=== PATIENT | female | born 1940 | race Caucasian/White ===

== ENCOUNTER 2023-02-06 11:34 | Outpatient (OUT) | payer MEDICARE, SELFPAY ==
[2023-02-06 12:27] LABS: Estimated Average Glucose 103 mg/dL; Glycohemoglobin A1C 5.2 % (4.5-6.2)
[2023-02-06 13:25] LABS: Anion Gap 12.1; BUN Creatinine Ratio 29.1; Calcium 9.2 mg/dL (8.5-10.1); Carbon Dioxide 28.3 mmol/L (21.0-32.0); Chloride 104 mmol/L (98-107); Estimated GFR (African America >60 (>=60); Estimated GFR (Non-African Ame 51 (>=60); Glucose 102 mg/dL (74-106); Potassium 4.4 mmol/L (3.5-5.1); Sodium 140 mmol/L (136-145)
== END 2023-02-06 11:35 | disposition home or self-care (01) ==
PROVIDERS: PCP Internal Medicine; Visit Provider Internal Medicine
DX: R73.02 Impaired glucose tolerance (oral) (principal); N18.31 Chronic kidney disease, stage 3a
CPT/HCPCS: 36415; 80048; 83036

== ENCOUNTER 2023-02-19 13:11 | Outpatient (OUT) | payer MEDICARE, SELFPAY ==
--- NOTE | 2023-02-19 14:31 | PM.CN ---
Consult Note: HPI Data of Consult Patient: new to practice Consult date: 02/19/23 Requesting Physician: eJnnifer Damon MD Primary Care Provider: Max Bruce, Consult Narrative Reason for consult: low back, right leg, left knee pain Narrative: 83yof who presents for evaluation. low back pain, right leg pain, left knee pain that has been ongoing for years and continues to worsen. has had multiple right hip surgeries, as well as lumbar fusion. does not remember specific fusion levels. has been told she needs left knee replacement, but has put this off. previously had left knee injection, with short lived relief. uses various medications, including tramadol, with some benefit. engages in provider directed home exercises >6 weeks, with minimal benefit. denies adverse med side effects. cc:: CC: Jennifer Damon MD Review of Systems ROS Status of ROS 10 or more systems reviewed and unremarkable except as noted in history and below Exam Narrative Exam Narrative: Psych-alert and oriented x 3. Attentive and appropriate, constitutionally normal, displays normal mood and affect per situation. There are no obvious deficits in memory, reasoning, or intellect.? Skin-no obvious rashes, bruising, erythema noted to the patient's area of pain.? Extremities- extremities are warm with minimal edema and palpable pulses. Lumbar-tenderness to palpation noted in the lumbar spine and paraspinal musculature. Pain is elicited with flexion, extension, and lateral rotation of the lumbar spine. Range of motion is diminished with these motions. Facet loading maneuvers are positive. Strength-noted to be unremarkable with the exception of decreased strength rated at 4 out of 5 in right quadriceps femoris, anterior tibialis. Sensory-no notable sensory deficits in the bilateral lower extremities to touch or pinprick in all dermatomal distributions with the exception to decreased sensation to the right L3, 4, 5 dermatomal distribution Knee-examination of the left knee reveals tenderness to palpation over the superior, inferior, lateral, and medial aspect of the knee.? Some swelling is noted without erythema. Pain is elicited with flexion and extension of the knee both actively and passively.? Some grinding is noted with these motions.? There is no notable ligamental laxity or instability. Coordination remains intact.? Gait remains non-antalgic. Assessment and Plan Assessment and Plan (1) Lumbar stenosis with neurogenic claudication: (2) Lumbar spondylosis: (3) Lumbar postlaminectomy syndrome: (4) Unilateral primary osteoarthritis, left knee: Plan 83yof who presents for evaluation. failed conservative measures, as noted above. given worsening symptoms, would like her to update imaging of lumbar spine. will have her undergo lumbar CT myelogram for further info. too claustrophobic to undergo MRI. for her left knee pain, will have her scheduled for left genicular nerve blocks. she is in agreement. medications reviewed, no changes. follow up after block and imaging complete.
== END 2023-02-19 13:12 | disposition home or self-care (01) ==
LOC: PM 13:12
PROVIDERS: PCP Internal Medicine; Visit Provider Anesthesiology
DX: M48.062 Spinal stenosis, lumbar region with neurogenic claudication (principal); M47.816 Spondylosis without myelopathy or radiculopathy, lumbar region; M96.1 Postlaminectomy syndrome, not elsewhere classified; M17.12 Unilateral primary osteoarthritis, left knee
CPT/HCPCS: G0463

== ENCOUNTER 2023-03-16 07:49 | Day surgery (SDC) | payer MEDICARE, SELFPAY ==
[2023-03-16] VITALS (7 sets, daily range): BP systolic 160–177; BP diastolic 84–108; PULSE 65–73; TEMP 36.8; O2SAT 95–99
--- NOTE | 2023-03-16 | FL_ITS ---
The [address] [address] Patient Name: KAM BRENNAN MRN: [id number] date: 1940 Sex: F Assigned Patient Location: [place] Current Patient Location: Accession/Order Number: [id number] Exam Date: 03/16/2023 08:35 Report Date: 03/16/2023 11:21 At the request of: ANDRIUS GIEDRAITIS Procedure: FL Myelogram inj procedure EXAMINATION: FL Myelogram inj procedure HISTORY: COMPARISON: No relevant comparison available. FLUOROSCOPY TIME: Fluoro time measures 1.4 minutes and 5 images were obtained. TECHNIQUE: After obtaining the patient's informed consent, a lumbar myelogram was performed in the usual sterile manner via lumbar puncture. Standard level fluoroscopic mode of operation utilized. 12 cc of Omnipaque 240 FINDINGS: Moderate to severe degenerative changes of the spine. Normal postcontrast opacification of the thecal sac. Contour deformity noted anteriorly at all levels likely related to degenerative disc/osteophyte complexes. FL/FL Myelogram inj procedure IMPRESSION: Technically successful lumbar myelogram Electronically authenticated by: LUISA BURGOS Date: 03/16/2023 11:21
--- NOTE | 2023-03-16 07:57 | CT_ITS ---
[address] [address] Patient Name: KAM BRENNAN MRN: [id number] date: 1940 Sex: F Assigned Patient Location: [place] Current Patient Location: [place] Accession/Order Number: [id number] Exam Date: 03/16/2023 09:15 Report Date: 03/19/2023 04:20 At the request of: CIRA CRUZEDRAAMALIA Procedure: CT lumbar spine w con EXAM: CT lumbar spine w con HISTORY: Post Laminectomy Syndrome COMPARISON: None. TECHNIQUE: CT lumbar myelogram was performed and submitted for interpretation. Automated dose lowering techniques and/or adjustment disorder made according to patient size FINDINGS: There is contrast opacification noted throughout the thecal sac within the lower thoracic and lumbar spine. Laminectomies noted at the L3-L4 level. There is severe degenerative disc disease noted throughout the lumbar spine most significant at the T12-L1 and L1-L2 disc spaces. There is moderate levoconvex curvature of the lumbar spine centered at L1-L2. Trace degenerative retrolisthesis at L1-L2. T12-L1: Disc osteophyte complex visualized effacing the ventral thecal sac without significant central canal narrowing. No significant neuroforaminal narrowing is visualized. L1-L2: Disc bulge with endplate osteophytes with associated ligamentum flavum thickening and facet arthropathy, there is mild central canal narrowing the central canal measuring 8 mm in AP diameter. There is moderate to severe bilateral neuroforaminal narrowing secondary to facet arthrosis and disc osteophyte complex. L2-L3: Disc bulge with endplate osteophytic changes, moderate to severe bilateral facet arthropathy, there is severe central canal narrowing with the central canal measuring approximately 5 mm in AP diameter. There is moderate to severe left and severe right neuroforaminal narrowing. L3-L4: Postsurgical changes visualized secondary to laminectomies, central canal is patent. Mild bilateral neuroforaminal narrowing is visualized. L4-L5: No significant disc herniation visualized, the central canal is patent. There is moderate to severe left neuroforaminal narrowing visualized. L5-S1: No significant disc herniation visualized, the central canal is patent. Facet arthrosis visualized with no significant neuroforaminal narrowing. CT/CT lumbar spine w con IMPRESSION: 1. Severe multilevel degenerative disc disease with severe central canal narrowing at the L2-L3 level secondary to disc bulge with endplate osteophytic changes with associated ligamentum flavum thickening and facet arthropathy with moderate to severe left and severe right neuroforaminal narrowing. 2. Moderate levoconvex curvature of the lumbar spine with trace degenerative retrolisthesis at L1-L2. 3. Additional findings as described above. Electronically authenticated by: SAAD JOHNSON Date: 03/19/2023 04:20
[2023-03-16] MEDS: LIDOCAINE HCL 10 ML, SODIUM BICARBONATE 1 MEQ INJ (09:58)
--- NOTE | 2023-03-16 10:11 | PC.NURSE ---
09 Pt assisted with transfer to cart. Pt c/o pain to her lower back area and unable to lay on back. Pt taken to holding area laying on left side. [address] on cart. Pt transfers with minimal assist and is now able to lay on her back for the scan. 927 Pt taken back to holding area on cart. SR up x 2. Call light in reach. Bed low. Skin pink warm and dry. HOB 30 degrees. Bandaid dry and intact. States her back pain is so much better now than it was immediately after the injection. Ordered food. Pt given water to drink. Family brought to bedside to sit with patient. 939 Pt assisted with sitting up on side of bed to eat. Ate 75 % of meal. 954 Pt laying back down with HOB at 30 degrees. Pt conversing with family. Concerned with her BP being elevated. States that her watch will read her BP at home and its normally much lower that what the machine states currently. Discussed with pt to check it as soon as able to upon getting home and monitor the result. enc her to follow up with Dr Bruce next week if no improvment.
--- NOTE | 2023-03-16 11:05 | SUR.PREOP ---
03/09/23 Discussed with patient procedure, date,and time. Instructed her to be NPO after midnight on 03/16/23.
== END 2023-03-16 10:55 | disposition home or self-care (01) ==
LOC: FL 07:49
PROVIDERS: Radiology Diagnostic Radiology; PCP Internal Medicine; Visit Provider Anesthesiology
DX: M96.1 Postlaminectomy syndrome, not elsewhere classified (principal); M51.36 Other intervertebral disc degeneration, lumbar region; M48.061 Spinal stenosis, lumbar region without neurogenic claudication
CPT/HCPCS: 62284; 72132; 72265; 77003; Q9966

== ENCOUNTER 2023-03-19 12:27 | Outpatient (OUT) | payer MEDICARE, SELFPAY ==
--- NOTE | 2023-03-19 14:43 | PM.CN ---
Consult Note: HPI Data of Consult Patient: known to practice within the last 3 years Consult date: 03/19/23 Requesting Physician: Jennifer Damon MD Primary Care Provider: Max Bruce DO Consult Narrative Reason for consult: Low back pain Narrative: 83yof who presents for assessment. worsening axial low back pain that is worsened with standing and ambulation. recently underwent ct lumbar spine, which is significant for severe stenosis at multiple levels, worst at L1-2 and L2-3, as well as severe facet arthropathy in the lower lumbar spine. continues in a course of provider directed home exercises >3x/week for >6 weeks. uses tramadol as needed. denies adverse med side effects. cc:: CC: Jennifer Damon MD Review of Systems ROS Status of ROS 10 or more systems reviewed and unremarkable except as noted in history and below PFSH PFS Medical History Arthritis ?M19.90 - Unspecified osteoarthritis, unspecified site (ICD-10) Lumbar stenosis ?M48.061 - Spinal stenosis, lumbar region without neurogenic claudication (ICD-10) Post laminectomy syndrome ?M96.1 - Postlaminectomy syndrome, not elsewhere classified (ICD-10) Surgical History H/O total hip arthroplasty ?Z96.649 - Presence of unspecified artificial hip joint (ICD-10) History of hip surgery ?Z98.890 - Other specified postprocedural states (ICD-10) History of lumbar fusion ?Z98.1 - Arthrodesis status (ICD-10) History of removal of retained hardware ?Z98.890 - Other specified postprocedural states (ICD-10) Meds Home Medications and Allergies Home Medications Medication Instructions Recorded Confirmed Type calcium carbonate 600 mg-vitamin 1 tab PO DAILY 02/19/23 03/16/23 History D3 10 mcg (400 unit) tablet (Calcium 600 + D(3)) escitalopram oxalate 20 mg tablet 20 mg PO DAILY 02/19/23 03/16/23 History (Lexapro) magnesium 200 mg tablet 400 mg PO DAILY 02/19/23 03/16/23 History meloxicam 15 mg tablet 15 mg PO DAILY 02/19/23 03/16/23 History omeprazole 40 mg capsule,delayed 40 mg PO DAILY 02/19/23 03/16/23 History release tramadol 50 mg tablet 50 mg PO BID 02/19/23 03/16/23 History fish oil 1 tab PO DAILY 03/09/23 03/16/23 History lutein 1 tab PO DAILY 03/09/23 03/16/23 History multivitamin 1 tab PO DAILY 03/09/23 03/16/23 History potassium 1 tab PO DAILY 03/09/23 03/16/23 History vitamin D 1 tab PO DAILY 03/09/23 03/16/23 History vitamin c 1 tab PO DAILY 03/09/23 03/16/23 History hydrocodone 5 mg-acetaminophen 325 1 tab PO TID PRN pain #90 tabs 03/19/23 Rx mg tablet Allergies Allergy/AdvReac Type Severity Reaction Status Date / Time adhesive tape Allergy Rash Verified 03/16/23 09:38 percocet AdvReac disorientat Uncoded 03/16/23 09:38 ion Exam Narrative Exam Narrative: Psych-alert and oriented x 3. Attentive and appropriate, constitutionally normal, displays normal mood and affect per situation.? There are no obvious deficits in memory, reasoning, or intellect.? Skin-no obvious rashes, bruising, erythema noted to the patient's area of pain. Extremities- extremities are warm with minimal edema and palpable pulses. Lumbar-no significant tenderness to palpation noted in the lumbar spine and paraspinal musculature.? Pain is elicited with extension, and lateral rotation of the lumbar spine. Range of motion is slightly diminished with these motions due to pain. Facet loading maneuvers are positive bilaterally and do appear to be concordant with the patient's normal complaints of pain.? Coordination remains intact.? Gait remains non-antalgic. Assessment and Plan Assessment and Plan (1) Lumbar postlaminectomy syndrome: (2) Lumbar spondylosis: (3) Lumbar stenosis with neurogenic claudication: Plan 83yof who presents for assessment. failed conservative measures, as noted. imaging reviewed, as noted. given symptoms and imaging, prudent to attempt diagnostic bilateral l4-5, l5-s1 medial branch blocks under fluoroscopic guidance with intention of proceed to radiofrequency ablation. she is in agreement. meds reviewed. will have her discontinue tramadol and trial norco 5mg tid prn. will obtain uds today. PDMP reviewed. follow up after procedure.
== END 2023-03-19 12:28 | disposition home or self-care (01) ==
PROVIDERS: PCP Internal Medicine; Visit Provider Anesthesiology
DX: M96.1 Postlaminectomy syndrome, not elsewhere classified (principal); M47.816 Spondylosis without myelopathy or radiculopathy, lumbar region; M48.062 Spinal stenosis, lumbar region with neurogenic claudication
CPT/HCPCS: G0463

== ENCOUNTER 2023-04-16 10:42 | Day surgery (SDC) | payer MEDICARE, SELFPAY ==
[2023-04-16 11:44] VITALS: BP 167/89; PULSE 65; RESP 14; TEMP 36.6; O2SAT 96
[2023-04-16] MEDS: BUPIVACAINE HCL 0.25% PF 25 MG/10 ML VIAL 8 ML INJ (12:09)
[2023-04-16] MEDS: LIDOCAINE HCL 2% PF 100 MG/5 ML VIAL 4 ML INJ (12:09)
[2023-04-16 12:10] VITALS: PULSE 69; RESP 18; O2SAT 92
[2023-04-16 12:14] VITALS: BP 132/88; BP 134/84; PULSE 72; RESP 16; O2SAT 91
--- NOTE | 2023-04-16 12:14 | W.PM.PROCNOT ---
Date of procedure: 04/16/23 Pre-op diagnosis: Lumbar spondylosis Post-op diagnosis: same as pre-op Procedure: Procedure: Bilateral L4-5, L5-S1 medial branch block Medications: Bupivacaine 0.25% 5cc The patient was seen and examined in the preoperative holding area.? An informed consent was obtained and placed on the chart.? The patient was brought to the medical procedure unit and placed in the prone position.? A timeout was completed verifying correct patient, procedure site, positioning, plan, and special equipment.? Using aseptic technique, the needle was placed at left L4. Under direct fluoroscopic visualization a Quincke-tipped spinal needle was advanced to the junction of the superior articulating process with the transverse process at the designated medial branch segment.? Preceded by negative aspiration, the above-mentioned injectate was placed in 1 mL aliquots.? The procedure was repeated at left L5, S1.? The needle was removed and insertion site was covered. The same procedure, at the same levels, was completed on the right side. The patient was taken to the postprocedural recovery area and monitored for an appropriate length of time before found suitable for discharge in the company of a responsible adult. Anesthesia: Local Surgeon: Jennifer Damon Pathology: none sent Condition: stable Disposition: no change
== END 2023-04-16 12:22 | disposition home or self-care (01) ==
PROVIDERS: PCP Internal Medicine; Visit Provider Anesthesiology
DX: M47.816 Spondylosis without myelopathy or radiculopathy, lumbar region (principal)
CPT/HCPCS: 64493; 64494

== ENCOUNTER 2023-04-25 10:40 | Outpatient (OUT) | payer MEDICARE, SELFPAY ==
--- NOTE | 2023-04-25 11:06 | P.CN_ITS ---
Consult Note: HPI Data of Consult Patient: known to practice within the last 3 years Requesting Physician: Tressa Ayala NP Primary Care Provider: Max Bruce DO Consult Narrative Reason for consult: f/u Narrative: Norma Holt a pleasant 83 year old female presents for evaluation and management of chronic loww back pain. Today pain 9/10 deep ache, worse with activity. Patient reports greater than 80% pain relief and functional improvement immediately following and hours after bilateral L4-5 L5-S1 MBB #1, she was able to stand and walk much further and was active for hours after the procedure. cc:: CC: Tressa Ayala NP Review of Systems ROS Status of ROS 10 or more systems reviewed and unremark able except as noted in history and below Musculoskeletal Reports: back pain PFSH PFSH Medical History Arthritis ?M19.90 - Unspecified osteoarthritis, unspecified site (ICD-10) Lumbar stenosis ?M48.061 - Spinal stenosis, lumbar region without neurogenic claudication (ICD-10) Post laminectomy syndrome ?M96.1 - Postlaminectomy syndrome, not elsewhere classified (ICD-10) Surgical History History of removal of retained hardware ?Z98.890 - Other specified postprocedural states (ICD-10) History of hip surgery ?Z98.890 - Other specified postprocedural states (ICD-10) H/O total hip arthroplasty ?Z96.649 - Presence of unspecified artificial hip joint (ICD-10) History of lumbar fusion ?Z98.1 - Arthrodesis status (ICD-10) Meds Home Medications and Allergies Home Medications Medication Instructions Recorded Confirmed Type calcium carbonate 600 mg-vitamin 1 tab PO DAILY 02/19/23 04/16/23 History D3 10 mcg (400 unit) tablet (Calcium 600 + D(3)) escitalopram oxalate 20 mg tablet 20 mg PO DAILY 02/19/23 04/16/23 History (Lexapro) magnesium 200 mg tablet 400 mg PO DAILY 02/19/23 04/16/23 History meloxicam 15 mg tablet 15 mg PO DAILY 02/19/23 04/16/23 History omeprazole 40 mg capsule,delayed 40 mg PO DAILY 02/19/23 04/16/23 History release fish oil 1 tab PO DAILY 03/09/23 04/16/23 History lutein 1 tab PO DAILY 03/09/23 04/16/23 History multivitamin 1 tab PO DAILY 03/09/23 04/16/23 History potassium 1 tab PO DAILY 03/09/23 04/16/23 History vitamin D 1 tab PO DAILY 03/09/23 04/16/23 History vitamin c 1 tab PO DAILY 03/09/23 04/16/23 History hydrocodone 5 mg-acetaminophen 325 1 tab PO TID PRN pain #90 tabs 03/19/23 04/16/23 Rx mg tablet Allergies Allergy/AdvReac Type Severity Reaction Status Date / Time adhesive tape Allergy Rash Verified 04/16/23 11:41 percocet AdvReac disorientat Uncoded 04/16/23 11:41 ion Exam Narrative Exam Narrative: Psych-alert and oriented x 3. Attentive and appropriate, constitutionally normal, displays normal mood and affect per situation.? There are no obvious deficits in memory, reasoning, or intellect.? Skin-no obvious rashes, bruising, erythema noted to the patient's area of pain. Extremities- extremities are warm with minimal edema and palpable pulses. Lumbar-no significant tenderness to palpation noted in the lumbar spine and paraspinal musculature.? Pain is elicited with extension, and lateral rotation of the lumbar spine. Range of motion is slightly diminished with these motions due to pain. Facet loading maneuvers are positive bilaterally and do appear to be concordant with the patient's normal complaints of pain.? Coordination remains intact.? Gait remains non-antalgic. Constitutional Documenting provider has reviewed patient's vital signs: yes Common normals: no apparent distress, oriented x3, healthy appearing, alert and well nourished General appearance: cooperative [facility] Common normals: normocephalic, hearing grossly normal bilaterally and moist oral mucous membranes Head and scalp: normocephalic Eye Common normals: PERRL Pupil: PERRL Neck & C-Spine Common normals: full ROM General: normal visual inspection Chest Common normals: inspection of chest normal Respiratory Common normals: normal respiratory effort, no retractions and no use of accessory muscles Neuro Common normals: oriented x3, CN's II-XII intact bilaterally, moves all extremities, no focal motor deficits, no sensory deficits noted and deep tendon reflexes 2+ bilaterally Sensorium/orientation: alert Motor exam: strength 5/5 throughout and no movement abnormalities noted Psych Common normals: mental status grossly normal, thought process normal, cooperative, affect normal, speech normal and activity/motor behavior normal Speech: normal speech Thought process: normal thought process Results Additional Findings Additional findings: I have checked an [place] report on this patient today and there are no aberrancies noted in the prescribing history.?? A drug screen was completed and reviewed within the last year, and if there has not been a drug screen completed we ordered one today to monitor higher risk, state monitored pain medication use. As part of providing excellent, safe, comprehensive care, the following was completed at our patient's visit: 1. A medication reconciliation and review to ensure accurate knowledge of current/active medications, including asking our patients to inform us about any [id number] medications or herbal remedies/nutritional supplements/altern ative remedies. 2. A review to specifically ensure our patients have had annual screening for: elevated body mass index (BMI), tobacco use, screening for depression, and screening for unhealthy alcohol use. When screening is concerning, patients are provided with education and the specific recommendation to discuss the concerning health issue and treatment options with their primary care provider. Assessment and Plan Assessment and Plan (1) Lumbar spondylosis: Assessment and Plan: The patient has had over 3 months of moderate to severe low back pain with functional impairment and inadequate response to conservative care including NSAIDS (unless there are contraindication such as concurrent blood thinners), multiple oral or topical pain medications, and home exercise program/physical therapy.? Patient has completed >6 weeks of guided home exercise program and/or formal physical therapy program without relief of their symptoms.? I have reviewed the imaging of the lumbar spine and no red flags were identified.? The imaging reveals radiographic findings consistent with lx spondylosis We discussed the risks and benefits of the procedure with the patient, and we are NOT planning on using sedation as outlined in the guidelines from Medicare unless there is a documented reason that sedation would be strongly recommended.?? ?The procedure will be completed with fluoroscopic guidance.? (2) Restless leg syndrome: (3) Lumbar stenosis with neurogenic claudication: (4) Lumbar postlaminectomy syndrome: (5) Chronic prescription opiate use: Plan proceed with bilateral L4-5 L5-S1 mbb # 2 under fluoroscopy working towards thermal RFA start gabapentin 50mg HS for RLS, NC symptoms continue norco 5-325mg TID PRN for moderate to severe pain narcan today continue lexapro and mobic f/u 1 week after injection
== END 2023-04-25 10:41 | disposition home or self-care (01) ==
PROVIDERS: PCP Internal Medicine; Visit Provider Nurse Practitioner
DX: M47.816 Spondylosis without myelopathy or radiculopathy, lumbar region (principal); G25.81 Restless legs syndrome; M48.062 Spinal stenosis, lumbar region with neurogenic claudication; M96.1 Postlaminectomy syndrome, not elsewhere classified; Z79.891 Long term (current) use of opiate analgesic
CPT/HCPCS: G0463

== ENCOUNTER 2023-05-21 09:59 | Day surgery (SDC) | payer MEDICARE, SELFPAY ==
[2023-05-21 10:14] VITALS: BP 139/84; PULSE 67; RESP 18; TEMP 36.8; O2SAT 98
--- OUTSIDE RECORDS SUMMARY | 2023-05-21 10:20 | XMS_ITS | CCD ---
Author Name Unknown Address [address] [facility] [address] [place] [address] Organization [facility] Care Team Providers Care Strategic Account Director Name Role Phone Rosalio Roblero II Unavailable Max Bruce DO Primary Care Provider MAX BRUCE Primary Care Unavailable PEDRO GOFF Referring Unavailable MAX BRUCE Primary Care Unavailable PEDRO GOFF Attending Unavailable OSBALDO SILVERIO, ROSALIO Puente Referring UnavailMAX Burch Primary Care Unavailable Osbaldo SILVERIO, Rosalio Puente Attending Unavaildebbi e Max Bruce Primary Care Unavailable [place] II, Rosalio Puente Admitting Unavailabl e Osbaldo II, Rosalio Puente Admitting Unavailabl e [place] NUSRAT, Rosalio Puente Attending Unavailabl e Max Bruce Primary Care Unavailable Osbaldo II, Rosalio Puente Admitting Unavailabl e [place] II, Rosalio Puente Attending Unavailabl e Max Bruce Primary Care Unavailable [place] II, Rosalio Puente Attending Unavailabl e Max Bruce Primary Care Unavailable Osbaldo II, Rosalio Puente Admitting Unavailabl e [place] II, Rosalio Puente Admitting Unavailabl e Osbaldo II, Rosalio Puente Attending Unavailabl e Max Bruce Primary Care Unavailable [place] II, Rosalio Puente Admitting Unavailabl e [place] II, Rosalio Puente Attending Unavailabl e Max Bruce Primary Care Unavailable [place] II, Rosalio Puente Attending Unavailabl e Max Bruce Primary Care Unavailable Osbaldo SILVERIO, Rosalio Puente Admitting Unavailabl e OSBALDOROSALIO HERNANDEZ Consulting Unavailable ROSALIO ROBLERO Attending Unavailable ROSALIO ROBLERO Admitting Unavailable TEO, DR BERRY Attending Unavailable TEO, DR BERRY Admitting Unavailable TEO, DR BERRY Consulting Unavailable Max Bruce Unavailable Marisol ARGUETA, Jennifer Ojeda Attending Unavailable Marisol ARGUETA, Jennifer Ojeda Attending Unavailable Gievgeny ARGUETA, Jennifer Ojeda Attending Unavailable Allergies Allergy Classification Reported Allergen(s) Allergy Type Date of Onset Reaction(s) Facility (18 sources) Acetaminophen / oxyCODONE Drug Allergy Unknown [facility] Other (16 sources) Adhesive Tape; Translations: [adhesive tape] Propensity to adverse reactions 08-16-19 Unknown [facility] Rep[facility] (1 source) oxyCODONE Drug Allergy 08-16-19 [facility] Repository (4 sources) Adhesive Tape 1 x5yd *MEDICAL DEVICES AND SUPPLIES Propensity to adverse reactions Comment:Adhesi ve Tape [employer] [employer] Other Medications Current Medications Medication Drug Class(es) Dates Sig (Normalized) Sig (Original) acetaminophen 325 mg / HYDROcodone bitartrate 5 mg oral tablet (1 source) Opioid Agonist take 1 tablet by ritu th every eight hours HYDROcodone-Acetami nophen 5-325 MG 1 tablet as needed Oral every 8 hours Active ascorbic acid 1000 mg oral tablet (8 sources) Vitamin C take 1 tablet by ritu th every twenty-four hours calcium carbonate 1500 mg oral tablet (18 sources) take 1 tablet by ritu th every twelve hours take 1 tablet by mouth every twe lve hours cholecalciferol 0.05 mg oral capsule (18 sources) Vitamin D take 1 capsule by mo uth every twenty-four hours Fish Oils (18 sources) take 1 capsule by mouth once ro ly take 1 capsule by mouth once ro ly Fish Oil 1200 MG 1 capsule Orally Once a day Active hydrocortisone 10 mg/ml / neomycin 3.5 mg/ml / polymyxin b [id number] unt/ml otic suspension (1 source) Aminoglycoside Antibacterial, Polymyxin-class Antibacterial, Corticosteroid Start: 05-09-2023 Haathvlt-Dukxfvzvd-UI 3.5-24225-2 4 drops into affected ear Otic daily as needed for itching or discomfort for 30 days Apr, Active lutein 40 mg oral capsule (19 sources) take 1 capsule by mouth every twenty-fou r hours LUTEIN ORAL Take by mouth. 0 Active 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: Take by mouth. Magnesium (18 sources) take 1 tablet by mouth once laly y take 1 tablet by mouth once laly y Magnesium 500 MG 1 tablet with a meal Orally Once a day Active Multivitamin preparation (18 sources) Multivitamin Act bruce traMADol hydrochloride 50 mg oral tablet (18 sources) Opioid Agonist Start: 12-18-2022 take 2 tablets by mouth twice daily traMADol HCl 50 MG TAKE 2 TABLETS BY MOUTH TWICE A DAY Dec, Active Start: 08-01-2022 take 2 tablets by mo [facility] twice daily traMADol HCl 50 MG TAKE 2 TABLETS BY MOUTH TWICE A DAY Jul, Active Start: 05-27-2020 take 2 tablets by mo ut twice daily traMADol (ULTRAM) 50 mg tablet Take 100 mg by mouth twice daily. 0 05/27/2020 Active take 1 tablet by ritu th every twenty-four hours traMADol HCl 50 MG 1 tablet as needed Orally Once a day Active 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: Take 100 mg by mouth twice daily. Vitamin C 1000 MG (10 sources) take 1 tablet by ritu th once daily take 1 tablet by mouth once laly y Vitamin C 1000 MG 1 tablet Orally Once a day Active Completed/Discontinued Medications Medication Drug Class(es) Dates Sig (Normalized) Sig (Original) amoxicillin 500 mg oral capsule (7 sources) Penicillin-class Antibacterial Start: 08-10-2022 Amoxicillin 500 MG 4 capsules Orally 30-60 minutes prior to dentist appt. for 1 days Feb, Not-Taking/PRN escitalopram 20 mg oral tablet (19 sources) Serotonin Reuptake Inhibitor Start: 03-26-2020 take 1 tablet by mouth once daily escitalopram oxalate (LEXAPRO) 20 mg tablet Take 20 mg by mouth once daily. 0 03/26/2020 Active 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: Take 20 mg by mouth once daily. ketorolac tromethamine 5 mg/ml ophthalmic solution (1 source) Nonsteroidal Anti-inflammatory Drug, Cyclooxygenase Inhibitor Start: 08-18-2020 keTORolac (ACULAR) 0.5 % ophthalmic solution USE DIRECTED BY PHYSICIAN, IN OPERATIVE EYE, BEGINNING ONE DAY AFTER SURGERY 1 Bottle 0 08/18/2020 Active 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: USE DIRECTED BY Andres ALLEN, IN OPERATIVE EYE, BEGINNING ONE DAY AFTER SURGERY meloxicam 15 mg oral tablet (19 sources) Nonsteroidal Anti-inflammatory Drug Start: 03-29-2020 take 1 tablet by mouth once daily meloxicam (MOBIC) 15 mg tablet Take 15 mg by mouth once daily. 0 03/29/2020 Active 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: Take 15 mg by mouth once daily. omeprazole 40 mg delayed release oral capsule (19 sources) Proton Pump Inhibitor Start: 03-25-2020 take 1 capsule by mouth once daily omeprazole (PRILOSEC) 40 mg capsule Take 40 mg by mouth once daily. 0 03/25/2020 Active 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: Take 40 mg by mouth once daily. prednisoLONE acetate 10 mg/ml ophthalmic suspension (1 source) Corticosteroid Start: 08-18-2020 prednisoLONE acetate (PRED FORTE, ECONOPRED PLUS) 1 % ophthalmic suspension USE DIRECTED BY PHYSICIAN, IN OPERATIVE EYE, BEGINNING ONE DAY AFTER SURGERY 1 Bottle 0 08/18/2020 Active 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: USE DIRECTED BY Andres ALLEN, IN OPERATIVE EYE, BEGINNING ONE DAY AFTER SURGERY Problems Active Problems Problem Classification Problem Date Documented Da te Episodic/Chronic Anxiety disorders (10 sources) Generalized anxiety disorder; Translations: [Generalized anxiety disorder] Resolved: 05-19-2020 Chronic Chronic kidney disease (8 sources) Chronic kidney disease stage 3; Translations: [Chronic kidney disease, stage III (moderate)] 08-18-2020 Chronic Diabetes mellitus without complication (10 sources) Impaired glucose tolerance (oral); Translations: [Impaired glucose tolerance] Onset: 08-06-2022 Episodic Disorders of lipid metabolism (9 sources) Familial hypercholesterolemia ; Translations: [Familial hypercholesterolemia ] Onset: 08-06-2022 Chronic Esophageal disorders (3 sources) Gastro-esophageal reflux disease with esophagitis; Translations: [Gastroesophageal reflux disease with esophagitis without hemorrhage] Chronic Genitourinary symptoms and ill-defined conditions (7 sources) Mixed urinary incontinence; Translations: [Mixed incontinence] Chronic Immunizations and screening for infectious disease (1 source) Vaccination given; Translations: [Encounter for immunization] Episodic Malaise and fatigue (5 sources) Other fatigue; Translations: [OTHER FATIGUE] Onset: 08-03-2022 Episodic Menopausal disorders (7 sources) Menopausal symptom; Translations: [Menopausal and female climacteric states] Chronic Nutritional deficiencies (1 source) Vitamin D deficiency; Translations: [Vitamin D deficiency, unspecified] 08-18-2020 Chronic Osteoarthritis (20 sources) Osteoarthritis of knee; Translations: [Bilateral primary osteoarthritis of knee] Onset: 08-03-2021 Resolved: 08-03-2021 Chronic Other acquired deformities (1 source) Spondylolysis; Translations: [Spondylolysis, site unspecified] 08-18-2020 Episodic Other aftercare (1 source) Other watermaster (current) drug therapy Episodic Other bone disease and musculoskeletal deformities (1 source) Disorder of bone; Translations: [Other specified disorders of bone density and structure, other site] Episodic Other connective tissue disease (17 sources) History of total replacement of right hip joint; Translations: [Presence of right artificial hip joint] Chronic Other connective tissue disease (10 sources) Presence of right artificial hip joint; Translations: [PRESENCE RIGHT ARTIFICIAL HIP JOINT] Onset: 08-10-2021 Resolved: 11-18-2021 Chronic Other connective tissue disease (1 source) Presence of unspecified artificial hip joint; Translations: [Total hip replacement prosthesis] Chronic Other ear and sense organ disorders (1 source) Bilateral auditory canal chronic non-infective otitis externa; Translations: [Other otitis externa, bilateral] Chronic Other ear and sense organ disorders (1 source) Other otitis externa, bilateral Chronic Other ear and sense organ disorders (1 source) Impacted cerumen; Translations: [Impacted cerumen, left ear] Episodic Other injuries and conditions due to external causes (1 source) History of fall; Translations: [History of falling] Episodic Other nervous system disorders (7 sources) Chronic pain; Translations: [Other chronic pain] 08-18-2020 Chronic Other nervous system disorders (7 sources) Carpal tunnel syndrome; Translations: [Carpal tunnel syndrome, bilateral upper limbs] Chronic Other nervous system disorders (1 source) Other chronic pain Chronic Other nutritional; endocrine; and metabolic disorders (1 source) Obese class I; Translations: [Obesity, unspecified] Onset: 08-18-2020 08-18-2020 Chronic Other nutritional; endocrine; and metabolic disorders (1 source) Obesity; Translations: [Obesity, unspecified] Chronic Residual codes; unclassified (1 source) Other specified postprocedural states; Translations: [Status post hip surgery] Onset: 04-14-2022 Episodic Residual codes; unclassified (1 source) Pain, unspecified; Translations: [Pain] Onset: 04-14-2022 Episodic Residual codes; unclassified (1 source) Encounter for other specified prophylactic measures Episodic Residual codes; unclassified (1 source) Procedure not done; Translations: [Procedure and treatment not carried out because of patient's decision for unspecified reasons] Episodic Residual codes; unclassified (1 source) Family history of diabetes mellitus; Translations: [Family history of diabetes mellitus] Episodic Spondylosis; intervertebral disc disorders; other back problems (16 sources) Lumbar spondylosis; Translations: [Spondylosis without myelopathy or radiculopathy, lumbar region] Chronic Unclassified (1 source) M25.551 - Pain in right hip; Translations: [M25.551 - Pain in right hip] Onset: 08-15-2021 Unclassified (1 source) Z01.812 - Encounter for preprocedural laboratory examination; Translations: [Z01.812 - Encounter for preprocedural laboratory examination] Onset: 08-12-2021 Unclassified (1 source) M17.0 - Bilateral primary osteoarthritis of knee; Translations: [M17.0 - Bilateral primary osteoarthritis of knee] Onset: 08-03-2021 Past or Other Problems Problem Classification Problem Date Documented Da te Episodic/Chronic Chronic kidney disease (1 source) Chronic kidney disease Esophageal disorders (6 sources) Esophageal disorders; Translations: [Gastroesophageal reflux disease with esophagitis without hemorrhage] Other non-epithelial cancer of skin (1 source) Basal cell carcinoma of truncal skin; Translations: [Basal cell carcinoma of skin of other part of trunk] Onset: 04-25-2022 Episodic Other non-traumatic joint disorders (3 sources) Pain in right hip Onset: 08-10-2021 Resolved: 11-18-2021 Episodic Unclassified (1 source) SBE (subacute bacterial endocarditis) prophylaxis candidate Z29.89 Results Test Name Value Interpretation Reference Range Facility A1C with Estimated Average G luon 08-03-2022 A1C with Estimated Average Glu [facility] Other Basic Metabolic Panelon 07-13 Calcium [Mass/Vol] 9.7767373 mg/dL 8.5-10 .1 mg/dL [facility] Other CO2 [Moles/Vol] 27.12933391 mmol/L 21.0-3 2.0 mmol/L [facility] Other Creatinine [Mass/Vol] 1.16387994 mg/dL 0.55-1.02 mg/dL [facility] Other Potassium [Moles/Vol] 4.17234655 mmol/L 3.5-5.1 mmol/L [facility] Other Urea nitrogen [Mass/Vol] 28.2223853 mg/dL Critically high 7.0-18.0 mg/dL [facility] Other Basic Metabolic Panel see note [facility] Other Basic Metabolic Panel 140 mmol/L 136-145 mmol/L [facility] Other Basic Metabolic Panel 95 mg/dL 74-106 mg/dL [facility] Other Basic Metabolic Panel 52 mL/min/1.73m2 Critically low >=60 mL/min/1.73m2 [facility] Other Basic Metabolic Panel >60 mL/min/1.73m2 >=60 mL/min/1.73m2 [facility] Other CBC AUTO DIFFon 08-03-2022 BASO # 0.0 103/ul Normal 0.0-0.1 [facility] 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: Performed By: #### C BC #### [facility] [address] [place] [address] Dr. Sandra Radford Basophils/100 WBC (Bld) 0.5 % Normal 0.2-2.0 [facility] 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: Performed By: #### C BC #### [facility] [address] [address] [address] Sandra Radford EO # 0.3 103/ul Normal 0.0-0.7 [facility] 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: Performed By: #### C BC #### [facility] [address] [address] [address] Sandra Radford Eosinophils/100 WBC (Bld) 4.5 % Normal 0.9-7.0 [facility] 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: Performed By: #### C BC #### [facility] [address] [place] [address] Dr. Sandra Radford Erythrocyte distribution width (RBC) [Ratio] 13.8 % Normal 11.0-15.0 [facility] 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: Performed By: #### C BC #### [facility] [address] [place] [address] Dr. Sandra Radford Hematocrit (Bld) [Volume fraction] 39.7 % Normal 36.0-48.0 [facility] 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: Performed By: #### C BC #### [facility] [address] [place] [address] Dr. Sandra Radford Hemoglobin (Bld) [Mass/Vol] 12.8 g/dL Normal 12.0-16.0 [facility] 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: Performed By: #### C BC #### [facility] [address] [place] [address] Dr. Sandra Radford IG # 0.01 10e3/ul Normal 0.00-0.03 [facility] 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: Performed By: #### C BC #### [facility] [address] [place] [address] Dr. Sandra Radford IG % 0.2 % Normal 0.0-0.5 [facility] 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: Performed By: #### C BC #### [facility] [address] [place] [address] Dr. Sandra Radford LYMPH # 1.6 103/ul Normal 1.2-3.8 [facility] 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: Performed By: #### C BC #### [facility] [address] [place] [address] Dr. Sandra Radford Lymphocytes/100 WBC (Bld) 26.3 % Normal 20.5-60.0 [facility] 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: Performed By: #### C BC #### [facility] [address] [place] [address] Dr. Sandra Radford MANUAL DIFF REQ NO Normal [facility] 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: Performed By: #### C BC #### [facility] [address] [place] [address] Dr. Sandra Radford MCH (RBC) [Entitic mass] 29.9 pg Normal 26.7-34.0 [facility] 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: Performed By: #### C BC #### [facility] [address] [address] [address] Sandra Radford MCHC (RBC) [Mass/Vol] 32.2 g/dL Normal 29.9-35.2 [facility] 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: Performed By: #### C BC #### [facility] [address] [place] [address] Dr. Sandra Radford MCV (RBC) [Entitic vol] 92.8 fL Normal 81.0-99.0 [facility] 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: Performed By: #### C BC #### [facility] [address] [place] [address] Dr. Sandra Radford MONO # 0.7 103/ul Normal 0.3-0.8 [facility] 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: Performed By: #### C BC #### [facility] [address] [place] [address] Dr. Sandra Radford Monocytes/100 WBC (Bld) 10.6 % Normal 1.7-12.0 [facility] 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: Performed By: #### C BC #### [facility] [address] [place] [address] Dr. Sandra Radford NEUT # 3.6 103/ul Normal 1.4-6.5 [facility] 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: Performed By: #### C BC #### [facility] [address] [place] [address] Dr. Sandra Radford Neutrophils/100 WBC (Bld) 57.9 % Normal 43.0-75.0 [facility] 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: Performed By: #### C BC #### [facility] [address] [place] [address] Dr. Sandra Radford Platelet mean volume (Bld) [Entitic vol] 9.7 fL Normal 9.5-13.5 [facility] 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: Performed By: #### C BC #### [facility] [address] [place] [address] Dr. Sandra Radford PLT 240 103/ul Normal 150-450 [facility] 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: Performed By: #### C BC #### [facility] [address] [address] [address] Sandra Radford RBC 4.28 106/ul Normal 4.20-5.40 [facility] 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: Performed By: #### C BC #### [facility] [address] [place] [address] Dr. Sandra Radford WBC 6.2 103/ul Normal 4.0-11.0 [facility] 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: Performed By: #### C BC #### [facility] [address] [address] [address] Sandra Radford Complete Blood Count and Dif esther 08-03-2022 Anisocytosis Ql (Bld) [facility] Other Basophilic stippling LM Ql (d) [facility] [employer] Other RBC morphology finding Nom (d) [facility] [employer] Other GLYCOHEMOGLOBIN A1Con 2022 ADA RECOMMENDATION SEE BELOW Normal [facility] 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: Result Comment: ADA RECOMMENDED LIMIT 4.0 - 6.0 ADA THERAPEUTIC TARGET < 7.0 ACTION SUGGESTED > 7.0 Performed By: #### A 1C #### [facility] [address] [place] [address] Dr. Sandra Radford Glucose [Mass/Vol] 105 mg/dL Normal [facility] 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: Performed By: #### A 1C #### [facility] [address] [place] [address] Dr. Sandra Radford HbA1c (Bld) [Mass fraction] 5.3 % Normal 4.5-6.2 [facility] 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: Performed By: #### A 1C #### [facility] [address] [place] [address] Dr. Sandra Radford LIPID PROFILEon 08-03-2022 CHOL-HDL RATIO NORM SEE BELOW Normal [facility] 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: Result Comment: 3.3 - 4.4 LOW RISK 4.4 - 7.1 AVERAGE RISK 7.1 - 11.0 MODERATE RISK >11.0 HIGH RISK Performed By: #### T SH, LIPID, BMP #### [facility] [address] [address] [address] Sandra Radford Cholesterol [Mass/Vol] 260 mg/dL Critically high <=200 mg/dL [facility] 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: Performed By: #### T SH, LIPID, BMP #### [facility] [address] [address] [address] Sandra Radford Cholesterol in HDL [Mass/Vol] 58 mg/dL 40-60 mg/dL [facility] 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: Performed By: #### T SH, LIPID, BMP #### [facility] [address] [address] [address] Sandra Radford Cholesterol in LDL [Mass/Vol] 165.8 mg/dL Normal [facility] 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: Performed By: #### T SH, LIPID, BMP #### [facility] [address] [place] [address] Dr. Sandra Radford Cholesterol.total/C holesterol in HDL [Mass ratio] 4.5 {ratio} [facility] 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: Performed By: #### T SH, LIPID, BMP #### [facility] [address] [address] [address] Sandra Radford HDL NORMAL > or = 60 mg/dl - LO W CARDIOVASCULAR RISK <40 mg/dl - HIGH CARDIOVASCULAR RISK Normal [facility] 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: Performed By: #### T SH, LIPID, BMP #### [facility] [address] [address] [address] Sandra Radford LDL CALC NORMAL SEE BELOW Normal [facility] 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: Result Comment: <100 mg/dl OPTIMAL 100 - 129 mg/dl NEAR OR ABOVE OPTIMAL 130 - 159 mg/dl BORDERLINE HIGH 160 - 189 mg/dl HIGH >190 mg/dl VERY HIGH Performed By: #### T SH, LIPID, BMP #### [facility] [address] [address] [address] Sandra Radford Triglyceride [Mass/Vol] 181 mg/dL Critically high <=150 mg/dL [facility] 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: Performed By: #### T SH, LIPID, BMP #### [facility] [address] [address] [address] Sandra Radford VLDL CALC 36.2 mg/dL Normal [facility] 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: Performed By: #### T CHON LIPID, BMP #### [facility] [address] [address] [address] Sandra Radford Lipid Panelon 08-03-2022 Lipid Panel > or = 60 mg/dl - LO W CARDIOVASCULAR RISK <40 mg/dl - HIGH CARDIOVASCULAR RISK [facility] [employer] Other Lipid Panel SEE BELOW [facility] Other Lipid Panel 165.8 mg/dL [employer] [facility] [employer] Other Lipid Panel 36.2 mg/dL [employer] [employer] Other PROF CHEM 8 (BAS METB)on Anion gap [Moles/Vol] 12.2 mmol/L [facility] 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: Performed By: #### T CHON LIPID, BMP #### [facility] [address] [place] [address] Dr. Sandra Radford Calcium [Mass/Vol] 9.6 mg/dL Normal 8.5-10.1 [facility] 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: Performed By: #### T CHON LIPID, BMP #### [facility] [address] [place] [address] Dr. Sandra Radford Chloride [Moles/Vol] 105 mmol/L 98-107 mmol/L [facility] 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: Performed By: #### T CHON LIPID, BMP #### [facility] [address] [place] [address] Dr. Sandra Radford CO2 [Moles/Vol] 27.3 mmol/L Normal 21.0-32.0 [facility] 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: Performed By: #### T CHON LIPID, BMP #### [facility] [address] [place] [address] Dr. Sandra Radford Creatinine [Mass/Vol] 1.02 mg/dL Normal 0.55-1.02 [facility] 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: Performed By: #### T CHON LIPID, BMP #### [facility] [address] [address] [address] Sandra Radford EGFR-AF LATVIAN >60 Normal >=60 [facility] 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: Performed By: #### T SH, LIPID, BMP #### [facility] [address] [address] [address] Sandra Rdaford EGFR-NON AF LATVIAN 52 mL/min/1.73m2 Critically low >=60 [facility] 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: Performed By: #### T SH, LIPID, BMP #### [facility] [address] [address] [address] Sandra Radford Glucose [Mass/Vol] 95 mg/dL Normal 74-106 [facility] 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: Performed By: #### T SH, LIPID, BMP #### [facility] [address] [place] [address] Dr. Sandra Radford Potassium [Moles/Vol] 4.5 mmol/L Normal 3.5-5.1 [facility] 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: Performed By: #### T CHON, LIPID, BMP #### [facility] [address] [address] [address] Sandra Radford Sodium [Moles/Vol] 140 mmol/L Normal 136-145 [facility] 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: Performed By: #### T SH, LIPID, BMP #### [facility] [address] [address] [address] Sandra Radford Urea nitrogen [Mass/Vol] 28.0 mg/dL Critically high 7.0-18.0 [facility] 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: Performed By: #### T SH, LIPID, BMP #### [facility] [address] [place] [address] Dr. Sandra Radford Urea nitrogen/Creatinine [Mass ratio] 27.5 mg/mg [facility] 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: Performed By: #### T SH, LIPID, BMP #### [facility] [address] [place] [address] Dr. Sandra Radford TSHon 08-03-2022 TSH 1.952 uIU/mL Normal 0.358-3.740 [facility] 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: Performed By: #### T SH, LIPID, BMP #### [facility] [address] [address] [address] Sandra Karimi 04-14-2022 CNOV Office Visit (ORTHCO ) MIKANORMA ([id number]) 1940 F Date Time Provider Department 04/14/22 9:00 AM PEDRO GOFF During your visit today, we recorded the following information about you: Pedro Goff DO 04/14/2022 10:56 AM Signed CONSULT ORTHOPAEDIC: HIP PRIMARY CARE PHYSICIAN: Max Bruce DO REFERRING PROVIDER: Rosalio Roblero [address] [place] [address] HPI: 82-year-old female presents today with right hip pain that has been chronic in nature over the last year and a half but acutely worsened over the last 6 months. 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 She overall uses a walker for ambulation and has significant leg length difference and requires a shoe lift. She states over the last 6 months that her right hip and leg pain is worsening especially after working with physical therapy and was seen in [facility] and recommended nonweightbearing for 6 months with concerns for loosening. She denies any numbness and tingling in the right lower extremity and localizes the pain in the deep groin lateral aspect of the hip and anterior aspect of the femur. She denies any trauma and denies any feelings of the hip giving way. She also denies any recent fevers chills or illnesses. She is not on any chronic suppressive antibiotics and takes no blood thinners. Physical exam: Patient has approximately 2-1/2 to 3 inch leg length discrepancy with right leg being shorter than left. Incision is well-healed with no signs of erythema, drainage or palpable fluctuance. TTP notable over the lateral aspect of the hip, anterior groin and anterior aspect of the femur. ROM: Can flex to approximately 100 to 110 degrees and 0 degrees of extension with approximately 20 degrees of external rotation and 10 degrees of internal rotation. She has pain on the anterior groin and lateral aspect of the hip with external rotation. She has a positive Stinchfield and logroll. Strength is a 3/5 in hip flexion, 5/5 in knee flexion/extension, PF, DF, EHL, FHL. Sensation grossly intact L1-S1. She has a severely antalgic gait to the right lower extremity and unable to perform a Trendelenburg test secondary to weakness. Imaging: X-ray of the right hip and femur demonstrates prior right total hip arthroplasty with significant osteolysis and signs of femoral component lucency and loosening Plan: Long discussion was had with the patient about the nature of her pain. Patient presents with likely femoral component loosening. Long discussion was had with the patient about the previous instability within the hip as evidenced with the constrained liner. Patient states that she had approximately 4 dislocations previously requiring the constrained liner. We had a discussion of the role of the abductor and her present positioning of her greater trochanter. 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 Possibility of making the patient better is definitely there but there is the possibility of significantly worsening the patient's present situation. We will obtain inflammatory markers at this time. Continued nonoperative management will be had at this time, patient does not feel that she wants to undergo a significant operation with the risk associated. Encouragement to continue using her walker at all times. Plan for patient to follow-up on an as-needed basis. 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 The patient has been ordered: ESR CRP CONSULTS: Patient does not require consults for optimization at this time. ACTIVE PROBLEM LIST Obesity, Class I, Bmi 30-34.9 Chronic Pain Spondylolysis Vitamin D Deficiency Chronic Kidney Disease, Stage Iii (Moderate) ([facility]) Chronic Kidney Disease, Stage 3 Unspecified ([facility]) History of Total Right Hip Replacement Gastro-Esophageal Reflux Disease With Esophagitis, Without Bleeding SUBJECTIVE CHIEF COMPLAINT: Hip Pain HPI: Norma Brennan is a 82 year old patient here for evaluation and management of Right hip pain.Norma Brennan has had progressive problems with the hip(s) most of the day over the past 6 month(s) interfering with activities which include walking 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 The problem began limiting activities 1-6 months ago. Currently the pain in the joint is rated at 7 out of 10 with minimal activity. (more content not included)... Normal [facility] CRP SerPl-mCncon 04-14-2022 CRP [Mass/Vol] mg/L Normal <0.9 [facility] 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: Order Comment: Momo jain Type: BLOOD SPECIMEN Ordering Facility: [facility] Address: [address] [place] [address] Performed By: #### 1 [id number] #### [facility] CLIA [id number] [address] [place] [address] [place] ESR Westergren method (Bld) [Velocity]on 04-14-2022 ESR (Bld) [Velocity] 6 mm/h Normal 0-20 [facility] 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: Order Comment: Momo jain Type: BLOOD SPECIMEN Ordering Facility: [facility] Address: [address] [place] [address] Performed By: #### 4 [id number] #### [facility] CLIA [id number] [address] [place] [address] [place] XR HIP 3V PELV+ AP/LAT RTon 04-14-2022 XR HIP 3V PELV+ AP/LAT RT * * *Final Report* * * DATE OF EXAM: Apr 14 2022 8:36AM CRX [id number] - XR HIP 3V PELV+ AP/LAT RT / PROCEDURE REASON: Pain * * * * Physician Interpretation * * * * HISTORY (as given from clinical provider): Pain . Additional history provided by the performing technologist (if any): history of four hip revisions, chronic right hip pain TECHNIQUE: XR HIP 3V PELV+ AP/LAT RT COMPARISON: 10/20/2021 RESULT: Right-sided total hip arthroplasty with retention ring, supplemental acetabular screw and long cemented femoral stem. There is no change from the prior study. Again seen is a floating greater trochanter and bone deficiency of the intertrochanteric and lesser trochanter region. Thin cortex along the medial aspect of the proximal femoral shaft and anterior cortex of the proximal femoral shaft, both unchanged. Minimal axial narrowing of the left hip. Osteopenia. Incidental note of levoscoliosis of Emergency Department in the lumbar spine. No other significant abnormality. --- IMPRESSION: NO SIGNIFICANT CHANGE Predatory Animal Exterminator: ALIE Transcribe Date/Time: Apr 14 2022 8:42A Dictated by : CECELIA ALVAREZ MD This examination was interpreted and the report reviewed and electronically signed by: CECELIA ALVAREZ MD on Apr 14 2022 8:49AM EST [id number] Normal [facility] CNPNon 01-25-2022 CNPN Telephone (ORQ) NORMA BRENNAN ([id number]) 1940 F Date Time Provider Department 01/25/22 YECENIA MURPHY ORQ During your visit today, we recorded the following information about you: Shahana Mancini Pss 01/25/2022 11:22 AM Signed Please contact Pilar larson/ Dr. Rosalio Flores ([facility]) Looking to discuss patient diagnosis, to see if patient can be seen by Dr Cho Second Opinion ( component loosening and Aseptic) Please dial Pilar [phone] Carrol Matthew RN 01/25/2022 12:22 PM Signed Spoke to Pilar, explained Dr Cho only does revisions on his surgical patients or patients with a pathologic or metastatic disease. Allergies As of Date: 01/25/2022 (No Known Allergies) Date Reviewed: 12/16/2020 Reviewed by: Bettina Bass V, MD - Fully Assessed Reason for Visit: Ac/Dc Rewinder - Other [3602] Cmt: 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 for patient's ortho. Prescriptions as of 01/25/2022 - prednisoLONE acetate (PRED FORTE, ECONOPRED PLUS) 1 % ophthalmic suspension USE DIRECTED BY PHYSICIAN, IN OPERATIVE EYE, BEGINNING ONE DAY AFTER SURGERY - keTORolac (ACULAR) 0.5 % ophthalmic solution USE DIRECTED BY PHYSICIAN, IN OPERATIVE EYE, BEGINNING ONE DAY AFTER SURGERY - LUTEIN ORAL Take by mouth. - escitalopram oxalate (LEXAPRO) 20 mg tablet Take 20 mg by mouth once daily. - meloxicam (MOBIC) 15 mg tablet Take 15 mg by mouth once daily. - omeprazole (PRILOSEC) 40 mg capsule Take 40 mg by mouth once daily. - traMADol (ULTRAM) 50 mg tablet Take 100 mg by mouth twice daily. Problem List As Of Date 01/25/2022 Noted Resolved Obesity, Class I, BMI 30-34.9 [E66.9] 08/18/2020 Chronic pain [G89.29] Spondylolysis [M43.00] Vitamin D deficiency [E55.9] Chronic kidney disease, stage III (moderate) (H* Encounter Status:Closed by CARROL MATTHEW on 01/25/22 Normal [facility] CBC AUTO DIFFon 11-02-2021 BASO # 0.0 103/ul Normal 0.0-0.1 [facility] 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: Performed By: #### C BC #### [facility] [address] [place], [place] [address] Dr. Sandra Radford Basophils/100 WBC (Bld) 0.5 % Normal 0.2-2.0 [facility] 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: Performed By: #### C BC #### [facility] [address] [place], [place] [address] Dr. Sandra Radford EO # 0.2 103/ul Normal 0.0-0.7 [facility] 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: Performed By: #### C BC #### [facility] [address] [place] [address] Dr. Sandra Radford Eosinophils/100 WBC (Bld) 3.1 % Normal 0.9-7.0 [facility] 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: Performed By: #### C BC #### [facility] [address] [place] [address] Dr. Sandra Radford Erythrocyte distribution width (RBC) [Ratio] 14.4 % Normal 11.0-15.0 [facility] 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: Performed By: #### C BC #### [facility] [address] [place] [address] Dr. Sandra Radford Hematocrit (Bld) [Volume fraction] 34.1 % Critically low 36.0-48.0 [facility] 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: Performed By: #### C BC #### [facility] [address] [place] [address] Dr. Sandra Radford Hemoglobin (Bld) [Mass/Vol] 11.2 g/dL Critically low 12.0-16.0 [facility] 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: Performed By: #### C BC #### [facility] [address] [place] [address] Dr. Sandra Radford IG # 0.01 10e3/ul Normal 0.00-0.03 [facility] 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: Performed By: #### C BC #### [facility] [address] [place] [address] Dr. Sandra Radford IG % 0.2 % Normal 0.0-0.5 [facility] 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: Performed By: #### C BC #### [facility] [address] [place] [address] Dr. Sandra Radford LYMPH # 1.5 103/ul Normal 1.2-3.8 [facility] 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: Performed By: #### C BC #### [facility] [address] [place] [address] Dr. Sandra Radford Lymphocytes/100 WBC (Bld) 25.1 % Normal 20.5-60.0 [facility] 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: Performed By: #### C BC #### [facility] [address] [place] [address] Dr. Sandra Radford MANUAL DIFF REQ NO Normal [facility] 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: Performed By: #### C BC #### [facility] [address] [place] [address] Dr. Sandra Radford MCH (RBC) [Entitic mass] 32.7 pg Normal 26.7-34.0 [facility] 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: Performed By: #### C BC #### [facility] [address] [place] [address] Dr. Sandra Radford MCHC (RBC) [Mass/Vol] 32.8 g/dL Normal 29.9-35.2 [facility] 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: Performed By: #### C BC #### [facility] [address] [place] [address] Dr. Sandra Radford MCV (RBC) [Entitic vol] 99.4 fL Critically high 81.0-99.0 [facility] 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: Performed By: #### C BC #### [facility] [address] [place] [address] Dr. Sandra Radford MONO # 0.6 103/ul Normal 0.3-0.8 [facility] 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: Performed By: #### C BC #### [facility] [address] [place] [address] Dr. Sandra Radford Monocytes/100 WBC (Bld) 10.7 % Normal 1.7-12.0 [facility] 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: Performed By: #### C BC #### [facility] [address] [place] [address] Dr. Sandra Radford NEUT # 3.5 103/ul Normal 1.4-6.5 [facility] 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: Performed By: #### C BC #### [facility] [address] [place] [address] Dr. Sandra Radford Neutrophils/100 WBC (Bld) 60.4 % Normal 43.0-75.0 [facility] 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: Performed By: #### C BC #### [facility] [address] [place] [address] Dr. Sandra Radford Platelet mean volume (Bld) [Entitic vol] 10.2 fL Normal 9.5-13.5 [facility] 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: Performed By: #### C BC #### [facility] [address] [address] [address] Sandra Radford PLT 202 103/ul Normal 150-450 [facility] 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: Performed By: #### C BC #### [facility] [address] [address] [address] Sandra Radford RBC 3.43 106/ul Critically low 4.20-5.40 [facility] 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: Performed By: #### C BC #### [facility] [address] [address] [address] Sandra Radford WBC 5.8 103/ul Normal 4.0-11.0 [facility] 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: Performed By: #### C BC #### [facility] [address] [address] [address] Sandra Radford CRPon 11-02-2021 CRP [Mass/Vol] mg/L Normal <=1.0 [facility] 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: Performed By: #### C RP #### [facility] [address] [place] [address] Dr. Sandra Radford [facility] 2 mm/hr Normal <=30 [facility] 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: Performed By: #### S EDR #### [facility] [address] [address] [address] Sandra Radford NM bone 3 phaseon 10-26-2021 NM bone 3 phase [facility] [place] [place] [address] Nuclear Medicine Report Signed Patient: Norma Brennan MR#: [id number] 00 : 1940 Acct:[id number] Age/Sex: 81 / F ADM Date: 10/26/21 Loc: [place] Room: Type: [facility] Attending Dr: Rosalio Roblero II, MD Copies to: DO Lolis Hoyos MD Robert M Carlisle, MD Ordering Provider: Rosailo Roblero MD Date of Service: 10/26/21 NM/NM bone 3 phase: Right hip pain WHOLE-BODY BONE SCAN WITH THREE-PHASE IMAGING OF THE HIPS: CLINICAL HISTORY: Right hip pain. Previous right hip replacement and low back surgery. COMPARISON: Plain films and CT right femur 10/20/2021 Following the intravenous administration of 20.2 mCi of technetium 99m labeled MDP, flow images of the hips were obtained followed by immediate static blood pool images. There is subtle hyperemia around the femoral stem of the right hip prosthesis at the proximal shaft on the blood pool images. Three hours following injection, delayed views of the pelvis in multiple projections as well as minified views of the entire skeleton were obtained. There is photopenia at the right hip and femoral shaft related to the prosthesis with its long femoral stem. There is some increased uptake along the medial posterior aspect of the proximal femoral shaft on that side. There is also a subtle focus of increased uptake at the tip of the femoral stem at the distal femoral metadiaphysis. There is no prominent asymmetric increased uptake around the right hip joint. Patient has S-shaped thoracolumbar scoliotic curvature with some increased uptake at the spine, likely degenerative. There is asymmetric increased uptake at the right sternoclavicular joint that may be degenerative. There is also degenerative uptake at the thumbs on both sides and prominent increased uptake thought to be degenerative at the left knee. There is physiologic activity involving the urinary tract. Soft tissue accumulation in the left antecubital region is the site of injection. NM/NM bone 3 phase IMPRESSION: SLIGHT HYPEREMIA WELL MILD INCREASED UPTAKE ALONG THE PROXIMAL POSTERIOR MEDIAL ASPECT OF THE RIGHT FEMORAL SHAFT ADJACENT TO PATIENT'S PROSTHESIS. THIS IS NONSPECIFIC GIVEN THE CHANGES OF THE FEMUR ON RECENT PLAIN FILMS AND CT. ADDITIONAL AREAS OF DEGENERATIVE UPTAKE, DESCRIBED. Impression dictated by: Lolis Reddy M.D.10/26/2021 4:09 PM Dictation Location: [place] [address] Transcribed By: [facility] 10/26/21 7402 Dictated By: Lolis Reddy MD 10/26/21 1559 Signed By: 10/26/21 [address] [facility] [address] femur RT wo conon 022 CT femur RT wo con [facility] [address] [place] [address] [place] [address] CT Scan Report Signed Patient: Norma Brennan MR#: [id number] 00 : 1940 Acct:[id number] Age/Sex: 81 / F ADM Date: 10/20/21 Loc: [facility] Room: Type: [facility] Attending Dr: Rosalio Roblero II, MD Ordering Provider: Rosalio Roblero MD Date of Service: 10/20/21 CT/CT femur RT wo con: Right hip pain Copies to: Rosalio Roblero MD CT right femur 10/20/2021. CLINICAL DATA: Right hip pain radiating to the knee. TECHNIQUE: CT of the right femur was performed. Axial, sagittal, coronal, and three-dimensional reconstructions were created and reviewed. This CT exam was performed using one or more of the following dose reduction techniques: Automated exposure control, adjustment of the mA and/or kV according to patient size, or use of iterative reconstruction technique. COMPARISON: Plain radiographs pelvis and right femur 10/20/2021. FINDINGS: There are postsurgical changes related to total hip arthroplasty. Findings include a long-stemmed and cemented femoral implant. Many of the images are degraded by the presence of beam hardening artifact. 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 Other smaller bony fragments are noted. There is generalized osteopenia. No definite acute fracture is identified. No dislocation is seen. There are degenerative changes including joint space narrowing and marginal osteophyte formation all compartments of the knee. There is also chondrocalcinosis in both weight-bearing compartments of the knee. CT/CT femur RT wo con IMPRESSION: 1. Postsurgical changes related to total hip arthroplasty including a long-stemmed and cemented femoral implant. 2. 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 3. Osteopenia. 4. No definite acute fracture. Impression dictated by: Romeo Centeno Jr., M.D.10/20/2021 11:15 AM Dictation Location: [place] [address] Transcribed By: [facility] 10/20/21 1115 Dictated By: Romeo Centeno Jr, MD 10/20/21 1057 Signed By: 10/20/21 1115 [facility] XR femur RT 2V*on 10-20-2021 XR femur RT 2V* [facility] [address] [place] [address] [place] [address] XRay Report Signed Patient: Norma Brennan MR#: [id number] 00 : 1940 Acct:[id number] Age/Sex: 81 / F ADM Date: 10/20/21 Loc: [facility] Room: Type: REG CLI Attending Dr: Rosalio Roblero II, MD Ordering Provider: Rosalio Roblero MD Date of Service: 10/20/21 XR/XR femur RT 2V*: Right hip pain Copies to: Rosalio Roblero MD RIGHT FEMUR - 2 views COMPARISON: 10/20/2021 CT CLINICAL DATA: Right hip pain with recent hip aspiration. AP and lateral views were obtained. There is osteopenia. There is a hip prosthesis with long cemented femoral stem, similar the prior. Deformity at the proximal femur including the greater trochanter is again seen. No obvious new fracture is identified. There is no dislocation at the hip or knee. Degenerative change is seen at the knee with minor marginal spurring and chondrocalcinosis at the menisci. There is a tiny knee effusion. XR/XR femur RT 2V* IMPRESSION: OSTEOPENIA WITH STABLE APPEARANCE OF THE RIGHT FEMUR AND HARDWARE. Impression dictated by: Lolis Reddy M.D.10/20/2021 1:13 PM Dictation Location: [place] [address] Transcribed By: [facility] 10/20/21 1313 Dictated By: Lolis Reddy MD 10/20/21 1310 Signed By: 10/20/21 1313 [facility] XR pelvis 1-2Von 10-20-2021 XR pelvis 1-2V [facility] [address] [place] [address] [place] [address] XRay Report Signed Patient: Norma Brennan MR#: [id number] 00 : 1940 Acct:[id number] Age/Sex: 81 / F ADM Date: 10/20/21 [place] [facility] Room: Type: REG CLI Attending Dr: Rosalio Roblero II, MD Ordering Provider: Rosalio Roblero MD Date of Service: 10/20/21 XR/XR pelvis 1-2V: Right hip pain Copies to: Rosalio Roblero MD XR pelvis 1-2V 10/20/2021 9:05 AM SIGNS AND SYMPTOMS: Right hip pain PROTOCOL: Frontal radiograph the pelvis COMPARISON: None FINDINGS: There is total right hip arthroplasty hardware. There is evidence of prior revision. There is no fracture or hardware complication. There is mild narrowing of the left hip joint space. The bony ring of the pelvis is grossly intact. XR/XR pelvis 1-2V IMPRESSION: Total right hip arthroplasty hardware is noted without hardware complication or fracture. There is evidence of prior revision. Impression dictated by: Malachi Davis M.D.10/20/2021 1:08 PM Dictation Location: [facility]- Transcribed By: [facility] 10/20/21 1308 Dictated By: Malachi Davis II, MD 10/20/21 1303 Signed By: 10/20/21 1308 Normal [facility] XR hip RT 1Von 08-15-2021 XR hip RT 1V [facility] Main [place] [address] [place] [address] XRay Report Signed Patient: Norma Brennan MR#: [id number] : 1940 Acct:[id number] Age/Sex: 81 / F ADM Date: 08/15/21 Loc: [place] Room: Type: [facility] Attending Dr: Rosalio Roblero II, MD Ordering Provider: Rosalio Roblero MD Date of Service: 08/15/21 XR/XR hip RT 1V: RT HIP ASPIRATION Copies to: Rosalio Roblero MD Fluoroscopic assessment for RIGHT hip aspiration and HISTORY: RIGHT hip aspiration. 3 images. Total time 26 seconds. Fluoroscopic assessment for RIGHT hip aspiration performed. XR/XR hip RT 1V IMPRESSION: Fluoroscopic assessment for RIGHT hip aspiration. Impression dictated by: Edgard Paez M.D.08/15/2021 9:09 AM Dictation Location: [facility]-13 Transcribed By: ML 08/15/21908 Dictated By: Edgard Paez DO 08/15/21907 Signed By: 08/15/21908 Normal [facility] Basic Metabolic Panelon Calcium [Mass/Vol] 9.1 mg/dL Normal 8.2-10.2 [facility] 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: Result Comment: PERF ORMED BY: [place] [address] PATHOLOGIST SUPERVISOR MENDING MARIELLA KRAUSE M.D. Performed By: #### C OVID 19 [facility] #### [facility] [address] [place] [id number] [place] Chloride [Moles/Vol] 105 mmol/L Normal 95-114 [facility] 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: Performed By: #### C OVID 19 [facility] #### [facility] [address] [place] [id number] [place] CO2 [Moles/Vol] 25.9 mmol/L Normal 22.0-30.0 [facility] 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: Performed By: #### C OVID 19 [facility] #### [facility] [address] [place] [id number] [place] Creatinine [Mass/Vol] 0.99 mg/dL Normal 0.44-1.03 [facility] 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: Performed By: #### C OVID 19 [facility] #### [facility] [address] [place] [id number] [place] Estimated GFR ( Jahaira > 60 [facility] 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: Result Comment: GFR estimated reference range: According to KDOQI guidelines, <60 ml/min/1.73m2 is sufficient to diagnose a patient with chronic kidney disease. Performed By: #### C OVID 19 [facility] #### [facility] [address] [place] [id number] [place] Estimated GFR (Non- Am 54 [facility] 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: Performed By: #### C OVID 19 [facility] #### [facility] [address] [place] [id number] [place] Glucose [Mass/Vol] 92 mg/dL Normal 70-100 [facility] 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: Result Comment: [place] Glucose Reference Range is dependent on time and content of last meal. Glucose of more than 200 mg/dL in a nonstressed, ambulatory subject supports the diagnosis of Diabetes Mellitus. ADA recommended reference range Performed By: #### C OVID 19 [facility] #### [facility] [address] [place] [id number] [facility] Potassium [Moles/Vol] 4.7 mmol/L Normal 3.5-5.1 [facility] 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: Performed By: #### C OVID 19 [facility] #### [facility] [address] Sodium [Moles/Vol] 139 mmol/L Normal 136-146 [facility] 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: Performed By: #### C OVID 19 [facility] #### [facility] [address] Urea nitrogen [Mass/Vol] 32 mg/dL High 9-23 [facility] 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: Performed By: #### C OVID 19 [facility] #### [facility] [address] COVID-19 [facility] 08-12-2021 SARS-CoV-2 (COVID-19) RNA FABIAN+probe Ql (Unsp spec) Negative Normal Negative [facility] 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: Order Comment: Comme nt procedure 08/15/21 Healthcare Worker?: N Result Comment: Testing for SARS-CoV-2 by RT-PCR This test was developed and its performance characteristics determined by [employer] and validated at the [facility]. This test has not been FDA cleared or approved. This test has been authorized by FDA under an Emergency Use Authorization (EUA). This test has been validated in accordance with the FDA's Guidance Document (Policy for Diagnostics Testing in Laboratories Certified to Perform High Complexity Testing under CLIA prior to Emergency Use Authorization for Coronavirus Disease-2019 during the Public Health Emergency) issued on August 14, 2019. This test is only authorized for the duration of time the declaration that circumstances exist justifying the authorization of the emergency use of in vitro diagnostic tests for detection of SARS-CoV-2 virus and/or diagnosis of COVID-19 infection under section 564(b)(1) of the Act, 21 U.S.C. 360bbb-3(b)(1), unless the authorization is terminated or revoked sooner. PERFORMED BY: [address] [address] PATHOLOGIST SUPERVISOR MENDING MARIELLA KRAUSE M.D. Performed By: #### C OVID 19 [facility] #### [place] [id number] [facility] ECG 12 lead ECGon 08-12-2021 ECG 12 lead ECG [facility] Main [place] [address] [place] [address] Electrocardiograph Report Signed Patient: Norma Brennan MR#: [id number] : 1940 Acct:[id number] Age/Sex: 81 / F ADM Date: 08/12/21 Loc: Room: Type: [facility] Attending Dr: Rosalio Roblero II, MD Ordering Provider: Rosalio Roblero MD Date of Service: 08/12/2106/04/800 ECG/ECG 12 lead ECG: surgery 08/15/21 Copies to: Test Reason : Blood Pressure : / mmHG Vent. Rate : 068 BPM Atrial Rate : 068 BPM P-R Int : 194 ms QRS Dur : 084 ms QT Int : 398 ms P-R-T Axes : 046 035 065 degrees QTc Int : 423 ms Normal sinus rhythm Normal ECG No previous ECGs available Confirmed by FELICITAS VILLEDA MD ([id number]) on 08/12/2021 9:52:22 AM Referred By: TEO ROBLERO Electronically Signed By:FELICITAS VILLEDA MD Transcribed By: MUS Signed By Felicitas Villeda MD 0952 Normal [facility] C-Reactive Proteinon 022 C-Reactive Protein 1.4 mg/dL High 0.0-1.0 [facility] 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: Order Comment: Comme nt procedure 08/15/21 Healthcare Worker?: N Result Comment: PERF ORMED BY: [address] [place] [id number] PATHOLOGIST SUPERVISOR MENDING MARIELLA KRAUSE M.D. Performed By: #### C [address] #### [address] Complete Blood Count Auto Di ffon 08-03-2021 Basophils (Bld) [#/Vol] 0.0 10*3/uL Normal 0.0-0.2 [facility] 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: Order Comment: Comme nt procedure 08/15/21 Healthcare Worker?: N Performed By: #### C [address] #### [address] Basophils/100 WBC (Bld) 0.5 % Normal . [facility] 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: Order Comment: Comme nt procedure 08/15/21 Healthcare Worker?: N Performed By: #### C [address] #### [address] Eosinophils (Bld) [#/Vol] 0.2 10*3/uL Normal 0.0-0.45 [facility] 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: Order Comment: Comme nt procedure 08/15/21 Healthcare Worker?: N Performed By: #### C [address] #### [address] Eosinophils/100 WBC (Bld) 4.2 % Normal . [facility] 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: Order Comment: Comme nt procedure 08/15/21 Healthcare Worker?: N Performed By: #### C [address] #### [address] Erythrocyte distribution width (RBC) [Ratio] 14.7 % Normal 11.9-15.3 [facility] 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: Order Comment: Comme nt procedure 08/15/21 Healthcare Worker?: N Performed By: #### C [address] #### [address] Hematocrit (Bld) [Volume fraction] 39.6 % Normal 34.0-46.4 [facility] 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: Order Comment: Comme nt procedure 08/15/21 Healthcare Worker?: N Performed By: #### C [address] #### [address] Hemoglobin (Bld) [Mass/Vol] 12.9 g/dL Normal 11.8-15.4 [facility] 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: Order Comment: Comme nt procedure 08/15/21 Healthcare Worker?: N Performed By: #### C [address] #### [address] Lymphocytes (Bld) [#/Vol] 1.5 10*3/uL Normal 1.00-4.8 [facility] 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: Order Comment: Comme nt procedure 08/15/21 Healthcare Worker?: N Performed By: #### C [address] #### [address] Lymphocytes/100 WBC (Bld) 27.3 % Normal . [facility] 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: Order Comment: Comme nt procedure 08/15/21 Healthcare Worker?: N Performed By: #### C [address] #### [address] MCH (RBC) [Entitic mass] 31.0 pg Normal 24.7-34.3 [facility] 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: Order Comment: Comme nt procedure 08/15/21 Healthcare Worker?: N Performed By: #### C [address] #### [address] MCV (RBC) [Entitic vol] 95.4 fL Normal 80-100 [facility] 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: Order Comment: Comme nt procedure 08/15/21 Healthcare Worker?: N Performed By: #### C [address] #### [address] Mean Corpuscular HGB Conc 32.4 g/dL Normal 32.0-35.0 [facility] 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: Order Comment: Comme nt procedure 08/15/21 Healthcare Worker?: N Performed By: #### C [address] #### [place] [address] [place] Monocytes (Bld) [#/Vol] 0.5 10*3/uL Normal 0.0-0.8 [facility] 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: Order Comment: Comme nt procedure 08/15/21 Healthcare Worker?: N Performed By: #### C APOLLO 19 [facility] #### [facility] [address] [place] [id number] [facility] Monocytes/100 WBC (Bld) 9.8 % Normal . [facility] 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: Order Comment: Comme nt procedure 08/15/21 Healthcare Worker?: N Performed By: #### C [address] #### [facility] [address] [place] [address] [place] Neutrophils (Bld) [#/Vol] 3.2 10*3/uL Normal 1.8-7.7 [facility] 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: Order Comment: Comme nt procedure 08/15/21 Healthcare Worker?: N Performed By: #### C [address] #### [facility] [address] Neutrophils/100 WBC (Bld) 58.2 % Normal . [facility] 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: Order Comment: Comme nt procedure 08/15/21 Healthcare Worker?: N Performed By: #### C [address] #### [place] [address] [place] Nucleated RBC/100 WBC (Bld) [Ratio] 0.1 % Normal 0-0.5 [facility] 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: Order Comment: Comme nt procedure 08/15/21 Healthcare Worker?: N Performed By: #### C [address] #### [facility] [address] [place] [id number] [place] Platelet mean volume (Bld) [Entitic vol] 7.8 fL Normal 6.3-10.7 [facility] 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: Order Comment: Comme nt procedure 08/15/21 Healthcare Worker?: N Performed By: #### C [address] #### [facility] [address] [place] [id number] [place] Platelets (Bld) [#/Vol] 272 10*3/uL Normal 150-450 [facility] 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: Order Comment: Comme nt procedure 08/15/21 Healthcare Worker?: N Performed By: #### C OVID 19 [facility] #### [facility] [address] RBC (Bld) [#/Vol] 4.15 10*6/uL Normal 3.60-5.00 [facility] 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: Order Comment: Comme nt procedure 08/15/21 Healthcare Worker?: N Performed By: #### C OVID 19 [facility] #### [address] WBC (Bld) [#/Vol] 5.5 10*3/uL Normal 4.5-11.0 [facility] 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: Order Comment: Comme nt procedure 08/15/21 Healthcare Worker?: N Performed By: #### C OVID 19 [facility] #### [address] D-Dimer High Sensitivityon 0 08-03-2021 D-Dimer High Sensitivity 434 ng/mL High 0-243 [facility] 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: Order Comment: Reaso n for Exam Osteoarthritis of knees, bilateral Result Comment: The reference range for D-dimer is <243 ng/mL D-dimer units. D-dimer results must be used in conjunction with a clinical pretest probability (PTP) assessment model for deep vein thrombosis (DVT) and pulmonary embolism (PE). Results <230 ng/mL d-dimer units can be used as a negative predictor in patients with low or moderate probability for DVT/PE. Results above the exclusion threshold of 230 ng/ml D-dimer units for DVT/PE may indicate the need for further diagnostic testing. D-Dimer can be increased in hospitalized patients due to co-morbid conditions. PERFORMED BY: [place] [address] PATHOLOGIST SUPERVISOR MENDING MARIELLA KRAUSE M.D. Performed By: #### D DIMER, CRP, CBC, ESR #### [address] Erythrocyte Sedimentation Ra brian 08-03-2021 ESR (Bld) [Velocity] 7 mm/h Normal 0-29 [facility] 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: Order Comment: Comme nt procedure 08/15/21 Healthcare Worker?: N Result Comment: PERF ORMED BY: [place] [address] PATHOLOGIST SUPERVISOR MENDING MARIELLA KRAUSE M.D. Performed By: #### C OVID 19 [facility] #### [address] XR knee BI 4Von 08-03-2021 XR knee BI 4V [facility] [place] [address] XRay Report Signed Patient: Norma Brennan MR#: [id number] : 1940 Acct:[id number] Age/Sex: 81 / F ADM Date: 08/03/21 [place] [facility] [place]: Type: [facility] Attending Dr: Rosalio Roblero II, MD Ordering Provider: Rosalio Roblero MD Date of Service: 08/03/21 XR/XR knee BI 4V: Osteoarthritis of knees, bilateral Copies to: Rosalio Roblero MD 4 views both knee plain film COMPARISON:None HISTORY:Bilateral knee pain medially. Xavt-aw-yeic contact of the medial compartment of the LEFT knee identified. Mild remaining joint space narrowing of both knees present. Small supra patellar effusion seen. Diffuse osteopenia asia ntified. No fracture or dislocation. Moderate lateral LEFT patellar subluxation identified. Mild lateral RIGHT patellar subluxation identified. XR/XR knee BI 4V IMPRESSION:Advanced medial compartment degeneration on the LEFT. Remaining minor degenerative change. Impression dictated by: Edgard Paez M.D.08/03/2021 2:13 PM Dictation Location: [place] [address] Transcribed By: [facility] 08/03/211412 Dictated By: Edgard Paez DO 08/03/211411 Signed By: 08/03/21 1413 Normal [facility] XR knee BI 4V [facility] [employer] Other XR knee BI 4V [facility] [address] [place] [employer] Other XR knee BI 4V [address] [facility] [employer] Other XR knee BI 4[place] [address] [facility] [employer] Other XR knee BI 4V XRay Report [facility] [employer] Other XR knee BI 4V Signed [employer] Other XR knee BI 4V Patient: Lauro Brennan MR#: [id number] [employer] [employer] Other XR knee BI 4V : 1940 Acct:[id number] [employer] Other XR knee BI 4V Age/Sex: 81 / F ADM Date: 08/03/21 [employer] Other XR knee BI 4V Loc: [place] Room: Type : [facility] [employer] Other XR knee BI 4V Attending Dr: Rosalio Roblero II, MD [employer] Other XR knee BI 4V Ordering Provider: Rosalio Roblero MD [employer] Other XR knee BI 4V Date of Service: 08/03/21 [employer] Other XR knee BI 4V XR/XR knee BI 4V: Osteoarthritis of knees, bilateral [employer] Other XR knee BI 4V Copies to: Rosalio Roblero MD [employer] Other XR knee BI 4V 4 views both knee plain film [employer] Other XR knee BI 4V COMPARISON:None [employer] Other XR knee BI 4V HISTORY:Bilateral knee pain medially. [employer] Other XR knee BI 4V Calz-ng-josg contact of the medial compartment of the LEFT knee identified. Mild remaining joint [employer] Other XR knee BI 4V space narrowing of both knees present. Small supra patellar effusion seen. Diffuse osteopenia asia [employer] Other XR knee BI 4V ntified. No fracture or dislocation. Moderate lateral LEFT patellar subluxation identified. Mild [employer] Other XR knee BI 4V lateral RIGHT patellar subluxation identified. [employer] Other XR knee BI 4V XR/XR knee BI 4V [employer] Other XR knee BI 4V IMPRESSION:Advanced medial compartment degeneration on the LEFT. Remaining minor degenerative [employer] Other XR knee BI 4V change. [employer] Other XR knee BI 4V Impression dictated by: Edgard Paez M.D.08/03/2021 2:13 PM [employer] Other XR knee BI 4V Dictation Location: [place] [address] [employer] Other XR knee BI 4V Transcribed By: ML 08/03/21 [facility] [employer] Other XR knee BI 4V Dictated By: Edgard Paez DO 08/03/21 [facility] [employer] Other XR knee BI 4V Signed By: [employer] Other XR knee BI 4V 08/03/21 [facility] [employer] Other XR pelvis 1-2Von 08-03-2021 XR pelvis 1-2V [facility] Main [place] [address] [place] [address] XRay Report Signed Patient: Norma Brennan MR#: [id number] : 1940 Acct:[id number] Age/Sex: 81 / F ADM Date: 08/03/21 [place] [facility] [place]: Type: [facility] Attending Dr: Rosalio Roblero II, MD Ordering Provider: Rosalio Roblero MD Date of Service: 08/03/21 XR/XR pelvis 1-2V: Osteoarthritis of knees, bilateral Copies to: Rosalio Roblero MD Single view of the pelvis plain film HISTORY:Bilateral knee pain COMPARISON:None The visualized portion of the RIGHT hip arthroplasty unremarkable. Bony alignment appears adequate. Diffuse osteopenia. No acute bony findings identified. No focal soft tissue abnormality seen. XR/XR pelvis 1-2V IMPRESSION:Unremarkab le visualized the RIGHT hip arthroplasty. Diffuse osteopenia. Unremarkable LEFT hip. Impression dictated by: Edgard Paez M.D.08/03/2021 2:20 PM Dictation Location: [place] [address] Transcribed By: [facility] 08/03/21 1420 Dictated By: Edgard Paez DO 08/03/21 1419 Signed By: 08/03/21 1420 [facility] XR pelvis 1-2V XR/XR pelvis 1-2V: Osteoarthritis of knees, bilateral [employer] Other XR pelvis 1-2V Single view of the pelvis plain film [employer] Other XR pelvis 1-2V HISTORY:Bilateral knee pain [employer] Other XR pelvis 1-2V The visualized portion of the RIGHT hip arthroplasty unremarkable. Bony alignment appears [employer] Other XR pelvis 1-2V adequate. Diffuse osteopenia. [employer] Other XR pelvis 1-2V No acute bony findings identified. [employer] Other XR pelvis 1-2V No focal soft tissue abnormality seen. [employer] Other XR pelvis 1-2V XR/XR pelvis 1-2V [employer] Other XR pelvis 1-2V IMPRESSION:Unremarka b le visualized the RIGHT hip arthroplasty. Diffuse osteopenia. Unremarkable [employer] Other XR pelvis 1-2V LEFT hip. [employer] Other XR pelvis 1-2V Impression dictated by: Edgard Paez M.D.08/03/2021 2:20 PM [employer] Other XR pelvis 1-2V Transcribed By: PWS 08/03/21 1420 [employer] Other XR pelvis 1-2V Dictated By: Edgard Paez DO 08/03/21 1419 [employer] Other XR pelvis 1-2V 08/03/21 1420 [employer] Other Vital Signs Date Time Vital Sign Value Performing Clinician Facility 05-09-2023 11:30-0500 Body height 152.4 cm Max Ball Other [employer] Other 05-09-2023 11:30-0500 Body mass index (BMI) [Ratio] 30.81 kg/m2 Max Ball Other [employer] Other 05-09-2023 11:30-0500 Body weight 71.58 kg Max Ball Other [employer] Other 05-09-2023 11:30-0500 Diastolic blood pressure 77 mm[Hg] Max Ball Other [employer] Other 05-09-2023 11:30-0500 Respiratory rate 12 /min Max Ball Other [employer] Other 05-09-2023 11:30-0500 Systolic blood pressure 146 mm[Hg] Max Ball Other [employer] Other 08-03-2022 12:00-0400 Body height 152.4 cm Max Ball Other [employer] Other 08-03-2022 12:00-0400 Body mass index (BMI) [Ratio] 31.64 kg/m2 Max Ball Other [employer] Other 08-03-2022 12:00-0400 Body weight 73.48 kg Max Ball Other [employer] Other 08-03-2022 12:00-0400 Diastolic blood pressure 82 mm[Hg] Max Ball Other [employer] Other 08-03-2022 12:00-0400 Respiratory rate 12 /min Max Ball Other [employer] Other 08-03-2022 12:00-0400 Systolic blood pressure 137 mm[Hg] Max Ball Other [employer] Other 10-20-2021 09:45-0400 Body height 152.4 cm Rosalio [place] II Other [employer] Other 10-20-2021 09:45-0400 Body mass index (BMI) [Ratio] 28.9 kg/m2 Rosalio [place] II Other [employer] Other 10-20-2021 09:45-0400 Body weight 67.13 kg Rosalio [place] II Other [employer] Other 08-10-2021 15:45-0400 Body height 152.4 cm Rosalio Osbaldo II Other [employer] Other 08-10-2021 15:45-0400 Body mass index (BMI) [Ratio] 28.9 kg/m2 Rosalio Osbaldo II Other [employer] Other 08-10-2021 15:45-0400 Body weight 67.13 kg Rosalio [place] II Other [employer] Other 08-03-2021 12:00-0400 Body height 152.4 cm Rosalio Roblero II Other [employer] Other 08-03-2021 12:00-0400 Body mass index (BMI) [Ratio] 28.9 kg/m2 Rosalio Roblero II Other [employer] Other 08-03-2021 12:00-0400 Body weight 67.13 kg Rosalio Roblero II Other [employer] Other Encounters Encounter Date Encounter Type Care Provider Facility Start: 05-09-2023 End: 05-09-2023 ambulatory Max Teo Other [employer] Other Start: 05-09-2023 Office outpatient vi sit 25 minutes Max Bruce [facility] Start: 04-16-2023 End: 04-17-2023 [facility] Start: 03-19-2023 End: 03-20-2023 ambulatory Jennifer Damon MD Facility: [facility] Start: 02-19-2023 End: 02-20-2023 [facility]ulatory [facility] Start: 02-13-2023 End: 02-13-2023 ambulatory Max Teo Other [employer] Other Start: 02-13-2023 Telephone encounter Max Bruce [facility] Start: 02-07-2023 End: 02-07-2023 ambulatory Max Teo Other [employer] Other Start: 02-07-2023 Telephone encounter Max Teo RAMIREZ [facility] Start: 02-01-2023 End: 02-01-2023 ambulatory Max Bruce Other [employer] Other Start: 02-01-2023 Telephone encounter Max Bruce JAMES [facility] Start: 08-10-2022 End: 08-10-2022 ambulatory Max Bruce Other [employer] Other Start: 08-10-2022 Telephone encounter Max RAMIREZ [facility] Start: 08-03-2022 End: 08-04-[address] MAX BRUCE Facility: Start: 08-03-2022 Patient encounter procedure Max Bruce [facility] Start: 04-14-2022 End: 04-14-2022 ambulatory MAX BRUCE Facility:[facility] Start: 02-06-2022 End: 02-06-2022 ambulatory Rosalio Osbaldo II Other [employer] Other Start: 02-06-2022 Telephone encounter Rosalio [place] [facility] Start: 01-25-2022 Telephone encounter Yecenia hawkins PA-C Work Phone: [facility] [place] 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: Ac/Dc Rewinder - O ther (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 for patient's ortho./) Start: 01-19-2022 End: 01-19-2022 ambulatory Rosalio [place] Other [employer] Other Start: 01-19-2022 Telephone encounter Rosalio [place] II [facility] Start: 01-02-2022 End: 01-02-2022 ambulatory Rosalio [place] Other [employer] Other Start: 01-02-2022 Telephone encounter Rosalio [place] II [facility] Start: 11-30-2021 End: 11-30-2021 ambulatory Rosalio [place] Other [employer] Other Start: 11-30-2021 Telephone encounter Rosalio [place] II [facility] Start: 11-18-2021 End: 11-18-2021 ambulatory Rosalio [place] Other [employer] Other Start: 11-18-2021 Office outpatient vi sit 25 minutes Rosalio [place] II [facility] Start: 11-02-2021 End: 11-02-2021 ambulatory ROSALIO OSBALDO [place] [employer] Other Start: 11-02-2021 Telephone encounter Rosalio [place] II [facility] Start: 10-28-2021 End: 10-28-2021 ambulatory Rosalio [place] II Other [facility] Other Start: 10-28-2021 Telephone encounter Rosalio [place] II [facility] Start: 10-26-2021 End: 10-26-2021 ambulatory Rosalio M [place] II Facility:[facility] Start: 10-21-2021 End: 10-21-2021 ambulatory Rosalio [place] Other [facility] Other Start: 10-21-2021 Telephone encounter Rosalio [place] II [facility] Start: 10-20-2021 Office outpatient vi sit 25 minutes Rosalio [place] II [facility] Start: 10-20-2021 End: 10-20-2021 ambulatory Rosalio M Osbaldo II [facility] Other Start: 10-14-2021 End: 10-14-2021 ambulatory Rosalio [place] Other [facility] Other Start: 10-14-2021 Telephone encounter Rosalio Osbaldo II [facility] Start: 09-22-2021 End: 09-22-2021 ambulatory Rosalio M [place] Facility:[facility] Start: 08-15-2021 End: 08-15-2021 ambulatory Rosalio M Osbaldo II Facility:[facility] Start: 08-12-2021 End: 08-12-2021 ambulatory Rosalio M [place] Facility:[facility] Start: 08-10-2021 End: 08-10-2021 ambulatory Rosalio Osbaldo II Other [facility] Other Start: 08-10-2021 Office outpatient vi sit 25 minutes Rosalio Roblero II [facility] Start: 08-03-2021 [facility] visit new patient Rosalio matthews II [facility] Start: 08-03-2021 End: 08-03-2021 ambulatory Rosalio Roblero II [facility] Other Start: 07-13-2021 Adult health examination Max Bruce Other [facility] Other Procedures Date Procedure Procedure Detail Performing Clinician Depression screening Maryanne Bruce Other Plan of Treatment Date Care Activity Detail Author Start: 2022 Influenza vaccination INFLUENZA (#1) [facility] Start: 05-14-2021 ADVANCE DIRECTIVE DISCUSSION ADVANCE DIRECTIVE DISCUSSION [facility] Start: 01-04-2021 COVID-19 VACCINE (3 - Booster for Moderna series) COVID-19 VACCINE (3 - Booster for Moderna series) [facility] Start: 01-13-2004 BONE DENSITY BONE DENSITY [facility] Start: 01-13-2004 PNEUMOCOCCAL: 65+ (1 - PCV) PNEUMOCOCCAL: 65+ (1 - PCV) [facility] Start: 1989 SHINGRIX VACCINE (1 of 2) JAMISON GRIX VACCINE (1 of 2) [facility] Start: 01-13-1984 DIABETES SCREEN DIABETES SCREEN [facility] Start: 1958 Urine microalbumin profile DTAP,TDAP ,TD (1 - Tdap) [facility] Immunizations Immunization Date Immunization Notes Care Provider Danelle lozoya 02-05-2023 Prevnar 20 Max Bruce Other [facility] Other 02-05-2023 influenza, high dose seasonal, preservative-free Max Bruce Other [facility] Other 04-21-2022 COVID-19 Vaccine Moderna - Documentation Purposes Only Max Bruce Other [facility] Other 03-11-2022 zoster vaccine recombinant Max Bruce Other [facility] Other 03-11-2022 zoster vaccine, live Benjami milagros Bruce Other [facility] Other 02-03-2022 influenza virus vaccine, split virus (incl. purified surface antigen) Max Bruce Other [facility] Other 02-03-2022 influenza, high dose seasonal, preservative-free Max Bruce Other [facility] Other 07-13-2021 zoster vaccine recombinant Max Bruce Other [facility] Other 03-31-2021 COVID-19 Vaccine Moderna - Documentation Purposes Only Max Bruce Other [facility] Other 01-24-2021 influenza virus vaccine, split virus (incl. purified surface antigen) Max Bruce Other [facility] Other 08-04-2020 COVID-19 Vaccine Moderna - Documentation Purposes Only Max Bruce Other [facility] Other 07-01-2020 COVID-19 Vaccine Moderna - Documentation Purposes Only Max Bruce Other [facility] Other 02-03-2020 influenza virus vaccine, split virus (incl. purified surface antigen) Max Bruce Other [facility] Other Payers Date Payer Category Payer Private Health Insurance 2021 Private Health Insurance [id number] 2021 Self-pay 2020 Medicare AETNA MEDICARE A ETNA MEDICARE PPO [id number] 2020-Present [phone] [address] [place] [address] PPO [id number] 1960 Medicare [id number] 1939 Unknown [id number] 93 1939 Unknown [id number] 93 1939 Unknown [id number] 96 1939 Unknown [id number] 96 1939 Unknown [id number] 96 Unknown [id number] 31 Unknown [id number] [id number] 31 Unknown [id number] 31 Unknown [id number] 31 Unknown [id number] [id number] 31 Unknown [id number] 31 Unknown [id number] 31 Social History Date Type Detail Facility Sex Assigned At [facility] Other Start: 06-22-2020 Tobacco smoking status MAIS Never smoked tobacco [facility] Start: 06-22-2020 Tobacco use and exposure Smokeless tobacco non-user [facility] Start: 12-16-2020 Alcohol intake Current drinke r of alcohol (finding) [facility] Start: 06-22-2020 History SDOH Alcohol Comment 1 x weekly [facility] Start: 1940 Sex Assigned At Female [facility] Medical Equipment Procedure Code Equipment Code Equipment Origin al Text Equipment Identifier Dates Lens Iol 0d +19. 5 [place] Uv Abs - [id number] Start: 08-18-2020 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: Description: -0.40 Clinical Notes 08-03-2021 to 05-09-2023 Note Date & Type Note Facility 05-09-2023 Evaluation note Encounter Date Diagnosis Assessment Notes Apr, Impaired glucose tolerance (ICD-10 - R73.02) Healthy diet and keep active. A1C at wellness examination. She denies unexpected weight loss, blurred vision, polyuria or polydipsia Apr, Stage 3a chronic kidney disease (ICD-10 - N18.31) The patient is instructed on adequate control of hypertension and diabetes, if appropriate. They are also educated on the associated risks of NSAIDs and PPI use with kidney disease. They were instructed on adequate fluid balance and to avoid dehydration. Apr, Familial hypercholesterolemia (ICD-10 - E78.01) Instructed on diet and exercise with continued statin therapy.Discusse d the beneficial effects of lowering cholesterol in reducing the risk for cerebrovascular and cardiovascular disease. Apr, LAZARO (generalized anxiety disorder) (ICD-10 - F41.1) Healthy diet and keep active. Continue medical therapy Instructed not to stop medication abruptly Apr, Gastroesophageal reflux disease with esophagitis without hemorrhage (ICD-10 - K21.00) Avoid lying flat after eating. Avoid eating 2 hours prior to bedtime. Smaller, frequent meals may be better tolerated.Weight loss if overweight.PPI with any heartburn.Monito r for dysphagia. Apr, Lumbar spondylosis (ICD-10 - M47.816) The patient is instructed to avoid bending, twisting or lifting. They are to use intermittent heat and ice as needed. They may schedule a massage or gentle manipulation. They may safely use Tylenol as needed. Some benefit for localizing back injection Planning ablation therapy in near future Apr, Osteoarthritis of knees, bilateral (ICD-10 - M17.0) Quad exercises, ice/heat and Mobic. Hydrocodone as needed for severe pain. 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 Use walker or cane for stability. Exhausted surgical and conservative treatment. 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 Initiate Cortisporin and if doesn't help can use topical steroid drops [facility] Other 10-03-2023 Evaluation note* Encounter Date Diagnosis Assessment Notes Treatment Notes Treatment Clinical Notes Feb, SBE (subacute bacterial endocarditis) prophylaxis candidate (ICD-10 - Z29.89) [facility] Other 03-30-2023 Evaluation note* Encounter Date Diagnosis Assessment Notes Treatment Notes Treatment Clinical Notes Jul, SBE (subacute bacterial endocarditis) prophylaxis candidate (ICD-10 - Z29.8) [facility] Other 03-23-2023 Evaluation note* Encounter Date Diagnosis Assessment Notes Treatment Notes Treatment Clinical Notes Jul, Medicare annual well ness visit, subsequent (ICD-10 - Z00.00) Personalized health advice was given to the beneficiary including a written plan for screenings discussed and provided. Advanced care planning reviewed and/or information given as requested. Additional counseling was provided here today in regards to, [ ]. The above visit was performed by [ ], under direct supervision of [ ]. Document reviewed and amended by provider signed below. Healthy diet and exercise. Reviewed age-appropriate preventive testing recommended. Jul, Impaired glucose tolerance (ICD-10 - R73.02) Healthy diet and keep active A1C yearly Jul, Familial hypercholesterolemia (ICD-10 - E78.01) Diet and exercise with continued statin therapy. Jul, LAZARO (generalized anx iety disorder) (ICD-10 - F41.1) Healthy diet, keep active No change in treatment Jul, Gastroesophageal ref lux disease with esophagitis without hemorrhage (ICD-10 - K21.00) Diet instructions: Smaller portions, avoid eating and laying flat, avoid eating or drinking prior to bedtime. Weight loss. Jul, Osteoarthritis of kn ees, bilateral (ICD-10 - M17.0) Quad exercises, ice/heat and Tramadol. Discussed pain management Jul, Lumbar spondylosis (ICD-10 - M47.816) The patient is instructed to avoid bending, twisting or lifting. They are to use intermittent heat and ice as needed. They may schedule a massage or gentle manipulation. They may safely use Tylenol as needed. Jul, History of total rig ht hip arthroplasty (ICD-10 - Z96.641) Referred to Ortho Complicated condition and advised against surgery Jul, Other chronic pain (ICD-10 - G89.29) Jul, Fatigue, unspecified type (ICD-10 - R53.83) Jul, High risk medication use (ICD-10 - Z79.899) [facility] Other 12-02-2022 NoteHNO ID: [id number] Author: Pedro Goff DO Service: ? Author Type: Physician Type: Progress Notes Filed: 04/14/2022 10:56 AM Note Text: CONSULT ORTHOPAEDIC: HIP PRIMARY CARE PHYSICIAN: Max Bruce DO REFERRING PROVIDER: Rosalio Roblero II [facility] [place] [address] HPI: 82-year-old female presents today with right hip pain that has been chronic in nature over the last year and a half but acutely worsened over the last 6 months. 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 She overall uses a walker for ambulation and has significant leg length difference and requires a shoe lift. She states over the last 6 months that her right hip and leg pain is worsening especially after working with physical therapy and was seen in [facility] and recommended nonweightbearing for 6 months with concerns for loosening. She denies any numbness and tingling in the right lower extremity and localizes the pain in the deep groin lateral aspect of the hip and anterior aspect of the femur. She denies any trauma and denies any feelings of the hip giving way. She also denies any recent fevers chills or illnesses. She is not on any chronic suppressive antibiotics and takes no blood thinners. Physical exam: Patient has approximately 2-1/2 to 3 inch leg length discrepancy with right leg being shorter than left. Incision is well-healed with no signs of erythema, drainage or palpable fluctuance. TTP notable over the lateral aspect of the hip, anterior groin and anterior aspect of the femur. ROM: Can flex to approximately 100 to 110 degrees and 0 degrees of extension with approximately 20 degrees of external rotation and 10 degrees of internal rotation. She has pain on the anterior groin and lateral aspect of the hip with external rotation. She has a positive Stinchfield and logroll. Strength is a 3/5 in hip flexion, 5/5 in knee flexion/extension, PF, DF, EHL, FHL. Sensation grossly intact L1-S1. She has a severely antalgic gait to the right lower extremity and unable to perform a Trendelenburg test secondary to weakness. Imaging: X-ray of the right hip and femur demonstrates prior right total hip arthroplasty with significant osteolysis and signs of femoral component lucency and loosening Plan: Long discussion was had with the patient about the nature of her pain. Patient presents with likely femoral component loosening. Long discussion was had with the patient about the previous instability within the hip as evidenced with the constrained liner. Patient states that she had approximately 4 dislocations previously requiring the constrained liner. We had a discussion of the role of the abductor and her present positioning of her greater trochanter. 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 Possibility of making the patient better is definitely there but there is the possibility of significantly worsening the patient's present situation. We will obtain inflammatory markers at this time. Continued nonoperative management will be had at this time, patient does not feel that she wants to undergo a significant operation with the risk associated. Encouragement to continue using her walker at all times. Plan for patient to follow-up on an as-needed basis. 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 The patient has been ordered: ESR CRP CONSULTS: Patient does not require consults for optimization at this time. ACTIVE PROBLEM LIST Obesity, Class I, Bmi 30-34.9 Chronic Pain Spondylolysis Vitamin D Deficiency Chronic Kidney Disease, Stage Iii (Moderate) ([facility]) Chronic Kidney Disease, Stage 3 Unspecified ([facility]) History of Total Right Hip Replacement Gastro-Esophageal Reflux Disease With Esophagitis, Without Bleeding SUBJECTIVE CHIEF COMPLAINT: Hip Pain HPI: Norma Brennan is a 82 year old patient here for evaluation and management of Right hip pain.Norma Brennan has had progressive problems with the hip(s) most of the day over the past 6 month(s) interfering with activities which include walking 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 The problem began limiting activities 1-6 months ago. Currently the pain in the joint is rated at 7 out of 10 with minimal activity. The pain is chronic and is located in the right buttocks, hip, groin, and thigh. The pain is described as aching. Relieving factors include no relieving factors. Appears direct (more content not included)... [facility]12-02-2022 NoteHNO ID: [id number] Author: RT Anthony(R) Service: ? Author Type: Technologist Type: Progress Notes Filed: 04/14/2022 8:36 AM Note Text: Radiology Service Progress Note PATIENT NAME: Norma Brennan DATE OF SERVICE: April 14, 2022 TIME: 8:27 AM PATIENT IDENTITY VERIFICATION COMPLETED USING TWO (2) IDENTIFIERS: Name and Date of confirmed by patient verbally. FALL SCREENING: Has the patient had 2 falls in the last year or 1 fall with injury or currently using an Ambulatory Assistive Device (Walker, Cane, Wheelchair, Crutches, etc.)? No PATIENT GENDER DATA: Female. status: : No status: NO. PATIENT RELEVANT IMPLANT DATA REVIEWED: Not Applicable RADIOLOGY DEPARTMENT: General X-ray: Exam(s) Completed: Pelvis X-Ray: Pelvis with Hip Right PERIPHERAL IV DATA: Not applicable SIGNED BY: RT Anthony(R) April 14, 2022 8:27 [facility]09-14-2022 Miscellaneous Notes * Telephone Encounter - Carrol Matthew RN - 01/25/2022 12:17 PM EDT Spoke to briana Quezada Dr only does revisions on his surgical patients or patients with a pathologic or metastatic disease. * Telephone Encounter - Carlitosanam Addis Pss - 01/25/2022 11:17 AM EDT Please contact Pilar larson/ Dr. Rosalio Flores ([facility]) Looking to discuss patient diagnosis, to see if patient can be seen by Dr Cho Second Opinion ( component loosening and Aseptic) Please dial Pilar [phone] [facility]* Encounter Date Diagnosis Assessment Notes Treatment Notes Treatment Clinical Notes Nov, Right hip pain (ICD-10 - M25.551) Nov, History of total right hip arthroplasty (ICD-10 - Z96.641) Nov, Other I again had a l stan discussion with the patient regarding her symptoms and treatment options. We discussed her lab results from [place] on 11/02/2021 and they are as follows: WBC 5.8 ESR 2 CRP less than 0.2 A D-dimer was ordered but this was not drawn for unknown reasons. As I explained to her even with the increased signal around the component and in the femur on the bone scan these lab results are not concerning at all for an infection. There is still concern that there is aseptic loosening of her component given the bone scan results. I explained to her that at this point it is encouraging that she was doing better with the pain while she was nonweightbearing. However with her increasing activities last week the pain has returned. At this point I think it still okay for us to continue with a nonweightbearing approach and if she is doing okay in 4 to 6 weeks we can either continue with nonweightbearing for an extended period of time or begin to weight-bear. As I explained to her if she were to still have pain especially with weightbearing given her bone scan results and x-ray findings at that time it may be prudent to get her in with either the [facility] or [facility] to discuss the possibility of revision because at this point I do not feel that our health system would be the best place for her to get the surgery that may need to be required. Patient understands this and is willing to proceed with the nonweightbearing precautions for another 4 to 6 weeks. [facility] Other 06-17-2022 Evaluation note* Encounter Date Diagnosis Assessment Notes Treatment Notes Treatment Clinical Notes Oct, History of total right hip arthroplasty (ICD-10 - Z96.641) [facility] Other 06-09-2022 Evaluation note* Encounter Date Diagnosis Assessment Notes Treatment Notes Treatment Clinical Notes Oct, Right hip pain (ICD-10 - M25.551) Oct, History of total right hip arthroplasty (ICD-10 - Z96.641) Oct, Other I had a long discussion with the patient regarding etiology of his hip symptoms. While it is great that she got significant relief with her hip bursitis injection it is concerning that she has had such an increase in pain since doing physical therapy. Again she does not recall any trauma or any falls to the hip but this pain is much different. When I reviewed her x-rays I do not appreciate any gross abnormalities especially compared to prior x-rays. However, it does appear that distally the implant is very close to the anterior cortex and that cortex is also very thin. Given the fact that she is having this thigh pain and she is exquisitely tender palpation distally over the thigh I have ordered a CT scan of the hip and down to the knee to evaluate for a possible fracture of the femur. We did discuss the fact that given her history there is always going to be a concern that she has an infection. However given the hip aspiration 2 months ago with no other changes from a medical standpoint such as recent infections, I do not feel it necessary to do another aspiration of the hip to rule out infection again. The way that she describes some of the pain into the thigh I first want a rule out the fracture with a CT scan but there is concerned that its possible this component that is been there for a while has loosened and is causing some of her thigh pain. I will plan to see her back after she gets her CT scan. [facility] Other 03-30-2022 Evaluation note* Encounter Date Diagnosis Assessment Notes Treatment Notes Treatment Clinical Notes Jul, Right hip pain (ICD-10 - M25.551) Jul, History of total right hip arthroplasty (ICD-10 - Z96.641) Jul, Other I had a very long discussion with the patient and her son today regarding her lab results as well as future treatment options. Her labs from 08/03/2021 are as follows: WBC 5.5 ESR 7 CRP 1.4 D-dimer 434 According to the MSI S criteria the elevated CRP gives the patient a score of 2, consistent with a possible infection. As a result, we had a very long discussion regarding the next course of management. We discussed that she has several risk factors including her extensive history with this right hip as well as the fact that it just came on all of a sudden as well as her pain that would be suggestive of possible infection. We also discussed that the CRP is only slightly elevated and the other labs are also nonspecific inflammatory markers and this could be related to pain as well as her arthritis that she has in her knees. After a long discussion about whether or not to proceed with a right hip aspiration and Synovasure testing, ultimately the patient myself, and the patient's son decided to proceed with a right hip aspiration and Synovasure testing. We will plan to get this set up this coming Sunday in the operating room under x-ray guidance. I discussed the risks and benefits of performing the procedure. All the patient's questions and concerns were answered and addressed. Informed consent was obtained at that time. I will plan to see the patient the following Sunday after the aspiration to discuss the results and treatment plans moving forward. [facility] Other 03-23-2022 Evaluation note* Encounter Date Diagnosis Assessment Notes Treatment Notes Treatment Clinical Notes Jul, Osteoarthritis of knees, bilateral (ICD-10 - M17.0) Jul, Other Follow patient has several issues going on including bilateral sciatica, bilateral primary knee osteoarthritis, and a painful right total hip with symptoms consistent with right hip bursitis, we discussed the most pressing need is to rule out a recurrent infection in the right hip. We have ordered the following labs: CBC ESR CRP D-dimer I explained to the patient that these are nonspecific inflammatory labs. If they come back elevated and we may need to consider an aspiration of her right hip. If these are not needed, then I do not feel that wound will even consider an aspiration of the hip and then at that time we can work to address some of her other issues. Depending on the results of her inflammatory labs, we did discuss knee injections with steroid medication. We also discussed that further evaluation of her sciatica symptoms may be necessary so that a surgical opinion can be given and possibly even evaluation by pain management down the road. Patient is in agreement with the above plan. I will plan to see her back after her labs result. [facility] Other Evaluation noteNo InformationNort Wenwo Other History general Narrative - Reported* Type Description Date Medical History chronic depression Medical History anxiety Medical History Acid reflux Surgical History Back surgery Surgical History Hip surgery X5 [facility] Other History general Narrative - Reported* Type Description Date Medical History chronic depression Medical History anxiety Medical History Acid reflux Medical History Urinary incontinence, mixed Medical History Arthritis of right hip Medical History LAZARO (generalized anxiety disorde r) Medical History Lumbar spondylosis Medical History Stage 3a chronic kidney disease Medical History Familial hypercholesterolemia Medical History Impaired glucose tolerance Medical History Carpal tunnel syndrome, bilatera l Medical History Cervical spondylosis with radicu lopathy Medical History Gastroesophageal ref lux disease with esophagitis without hemorrhage Medical History Menopausal symptom Surgical History Back surgery Surgical History Right Hip surgery X5 1998,2013, 2015,2016,20 17 Surgical History COLONOSCOPY 2019 Surgical History LUMBAR FUSION 2014 Hospitalization History see surgical hx [employer] Other Advance Directives Documents on File Type Date Recorded 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 Source Comments (unrecognize d section and content) In the event this informatio n is protected by the Federal Confidentiality of Alcohol and Drug Abuse Patient Records regulations: The Federal rules restrict any use of the information to criminally investigate or prosecute any alcohol or drug abuse patient.[facility] Care Teams (unrecognized sec tion and content) Strategic Account Director Relationship Specialty Start Date End Date Max Bruce, DO [address] [facility] [address] PCP - General Internal Medicine 08/18/20 INFORMATION SOURCE (unrecogn ized section and content) DATE CREATED AUTHOR 04/14/2022 [facility] DATE CREATED AUTHOR AUTHOR'S ORGANIZ ATION 06/17/2022 [facility] DATE CREATED AUTHOR AUTHOR'S ORGANIZ ATION 08/07/[address] [facility] DATE CREATED AUTHOR AUTHOR'S ORGANIZ ATION 04/27/2023 [facility] FOR RECORDS PERTAINING TO PATIENTS WHO ARE OR HAVE BEEN ENROLLED IN A CHEMICAL DEPENDENCY/SUBSTANCEABUSE PROGRAM, SOME INFORMATION MAY BE OMITTED. This clinical summary was aggregated from multiple sources. Caution should be exercised in using it in the provision of clinical care. This summary normalizes information from multiple sources, and as a consequence, information in this document may materially change the coding, format and clinical context of patient data. In addition, data may be omitted in some cases. CLINICAL DECISIONS SHOULD BE BASED ON THE PRIMARY CLINICAL RECORDS. [facility]. provides no warranty or guarantee of the accuracy or completeness of information in this document.
[2023-05-21 10:30] VITALS: BP 158/75; PULSE 71; RESP 18; O2SAT 95
[2023-05-21] MEDS: BUPIVACAINE HCL 0.25% PF 25 MG/10 ML VIAL INJ (10:30)
[2023-05-21 10:31] VITALS: BP 148/69; PULSE 72; RESP 18; O2SAT 96
--- NOTE | 2023-05-21 10:34 | W.PM.PROCNOT ---
Date of procedure: 05/21/23 Pre-op diagnosis: Lumbar spondylosis Post-op diagnosis: same as pre-op Procedure: Procedure: Bilateral L4-5, L5-S1 medial branch block Medications: Bupivacaine 0.25% 6cc The patient was seen and examined in the preoperative holding area.? An informed consent was obtained and placed on the chart.? The patient was brought to the medical procedure unit and placed in the prone position.? A timeout was completed verifying correct patient, procedure site, positioning, plan, and special equipment.? Using aseptic technique, the needle was placed at left L4. Under direct fluoroscopic visualization a Quincke-tipped spinal needle was advanced to the junction of the superior articulating process with the transverse process at the designated medial branch segment.? Preceded by negative aspiration, the above-mentioned injectate was placed in 1 mL aliquots.? The procedure was repeated at left L5, S1.? The needle was removed and insertion site was covered. The same procedure, at the same levels, was completed on the right side. The patient was taken to the postprocedural recovery area and monitored for an appropriate length of time before found suitable for discharge in the company of a responsible adult. Anesthesia: Local Surgeon: Jennifer Damon Pathology: none sent Condition: stable Disposition: no change
[2023-05-21] MEDS: LIDOCAINE HCL 2% PF 100 MG/5 ML VIAL INJ (10:55)
== END 2023-05-21 10:38 | disposition home or self-care (01) ==
PROVIDERS: PCP Internal Medicine; Visit Provider Anesthesiology
DX: M47.816 Spondylosis without myelopathy or radiculopathy, lumbar region (principal)
CPT/HCPCS: 64493; 64494; J0665

== ENCOUNTER 2023-05-31 10:30 | Outpatient (OUT) | payer MEDICARE, SELFPAY ==
--- OUTSIDE RECORDS SUMMARY | 2023-05-31 10:35 | XMS_ITS | CCD ---
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 Name Role Phone Rosalio Roblero II Unavailable Max Bruce DO Primary Care Provider MAX BRUCE Primary Care Unavailable PEDRO GOFF Referring Unavailable MAX BRUCE Primary Care Unavailable PEDRO GOFF Attending Unavailable OSBALDO SILVERIO, ROSALIO Puente Referring UnavailMAX Burch Primary Care Unavailable Osbaldo SILVERIO, Rosalio Puente Attending Unavaildebbi e Max Bruce Primary Care Unavailable Osbaldo II, Rosalio Puente Admitting Unavailabl e Mccracken II, Rosalio Puente Admitting Unavailabl e Osbaldo NUSRAT, Rosalio Puente Attending Unavailabl e Max Bruce Primary Care Unavailable Osbaldo II, Rosalio Puente Admitting Unavailabl e Osbaldo II, Rosalio Puente Attending Unavailabl e Max Bruce Primary Care Unavailable Mccracken II, Rosalio Puente Attending Unavailabl e Max Bruce Primary Care Unavailable Osbaldo II, Rosalio Puente Admitting Unavailabl e Osbaldo II, Rosalio Puente Admitting Unavailabl e Mccracken II, Rosalio Puente Attending Unavailabl e Max Bruce Primary Care Unavailable Osbaldo II, Rosalio Peunte Admitting Unavailabl e Mccracken II, Rosalio Puente Attending Unavailabl e Max Bruce Primary Care Unavailable Mccracken II, Rosalio Puente Attending Unavailabl e Max [...] sources) Acetaminophen / oxyCODONE Drug Allergy Unknown [employer] Other (16 sources) Adhesive Tape; Translations: [adhesive tape] Propensity to adverse reactions 08-16-[address] [facility] Repository (1 source) oxyCODONE Drug Allergy 08-16-[address] [facility] Repository (4 sources) Adhesive Tape 1 x5yd *MEDICAL DEVICES AND SUPPLIES Propensity to adverse reactions Comment:Adhesi ve Tape Vendor Registry [facility] [employer] Other Medications Current Medications Medication Drug Class(es) [...] / neomycin 3.5 mg/ml / polymyxin b 75010 unt/ml otic suspension (1 source) Aminoglycoside Antibacterial, Polymyxin-class Antibacterial, Corticosteroid Start: 05-09-2023 Hsompnci-Yzbmnhufy-QP 3.5-01380-6 4 drops into affected ear Otic daily [...] Start: 08-01-2022 take 2 tablets by mo [facility] twice daily traMADol HCl 50 MG TAKE [...] 08-18-2020 Episodic Other aftercare (1 source) 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 therapy Episodic Other bone disease [...] luon 08-03-2022 A1C with Estimated Average Glu [employer] Other Basic Metabolic Panelon 07-13 Calcium [Mass/Vol] 9.6957201 mg/dL 8.5-10 .1 mg/dL [employer] Other CO2 [Moles/Vol] 27.75051391 mmol/L 21.0-3 2.0 mmol/L [employer] Other Creatinine [Mass/Vol] 1.64898339 mg/dL 0.55-1.02 mg/dL [employer] Other Potassium [Moles/Vol] 4.59835882 mmol/L 3.5-5.1 mmol/L [employer] Other Urea nitrogen [Mass/Vol] 28.2448979 mg/dL Critically high 7.0-18.0 mg/dL [employer] Other Basic Metabolic Panel see note [employer] Other Basic Metabolic Panel 140 mmol/L 136-145 mmol/L [employer] Other Basic Metabolic Panel 95 mg/dL 74-106 mg/dL [employer] Other Basic Metabolic Panel 52 mL/min/1.73m2 Critically low >=60 mL/min/1.73m2 [employer] Other Basic Metabolic Panel >60 mL/min/1.73m2 >=60 mL/min/1.73m2 [employer] Other CBC AUTO DIFFon 08-03-2022 BASO # 0.0 103/ul Normal 0.0-0.1 [facility] 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: Performed By: #### C BC #### [facility] [address] [place] [address] Dr. Sandra Radford Basophils/100 WBC (Bld) 0.5 % Normal 0.2-2.0 [facility] 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: Performed By: #### C BC #### [facility] [address] [address] [address] Sandra Radford EO # 0.3 103/ul Normal 0.0-0.7 [facility] 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: Performed By: #### C BC #### [facility] [address] [address] [address] Sandra Radford Eosinophils/100 WBC (Bld) 4.5 % Normal 0.9-7.0 [facility] 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: Performed By: #### C BC #### [facility] [address] [place] [address] Dr. Sandra Radford Erythrocyte distribution width (RBC) [Ratio] 13.8 % Normal 11.0-15.0 [facility] 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: Performed By: #### C BC #### [facility] [address] [place] [address] Dr. Sandra Radford Hematocrit (Bld) [Volume fraction] 39.7 % Normal 36.0-48.0 [facility] 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: Performed By: #### C BC #### [facility] [address] [place] [address] Dr. Sandra Radford Hemoglobin (Bld) [Mass/Vol] 12.8 g/dL Normal 12.0-16.0 [facility] 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: Performed By: #### C BC #### [facility] [address] [place] [address] Dr. Sandra Radford IG # 0.01 10e3/ul Normal 0.00-0.03 [facility] 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: Performed By: #### C BC #### [facility] [address] [place] [address] Dr. Sandra Radford IG % 0.2 % Normal 0.0-0.5 [facility] 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: Performed By: #### C BC #### [facility] [address] [place] [address] Dr. Sandra Radford LYMPH # 1.6 103/ul Normal 1.2-3.8 [facility] 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: Performed By: #### C BC #### [facility] [address] [place] [address] Dr. Sandra Radford Lymphocytes/100 WBC (Bld) 26.3 % Normal 20.5-60.0 [facility] 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: Performed By: #### C BC #### [facility] [address] [place] [address] Dr. Sandra Radford MANUAL DIFF REQ NO Normal [facility] 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: Performed By: #### C BC #### [facility] [address] [place] [address] Dr. Sandra Radford MCH (RBC) [Entitic mass] 29.9 pg Normal 26.7-34.0 [facility] 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: Performed By: #### C BC #### [facility] [address] [address] [address] Sandra Radford MCHC (RBC) [Mass/Vol] 32.2 g/dL Normal 29.9-35.2 [facility] 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: Performed By: #### C BC #### [facility] [address] [place] [address] Dr. Sandra Radford MCV (RBC) [Entitic vol] 92.8 fL Normal 81.0-99.0 [facility] 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: Performed By: #### C BC #### [facility] [address] [place] [address] Dr. Sandra Radford MONO # 0.7 103/ul Normal 0.3-0.8 [facility] 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: Performed By: #### C BC #### [facility] [address] [place] [address] Dr. Sandra Radford Monocytes/100 WBC (Bld) 10.6 % Normal 1.7-12.0 [facility] 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: Performed By: #### C BC #### [facility] [address] [place] [address] Dr. Sandra Radford NEUT # 3.6 103/ul Normal 1.4-6.5 [facility] 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: Performed By: #### C BC #### [facility] [address] [place] [address] Dr. Sandra Radford Neutrophils/100 WBC (Bld) 57.9 % Normal 43.0-75.0 [facility] 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: Performed By: #### C BC #### [facility] [address] [place] [address] Dr. Sandra Radford Platelet mean volume (Bld) [Entitic vol] 9.7 fL Normal 9.5-13.5 [facility] 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: Performed By: #### C BC #### [facility] [address] [place] [address] Dr. Sandra Radford PLT 240 103/ul Normal 150-450 [facility] 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: Performed By: #### C BC #### [facility] [address] [address] [address] Sandra Radford RBC 4.28 106/ul Normal 4.20-5.40 [facility] 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: Performed By: #### C BC #### [facility] [address] [place] [address] Dr. Sandra Radford WBC 6.2 103/ul Normal 4.0-11.0 [facility] 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: Performed By: #### C BC #### [facility] [address] [address] [address] Sandra Radford Complete Blood Count and Dif esther 08-03-2022 Anisocytosis Ql (Bld) [facility] [employer] Other Basophilic stippling LM Ql (d) [facility] [employer] Other RBC morphology finding Nom (d) [facility] [employer] Other GLYCOHEMOGLOBIN A1Con 2022 ADA RECOMMENDATION SEE BELOW Normal [facility] 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: Result Comment: ADA RECOMMENDED LIMIT 4.0 - 6.0 ADA THERAPEUTIC TARGET < 7.0 ACTION SUGGESTED > 7.0 Performed By: #### A 1C #### [facility] [address] [place] [address] Dr. Sandra Radford Glucose [Mass/Vol] 105 mg/dL Normal [facility] 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: Performed By: #### A 1C #### [facility] [address] [place] [address] Dr. Sandra Radford HbA1c (Bld) [Mass fraction] 5.3 % Normal 4.5-6.2 [facility] 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: Performed By: #### A 1C #### [facility] [address] [place] [address] Dr. Sandra Radford LIPID PROFILEon 08-03-2022 CHOL-HDL RATIO NORM SEE BELOW Normal [facility] 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: Result Comment: 3.3 - 4.4 LOW RISK 4.4 - 7.1 AVERAGE RISK 7.1 - 11.0 MODERATE RISK >11.0 HIGH RISK Performed By: #### T SH, LIPID, BMP #### [facility] [address] [address] [address] Sandra Radford Cholesterol [Mass/Vol] 260 mg/dL Critically high <=200 mg/dL [facility] 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: Performed By: #### T SH, LIPID, BMP #### [facility] [address] [address] [address] Sandra Radford Cholesterol in HDL [Mass/Vol] 58 mg/dL 40-60 mg/dL [facility] 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: Performed By: #### T SH, LIPID, BMP #### [facility] [address] [address] [address] Sandra Radford Cholesterol in LDL [Mass/Vol] 165.8 mg/dL Normal [facility] 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: Performed By: #### T SH, LIPID, BMP #### [facility] [address] [place] [address] Dr. Sandra Radford Cholesterol.total/C holesterol in HDL [Mass ratio] 4.5 {ratio} [facility] 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: Performed By: #### T SH, LIPID, BMP #### [facility] [address] [address] [address] Sandra Radford HDL NORMAL > or = 60 mg/dl - LO W CARDIOVASCULAR RISK <40 mg/dl - HIGH CARDIOVASCULAR RISK Normal [facility] 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: Performed By: #### T SH, LIPID, BMP #### [facility] [address] [address] [address] Sandra Radford LDL CALC NORMAL SEE BELOW Normal [facility] 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: Result Comment: <100 mg/dl OPTIMAL 100 - 129 mg/dl NEAR OR ABOVE OPTIMAL 130 - 159 mg/dl BORDERLINE HIGH 160 - 189 mg/dl HIGH >190 mg/dl VERY HIGH Performed By: #### T SH, LIPID, BMP #### [facility] [address] [address] [address] Sandra Radford Triglyceride [Mass/Vol] 181 mg/dL Critically high <=150 mg/dL [facility] 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: Performed By: #### T SH, LIPID, BMP #### [facility] [address] [address] [address] Sandra Radford VLDL CALC 36.2 mg/dL Normal [facility] 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: Performed By: #### T CHON LIPID, BMP #### [facility] [address] [address] [address] Sandra Radford Lipid Panelon 08-03-2022 Lipid Panel > or = 60 mg/dl - LO W CARDIOVASCULAR RISK <40 mg/dl - HIGH CARDIOVASCULAR RISK [employer] [facility] [employer] Other Lipid Panel SEE BELOW [employer] Other Lipid Panel 165.8 mg/dL [employer] [facility] [employer] Other Lipid Panel 36.2 mg/dL [employer] [facility] [employer] Other PROF CHEM 8 (BAS METB)on Anion gap [Moles/Vol] 12.2 mmol/L [facility] 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: Performed By: #### T CHON LIPID, BMP #### [facility] [address] [place] [address] Dr. Sandra Radford Calcium [Mass/Vol] 9.6 mg/dL Normal 8.5-10.1 [facility] 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: Performed By: #### T CHON LIPID, BMP #### [facility] [address] [place] [address] Dr. Sandra Radford Chloride [Moles/Vol] 105 mmol/L 98-107 mmol/L [facility] 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: Performed By: #### T CHON LIPID, BMP #### [facility] [address] [place] [address] Dr. Sandra Radford CO2 [Moles/Vol] 27.3 mmol/L Normal 21.0-32.0 [facility] 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: Performed By: #### T CHON LIPID, BMP #### [facility] [address] [place] [address] Dr. Sandra Radford Creatinine [Mass/Vol] 1.02 mg/dL Normal 0.55-1.02 [facility] 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: Performed By: #### T CHON LIPID, BMP #### [facility] [address] [address] [address] Sandra Radford EGFR-AF AUSTRIAN >60 Normal >=60 [facility] 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: Performed By: #### T SH, LIPID, BMP #### [facility] [address] [address] [address] Sandra Radford EGFR-NON AF AUSTRIAN 52 mL/min/1.73m2 Critically low >=60 [facility] 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: Performed By: #### T SH, LIPID, BMP #### [facility] [address] [address] [address] Sandra Radford Glucose [Mass/Vol] 95 mg/dL Normal 74-106 [facility] 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: Performed By: #### T SH, LIPID, BMP #### [facility] [address] [place] [address] Dr. Sandra Radford Potassium [Moles/Vol] 4.5 mmol/L Normal 3.5-5.1 [facility] 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: Performed By: #### T CHON, LIPID, BMP #### [facility] [address] [address] [address] Sandra Radford Sodium [Moles/Vol] 140 mmol/L Normal 136-145 [facility] 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: Performed By: #### T SH, LIPID, BMP #### [facility] [address] [address] [address] Sandra Radford Urea nitrogen [Mass/Vol] 28.0 mg/dL Critically high 7.0-18.0 [facility] 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: Performed By: #### T SH, LIPID, BMP #### [facility] [address] [place] [address] Dr. Sandra Radford Urea nitrogen/Creatinine [Mass ratio] 27.5 mg/mg [facility] 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: Performed By: #### T SH, LIPID, BMP #### [facility] [address] [place] [address] Dr. Sandra Radford TSHon 08-03-2022 TSH 1.952 uIU/mL Normal 0.358-3.740 [facility] 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: Performed By: #### T SH, LIPID, BMP #### [facility] [address] [address] [address] Sandra Karimi 04-14-2022 CNOV Office Visit (ORTHCO ) MIKANORMA ([id number]) 1940 F Date Time Provider Department 04/14/22 9:00 AM PEDRO GOFF During your visit today, we recorded the following information about you: Pedro Goff DO 04/14/2022 10:56 AM Signed CONSULT ORTHOPAEDIC: HIP PRIMARY CARE PHYSICIAN: Max Bruce DO REFERRING PROVIDER: Rosalio Roblero [address] [place] [id number] HPI: 82-year-old female presents today with right hip pain that has been chronic in nature over the last year and a half but acutely worsened over the last 6 months. 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 She overall uses a walker for ambulation and has significant leg length difference and requires a shoe lift. She states over the last 6 months that her right hip and leg pain is worsening especially after working with physical therapy and was seen in [facility] and recommended nonweightbearing for 6 months with [...] Deficiency Chronic Kidney Disease, Stage Iii (Moderate) (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 The problem began limiting activities 1-6 months ago. Currently the pain in the joint is rated at 7 out of 10 with minimal activity. (more content not included)... Normal [facility] CRP SerPl-mCncon 04-14-2022 CRP [Mass/Vol] mg/L Normal <0.9 [facility] 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: Order Comment: Momo jain Type: BLOOD SPECIMEN Ordering Facility: [facility] Address: [address] [place] [address] Performed By: #### 1 988-5 #### [facility] CLIA [id number] [address] [place] [address] [place] ESR Westergren method (Bld) [Velocity]on 04-14-2022 ESR (Bld) [Velocity] 6 mm/h Normal 0-20 [facility] 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: Order Comment: Momo jain Type: BLOOD SPECIMEN Ordering Facility: [facility] Address: [address] [place] [address] Performed By: #### 4 [id number] #### [facility] CLIA [id number] [address] [place] [address] [place] XR HIP 3V PELV+ [...] significant abnormality. --- IMPRESSION: NO SIGNIFICANT CHANGE Designer Architect: ALIE Transcribe Date/Time: Apr 14 2022 8:42A Dictated by : CECELIA ALVAREZ MD This examination was interpreted and the report reviewed and electronically signed by: CECELIA ALVAREZ MD on Apr 14 2022 8:49AM EST [id number] N Normal [facility] CNPNon 01-25-2022 CNPN Telephone (ORQ) NORMA BRENNAN ([id number]) 1940 F Date Time Provider Department 01/25/22 YECENIA MURPHY ORQ During your visit today, we recorded the following information about you: Shahana Mancini Pss 01/25/2022 11:22 AM Signed Please contact Pilar larson/ Dr. Rosalio Flores ([facility]) Looking to discuss patient diagnosis, to see if patient can be seen by Dr Cho Second Opinion ( component loosening and Aseptic) Please dial Pilar [phone] Carrol Matthew RN 01/25/2022 12:22 PM Signed Spoke to Pilar, explained Dr Cho only does revisions on his surgical patients or patients with a pathologic or metastatic disease. 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 Sandra Radford Basophils/100 WBC (Bld) 0.5 % Normal 0.2-2.0 [facility] 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: Performed By: #### C BC #### [facility] [address] [place], [place] [address] Dr. Sandra Radford EO # 0.2 103/ul Normal 0.0-0.7 [facility] 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: Performed By: #### C BC #### [facility] [address] [place] [address] Dr. Sandra Radford Eosinophils/100 WBC (Bld) 3.1 % Normal 0.9-7.0 [facility] 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: Performed By: #### C BC #### [facility] [address] [place] [address] Dr. Sandra Radford Erythrocyte distribution width (RBC) [Ratio] 14.4 % Normal 11.0-15.0 [facility] 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: Performed By: #### C BC #### [facility] [address] [place] [address] Dr. Sandra Radford Hematocrit (Bld) [Volume fraction] 34.1 % Critically low 36.0-48.0 [facility] 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: Performed By: #### C BC #### [facility] [address] [place] [address] Dr. Sandra Radford Hemoglobin (Bld) [Mass/Vol] 11.2 g/dL Critically low 12.0-16.0 [facility] 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: Performed By: #### C BC #### [facility] [address] [place] [address] Dr. Sandra Radford IG # 0.01 10e3/ul Normal 0.00-0.03 [facility] 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: Performed By: #### C BC #### [facility] [address] [place] [address] Dr. Sandra Radford IG % 0.2 % Normal 0.0-0.5 [facility] 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: Performed By: #### C BC #### [facility] [address] [place] [address] Dr. Sandra Radford LYMPH # 1.5 103/ul Normal 1.2-3.8 [facility] 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: Performed By: #### C BC #### [facility] [address] [place] [address] Dr. Sandra Radford Lymphocytes/100 WBC (Bld) 25.1 % Normal 20.5-60.0 [facility] 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: Performed By: #### C BC #### [facility] [address] [place] [address] Dr. Sandra Radford MANUAL DIFF REQ NO Normal [facility] 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: Performed By: #### C BC #### [facility] [address] [place] [address] Dr. Sandra Radford MCH (RBC) [Entitic mass] 32.7 pg Normal 26.7-34.0 [facility] 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: Performed By: #### C BC #### [facility] [address] [place] [address] Dr. Sandra Radford MCHC (RBC) [Mass/Vol] 32.8 g/dL Normal 29.9-35.2 [facility] 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: Performed By: #### C BC #### [facility] [address] [place] [address] Dr. Sandra Radford MCV (RBC) [Entitic vol] 99.4 fL Critically high 81.0-99.0 [facility] 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: Performed By: #### C BC #### [facility] [address] [place] [address] Dr. Sandra Radford MONO # 0.6 103/ul Normal 0.3-0.8 [facility] 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: Performed By: #### C BC #### [facility] [address] [place] [address] Dr. Sandra Radford Monocytes/100 WBC (Bld) 10.7 % Normal 1.7-12.0 [facility] 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: Performed By: #### C BC #### [facility] [address] [place] [address] Dr. Sandra Radford NEUT # 3.5 103/ul Normal 1.4-6.5 [facility] 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: Performed By: #### C BC #### [facility] [address] [place] [address] Dr. Sandra Radford Neutrophils/100 WBC (Bld) 60.4 % Normal 43.0-75.0 [facility] 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: Performed By: #### C BC #### [facility] [address] [place] [address] Dr. Sandra Radford Platelet mean volume (Bld) [Entitic vol] 10.2 fL Normal 9.5-13.5 [facility] 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: Performed By: #### C BC #### [facility] [address] [address] [address] Sandra Radford PLT 202 103/ul Normal 150-450 [facility] 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: Performed By: #### C BC #### [facility] [address] [address] [address] Sandra Radford RBC 3.43 106/ul Critically low 4.20-5.40 [facility] 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: Performed By: #### C BC #### [facility] [address] [address] [address] Sandra Radford WBC 5.8 103/ul Normal 4.0-11.0 [facility] 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: Performed By: #### C BC #### [facility] [address] [address] [address] Sandra Radford CRPon 11-02-2021 CRP [Mass/Vol] mg/L Normal <=1.0 [facility] 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: Performed By: #### C RP #### [facility] [address] [place] [address] Dr. Sandra Radford [facility] SED RATE 2 mm/hr Normal <=30 [facility] 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: Performed By: #### S EDR #### [facility] [address] [address] [address] Sandra Radford NM bone 3 phaseon 10-26-2021 NM bone 3 phase [facility] [place] [address] Nuclear Medicine Report Signed Patient: Norma Brennan MR#: [id number] 00 : 1940 Acct:[id number] Age/Sex: 81 / F ADM Date: 10/26/21 Loc: [place] Room: Type: [facility] Attending Dr: Rosalio Roblero II, MD Copies to: DO Lolis Hoyos MD Robert M Carlisle, MD Ordering Provider: Rosalio Roblero MD Date of Service: 10/26/21 NM/NM [...] Lolis Reddy M.D.10/26/2021 4:09 PM Dictation Location: [place] [address] Transcribed By: [facility] 10/26/21 5268 Dictated By: Lolis Reddy MD 10/26/21 1559 Signed By: 10/26/21 3855 [facility] CT femur RT wo conon 022 CT femur RT wo con [facility] [place] [address] [place] [address] CT Scan Report Signed Patient: Norma Brennan MR#: [id number] 00 : 1940 Acct:[id number] Age/Sex: 81 / F ADM Date: 10/20/21 Loc: [facility] Room: Type: [facility] Attending Dr: Rosalio Roblero II, [...] Centeno Jr., M.D.10/20/2021 11:15 AM Dictation Location: [place] [address] Transcribed By: [facility] 10/20/21 1115 Dictated By: Romeo Centeno Jr, MD 10/20/21 1057 Signed By: 10/20/21 1115 [facility] XR femur RT 2V*on 10-20-2021 XR femur RT 2V* [facility] [place] [address] [place] [address] XRay Report Signed Patient: Norma Brennan MR#: [id number] 00 : 1940 Acct:[id number] Age/Sex: 81 / F ADM Date: 10/20/21 Loc: [facility] Room: Type: REG CLI Attending Dr: Rosalio [...] Lolis Reddy M.D.10/20/2021 1:13 PM Dictation Location: [place] [address] Transcribed By: [facility] 10/20/21 1313 Dictated By: Lolis Reddy MD 10/20/21 1310 Signed By: 10/20/21 1313 [facility] XR pelvis 1-2Von 10-20-2021 XR pelvis 1-2V [facility] [place] [address] [place] [address] XRay Report Signed Patient: Norma Brennan MR#: [id number] 00 : 1940 Acct:[id number] Age/Sex: 81 / F ADM Date: 10/20/21 Loc: [facility] Room: Type: REG CLI [...] Malachi Davis M.D.10/20/2021 1:08 PM Dictation Location: [facility]- Transcribed By: [facility] 10/20/21 1308 Dictated By: Malachi Davis II, MD 10/20/21 1303 Signed By: 10/20/21 [address] [facility] XR hip RT 1Von 08-15-2021 XR hip RT 1V [facility] [place] [address] [place] [address] XRay Report Signed Patient: Norma Brennan MR#: [id number] : 1940 Acct:[id number] Age/Sex: 81 / F ADM Date: 08/15/21 Loc: [place] Room: Type: [facility] Attending Dr: Rosalio Roblero II, MD Ordering [...] Edgard Paez M.D.08/15/2021 9:09 AM Dictation Location: [facility]-13 Transcribed By: ML 08/15/21908 Dictated By: Edgard Paez DO 08/15/21907 Signed By: 08/15/[address] [facility] Basic Metabolic Panelon Calcium [Mass/Vol] 9.1 mg/dL Normal 8.2-10.2 [facility] 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: Result Comment: PERF ORMED BY: [place] [address] PATHOLOGIST [employer] MARIELLA KRAUSE M.D. Performed By: #### C OVID 19 [facility] #### [facility] [address] [id number] [place] Chloride [Moles/Vol] 105 mmol/L Normal 95-[address] [facility] 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: Performed By: #### C OVID 19 [facility] #### [facility] [address] [phone] [place] CO2 [Moles/Vol] 25.9 mmol/L Normal 22.0-30.0 [facility] 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: Performed By: #### C OVID 19 [facility] #### [facility] [address] [place] [phone] [place] Creatinine [Mass/Vol] 0.99 mg/dL Normal 0.44-1.[address] [facility] 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: Performed By: #### C OVID 19 [facility] #### [facility] [address] [phone] [place] Estimated GFR ( Jahaira > 60 [facility] 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: Result Comment: GFR estimated reference range: According to KDOQI guidelines, <60 ml/min/1.73m2 is sufficient to diagnose a patient with chronic kidney disease. Performed By: #### C OVID 19 [facility] #### [facility] [address] [phone] [place] Estimated GFR (Non- Am 54 [facility] 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: Performed By: #### C OVID 19 [facility] #### [facility] [address] [phone] [place] Glucose [Mass/Vol] 92 mg/dL Normal 70-100 [facility] Comment on above: Result Comment: [place] Glucose Reference Range is dependent on time and content of last meal. Glucose of more than 200 mg/dL in a nonstressed, ambulatory subject supports the diagnosis of Diabetes Mellitus. ADA recommended reference range Performed By: #### C OVID 19 [facility] #### [facility] [address] [place] [phone] [facility] Potassium [Moles/Vol] 4.7 mmol/L Normal 3.5-5.[address] [facility] Comment on above: Performed By: #### C OVID 19 [facility] #### [facility] [address] Sodium [Moles/Vol] 139 mmol/L Normal 136-146 [facility] Comment on above: Performed By: #### C OVID 19 [facility] #### [facility] [address] Urea nitrogen [Mass/Vol] 32 mg/dL High 9-[address] [facility] Comment on above: Performed By: #### C OVID 19 [facility] #### [facility] [address] COVID-19 [facility] 08-12-2021 SARS-CoV-2 (COVID-19) RNA FABIAN+probe Ql (Unsp spec) Negative Normal Negative [facility] Comment on above: Order Comment: Comme nt procedure 08/15/21 Healthcare Worker?: N Result Comment: Testing for SARS-CoV-2 by RT-PCR This test was developed and its performance characteristics determined by [employer] and validated at the [facility]. This test has not been FDA cleared [...] is terminated or revoked sooner. PERFORMED BY: [address] [place] [address] PATHOLOGIST [employer] MARIELLA KRAUSE M.D. Performed By: #### C OVID 19 [facility] #### [place] [id number] [facility] ECG 12 lead ECGon 08-12-2021 ECG 12 lead ECG [facility] [place] [address] [place] [address] Electrocardiograph Report Signed Patient: Norma Brennan MR#: [id number] 00 : 1940 Acct:[id number] Age/Sex: 81 / F ADM Date: 08/12/21 Loc: Room: Type: [facility] Attending Dr: Rosalio Roblero II, MD [...] Signed By Felicitas Villeda MD [address] [facility] C-Reactive Proteinon 022 C-Reactive Protein 1.4 mg/dL High 0.0-1.0 [facility] Comment on above: Order Comment: Comme nt procedure 08/15/21 Healthcare Worker?: N Result Comment: PERF ORMED BY: [address] [place] [id number] PATHOLOGIST [employer] MARIELLA KRAUSE M.D. Performed By: #### C [address] #### [address] Complete Blood Count Auto Di ffon 08-03-2021 Basophils (Bld) [#/Vol] 0.0 10*3/uL Normal 0.0-0.[address] [facility] Comment on above: Order Comment: Comme nt procedure 08/15/21 Healthcare Worker?: N Performed By: #### C [address] #### [address] Basophils/100 WBC (Bld) 0.5 % Normal . [facility] Comment on above: Order Comment: Comme nt procedure 08/15/21 Healthcare Worker?: N Performed By: #### C [address] #### [address] Eosinophils (Bld) [#/Vol] 0.2 10*3/uL Normal 0.0-0.[address] [facility] Comment on above: Order Comment: Comme nt procedure 08/15/21 Healthcare Worker?: N Performed By: #### C [address] #### [address] Eosinophils/100 WBC (Bld) 4.2 % Normal . [facility] Comment on above: Order Comment: Comme nt procedure 08/15/21 Healthcare Worker?: N Performed By: #### C [address] #### [address] Erythrocyte distribution width (RBC) [Ratio] 14.7 % Normal 11.9-15.[address] [facility] Comment on above: Order Comment: Comme nt procedure 08/15/21 Healthcare Worker?: N Performed By: #### C [address] #### [address] Hematocrit (Bld) [Volume fraction] 39.6 % Normal 34.0-46.[address] [facility] Comment on above: Order Comment: Comme nt procedure 08/15/21 Healthcare Worker?: N Performed By: #### C [address] #### [address] Hemoglobin (Bld) [Mass/Vol] 12.9 g/dL Normal 11.8-15.[address] [facility] Comment on above: Order Comment: Comme nt procedure 08/15/21 Healthcare Worker?: N Performed By: #### C [address] #### [address] Lymphocytes (Bld) [#/Vol] 1.5 10*3/uL Normal 1.00-4.[address] [facility] Comment on above: Order Comment: Comme nt procedure 08/15/21 Healthcare Worker?: N Performed By: #### C [address] #### [address] Lymphocytes/100 WBC (Bld) 27.3 % Normal . [facility] Comment on above: Order Comment: Comme nt procedure 08/15/21 Healthcare Worker?: N Performed By: #### C [address] #### [address] MCH (RBC) [Entitic mass] 31.0 pg Normal 24.7-34.[address] [facility] Comment on above: Order Comment: Comme nt procedure 08/15/21 Healthcare Worker?: N Performed By: #### C [address] #### [address] MCV (RBC) [Entitic vol] 95.4 fL Normal 80-[address] [facility] Comment on above: Order Comment: Comme nt procedure 08/15/21 Healthcare Worker?: N Performed By: #### C [address] #### [address] Mean Corpuscular HGB Conc 32.4 g/dL Normal 32.0-35.[address] [facility] Comment on above: Order Comment: Comme nt procedure 08/15/21 Healthcare Worker?: N Performed By: #### C [address] #### [place] [address] [place] Monocytes (Bld) [#/Vol] 0.5 10*3/uL Normal 0.0-0.[address] [facility] Comment on above: Order Comment: Comme nt procedure 08/15/21 Healthcare Worker?: N Performed By: #### C [place] 19 [facility] #### [facility] [address] [phone] [facility] Monocytes/100 WBC (Bld) 9.8 % Normal . [facility] Comment on above: Order Comment: Comme nt procedure 08/15/21 Healthcare Worker?: N Performed By: #### C [address] #### [facility] [address] [place] [address] [place] Neutrophils (Bld) [#/Vol] 3.2 10*3/uL Normal 1.8-7.[address] [facility] Comment on above: Order Comment: Comme nt procedure 08/15/21 Healthcare Worker?: N Performed By: #### C [address] #### [facility] [address] Neutrophils/100 WBC (Bld) 58.2 % Normal . [facility] Comment on above: Order Comment: Comme nt procedure 08/15/21 Healthcare Worker?: N Performed By: #### C [address] #### [place] [address] [place] Nucleated RBC/100 WBC (Bld) [Ratio] 0.1 % Normal 0-0.[address] [facility] Comment on above: Order Comment: Comme nt procedure 08/15/21 Healthcare Worker?: N Performed By: #### C [address] #### [facility] [address] [place] [phone] [place] Platelet mean volume (Bld) [Entitic vol] 7.8 fL Normal 6.3-10.[address] [facility] Comment on above: Order Comment: Comme nt procedure 08/15/21 Healthcare Worker?: N Performed By: #### C [address] #### [facility] [address] [place] [phone] [place] Platelets (Bld) [#/Vol] 272 10*3/uL Normal 150-[address] [facility] Comment on above: Order Comment: Comme nt procedure 08/15/21 Healthcare Worker?: N Performed By: #### C OVID 19 [facility] #### [facility] [address] RBC (Bld) [#/Vol] 4.15 10*6/uL Normal 3.60-5.00 [facility] Comment on above: Order Comment: Comme nt procedure 08/15/21 Healthcare Worker?: N Performed By: #### C OVID 19 [facility] #### [address] WBC (Bld) [#/Vol] 5.5 10*3/uL Normal 4.5-11.0 [facility] Comment on above: Order Comment: Comme nt procedure 08/15/21 Healthcare Worker?: N Performed By: #### C OVID 19 [facility] #### [address] D-Dimer High Sensitivityon 0 08-03-2021 D-Dimer High Sensitivity 434 ng/mL High 0-[address] [facility] Comment on above: Order Comment: Reaso n [...] patients due to co-morbid conditions. PERFORMED BY: [place] [address] PATHOLOGIST [employer] ARTIST MARIELLA KRAUSE M.D. Performed By: #### D DIMER, CRP, CBC, ESR #### [address] Erythrocyte Sedimentation Ra brian 08-03-2021 ESR (Bld) [Velocity] 7 mm/h Normal 0-[address] [facility] Comment on above: Order Comment: Comme nt procedure 08/15/21 Healthcare Worker?: N Result Comment: PERF ORMED BY: [place] [address] PATHOLOGIST [employer] ARTIST MARIELLA KRAUSE M.D. Performed By: #### C OVID 19 [facility] #### [address] XR knee BI 4Von 08-03-2021 XR knee BI 4V [facility] [place] [address] XRay Report Signed Patient: Norma Brennan MR#: [id number] : 1940 Acct:[id number] Age/Sex: 81 / F ADM Date: 08/03/21 Loc: [facility] Room: Type: [facility] Attending Dr: Rosalio Roblero II, MD Ordering Provider: Rosalio Roblero MD Date of Service: 08/03/21 XR/XR knee BI 4V: Osteoarthritis of knees, bilateral Copies to: Rosalio Roblero MD 4 views both knee plain film COMPARISON:None HISTORY:Bilateral knee pain medially. Srrt-jm-serl contact of the medial compartment of the [...] Edgard Paez M.D.08/03/2021 2:13 PM Dictation Location: [place] [address] Transcribed By: [facility] 08/03/211412 Dictated By: Edgard Paez DO 08/03/211411 Signed By: 08/03/21 [address] [facility] XR knee BI 4V [facility] [employer] Other XR knee BI 4V [facility] [place] [employer] Other XR knee BI 4V [address]111 [facility] [employer] Other [place] [address] [address] [facility] [employer] Other XR knee BI 4V XRay Report [facility] [employer] Other XR knee BI 4V Signed [employer] Other XR knee BI 4V Patient: Lauro Brennan MR#: [id number] [place] [employer] Other XR knee BI 4V : 1940 Acct:[id number] [employer] Other XR knee BI 4V Age/Sex: 81 / F ADM Date: 08/03/21 [employer] Other XR knee BI 4V Loc: [place] Room: Type : [facility] [employer] Other XR knee BI 4V Attending Dr: Rosalio Roblero II, MD [employer] Other XR knee BI 4V Ordering Provider: Rosalio Roblero MD [employer] Other XR knee BI 4V Date of Service: 08/03/21 [employer] Other XR knee BI 4V XR/XR knee BI 4V: Osteoarthritis of knees, bilateral [employer] Other XR knee BI 4V Copies to: Rosalio Roblero MD [employer] Other XR knee BI 4V 4 views both knee plain film [employer] Other XR knee BI 4V COMPARISON:None [employer] Other XR knee BI 4V HISTORY:Bilateral knee pain medially. [employer] Other XR knee BI 4V Dfzc-xe-htwv contact of the medial compartment of the LEFT knee identified. Mild remaining joint [employer] Other XR knee BI 4V space narrowing of both knees present. Small supra patellar effusion seen. Diffuse osteopenia asia [employer] Other XR knee BI 4V ntified. No fracture or dislocation. Moderate lateral LEFT patellar subluxation identified. Mild [employer] Other XR knee BI 4V lateral RIGHT patellar subluxation identified. [employer] Other XR knee BI 4V XR/XR knee BI 4V [employer] Other XR knee BI 4V IMPRESSION:Advanced medial compartment degeneration on the LEFT. Remaining minor degenerative [employer] Other XR knee BI 4V change. [employer] Other XR knee BI 4V Impression dictated by: Edgard Paez M.D.08/03/2021 2:13 PM [employer] Other XR knee BI 4V Dictation Location: [place] [address] [employer] Other XR knee BI 4V Transcribed By: ML 08/03/21 [facility] [employer] Other XR knee BI 4V Dictated By: Edgard Paez DO 08/03/21 [facility] [employer] Other XR knee BI 4V Signed By: [employer] Other XR knee BI 4V 08/03/21 [facility] [employer] Other XR pelvis 1-2Von 08-03-2021 XR pelvis 1-2V [facility] [place] [address] [place] [address] XRay Report Signed Patient: Norma Brennan MR#: [id number] : 1940 Acct:[id number] Age/Sex: 81 / F ADM Date: 08/03/21 Loc: [facility] Room: Type: [facility] Attending Dr: Rosalio Roblero II, MD [...] Edgard Paez M.D.08/03/2021 2:20 PM Dictation Location: [place] [address] Transcribed By: [facility] 08/03/21 1420 Dictated By: Edgard Paez DO 08/03/21 1419 Signed By: 08/03/21 1420 [facility] XR pelvis 1-2V XR/XR pelvis 1-2V: Osteoarthritis of knees, bilateral [employer] Other XR pelvis 1-2V Single view of the pelvis plain film [employer] Other XR pelvis 1-2V HISTORY:Bilateral knee pain [employer] Other XR pelvis 1-2V The visualized portion of the RIGHT hip arthroplasty unremarkable. Bony alignment appears [employer] Other XR pelvis 1-2V adequate. Diffuse osteopenia. [employer] Other XR pelvis 1-2V No acute bony findings identified. [employer] Other XR pelvis 1-2V No focal soft tissue abnormality seen. [employer] Other XR pelvis 1-2V XR/XR pelvis 1-2V [employer] Other XR pelvis 1-2V IMPRESSION:Unremarka b le visualized the RIGHT hip arthroplasty. Diffuse osteopenia. Unremarkable [employer] Other XR pelvis 1-2V LEFT hip. [employer] Other XR pelvis 1-2V Impression dictated by: Edgard Paez M.D.08/03/2021 2:20 PM [employer] Other XR pelvis 1-2V Transcribed By: PWS 08/03/21 1420 [employer] Other XR pelvis 1-2V Dictated By: Edgard Paez DO 08/03/21 1419 [employer] Other XR pelvis 1-2V 08/03/21 1420 [employer] Other Vital Signs Date Time Vital Sign Value Performing Clinician Facility 05-09-2023 11:30-0500 Body height 152.4 cm Max Ball Other [employer] Other 05-09-2023 11:30-0500 Body mass index (BMI) [Ratio] 30.81 kg/m2 Max Ball Other [employer] Other 05-09-2023 11:30-0500 Body weight 71.58 kg Max Ball Other [employer] Other 05-09-2023 11:30-0500 Diastolic blood pressure 77 mm[Hg] Max Ball Other [employer] Other 05-09-2023 11:30-0500 Respiratory rate 12 /min Max Ball Other [employer] Other 05-09-2023 11:30-0500 Systolic blood pressure 146 mm[Hg] Max Ball Other [employer] Other 08-03-2022 12:00-0400 Body height 152.4 cm Max Ball Other [employer] Other 08-03-2022 12:00-0400 Body mass index (BMI) [Ratio] 31.64 kg/m2 Max Ball Other [employer] Other 08-03-2022 12:00-0400 Body weight 73.48 kg Max Ball Other [employer] Other 08-03-2022 12:00-0400 Diastolic blood pressure 82 mm[Hg] Max Ball Other [employer] Other 08-03-2022 12:00-0400 Respiratory rate 12 /min Max Ball Other [employer] Other 08-03-2022 12:00-0400 Systolic blood pressure 137 mm[Hg] Max Ball Other [employer] Other 10-20-2021 09:45-0400 Body height 152.4 cm Rosalio Osbaldo II Other [employer] Other 10-20-2021 09:45-0400 Body mass index (BMI) [Ratio] 28.9 kg/m2 Rosalio Mccracken II Other [employer] Other 10-20-2021 09:45-0400 Body weight 67.13 kg Rosalio Mccracken II Other [employer] Other 08-10-2021 15:45-0400 Body height 152.4 cm Rosalio Mccracken II Other [employer] Other 08-10-2021 15:45-0400 Body mass index (BMI) [Ratio] 28.9 kg/m2 Rosalio Osbaldo II Other [employer] Other 08-10-2021 15:45-0400 Body weight 67.13 kg Rosalio Osbaldo II Other [employer] Other 08-03-2021 12:00-0400 Body height 152.4 cm Rosalio Roblero II Other [employer] Other 08-03-2021 12:00-0400 Body mass index (BMI) [Ratio] 28.9 kg/m2 Rosalio Roblero II Other [employer] Other 08-03-2021 12:00-0400 Body weight 67.13 kg Rosalio Roblero II Other [employer] Other Encounters Encounter Date Encounter Type Care Provider Facility Start: 05-09-2023 End: 05-09-2023 ambulatory Max Teo Other [employer] Other Start: 05-09-2023 Office outpatient vi sit 25 minutes Max Bruce [facility] Start: 04-16-2023 End: 04-17-2023 ambulatory [facility] Start: 03-19-2023 End: 03-20-2023 ambulatory Jennifer Damon MD Facility: [facility] Start: 02-19-2023 End: 02-20-2023 ambulatory [facility] Start: 02-13-2023 End: 02-13-2023 ambulatory Max Teo Other [facility] [employer] [facility] Other Start: 02-13-2023 Telephone encounter Max Bruce [facility] Start: 02-07-2023 End: 02-07-2023 ambulatory Max Teo Other [facility] Other Start: 02-07-2023 Telephone encounter Max Teo RAMIREZ [facility] Start: 02-01-2023 End: 02-01-2023 ambulatory Max Bruce Other [facility] Other Start: 02-01-2023 Telephone encounter Max Bruce [facility] Start: 08-10-2022 End: 08-10-2022 ambulatory Max Bruce Other [facility] Other Start: 08-10-2022 Telephone encounter Max RAMIREZ [facility] Start: 08-03-2022 End: 08-04-[address] MAX BRUCE Facility: Start: 08-03-2022 Patient encounter procedure Max Bruce [facility] Start: 04-14-2022 End: 04-14-2022 ambulatory MAX BRUCE Facility:[facility] Start: 02-06-2022 End: 02-06-2022 ambulatory Rosalio Mccracken II Other [facility] Other Start: 02-06-2022 Telephone encounter Rosalio Osbaldo II 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 (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 for patient's ortho./) Start: 01-19-2022 End: 01-19-2022 ambulatory Rosalio Mccracken II Other [facility] Other Start: 01-19-2022 Telephone encounter Rosalio Mccracken II [facility] Start: 01-02-2022 End: 01-02-2022 ambulatory Rosalio Mccracken II Other [facility] Other Start: 01-02-2022 Telephone encounter Rosalio Mccracken II [facility] Start: 11-30-2021 End: 11-30-2021 ambulatory Rosalio Mccracken II Other [facility] Other Start: 11-30-2021 Telephone encounter Rosalio Mccracken II [facility] Start: 11-18-2021 End: 11-18-2021 ambulatory Rosalio Osbaldo II Other [facility] Other Start: 11-18-2021 Office outpatient vi sit 25 minutes Rosalio Osbaldo II [facility] Start: 11-02-2021 End: 11-02-2021 ambulatory ROSALIO OSBALDO [facility] Other Start: 11-02-2021 Telephone encounter Rosalio Mccracken II [facility] Start: 10-28-2021 End: 10-28-2021 ambulatory Rosalio Osbaldo II Other [facility] Other Start: 10-28-2021 Telephone encounter Rosalio Mccracken II [facility] Start: 10-26-2021 End: 10-26-2021 ambulatory Rosalio M Osbaldo II Facility:[facility] Start: 10-21-2021 End: 10-21-2021 ambulatory Rosalio Mccracken II Other [facility] Other Start: 10-21-2021 Telephone encounter Rosalio Mccracken II [facility] Start: 10-20-2021 Office outpatient vi sit 25 minutes Rosalio Mccracken II [facility] Start: 10-20-2021 End: 10-20-2021 ambulatory Rosalio M Mccracken II [facility] Other Start: 10-14-2021 End: 10-14-2021 ambulatory Rosalio Mccracken II Other [facility] Other Start: 10-14-2021 Telephone encounter Rosalio Osbaldo II [facility] Start: 09-22-2021 End: 09-22-2021 ambulatory Rosalio M Osbaldo II Facility:[facility] Start: 08-15-2021 End: 08-15-2021 ambulatory Rosalio M Osbaldo II Facility:[facility] Start: 08-12-2021 End: 08-12-2021 ambulatory Rosalio M Mccracken II Facility:[facility] Start: 08-10-2021 End: 08-10-2021 ambulatory Orsalio Mccracken II Other [facility] Other Start: 08-10-2021 Office outpatient vi sit 25 minutes Rosalio Roblero II [facility] Start: 08-03-2021 [facility] visit new patient Rosalio matthews II [facility] Start: 08-03-2021 End: 08-03-2021 ambulatory Rosalio Roblero II [facility] Other Start: 07-13-2021 Adult health examination Max Bruce Other [facility] [employer] [facility] Other Procedures Date Procedure Procedure Detail Performing Clinician Depression screening Maryanne Bruce Other Plan of Treatment Date Care Activity Detail Author Start: 2022 Influenza vaccination INFLUENZA (#1) [facility] Start: 05-14-2021 ADVANCE DIRECTIVE DISCUSSION ADVANCE DIRECTIVE DISCUSSION [facility] Start: 01-04-2021 COVID-19 VACCINE (3 - Booster for Moderna series) COVID-19 VACCINE (3 - Booster for Moderna series) [facility] Start: 01-13-2004 BONE DENSITY BONE DENSITY [facility] Start: 01-13-2004 PNEUMOCOCCAL: 65+ (1 - PCV) PNEUMOCOCCAL: 65+ (1 - PCV) [facility] Start: 1989 SHINGRIX VACCINE (1 of 2) JAMISON GRIX VACCINE (1 of 2) [facility] Start: 01-13-1984 DIABETES SCREEN DIABETES SCREEN [facility] Start: 1958 Urine microalbumin profile DTAP,TDAP ,TD (1 - Tdap) [facility] Immunizations Immunization Date Immunization Notes Care Provider Danelle lozoya 02-05-2023 Prevnar 20 Max Bruce Other [facility] Other 02-05-2023 influenza, high dose seasonal, preservative-free Max Bruce Other [facility] Other 04-21-2022 COVID-19 Vaccine Moderna - Documentation Purposes Only Max Bruce Other [facility] Other 03-11-2022 zoster vaccine recombinant Max Bruce Other [facility] Other 03-11-2022 zoster vaccine, live Benjami milagros Bruce Other [facility] Other 02-03-2022 influenza virus vaccine, split virus (incl. purified surface antigen) Max Bruce Other [facility] Other 02-03-2022 influenza, high dose seasonal, preservative-free Max Bruce Other [facility] Other 07-13-2021 zoster vaccine recombinant Max Bruce Other [facility] Other 03-31-2021 COVID-19 Vaccine Moderna - Documentation Purposes Only Max Bruce Other [facility] Other 01-24-2021 influenza virus vaccine, split virus (incl. purified surface antigen) Max Bruce Other [facility] Other 08-04-2020 COVID-19 Vaccine Moderna - Documentation Purposes Only Max Bruce Other [facility] Other 07-01-2020 COVID-19 Vaccine Moderna - Documentation Purposes Only Max Bruce Other [facility] Other 02-03-2020 influenza virus vaccine, split virus (incl. purified surface antigen) Max Bruce Other [facility] Other Payers Date Payer Category Payer Private Health Insurance 2021 Private Health Insurance [id number] 2021 Self-pay 2020 Medicare AETNA MEDICARE A ETNA MEDICARE PPO [id number] 2020-Present [phone] [address] [place] [address] PPO [id number] 1960 Medicare [id number] 1939 Unknown [id number] 93 1939 Unknown [id number] 93 1939 Unknown [id number] 96 1939 Unknown [id number] [id number] 96 1939 Unknown [id number] 96 Unknown [id number] 31 Unknown [id number] 31 Unknown [id number] 31 Unknown [id number] 31 Unknown [id number] [id number] 31 Unknown [id number] 31 Unknown [id number] 31 Social History Date Type Detail Facility Sex Assigned At [facility] [employer] [facility] Other Start: 06-22-2020 Tobacco smoking status NVIS Never smoked tobacco [facility] Start: 06-22-2020 Tobacco use and exposure Smokeless tobacco non-user [facility] Start: 12-16-2020 Alcohol intake Current drinke r of alcohol (finding) [facility] Start: 06-22-2020 History SDOH Alcohol Comment 1 x weekly [facility] Start: 1940 Sex Assigned At Female C [facility] Medical Equipment Procedure Code Equipment Code Equipment Origin al Text Equipment Identifier Dates Lens Iol 0d +19. 5 [place] Uv Abs - [id number] Start: 08-18-2020 Comment on above: Description: [...] doesn't help can use topical steroid drops [facility] [employer] [facility] Other 10-03-2023 Evaluation note* Encounter Date Diagnosis Assessment Notes Treatment Notes Treatment Clinical Notes Feb, SBE (subacute bacterial endocarditis) prophylaxis candidate (ICD-10 - Z29.89) [facility] Other 03-30-2023 Evaluation note* Encounter Date Diagnosis Assessment Notes Treatment Notes Treatment Clinical Notes Jul, SBE (subacute bacterial endocarditis) prophylaxis candidate (ICD-10 - Z29.8) [facility] Other 03-23-2023 Evaluation note* Encounter Date Diagnosis [...] High risk medication use (ICD-10 - Z79.899) [facility] Other 12-02-2022 NoteHNO ID: [id number] Author: Pedro Goff DO Service: ? Author Type: Physician Type: Progress Notes Filed: 04/14/2022 10:56 AM Note Text: CONSULT ORTHOPAEDIC: HIP PRIMARY CARE PHYSICIAN: Max Bruce DO REFERRING PROVIDER: Rosalio Roblero II [facility] [place] [id number] HPI: 82-year-old female presents today with right hip pain that has been chronic in nature over the last year and a half but acutely worsened over the last 6 months. 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 She overall uses a walker for ambulation and has significant leg length difference and requires a shoe lift. She states over the last 6 months that her right hip and leg pain is worsening especially after working with physical therapy and was seen in [facility] and recommended nonweightbearing for 6 months with [...] Deficiency Chronic Kidney Disease, Stage Iii (Moderate) ([facility]) Chronic Kidney Disease, Stage 3 Unspecified (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 Appears direct (more content not included)... [facility]12-02-2022 NoteHNO ID: [id number] Author: RT Anthony(R) Service: ? Author Type: [...] BY: RT Anthony(R) April 14, 2022 8:27 [facility]09-14-2022 Miscellaneous Notes * Telephone Encounter - Carrol Matthew RN - 01/25/2022 12:17 PM EDT Spoke to briana Quezada Dr only does revisions on his surgical patients or patients with a pathologic or metastatic disease. * Telephone Encounter - Carlitosanam Addis Pss - 01/25/2022 11:17 AM EDT Please contact Pilar larson/ Dr. Rosalio Flores ([facility]) Looking to discuss patient diagnosis, to see if patient can be seen by Dr Cho Second Opinion ( component loosening and Aseptic) Please dial Pilar [phone] [facility] Evaluation note* Encounter Date Diagnosis Assessment Notes Treatment Notes Treatment Clinical Notes Nov, Right hip pain (ICD-10 - M25.551) Nov, History of total right hip arthroplasty (ICD-10 - Z96.641) Nov, Other I again had a l stan discussion with the patient regarding her symptoms and treatment options. We discussed her lab results from [place] on 11/02/2021 and they are as follows: [...] to get her in with either the [facility] or [facility] to discuss the possibility of revision because at this point I do not feel that our health system would be the best place for her to get the surgery that may need to be required. Patient understands this and is willing to proceed with the nonweightbearing precautions for another 4 to 6 weeks. [facility] Other 06-17-2022 Evaluation note* Encounter Date Diagnosis Assessment Notes Treatment Notes Treatment Clinical Notes Oct, History of total right hip arthroplasty (ICD-10 - Z96.641) [facility] Other 06-09-2022 Evaluation note* Encounter Date Diagnosis [...] back after she gets her CT scan. [facility] Other 03-30-2022 Evaluation note* Encounter Date Diagnosis [...] the results and treatment plans moving forward. [facility] [employer] [facility] Other 03-23-2022 Evaluation note* Encounter Date Diagnosis [...] see her back after her labs result. 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 FOR RECORDS PERTAINING TO PATIENTS WHO [...] BE BASED ON THE PRIMARY CLINICAL RECORDS. [employer] [facility]. provides no warranty or guarantee of the accuracy or completeness of information in this document.
--- NOTE | 2023-05-31 11:12 | P.CN_ITS ---
Consult Note: HPI Data of Consult Patient: known to practice within the last 3 years Requesting Physician: Tressa Ayala NP Primary Care Provider: Max Bruce, DO Consult Narrative Reason for consult: f/u Narrative: Norma Holt a pleasant 83 year old female presents for evaluation and management of chronic low back pain. Today pain 6/10 deep ache, worse with activity increases to 9/10. Patient reports greater than 80% pain relief and functional improvement immediately following and hours after bilateral L4-5 L5- S1 MBB #2, she was able to stand and walk much further and was active for hours after the procedure. Patient found great benefit to gabapentin 100mg HS for neuropathic pain and RLS however it caused extreme daytime drowsiness. cc:: CC: Tressa Ayala NP Review of Systems ROS Status of ROS 10 or more systems reviewed and unremark able except as noted in history and below Musculoskeletal Reports: back pain and extremity pain PFSH PFSH Medical History Arthritis ?M19.90 - Unspecified osteoarthritis, unspecified site (ICD-10) Lumbar stenosis ?M48.061 - Spinal stenosis, lumbar region without neurogenic claudication (ICD-10) Post laminectomy syndrome ?M96.1 - Postlaminectomy syndrome, not elsewhere classified (ICD-10) Surgical History History of removal of retained hardware ?Z98.890 - Other specified postprocedural states (ICD-10) History of hip surgery ?Z98.890 - Other specified postprocedural states (ICD-10) H/O total hip arthroplasty ?Z96.649 - Presence of unspecified artificial hip joint (ICD-10) History of lumbar fusion ?Z98.1 - Arthrodesis status (ICD-10) Meds Home Medications and Allergies Home Medications Medication Instructions Recorded Confirmed Type calcium carbonate 600 mg-vitamin 1 tab PO DAILY 02/19/23 05/21/23 History D3 10 mcg (400 unit) tablet (Calcium 600 + D(3)) escitalopram oxalate 20 mg tablet 20 mg PO DAILY 02/19/23 05/21/23 History (Lexapro) magnesium 200 mg tablet 400 mg PO DAILY 02/19/23 05/21/23 History meloxicam 15 mg tablet 15 mg PO DAILY 02/19/23 05/21/23 History omeprazole 40 mg capsule,delayed 40 mg PO DAILY 02/19/23 05/21/23 History release fish oil 1 tab PO DAILY 03/09/23 05/21/23 History lutein 1 tab PO DAILY 03/09/23 05/21/23 History multivitamin 1 tab PO DAILY 03/09/23 05/21/23 History potassium 1 tab PO DAILY 03/09/23 05/21/23 History vitamin D 1 tab PO DAILY 03/09/23 05/21/23 History vitamin c 1 tab PO DAILY 03/09/23 05/21/23 History hydrocodone 5 mg-acetaminophen 325 1 tab PO TID PRN pain #90 tabs 03/19/23 05/21/23 Rx mg tablet gabapentin 100 mg capsule 50 mg PO BEDTIME 04/25/23 05/21/23 History gabapentin 100 mg capsule 100 mg PO DAILY #30 caps 04/25/23 05/21/23 Rx hydrocodone 5 mg-acetaminophen 325 1 tab PO Q8H PRN pain #90 tabs 04/25/23 Rx mg tablet naloxone 4 mg/actuation nasal 4 mg intranasal Q2M #2 ea 04/25/23 Rx spray (Narcan) Allergies Allergy/AdvReac Type Severity Reaction Status Date / Time adhesive tape Allergy Rash Verified 05/21/23 10:12 percocet AdvReac disorientat Uncoded 05/21/23 10:12 ion Exam Narrative Exam Narrative: Psych-alert and oriented x 3. Attentive and appropriate, constitutionally normal, displays normal mood and affect per situation.? There are no obvious deficits in memory, reasoning, or intellect.? Skin-no obvious rashes, bruising, erythema noted to the patient's area of pain. Extremities- extremities are warm with minimal edema and palpable pulses. Lumbar-no significant tenderness to palpation noted in the lumbar spine and paraspinal musculature.? Pain is elicited with extension, and lateral rotation of the lumbar spine. Range of motion is slightly diminished with these motions due to pain. Facet loading maneuvers are positive bilaterally and do appear to be concordant with the patient's normal complaints of pain.? Coordination remains intact.? Gait remains non-antalgic. Constitutional Documenting provider has reviewed patient's vital signs: yes Common normals: no apparent distress, oriented x3, healthy appearing, alert and well nourished General appearance: cooperative HENMT Common normals: normocephalic, hearing grossly normal bilaterally and moist oral mucous membranes Head and scalp: normocephalic Eye Common normals: PERRL Pupil: PERRL Neck & C-Spine Common normals: full ROM General: normal visual inspection Chest Common normals: inspection of chest normal Respiratory Common normals: normal respiratory effort, no retractions and no use of accessory muscles Neuro Common normals: oriented x3, CN's II-XII intact bilaterally, moves all extremities, no focal motor deficits, no sensory deficits noted and deep tendon reflexes 2+ bilaterally Sensorium/orientation: alert Motor exam: strength 5/5 throughout and no movement abnormalities noted Psych Common normals: mental status grossly normal, thought process normal, cooperative, affect normal, speech normal and activity/motor behavior normal Speech: normal speech Thought process: normal thought process Assessment and Plan Assessment and Plan (1) Lumbar spondylosis: Assessment and Plan: The patient has had over 3 months of moderate to severe low back pain with functional impairment and inadequate response to conservative care including NSAIDS (unless there are contraindication such as concurrent blood thinners), multiple oral or topical pain medications, and home exercise program/physical therapy.? Patient has completed >6 weeks of guided home exercise program and/or formal physical therapy program without relief of their symptoms.? I have reviewed the imaging of the lumbar spine and no red flags were identified.? The imaging reveals radiographic findings consistent with lx spondylosis We discussed the risks and benefits of the procedure with the patient, and we are NOT planning on using sedation as outlined in the guidelines from Medicare unless there is a documented reason that sedation would be strongly recommended.?? ?The procedure will be completed with fluoroscopic guidance.? (2) Restless leg syndrome: (3) Lumbar stenosis with neurogenic claudication: (4) Lumbar postlaminectomy syndrome: (5) Chronic prescription opiate use: Plan proceed with bilateral L4-5 L5-S1 facet medial branch thermal RFA start pregablin 25mg HS for RLS, NC symptoms, stop gabapentin due to drowsiness continue norco 5-325mg TID PRN for moderate to severe pain narcan previously prescribed continue lexapro and mobic f/u 1 month after alation
== END 2023-05-31 10:31 | disposition home or self-care (01) ==
PROVIDERS: PCP Internal Medicine; Visit Provider Nurse Practitioner
DX: M47.816 Spondylosis without myelopathy or radiculopathy, lumbar region (principal); G25.81 Restless legs syndrome; M48.062 Spinal stenosis, lumbar region with neurogenic claudication; M96.1 Postlaminectomy syndrome, not elsewhere classified; Z79.891 Long term (current) use of opiate analgesic
CPT/HCPCS: G0463

== ENCOUNTER 2023-06-18 08:21 | Day surgery (SDC) | payer MEDICARE, SELFPAY ==
--- OUTSIDE RECORDS SUMMARY | 2023-06-18 08:25 | XMS_ITS | CCD ---
Author Name Unknown Address [address] [place] [address] Organization [facility] Care Team Providers Care Pool Table Operator Name Role Phone Rosalio Roblero II Unavailable Max Bruce DO Primary Care Provider MAX BRUCE Primary Care Unavailable PEDRO GOFF Referring Unavailable MAX BRUCE Primary Care Unavailable PEDRO GOFF Attending Unavailable OSBALDO SILVERIO, ROSALIO Puente Referring UnavailMAX Burch Primary Care Unavailable Osbaldo SILVERIO, Rosalio Puente Attending Unavailabl e Max Bruce Primary Care Unavailable [place] II, Rosalio Puente Admitting Unavailabl e Osbaldo II, Rosalio Puente Admitting Unavailabl e [place] NUSRAT, Rosalio Puente Attending Unavailabl e Max Bruce Primary Care Unavailable Osbaldo II, Rosalio Puente Admitting Unavailabl e Osbaldo II, Rosalio Puente Attending Unavailabl e Teo, Max Primary Care Unavailable Osbaldo II, Rosalio Puente Attending Unavailabl e Max Bruce Primary Care Unavailable [place] II, Rosalio Puente Admitting Unavailabl e [place] II, Rosalio M Admitting Unavailabl e [place] II, Rosalio Puente Attending Unavailabl e Max Bruce Primary Care Unavailable [place] II, Rosalio Puente Admitting Unavailabl e [place] II, Rosalio Puente Attending Unavailabl e Max Bruce Primary Care Unavailable [place] II, Rosalio Puente Attending Unavailabl e Max [...] Unavailable Marisol ARGUETA, Jennifer Ojeda Attending Unavailable Adamitis , Jennifer Ojeda Attending Unavailable Allergies Allergy Classification Reported Allergen(s) Allergy Type Date of Onset Reaction(s) Facility (18 sources) Acetaminophen / oxyCODONE Drug Allergy Unknown [employer] Other (16 sources) Adhesive Tape; Translations: [adhesive tape] Propensity to adverse reactions 08-16-19 Unknown [facility] Repository (1 source) oxyCODONE Drug Allergy 08-16-19 [facility] Repository (4 sources) Adhesive Tape 1 x5yd *MEDICAL DEVICES AND SUPPLIES Propensity to adverse reactions Comment:Adhesi ve Tape [employer] [facility] [employer] Other Medications Current Medications Medication Drug Class(es) [...] / neomycin 3.5 mg/ml / polymyxin b 73282 unt/ml otic suspension (1 source) Aminoglycoside Antibacterial, Polymyxin-class Antibacterial, Corticosteroid Start: 05-09-2023 Gfsxkzvl-Xacqizfpu-BX 3.5-47773-5 4 drops into affected ear Otic daily [...] Start: 08-01-2022 take 2 tablets by mo ut twice daily traMADol HCl 50 MG TAKE 2 TABLETS BY MOUTH TWICE A DAY Jul, Active Start: 05-27-2020 take 2 tablets by mo uth twice daily traMADol (ULTRAM) 50 mg tablet [...] 08-18-2020 Episodic Other aftercare (1 source) Other roasterman (current) drug therapy Episodic Other bone disease [...] luon 08-03-2022 A1C with Estimated Average Glu [employer] Other Basic Metabolic Panelon 07-13 Calcium [Mass/Vol] 9.1959158 mg/dL 8.5-10 .1 mg/dL [employer] Other CO2 [Moles/Vol] 27.76172571 mmol/L 21.0-3 2.0 mmol/L [employer] Other Creatinine [Mass/Vol] 1.82124641 mg/dL 0.55-1.02 mg/dL [employer] Other Potassium [Moles/Vol] 4.56768554 mmol/L 3.5-5.1 mmol/L [employer] Other Urea nitrogen [Mass/Vol] 28.2468363 mg/dL Critically high 7.0-18.0 mg/dL [employer] Other Basic Metabolic Panel see note [employer] Other Basic Metabolic Panel 140 mmol/L 136-145 mmol/L [employer] Other Basic Metabolic Panel 95 mg/dL 74-106 mg/dL [employer] Other Basic Metabolic Panel 52 mL/min/1.73m2 Critically low >=60 mL/min/1.73m2 [employer] Other Basic Metabolic Panel >60 mL/min/1.73m2 >=60 mL/min/1.73m2 [employer] Other CBC AUTO DIFFon 08-03-2022 BASO # 0.0 103/ul Normal 0.0-0.1 [facility] Comment on above: Performed By: #### C BC #### [facility] [address] [place] [address] Dr. Sandra Radford Basophils/100 WBC (Bld) 0.5 % Normal 0.2-2.0 [facility] Comment on above: Performed By: #### C BC #### [facility] [address] [place] [address] Dr. Sandra Radford EO # 0.3 103/ul Normal 0.0-0.7 [facility] Comment on above: Performed By: #### C BC #### [facility] [address] [place] [address] Dr. Sandra Radford Eosinophils/100 WBC (Bld) 4.5 % Normal 0.9-7.0 [facility] Comment on above: Performed By: #### C BC #### [facility] [address] [place] [address] Dr. Sandra Radford Erythrocyte distribution width (RBC) [Ratio] 13.8 % Normal 11.0-15.0 [facility] Comment on above: Performed By: #### C BC #### [facility] [address] [place] [address] Dr. Sandra Radford Hematocrit (Bld) [Volume fraction] 39.7 % Normal 36.0-48.0 [facility] Comment on above: Performed By: #### C BC #### [facility] [address] [place] [address] Dr. Sandra Radford Hemoglobin (Bld) [Mass/Vol] 12.8 g/dL Normal 12.0-16.0 [facility] Comment on above: Performed By: #### C BC #### [facility] [address] [place] [address] Dr. Sandra Radford IG # 0.01 10e3/ul Normal 0.00-0.03 [facility] Comment on above: Performed By: #### C BC #### [facility] [address] [place] [address] Dr. Sandra Radford IG % 0.2 % Normal 0.0-0.5 [facility] Comment on above: Performed By: #### C BC #### [facility] [address] [place] [address] Dr. Sandra Radford LYMPH # 1.6 103/ul Normal 1.2-3.8 [facility] Comment on above: Performed By: #### C BC #### [facility] [address] [place] [address] Dr. Sandra Radford Lymphocytes/100 WBC (Bld) 26.3 % Normal 20.5-60.0 [facility] Comment on above: Performed By: #### C BC #### [facility] [address] [place] [address] Dr. Sandra Radford MANUAL DIFF REQ NO Normal [facility] Comment on above: Performed By: #### C BC #### [facility] [address] [place] [address] Dr. Sandra Radford MCH (RBC) [Entitic mass] 29.9 pg Normal 26.7-34.0 [facility] Comment on above: Performed By: #### C BC #### [facility] [address] [address] [address] Sandra Radford MCHC (RBC) [Mass/Vol] 32.2 g/dL Normal 29.9-35.2 [facility] Comment on above: Performed By: #### C BC #### [facility] [address] [address] [address] Sandra Radford MCV (RBC) [Entitic vol] 92.8 fL Normal 81.0-99.0 [facility] Comment on above: Performed By: #### C BC #### [facility] [address] [place] [address] Dr. Sandra Radford MONO # 0.7 103/ul Normal 0.3-0.8 [facility] Comment on above: Performed By: #### C BC #### [facility] [address] [place] [address] Dr. Sandra Radford Monocytes/100 WBC (Bld) 10.6 % Normal 1.7-12.0 [facility] Comment on above: Performed By: #### C BC #### [facility] [address] [place] [address] Dr. Sandra Radford NEUT # 3.6 103/ul Normal 1.4-6.5 [facility] Comment on above: Performed By: #### C BC #### [facility] [address] [place] [address] Dr. Sandra Radford Neutrophils/100 WBC (Bld) 57.9 % Normal 43.0-75.0 [facility] Comment on above: Performed By: #### C BC #### [facility] [address] [address] [address] Sandra Radford Platelet mean volume (Bld) [Entitic vol] 9.7 fL Normal 9.5-13.5 [facility] Comment on above: Performed By: #### C BC #### [facility] [address] [address] [address] Sandra Radford PLT 240 103/ul Normal 150-450 [facility] Comment on above: Performed By: #### C BC #### [facility] [address] [address] [address] Sandra Radford RBC 4.28 106/ul Normal 4.20-5.40 [facility] Comment on above: Performed By: #### C BC #### [facility] [address] [address] [address] Sandra Radford WBC 6.2 103/ul Normal 4.0-11.0 [facility] Comment on above: Performed By: #### C BC #### [facility] [address] [address] [address] Sandra Radford Complete Blood Count and Dif esther 08-03-2022 Anisocytosis Ql (Bld) [facility] [employer] Other Basophilic stippling LM Ql (d) [facility] [employer] Other RBC morphology finding Nom (d) [facility] [employer] Other GLYCOHEMOGLOBIN A1Con 2022 ADA RECOMMENDATION SEE BELOW Normal [facility] Comment on above: Result Comment: ADA RECOMMENDED LIMIT 4.0 - 6.0 ADA THERAPEUTIC TARGET < 7.0 ACTION SUGGESTED > 7.0 Performed By: #### A 1C #### [facility] [address] [place] [address] Dr. Sandra Radford Glucose [Mass/Vol] 105 mg/dL Normal [facility] Comment on above: Performed By: #### A 1C #### [facility] [address] [place] [address] Dr. Sandra Radford HbA1c (Bld) [Mass fraction] 5.3 % Normal 4.5-6.2 [facility] Comment on above: Performed By: #### A 1C #### [facility] [address] [place] [address] Dr. Sandra Radford LIPID PROFILEon 08-03-2022 CHOL-HDL RATIO NORM SEE BELOW Normal [facility] Comment on above: Result Comment: 3.3 - 4.4 LOW RISK 4.4 - 7.1 AVERAGE RISK 7.1 - 11.0 MODERATE RISK >11.0 HIGH RISK Performed By: #### T SH, LIPID, BMP #### [facility] [address] [address] [address] Sandra Radford Cholesterol [Mass/Vol] 260 mg/dL Critically high <=200 mg/dL [facility] Comment on above: Performed By: #### T SH, LIPID, BMP #### [facility] [address] [address] [address] Sandra Radford Cholesterol in HDL [Mass/Vol] 58 mg/dL 40-60 mg/dL [facility] Comment on above: Performed By: #### T SH, LIPID, BMP #### [facility] [address] [address] [address] Sandra Radford Cholesterol in LDL [Mass/Vol] 165.8 mg/dL Normal [facility] Comment on above: Performed By: #### T SH, LIPID, BMP #### [facility] [address] [place] [address] Dr. Sandra Radford Cholesterol.total/C holesterol in HDL [Mass ratio] 4.5 {ratio} [facility] Comment on above: Performed By: #### T SH, LIPID, BMP #### [facility] [address] [address] [address] Sandra Radford HDL NORMAL > or = 60 mg/dl - LO W CARDIOVASCULAR RISK <40 mg/dl - HIGH CARDIOVASCULAR RISK Normal [facility] Comment on above: Performed By: #### T SH, LIPID, BMP #### [facility] [address] [place] [address] Dr. Sandra Radford LDL CALC NORMAL SEE BELOW Normal [facility] Comment on above: Result Comment: <100 mg/dl OPTIMAL 100 - 129 mg/dl NEAR OR ABOVE OPTIMAL 130 - 159 mg/dl BORDERLINE HIGH 160 - 189 mg/dl HIGH >190 mg/dl VERY HIGH Performed By: #### T SH, LIPID, BMP #### [facility] [address] [address] [address] Sandra Radford Triglyceride [Mass/Vol] 181 mg/dL Critically high <=150 mg/dL [facility] Comment on above: Performed By: #### T SH, LIPID, BMP #### [facility] [address] [address] [address] Sandra Radford VLDL CALC 36.2 mg/dL Normal [facility] Comment on above: Performed By: #### T CHON LIPID, BMP #### [facility] [address] [address] [address] Sandra Radford Lipid Panelon 08-03-2022 Lipid Panel > or = 60 mg/dl - LO W CARDIOVASCULAR RISK <40 mg/dl - HIGH CARDIOVASCULAR RISK [employer] Other Lipid Panel SEE BELOW [employer] Other Lipid Panel 165.8 mg/dL [employer] Other Lipid Panel 36.2 mg/dL [employer] [facility] [employer] Other PROF CHEM 8 (BAS METB)on Anion gap [Moles/Vol] 12.2 mmol/L [facility] Comment on above: Performed By: #### T CHON LIPID, BMP #### [facility] [address] [place] [address] Dr. Sandra Radford Calcium [Mass/Vol] 9.6 mg/dL Normal 8.5-10.[address] [facility] Comment on above: Performed By: #### T CHON LIPID, BMP #### [facility] [address] [place] [address] Dr. Sandra Radford Chloride [Moles/Vol] 105 mmol/L 98-107 mmol/L [facility] Comment on above: Performed By: #### T CHON, LIPID, BMP #### [facility] [address] [address] [address] Sandra Radford CO2 [Moles/Vol] 27.3 mmol/L Normal 21.0-32.0 [facility] Comment on above: Performed By: #### T CHON, LIPID, BMP #### [facility] [address] [address] [address] Sandra Radford Creatinine [Mass/Vol] 1.02 mg/dL Normal 0.55-1.02 [facility] Comment on above: Performed By: #### T SH, LIPID, BMP #### [facility] [address] [address] [address] Sandra Radford EGFR-AF CYMRO >60 Normal >=60 [facility] Comment on above: Performed By: #### T SH, LIPID, BMP #### [facility] [address] [address] [address] Sandra Radford EGFR-NON AF CYMRO 52 mL/min/1.73m2 Critically low >=60 [facility] Comment on above: Performed By: #### T SH, LIPID, BMP #### [facility] [address] [address] [address] Sandra Radford Glucose [Mass/Vol] 95 mg/dL Normal 74-[address] [facility] Comment on above: Performed By: #### T SH, LIPID, BMP #### [facility] [address] [place] [address] Dr. Sandra Radford Potassium [Moles/Vol] 4.5 mmol/L Normal 3.5-5.1 [facility] Comment on above: Performed By: #### T SH, LIPID, BMP #### [facility] [address] [address] [address] Sandra Radford Sodium [Moles/Vol] 140 mmol/L Normal 136-[address] [facility] Comment on above: Performed By: #### T SH, LIPID, BMP #### [facility] [address] [place] [address] Dr. Sandra Radford Urea nitrogen [Mass/Vol] 28.0 mg/dL Critically high 7.0-18.0 [facility] Comment on above: Performed By: #### T SH, LIPID, BMP #### [facility] [address] [place] [address] Dr. Sandra Radford Urea nitrogen/Creatinine [Mass ratio] 27.5 mg/mg [facility] Comment on above: Performed By: #### T SH, LIPID, BMP #### [facility] [address] [place] [address] Dr. Sandra Radford TSHon 08-03-2022 TSH 1.952 uIU/mL Normal 0.358-3.740 [facility] Comment on above: Performed By: #### T SH, LIPID, BMP #### [facility] [address] [place], [place] [address] Dr. Sandra Karimi 04-14-2022 CNOV Office Visit (ORTHCO ) NORMA BRENNAN ([id number]) 1940 F Date Time Provider Department 04/14/22 9:00 AM PEDRO GOFF During your visit today, we recorded the following information about you: Pedro Goff DO 04/14/2022 10:56 AM Signed CONSULT ORTHOPAEDIC: HIP PRIMARY CARE PHYSICIAN: Max Bruce DO REFERRING PROVIDER: Rosalio Roblero [address] [place] [address] HPI: 82-year-old female presents today with right hip pain that has been chronic in nature over the last year and a half but acutely worsened over the last 6 months. 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 She overall uses a walker for ambulation and has significant leg length difference and requires a shoe lift. She states over the last 6 months that her right hip and leg pain is worsening especially after working with physical therapy and was seen in [facility] and recommended nonweightbearing for 6 months with [...] Deficiency Chronic Kidney Disease, Stage Iii (Moderate) ([facility]) Chronic Kidney Disease, Stage 3 Unspecified ([facility]) History of Total Right Hip Replacement Gastro-Esophageal Reflux Disease With Esophagitis, Without Bleeding SUBJECTIVE CHIEF COMPLAINT: Hip Pain HPI: Norma Brennan is a 82 year old patient here for evaluation and management of Right hip pain.Norma Brennan has had progressive problems with the hip(s) most of the day over the past 6 month(s) interfering with activities which include walking 2 blocks, doing board catcher, rising from a sitting position, standing for prolonged periods of time, getting in and out of a car, dressing, and climbing stairs. The problem began limiting activities 1-6 months ago. Currently the pain in the joint is rated at 7 out of 10 with minimal activity. (more content not included)... Normal [facility] CRP SerPl-mCncon 04-14-2022 CRP [Mass/Vol] mg/L Normal <0.9 [facility] Comment on above: Order Comment: Momo jain Type: BLOOD SPECIMEN Ordering Facility: [facility] Address: [address] [place] [address] Performed By: #### 1 988-5 #### [facility] CLIA [id number] [address] [place] [address] [place] ESR Westergren method (Bld) [Velocity]on 04-14-2022 ESR (Bld) [Velocity] 6 mm/h Normal 0-20 [facility] Comment on above: Order Comment: Momo jain Type: BLOOD SPECIMEN Ordering Facility: [facility] Address: [address] [place] [address] Performed By: #### 4 537-7 #### [facility] CLIA [id number] [address] [place] [address] [place] XR HIP 3V PELV+ [...] significant abnormality. --- IMPRESSION: NO SIGNIFICANT CHANGE Envelope Press Operator: ALIE Transcribe Date/Time: Apr 14 2022 8:42A Dictated by : CECELIA ALVAREZ MD This examination was interpreted and the report reviewed and electronically signed by: CECELIA ALVAREZ MD on Apr 14 2022 8:49AM EST [id number] N Normal [facility] 01-25-2022 CNPN Telephone (ORQ) NORMA BRENNAN ([id number]) 1940 F Date Time Provider Department 01/25/22 YECENIA MURPHY ORQ During your visit today, we recorded the following information about you: Shahana Casillas 01/25/2022 11:22 AM Signed Please contact Pilar larson/ Dr. Rosalio Flores ([facility]) Looking to discuss patient diagnosis, to see if patient can be seen by Dr Cho Second Opinion ( component loosening and Aseptic) Please dial Pilar [phone] Carrol Matthwe RN 01/25/2022 12:22 PM Signed Spoke to Pilar, explained Dr Cho only does revisions on his surgical patients or patients with a pathologic or metastatic disease. 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 Sandra Radford Basophils/100 WBC (Bld) 0.5 % Normal 0.2-2.0 [facility] Comment on above: Performed By: #### C BC #### [facility] [address] [address] [address] Sandra Radford EO # 0.2 103/ul Normal 0.0-0.7 [facility] Comment on above: Performed By: #### C BC #### [facility] [address] [place] [address] Dr. Sandra Radford Eosinophils/100 WBC (Bld) 3.1 % Normal 0.9-7.0 [facility] Comment on above: Performed By: #### C BC #### [facility] [address] [place] [address] Dr. Sandra Radford Erythrocyte distribution width (RBC) [Ratio] 14.4 % Normal 11.0-15.0 [facility] Comment on above: Performed By: #### C BC #### [facility] [address] [place] [address] Dr. Sandra Radford Hematocrit (Bld) [Volume fraction] 34.1 % Critically low 36.0-48.0 [facility] Comment on above: Performed By: #### C BC #### [facility] [address] [place] [address] Dr. Sandra Radford Hemoglobin (Bld) [Mass/Vol] 11.2 g/dL Critically low 12.0-16.0 [facility] Comment on above: Performed By: #### C BC #### [facility] [address] [place] [address] Dr. Sandra Radford IG # 0.01 10e3/ul Normal 0.00-0.03 [facility] Comment on above: Performed By: #### C BC #### [facility] [address] [place] [address] Dr. Sandra Radford IG % 0.2 % Normal 0.0-0.5 [facility] Comment on above: Performed By: #### C BC #### [facility] [address] [place] [address] Dr. Sandra Radford LYMPH # 1.5 103/ul Normal 1.2-3.8 [facility] Comment on above: Performed By: #### C BC #### [facility] [address] [place] [address] Dr. Sandra Radford Lymphocytes/100 WBC (Bld) 25.1 % Normal 20.5-60.0 [facility] Comment on above: Performed By: #### C BC #### [facility] [address] [place] [address] Dr. Sandra Radford MANUAL DIFF REQ NO Normal [facility] Comment on above: Performed By: #### C BC #### [facility] [address] [place] [address] Dr. Sandra Radford MCH (RBC) [Entitic mass] 32.7 pg Normal 26.7-34.0 [facility] Comment on above: Performed By: #### C BC #### [facility] [address] [place] [address] Dr. Sandra Radford MCHC (RBC) [Mass/Vol] 32.8 g/dL Normal 29.9-35.2 [facility] Comment on above: Performed By: #### C BC #### [facility] [address] [place] [address] Dr. Sandra Radford MCV (RBC) [Entitic vol] 99.4 fL Critically high 81.0-99.0 [facility] Comment on above: Performed By: #### C BC #### [facility] [address] [place] [address] Dr. Sandra Radford MONO # 0.6 103/ul Normal 0.3-0.8 [facility] Comment on above: Performed By: #### C BC #### [facility] [address] [place] [address] Dr. Sandra Radford Monocytes/100 WBC (Bld) 10.7 % Normal 1.7-12.0 [facility] Comment on above: Performed By: #### C BC #### [facility] [address] [place] [address] Dr. Sandra Radford NEUT # 3.5 103/ul Normal 1.4-6.5 [facility] Comment on above: Performed By: #### C BC #### [facility] [address] [place] [address] Dr. Sandra Radford Neutrophils/100 WBC (Bld) 60.4 % Normal 43.0-75.0 [facility] Comment on above: Performed By: #### C BC #### [facility] [address] [address] [address] Sandra Radford Platelet mean volume (Bld) [Entitic vol] 10.2 fL Normal 9.5-13.5 [facility] Comment on above: Performed By: #### C BC #### [facility] [address] [address] [address] Sandra Radford PLT 202 103/ul Normal 150-450 [facility] Comment on above: Performed By: #### C BC #### [facility] [address] [address] [address] Sandra Radford RBC 3.43 106/ul Critically low 4.20-5.40 [facility] Comment on above: Performed By: #### C BC #### [facility] [address] [place] [address] Dr. Sandra Radford WBC 5.8 103/ul Normal 4.0-11.0 [facility] Comment on above: Performed By: #### C BC #### [facility] [address] [address] [address] Sandra Radford CRPon 11-02-2021 CRP [Mass/Vol] mg/L Normal <=1.0 [facility] Comment on above: Performed By: #### C RP #### [facility] [address] [place] [address] Dr. Sandra Radford SED RATE WESTERGREN 2021 SED RATE 2 mm/hr Normal <=30 [facility] Comment on above: Performed By: #### S EDR #### [facility] [address] [place] [address] Dr. Sandra Radford NM bone 3 phaseon 10-26-2021 NM bone 3 phase [facility] [address] Nuclear Medicine Report Signed Patient: Norma Brennan MR#: [id number] 00 : 1940 Acct:[id number] Age/Sex: 81 / F ADM Date: 10/26/21 Loc: [place] Room: Type: [facility] Attending Dr: Rosalio Roblero II, MD Copies [...] Lolis Reddy M.D.10/26/2021 4:09 PM Dictation Location: [place] [address] Transcribed By: [facility] 10/26/21 4414 Dictated By: Lolis Reddy MD 10/26/21 1559 Signed By: 10/26/21 [address] [facility] [address] femur RT wo conon 022 CT femur RT wo con [facility] [place] [address] [place] [address] CT Scan Report Signed Patient: Norma Brennan MR#: [id number] 00 : 1940 Acct:[id number] Age/Sex: 81 / F ADM Date: 10/20/21 Loc: [facility] Room: Type: [facility] Attending Dr: Rosalio Roblero II, MD Ordering [...] Centeno Jr., M.D.10/20/2021 11:15 AM Dictation Location: [place] [address] Transcribed By: [facility] 10/20/21 1115 Dictated By: Romeo Centeno Jr, MD 10/20/21 1057 Signed By: 10/20/21 1115 [facility] XR femur RT 2V*on 10-20-2021 XR femur RT 2V* [facility] [place] [address] [place] [address] XRay Report Signed Patient: Norma Brennan MR#: [id number] 00 : 1940 Acct:[id number] Age/Sex: 81 / F ADM Date: 10/20/21 Loc: [facility] Room: Type: [facility] Attending Dr: Rosalio Roblero II, MD Ordering [...] Lolis Reddy M.D.10/20/2021 1:13 PM Dictation Location: [place] [address] Transcribed By: [facility] 10/20/21 1313 Dictated By: Lolis Reddy MD 10/20/21 1310 Signed By: 10/20/21 1313 [facility] XR pelvis 1-2Von 10-20-2021 XR pelvis 1-2V [facility] [address] [place] [address] [place] [address] XRay Report Signed Patient: Norma Brennan MR#: [id number] 00 : 1940 Acct:[id number] Age/Sex: 81 / F ADM Date: 10/20/21 Loc: [facility] Room: Type: [facility] Attending Dr: Rosalio Roblero II, MD Ordering [...] Malachi Davis M.D.10/20/2021 1:08 PM Dictation Location: [place] [address] Transcribed By: [facility] 10/20/21 1308 Dictated By: Malachi Davis II, MD 10/20/21 1303 Signed By: 10/20/21 1308 Normal [facility] XR hip RT 1Von 08-15-2021 XR hip RT 1V [facility] [address] XRay Report Signed Patient: Norma Brennan MR#: [id number] : 1940 Acct:[id number] Age/Sex: 81 / F ADM Date: 08/15/21 Loc: [place] Room: Type: [facility] Attending Dr: Rosalio Roblero II, MD Ordering [...] Edgard Paez M.D.08/15/2021 9:09 AM Dictation Location: [id number] Transcribed By: [facility] 08/15/21908 Dictated By: Edgard Paez DO 08/15/21907 Signed By: 08/15/21908 Normal [facility] Basic Metabolic Panelon 04-0 Calcium [Mass/Vol] 9.1 mg/dL Normal 8.2-10.2 [facility] Comment on above: Result Comment: PERF ORMED BY: [place] [address] PATHOLOGIST STRUCTURAL TEST ENGINEER MARIELLA KRAUSE M.D. Performed By: #### C [address] #### [place] [address] [place] Chloride [Moles/Vol] 105 mmol/L Normal 95-114 [facility] Comment on above: Performed By: #### C DOWNEY 19 [facility] #### [address] CO2 [Moles/Vol] 25.9 mmol/L Normal 22.0-30.0 [facility] Comment on above: Performed By: #### C DOWNEY 19 [facility] #### [place] [address] [place] Creatinine [Mass/Vol] 0.99 mg/dL Normal 0.44-1.03 [facility] Comment on above: Performed By: #### C [address] #### [place] [id number] [place] Estimated GFR ( Jahaira > 60 [facility] Comment on above: Result Comment: GFR estimated reference range: According to KDOQI guidelines, <60 ml/min/1.73m2 is sufficient to diagnose a patient with chronic kidney disease. Performed By: #### C [address] #### [place] [id number] [place] Estimated GFR (Non- Am 54 [facility] Comment on above: Performed By: #### C [address] #### [place] [id number] [place] Glucose [Mass/Vol] 92 mg/dL Normal 70-100 [facility] Comment on above: Result Comment: Ethan Glucose Reference Range is dependent on time and content of last meal. Glucose of more than 200 mg/dL in a nonstressed, ambulatory subject supports the diagnosis of Diabetes Mellitus. ADA recommended reference range Performed By: #### C OVID 19 [facility] #### [facility] [address] [id number] [facility] Potassium [Moles/Vol] 4.7 mmol/L Normal 3.5-5.1 [facility] Comment on above: Performed By: #### C OVID 19 [facility] #### [facility] [address] [place] [id number] [place] Sodium [Moles/Vol] 139 mmol/L Normal 136-146 [facility] Comment on above: Performed By: #### C OVID 19 [facility] #### [facility] [address] [place] [id number] [place] Urea nitrogen [Mass/Vol] 32 mg/dL High 9-23 [facility] Comment on above: Performed By: #### C OVID 19 [facility] #### [facility] [address] COVID-19 [facility] 08[facility]-2021 SARS-CoV-2 (COVID-19) RNA FABIAN+probe Ql (Unsp spec) Negative Normal Negative [facility] Comment on above: Order Comment: Comme nt procedure 08/15/21 Healthcare Worker?: N Result Comment: Testing for SARS-CoV-2 by RT-PCR This test was developed and its performance characteristics determined by [employer] and validated at the [facility]. This test has not been FDA [...] is terminated or revoked sooner. PERFORMED BY: [place] [address] PATHOLOGIST STRUCTURAL TEST ENGINEER MARIELLA KRAUSE M.D. Performed By: #### C OVID 19 [facility] #### [address] ECG 12 lead ECGon 08-12-2021 ECG 12 lead ECG [facility] [address] [place] [address] [place] [address] Electrocardiograph Report Signed Patient: Norma Brennan MR#: [id number] 00 : 1940 Acct:[id number] Age/Sex: 81 / F ADM Date: 08/12/21 Loc: Room: Type: [facility] Attending Dr: Rosalio Roblero II, MD [...] Signed By Felicitas Villeda MD 0952 Normal [facility] C-Reactive Proteinon 022 C-Reactive Protein 1.4 mg/dL High 0.0-1.0 [facility] Comment on above: Order Comment: Comme nt procedure 08/15/21 Healthcare Worker?: N Result Comment: PERF ORMED BY: [place] [id number] PATHOLOGIST STRUCTURAL TEST ENGINEER MARIELLA KRAUSE M.D. Performed By: #### C [address] #### [facility] [address] Complete Blood Count Auto Di ffon 08-03-2021 Basophils (Bld) [#/Vol] 0.0 10*3/uL Normal 0.0-0.2 [facility] Comment on above: Order Comment: Comme nt procedure 08/15/21 Healthcare Worker?: N Performed By: #### C [address] #### [facility] [address] Basophils/100 WBC (Bld) 0.5 % Normal . [facility] Comment on above: Order Comment: Comme nt procedure 08/15/21 Healthcare Worker?: N Performed By: #### C [address] #### [address] Eosinophils (Bld) [#/Vol] 0.2 10*3/uL Normal 0.0-0.45 [facility] Comment on above: Order Comment: Comme nt procedure 08/15/21 Healthcare Worker?: N Performed By: #### C [address] #### [address] Eosinophils/100 WBC (Bld) 4.2 % Normal . [facility] Comment on above: Order Comment: Comme nt procedure 08/15/21 Healthcare Worker?: N Performed By: #### C [address] #### [address] Erythrocyte distribution width (RBC) [Ratio] 14.7 % Normal 11.9-15.3 [facility] Comment on above: Order Comment: Comme nt procedure 08/15/21 Healthcare Worker?: N Performed By: #### C [address] #### [address] Hematocrit (Bld) [Volume fraction] 39.6 % Normal 34.0-46.4 [facility] Comment on above: Order Comment: Comme nt procedure 08/15/21 Healthcare Worker?: N Performed By: #### C [address] #### [address] Hemoglobin (Bld) [Mass/Vol] 12.9 g/dL Normal 11.8-15.4 [facility] Comment on above: Order Comment: Comme nt procedure 08/15/21 Healthcare Worker?: N Performed By: #### C [address] #### [address] Lymphocytes (Bld) [#/Vol] 1.5 10*3/uL Normal 1.00-4.8 [facility] Comment on above: Order Comment: Comme nt procedure 08/15/21 Healthcare Worker?: N Performed By: #### C [address] #### [address] Lymphocytes/100 WBC (Bld) 27.3 % Normal . [facility] Comment on above: Order Comment: Comme nt procedure 08/15/21 Healthcare Worker?: N Performed By: #### C [address] #### [address] MCH (RBC) [Entitic mass] 31.0 pg Normal 24.7-34.3 [facility] Comment on above: Order Comment: Comme nt procedure 08/15/21 Healthcare Worker?: N Performed By: #### C [address] #### [address] MCV (RBC) [Entitic vol] 95.4 fL Normal 80-100 [facility] Comment on above: Order Comment: Comme nt procedure 08/15/21 Healthcare Worker?: N Performed By: #### C [address] #### [address] Mean Corpuscular HGB Conc 32.4 g/dL Normal 32.0-35.0 [facility] Comment on above: Order Comment: Comme nt procedure 08/15/21 Healthcare Worker?: N Performed By: #### C [address] #### [facility] [address] [place] [id number] [place] Monocytes (Bld) [#/Vol] 0.5 10*3/uL Normal 0.0-0.8 [facility] Comment on above: Order Comment: Comme nt procedure 08/15/21 Healthcare Worker?: N Performed By: #### C [address] #### [facility] [address] [place] [phone] [place] Monocytes/100 WBC (Bld) 9.8 % Normal . [facility] Comment on above: Order Comment: Comme nt procedure 08/15/21 Healthcare Worker?: N Performed By: #### C [address] #### [facility] [address] [place] [address] [place] Neutrophils (Bld) [#/Vol] 3.2 10*3/uL Normal 1.8-7.7 [facility] Comment on above: Order Comment: Comme nt procedure 08/15/21 Healthcare Worker?: N Performed By: #### C [address] #### [place] [id number] [place] Neutrophils/100 WBC (Bld) 58.2 % Normal . [facility] Comment on above: Order Comment: Comme nt procedure 08/15/21 Healthcare Worker?: N Performed By: #### C [address] #### [place] [id number] [place] Nucleated RBC/100 WBC (Bld) [Ratio] 0.1 % Normal 0-0.5 [facility] Comment on above: Order Comment: Comme nt procedure 08/15/21 Healthcare Worker?: N Performed By: #### C [address] #### [facility] [address] [place] [address] [place] Platelet mean volume (Bld) [Entitic vol] 7.8 fL Normal 6.3-10.7 [facility] Comment on above: Order Comment: Comme nt procedure 08/15/21 Healthcare Worker?: N Performed By: #### C [address] #### [place] [id number] [place] Platelets (Bld) [#/Vol] 272 10*3/uL Normal 150-450 [facility] Comment on above: Order Comment: Comme nt procedure 08/15/21 Healthcare Worker?: N Performed By: #### C OVID 19 [facility] #### [facility] [address] RBC (Bld) [#/Vol] 4.15 10*6/uL Normal 3.60-5.00 [facility] Comment on above: Order Comment: Comme nt procedure 08/15/21 Healthcare Worker?: N Performed By: #### C OVID 19 [facility] #### [facility] [address] WBC (Bld) [#/Vol] 5.5 10*3/uL Normal 4.5-11.0 [facility] Comment on above: Order Comment: Comme nt procedure 08/15/21 Healthcare Worker?: N Performed By: #### C DOWNEY 19 [facility] #### [address] D-Dimer High Sensitivityon 0 08-03-2021 D-Dimer High Sensitivity 434 ng/mL High 0-243 [facility] Comment on above: Order Comment: Reaso [...] patients due to co-morbid conditions. PERFORMED BY: [place] [address] PATHOLOGIST STRUCTURAL TEST ENGINEER MARIELLA KRAUSE M.D. Performed By: #### D DIMER, CRP, CBC, ESR #### [address] Erythrocyte Sedimentation Ra brian 08-03-2021 ESR (Bld) [Velocity] 7 mm/h Normal 0-29 [facility] Comment on above: Order Comment: Comme nt procedure 08/15/21 Healthcare Worker?: N Result Comment: PERF ORMED BY: [place] [address] PATHOLOGIST STRUCTURAL TEST ENGINEER MARIELLA KRAUSE M.D. Performed By: #### C OVID 19 [facility] #### [place] [id number] [facility] XR knee BI 4Von 08-03-2021 XR knee BI 4V [facility] [address] [place] [address] [place] [address] XRay Report Signed Patient: Norma Brennan MR#: [id number] : 1940 Acct:[id number] Age/Sex: 81 / F ADM Date: 08/03/21 Loc: [facility] Room: Type: [facility] Attending Dr: Rosalio Roblero II, MD Ordering Provider: Rosalio Roblero MD Date of Service: 08/03/21 XR/XR knee BI 4V: Osteoarthritis of knees, bilateral Copies to: Rosalio Roblero MD 4 views both knee plain film COMPARISON:None HISTORY:Bilateral knee pain medially. Moce-jm-eujo contact of the medial compartment of the [...] Edgard Paez M.D.08/03/2021 2:13 PM Dictation Location: [place] [address] Transcribed By: [facility] 08/03/21 141 Dictated By: Edgard Paez DO 08/03/211411 Signed By: 08/03/21 141 Normal [facility] XR knee BI 4V [facility] [employer] Other XR knee BI 4V [facility] Main [facility] [employer] Other XR knee BI 4V [address] [facility] [employer] [place] [address] [facility] [employer] Other XR knee BI 4V [facility]Ray Report [facility] Other XR knee BI 4V Signed [employer] Other XR knee BI 4V Patient: Lauro Brennan MR#: [id number] [place] [employer] Other XR knee BI 4V : 1940 Acct:[id number] [employer] Other XR knee BI 4V Age/Sex: 81 / F ADM Date: 08/03/21 [employer] Other XR knee BI 4V Loc: [facility] Room: Type : [facility] [employer] Other XR knee BI 4V Attending Dr: Rosalio Roblero II, MD [employer] Other XR knee BI 4V Ordering Provider: Rosalio Roblero MD [employer] Other XR knee BI 4V Date of Service: 08/03/21 [employer] Other XR knee BI 4V XR/XR knee BI 4V: Osteoarthritis of knees, bilateral [employer] Other XR knee BI 4V Copies to: Rosalio Roblero MD [employer] Other XR knee BI 4V 4 views both knee plain film [employer] Other XR knee BI 4V COMPARISON:None [employer] Other XR knee BI 4V HISTORY:Bilateral knee pain medially. [employer] Other XR knee BI 4V Kras-tj-apue contact of the medial compartment of the LEFT knee identified. Mild remaining joint [employer] Other XR knee BI 4V space narrowing of both knees present. Small supra patellar effusion seen. Diffuse osteopenia asia [employer] Other XR knee BI 4V ntified. No fracture or dislocation. Moderate lateral LEFT patellar subluxation identified. Mild [employer] Other XR knee BI 4V lateral RIGHT patellar subluxation identified. 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 Remaining minor degenerative [employer] Other XR knee BI 4V change. [employer] Other XR knee BI 4V Impression dictated by: Edgard Paez M.D.08/03/2021 2:13 PM [employer] Other XR knee BI 4V Dictation Location: [place] [address] [employer] Other XR knee BI 4V Transcribed By: ML 08/03/21 [facility] [employer] Other XR knee BI 4V Dictated By: Edgard Paez DO 08/03/21 [facility] [employer] Other XR knee BI 4V Signed By: [employer] Other XR knee BI 4V 08/03/21 [facility] [employer] Other XR pelvis 1-2Von 08-03-2021 XR pelvis 1-2V [facility] [address] [place] [address] [place] [address] XRay Report Signed Patient: Norma Brennan MR#: [id number] : 1940 Acct:[id number] Age/Sex: 81 / F ADM Date: 08/03/21 Loc: [facility] Room: Type: REG CLI Attending Dr: Rosalio [...] Edgard Paez M.D.08/03/2021 2:20 PM Dictation Location: [place] [address] Transcribed By: [facility] 08/03/21 1420 Dictated By: Edgard Paez DO 08/03/21 1419 Signed By: 08/03/21 1420 [facility] XR pelvis 1-2V XR/XR pelvis 1-2V: Osteoarthritis of knees, bilateral [employer] Other XR pelvis 1-2V Single view of the pelvis plain film [employer] Other XR pelvis 1-2V HISTORY:Bilateral knee pain [employer] Other XR pelvis 1-2V The visualized portion of the RIGHT hip arthroplasty unremarkable. Bony alignment appears [employer] Other XR pelvis 1-2V adequate. Diffuse osteopenia. [employer] Other XR pelvis 1-2V No acute bony findings identified. [employer] Other XR pelvis 1-2V No focal soft tissue abnormality seen. [employer] Other XR pelvis 1-2V XR/XR pelvis 1-2V [employer] Other XR pelvis 1-2V IMPRESSION:Unremarka b le visualized the RIGHT hip arthroplasty. Diffuse osteopenia. Unremarkable [employer] Other XR pelvis 1-2V LEFT hip. [employer] Other XR pelvis 1-2V Impression dictated by: Edgard Paez M.D.08/03/2021 2:20 PM [employer] Other XR pelvis 1-2V Transcribed By: PWS 08/03/21 1420 [employer] Other XR pelvis 1-2V Dictated By: Edgard Paez DO 08/03/21 1419 [employer] Other XR pelvis 1-2V 08/03/21 1420 [employer] Other Vital Signs Date Time Vital Sign Value Performing Clinician Facility 05-09-2023 11:30-0500 Body height 152.4 cm Max Ball Other [employer] Other 05-09-2023 11:30-0500 Body mass index (BMI) [Ratio] 30.81 kg/m2 Max Ball Other [employer] Other 05-09-2023 11:30-0500 Body weight 71.58 kg Max Ball Other [employer] Other 05-09-2023 11:30-0500 Diastolic blood pressure 77 mm[Hg] Max Ball Other [employer] Other 05-09-2023 11:30-0500 Respiratory rate 12 /min Max Ball Other [employer] Other 05-09-2023 11:30-0500 Systolic blood pressure 146 mm[Hg] Max Ball Other [employer] Other 08-03-2022 12:00-0400 Body height 152.4 cm Max Ball Other [employer] Other 08-03-2022 12:00-0400 Body mass index (BMI) [Ratio] 31.64 kg/m2 Max Ball Other [employer] Other 08-03-2022 12:00-0400 Body weight 73.48 kg Max Ball Other [employer] Other 08-03-2022 12:00-0400 Diastolic blood pressure 82 mm[Hg] Max Ball Other [employer] Other 08-03-2022 12:00-0400 Respiratory rate 12 /min Max Ball Other [employer] Other 08-03-2022 12:00-0400 Systolic blood pressure 137 mm[Hg] Max Ball Other [employer] Other 10-20-2021 09:45-0400 Body height 152.4 cm Rosalio Charleston II Other [employer] Other 10-20-2021 09:45-0400 Body mass index (BMI) [Ratio] 28.9 kg/m2 Rosalio Charleston II Other [employer] Other 10-20-2021 09:45-0400 Body weight 67.13 kg Rosalio Charleston II Other [employer] Other 08-10-2021 15:45-0400 Body height 152.4 cm Rosalio Charleston II Other [employer] Other 08-10-2021 15:45-0400 Body mass index (BMI) [Ratio] 28.9 kg/m2 Rosalio Charleston II Other [employer] Other 08-10-2021 15:45-0400 Body weight 67.13 kg Rosalio Osbaldo II Other [employer] Other 08-03-2021 12:00-0400 Body height 152.4 cm Rosalio Roblero II Other [employer] Other 08-03-2021 12:00-0400 Body mass index (BMI) [Ratio] 28.9 kg/m2 Rosalio Roblero II Other [employer] Other 08-03-2021 12:00-0400 Body weight 67.13 kg Rosalio Roblero II Other [employer] Other Encounters Encounter Date Encounter Type Care Provider Facility Start: 05-21-2023 End: 05-22-2023 ambulatory Jennifer Damon MD Facility:[facility] Start: 05-09-2023 End: 05-09-2023 ambulatory Max Bruce Other [employer] Other Start: 05-09-2023 Office outpatient vi sit 25 minutes Max Bruce [facility] Start: 04-16-2023 End: 04-17-2023 ambulatory [facility] Start: 03-19-2023 End: 03-20-2023 ambulatory Jennifer Damon MD Facility:[facility] Start: 02-19-2023 End: 02-20-2023 ambulatory Jennifer Damon MD Facility:[facility] Start: 02-13-2023 End: 02-13-2023 ambulatory Max Bruce Other [employer] Other Start: 02-13-2023 Telephone encounter Max RAMIREZ [facility] Start: 02-07-2023 End: 02-07-2023 ambulatory Max Bruce Other [employer] Other Start: 02-07-2023 Telephone encounter Max Subramanian [facility] Start: 02-01-2023 End: 02-01-2023 ambulatory Max Bruce Other [employer] Other Start: 02-01-2023 Telephone encounter Max Bruce JAMES G [facility] Start: 08-10-2022 End: 08-10-2022 ambulatory Max Bruce Other [employer] Other Start: 08-10-2022 Telephone encounter Max Bruce JAMES G [facility] Start: 08-03-2022 End: 08-04-[address] MAX BRUCE Facility: Start: 08-03-2022 Patient encounter procedure Max Bruce [facility] Start: 04-14-2022 End: 04-14-2022 ambulatory MAX BRUCE Facility:[facility] Start: 02-06-2022 End: 02-06-2022 ambulatory Rosalio Charleston II Other [employer] Other Start: 02-06-2022 Telephone encounter Rosalio Charleston II [facility] Start: 01-25-2022 Telephone encounter Yecenia hawkins PA-C Work Phone: [facility] [place] Comment on above: 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 (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 for patient's ortho./) Start: 01-19-2022 End: 01-19-2022 ambulatory Rosalio Charleston II Other [employer] Other Start: 01-19-2022 Telephone encounter Rosalio Charleston II [facility] Start: 01-02-2022 End: 01-02-2022 ambulatory Rosalio Charleston II Other [employer] Other Start: 01-02-2022 Telephone encounter Rosalio Osbaldo II [facility] Start: 11-30-2021 End: 11-30-2021 ambulatory Rosalio Charleston II Other [facility] Other Start: 11-30-2021 Telephone encounter Rosalio Charleston II [facility] Start: 11-18-2021 End: 11-18-2021 ambulatory Rosalio Osbaldo II Other [facility] Other Start: 11-18-2021 Office outpatient vi sit 25 minutes Rosalio Charleston II [facility] Start: 11-02-2021 End: 11-02-2021 ambulatory ROSALIO OSBALDO [facility] Other Start: 11-02-2021 Telephone encounter Rosalio Osbaldo II [facility] Start: 10-28-2021 End: 10-28-2021 ambulatory Rosalio Charleston II Other [facility] Other Start: 10-28-2021 Telephone encounter Rosalio Osbaldo II [facility] Start: 10-26-2021 End: 10-26-2021 ambulatory Rosalio M Charleston II Facility:[facility] Start: 10-21-2021 End: 10-21-2021 ambulatory Rosalio Charleston II Other [facility] Other Start: 10-21-2021 Telephone encounter Rosalio Charleston II [facility] Start: 10-20-2021 Office outpatient vi sit 25 minutes Rosalio Charleston II [facility] Start: 10-20-2021 End: 10-20-2021 ambulatory Rosalio M Osbaldo II [facility] Other Start: 10-14-2021 End: 10-14-2021 ambulatory Rosalio Osbaldo II Other [facility] Other Start: 10-14-2021 Telephone encounter Rosalio Osbaldo II [facility] Start: 09-22-2021 End: 09-22-2021 ambulatory Rosalio M Charleston II Facility:[facility] Start: 08-15-2021 End: 08-15-2021 ambulatory Rosalio M Osbaldo II Facility:[facility] Start: 08-12-2021 End: 08-12-2021 ambulatory Rosalio Roblero II Facility:[facility] Start: 08-10-2021 End: 08-10-2021 ambulatory Rosalio Roblero II Other [facility] Other Start: 08-10-2021 Office outpatient vi sit 25 minutes Rosalio Roblero II [facility] Start: 08-03-2021 FQHC visit new patient Rosalio matthews II [facility] Start: 08-03-2021 End: 08-03-2021 ambulatory Rosalio Roblero II [facility] Other Start: 07-13-2021 Adult health examination Max Bruce Other [employer] [facility] Other Procedures Date Procedure Procedure Detail Performing Clinician Depression screening Maryanne Bruce Other Plan of Treatment Date Care Activity Detail Author Start: 2022 Influenza vaccination INFLUENZA (#1) [facility] Start: 05-14-2021 ADVANCE DIRECTIVE DISCUSSION ADVANCE DIRECTIVE DISCUSSION [facility] Start: 01-04-2021 COVID-19 VACCINE (3 - Booster for Moderna series) COVID-19 VACCINE (3 - Booster for Moderna series) [facility] Start: 01-13-2004 BONE DENSITY BONE DENSITY [facility] Start: 01-13-2004 PNEUMOCOCCAL: 65+ (1 - PCV) PNEUMOCOCCAL: 65+ (1 - PCV) [facility] Start: 1989 SHINGRIX VACCINE (1 of 2) JAMISON GRIX VACCINE (1 of 2) [facility] Start: 01-13-1984 DIABETES SCREEN DIABETES SCREEN [facility] Start: 1958 Urine microalbumin profile DTAP,TDAP ,TD (1 - Tdap) [facility] Immunizations Immunization Date Immunization Notes Care Provider Fa darell 02-05-2023 Prevnar 20 Max Bruce Other [facility] Other 02-05-2023 influenza, high dose seasonal, preservative-free Max Bruce Other [facility] Other 04-21-2022 COVID-19 Vaccine Moderna - Documentation Purposes Only Max Bruce Other [facility] Other 03-11-2022 zoster vaccine recombinant Max Bruce Other [facility] Other 03-11-2022 zoster vaccine, live Benjami milagros Bruce Other [facility] Other 02-03-2022 influenza virus vaccine, split virus (incl. purified surface antigen) Max Bruce Other [facility] Other 02-03-2022 influenza, high dose seasonal, preservative-free Max Bruce Other [facility] Other 07-13-2021 zoster vaccine recombinant Max Bruce Other [facility] Other 03-31-2021 COVID-19 Vaccine Moderna - Documentation Purposes Only Max Bruce Other [facility] Other 01-24-2021 influenza virus vaccine, split virus (incl. purified surface antigen) Max Bruce Other [facility] Other 08-04-2020 COVID-19 Vaccine Moderna - Documentation Purposes Only Max Bruce Other [facility] Other 07-01-2020 COVID-19 Vaccine Moderna - Documentation Purposes Only Max Bruce Other [facility] Other 02-03-2020 influenza virus vaccine, split virus (incl. purified surface antigen) Max Bruce Other [facility] Other Payers Date Payer Category Payer Private Health Insurance 2021 Private Health Insurance [id number] 2021 Self-pay 2020 Medicare AETNA MEDICARE A ETNA MEDICARE PPO [id number] 2020-Present [phone] [address] [place] [address] PPO [id number] 1960 Medicare [id number] 1939 Unknown [id number] 93 1939 Unknown [id number] [id number] 93 1939 Unknown [id number] 2.16.840.1.108129.3.579.2.1 96 1939 Unknown [id number] 2.16.840.1.043204.3.579.2.1 96 1939 Unknown [id number] 2.16.840.1.650980.3.579.2.1 96 1939 Unknown [id number] 2.16.840.1.523371.3.579.2.1 96 Unknown [id number] 2.16.840.1.920998.3.579.2.5 31 Unknown [id number] 2.16.840.1.215658.3.579.2.5 31 Unknown [id number] 2.16.840.1.961663.3.579.2.5 31 Unknown [id number] 2.16.840.1.493210.3.579.2.5 31 Unknown [id number] 2.16.840.1.458654.3.579.2.5 31 Unknown [id number] 2.16.840.1.783069.3.579.2.5 31 Unknown [id number] [id number] 31 Social History Date Type Detail Facility Sex Assigned At [facility] Other Start: 06-22-2020 Tobacco smoking status NHIS Never smoked tobacco [facility] Start: 06-22-2020 Tobacco use and exposure Smokeless tobacco non-user [facility] Start: 12-16-2020 Alcohol intake Current drinke r of alcohol (finding) [facility] Start: 06-22-2020 History SDOH Alcohol Comment 1 x weekly [facility] Start: 1940 Sex Assigned At Female [facility] Medical Equipment Procedure Code Equipment Code Equipment Origin al Text Equipment Identifier Dates Lens Iol 0d +19. 5 [facility] - [id number] Start: 08-18-2020 Comment on above: Description: [...] doesn't help can use topical steroid drops [facility] Other 10-03-2023 Evaluation note* Encounter Date Diagnosis Assessment Notes Treatment Notes Treatment Clinical Notes Feb, SBE (subacute bacterial endocarditis) prophylaxis candidate (ICD-10 - Z29.89) [facility] Other 03-30-2023 Evaluation note* Encounter Date Diagnosis Assessment Notes Treatment Notes Treatment Clinical Notes Jul, SBE (subacute bacterial endocarditis) prophylaxis candidate (ICD-10 - Z29.8) [facility] Other 03-23-2023 Evaluation note* Encounter Date Diagnosis [...] High risk medication use (ICD-10 - Z79.899) [facility] Other 12-02-2022 NoteHNO ID: [id number] Author: Pedro Goff, DO Service: ? Author Type: Physician Type: Progress Notes Filed: 04/14/2022 10:56 AM Note Text: CONSULT ORTHOPAEDIC: HIP PRIMARY CARE PHYSICIAN: Max Bruce DO REFERRING PROVIDER: Rosalio Roblero II [address] [place] [address] [place] [address] HPI: 82-year-old female presents today with right hip pain that has been chronic in nature over the last year and a half but acutely worsened over the last 6 months. 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 She overall uses a walker for ambulation and has significant leg length difference and requires a shoe lift. She states over the last 6 months that her right hip and leg pain is worsening especially after working with physical therapy and was seen in [facility] and recommended nonweightbearing for 6 months with [...] Deficiency Chronic Kidney Disease, Stage Iii (Moderate) (Hcc) Chronic Kidney Disease, Stage 3 Unspecified (Hcc) [...] activities which include walking 2 blocks, doing board catcher, rising from a sitting position, standing for [...] factors. Appears direct (more content not included)... [facility]12-02-2022 NoteHNO ID: [id number] Author: RT Anthony(Tyrel) Service: ? Author Type: Technologist Type: Progress [...] BY: RT Anthony(R) April 14, 2022 8:27 [facility]09-14-2022 Miscellaneous Notes * Telephone Encounter - Carrol Matthew RN - 01/25/2022 12:17 PM EDT Spoke to Pilar, explained Dr Cho only does revisions on his surgical patients or patients with a pathologic or metastatic disease. * Telephone Encounter - Shahana Mancini Pss - 01/25/2022 11:17 AM EDT Please contact Pilar larson/ Dr. Rosalio Flores ([facility]) Looking to discuss patient diagnosis, to see if patient can be seen by Dr Cho Second Opinion ( component loosening and Aseptic) Please dial Pilar [phone] [facility]* Encounter Date Diagnosis Assessment Notes Treatment Notes Treatment Clinical Notes Nov, Right hip pain (ICD-10 - M25.551) Nov, History of total right hip arthroplasty (ICD-10 - Z96.641) Nov, Other I again had a l stan discussion with the patient regarding her symptoms and treatment options. We discussed her lab results from [place] on 11/02/2021 and they are as follows: [...] to get her in with either the [facility] or [facility] to discuss the possibility of revision because at this point I do not feel that our health system would be the best place for her to get the surgery that may need to be required. Patient understands this and is willing to proceed with the nonweightbearing precautions for another 4 to 6 weeks. [facility] Other 06-17-2022 Evaluation note* Encounter Date Diagnosis Assessment Notes Treatment Notes Treatment Clinical Notes Oct, History of total right hip arthroplasty (ICD-10 - Z96.641) [facility] Other 06-09-2022 Evaluation note* Encounter Date Diagnosis [...] back after she gets her CT scan. [facility] Other 03-30-2022 Evaluation note* Encounter Date Diagnosis [...] the results and treatment plans moving forward. [facility] Other 03-23-2022 Evaluation note* Encounter Date Diagnosis [...] see her back after her labs result. [facility] Other Evaluation noteNo [facility] Other History general Narrative - Reported* Type Description Date Medical History chronic depression Medical History anxiety Medical History Acid reflux Surgical History Back surgery Surgical History Hip surgery X5 [facility] Other Hisrgvh general Narrative - Reported* Type Description Date [...] surgery Surgical History Right Hip surgery X5 1998,2012, 2015,2016,20 17 Surgical History COLONOSCOPY 2019 Surgical History LUMBAR FUSION 2014 Hospitalization History see surgical hx [facility] Other Advance Directives No Advanced Directives Records FoundDocuments on File Type Date 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 [facility]. provides no warranty or guarantee of the accuracy or completeness of information in this document.
[2023-06-18 08:26] VITALS: BP 142/82; PULSE 74; RESP 16; TEMP 36.2; O2SAT 97
[2023-06-18] MEDS: BUPIVACAINE HCL 0.25% PF 25 MG/10 ML VIAL 5 ML INJ (09:20)
[2023-06-18] MEDS: TRIAMCINOLONE ACETONIDE 40 MG/ML VIAL INJ (09:20)
[2023-06-18] MEDS: LIDOCAINE HCL 2% 400 MG/20 ML MDV 15 ML INJ (09:20)
[2023-06-18 09:23] VITALS: PULSE 79; RESP 18; O2SAT 94
[2023-06-18 09:37] VITALS: BP 192/87; PULSE 82; RESP 18; O2SAT 96
--- NOTE | 2023-06-18 09:44 | P.ON_ITS ---
Date of procedure: 06/18/23 Pre-op diagnosis: Lumbar spondylosis Post-op diagnosis: same as pre-op Procedure: Procedure: Bilateral L4-5, L5-S1 radiofrequency ablation Medications: Bupivacaine 0.25% 6cc, lidocaine 2% 6cc, kenalog 80mg The patient was seen and examined in the preoperative holding area.? The site was marked.? Written informed consent was obtained and placed on the chart.? The patient was brought to the medical procedure unit and placed in the prone position.? A timeout was completed verifying correct patient, procedure, positioning, and special requirements.? The skin overlying the target points, the designated medial branch, were prepped and draped in the usual sterile fashion.? The target point was achieved with a 20-gauge 15 cm with a 10 mm curved active tip radiofrequency cannula under direct fluoroscopic visualization.? The needle was inserted at level L4 on the right side. Needle tip position was confirmed with lateral fluoroscopic position.? Motor stimulation was carried out at 2 Hz up to 5 volts with the absence of extremity activity.? This was repeated at level L5, S1 on right side.?? Sensory stimulation was carried out.? Concordant pain was realized at the above- mentioned sites.? Then radiofrequency lesioning was carried out times 90 seconds at 80 degrees times 2 lesions at each level.? The radiofrequency probe was removed prior to cannula removal.? The above-mentioned injectate was placed in 1 mL increments.? The needle was removed. The same procedure, with the same steps, was then completed on the left side at the same levels. Insertion sites were covered.? The patient was taken to the postoperative recovery area and monitored for an appropriate length of time before being found suitable for discharge in the company of a responsible adult. Anesthesia: Local Surgeon: Jennifer Damon Pathology: none sent Condition: stable Disposition: no change
[2023-06-20 16:24] VITALS: BP 190/88
== END 2023-06-18 09:50 | disposition home or self-care (01) ==
PROVIDERS: PCP Internal Medicine; Visit Provider Anesthesiology
DX: M47.816 Spondylosis without myelopathy or radiculopathy, lumbar region (principal)
CPT/HCPCS: 64635; 64636; J0665; J3301

== ENCOUNTER 2023-07-18 10:42 | Outpatient (OUT) | payer MEDICARE, SELFPAY ==
--- OUTSIDE RECORDS SUMMARY | 2023-07-18 10:46 | XMS_ITS | CCD ---
Author Name Unknown Address [address] [facility] [address] [place] [address] Organization [facility] Care Team Providers Care Fisheries Enforcement Officer Name Role Phone Rosalio Roblero II Unavailable [phone] Max Bruce DO Primary Care Provider MAX BRUCE Primary Care Unavailable PEDRO GOFF Referring Unavailable MAX BRUCE Primary Care Unavailable PEDRO GOFF Attending Unavailable OSBALDO SILVERIO, ROSALIO Puente Referring UnavailMAX Burch Primary Care Unavailable Osbaldo SILVERIO, Rosalio Puente Attending Unavailabl e Max Bruce Primary Care Unavailable Corinth II, Rosalio Puente Admitting Unavailabl e Osbaldo II, Rosalio Puente Admitting Unavailabl e [place] NUSRAT, Rosalio Puente Attending Unavailabl e Max Bruce Primary Care Unavailable Osbaldo II, Rosalio Puente Admitting Unavailabl e Corinth II, Rosalio Puente Attending Unavailabl e Teo, Max Primary Care Unavailable Corinth II, Rosalio Puente Attending Unavailabl e Max Bruce Primary Care Unavailable Corinth II, Rosalio Puente Admitting Unavailabl e Osbaldo II, Rosalio M Admitting Unavailabl e Corinth II, Rosalio Puente Attending Unavailabl e Max Bruce Primary Care Unavailable Osbaldo II, Rosalio Puente Admitting Unavailabl e Corinth II, Rosalio Puente Attending Unavailabl e Max Bruce Primary Care Unavailable Corinth II, Rosalio Puente Attending Unavailabl e Max Bruce Primary Care Unavailable Osbaldo SILVERIO, Rosalio Puente Admitting Unavailabl e OSBALDOROSALIO HERNANDEZ Consulting Unavailable ROSALIO ROBLERO Attending Unavailable ROSALIO ROBLERO Admitting Unavailable TEO, DR BERRY Attending Unavailable TEO, DR BERRY Admitting Unavailable TEO, DR BERRY Consulting Unavailable Max Bruce Unavailable Marisol ARGUETA, Jennifer Ojeda Attending Unavailable Marisol ARGUETA, Jennifer jOeda Attending Unavailable Marisol ARGUETA, Jennifer Ojeda Attending Unavailable Adamitis , Jennifer Ojeda Attending Unavailable Allergies Allergy Classification Reported Allergen(s) Allergy Type Date of Onset Reaction(s) Facility (18 sources) Acetaminophen / oxyCODONE Drug Allergy Unknown [facility] Other (16 sources) Adhesive Tape; Translations: [adhesive tape] Propensity to adverse reactions 08-16-[address] [facility] (1 source) oxyCODONE Drug Allergy 08-16-19 [facility] (4 sources) Adhesive Tape 1 x5yd *MEDICAL DEVICES AND SUPPLIES Propensity to adverse reactions Comment:Adhesi ve Tape [facility] Other Medications Current Medications Medication Drug Class(es) [...] / neomycin 3.5 mg/ml / polymyxin b 92915 unt/ml otic suspension (1 source) Aminoglycoside Antibacterial, Polymyxin-class Antibacterial, Corticosteroid Start: 05-09-2023 Sqhdllzc-Czetjrcnk-MN 3.5-98539-7 4 drops into affected ear Otic daily [...] 08-18-2020 Epis[facility] Other aftercare (1 source) Other [facility] ([facility] drug therapy Episodic Other bone disease [...] luon 08-03-2022 A1C with Estimated Average Glu [facility] Other Basic Metabolic Panelon 07-13 Calcium [Mass/Vol] 9.1445307 mg/dL 8.5-10 .1 mg/dL [facility] Other CO2 [Moles/Vol] 27.20128321 mmol/L 21.0-3 2.0 mmol/L [facility] Other Creatinine [Mass/Vol] 1.02035880 mg/dL 0.55-1.02 mg/dL [facility] Other Potassium [Moles/Vol] 4.51955473 mmol/L 3.5-5.1 mmol/L [facility] Other Urea nitrogen [Mass/Vol] 28.3392917 mg/dL Critically high 7.0-18.0 mg/dL [facility] Other Basic Metabolic Panel see note [facility] Other Basic Metabolic Panel 140 mmol/L 136-145 mmol/L [facility] Other Basic Metabolic Panel 95 mg/dL 74-106 mg/dL [facility] Other Basic Metabolic Panel 52 mL/min/1.73m2 Critically low >=60 mL/min/1.73m2 [facility] Other Basic Metabolic Panel >60 mL/min/1.73m2 >=60 mL/min/1.73m2 [facility] Other CBC AUTO DIFFon 08-03-2022 BASO # 0.0 103/ul Normal 0.0-0.1 [facility] Comment on above: Performed By: #### C BC #### [facility] [address] [place] [address] Dr. Sandra Radford Basophils/100 WBC (Bld) 0.5 % Normal 0.2-2.0 [facility] Comment on above: Performed By: #### C BC #### [facility] [address] [place] [address] Dr. Sandra Radford EO # 0.3 103/ul Normal 0.0-0.7 [facility] Comment on above: Performed By: #### C BC #### [facility] [address] [place] [address] Dr. Sandra Radford Eosinophils/100 WBC (Bld) 4.5 % Normal 0.9-7.0 [facility] Comment on above: Performed By: #### C BC #### [facility] [address] [place] [address] Dr. Sandra Radford Erythrocyte distribution width (RBC) [Ratio] 13.8 % Normal 11.0-15.0 [facility] Comment on above: Performed By: #### C BC #### [facility] [address] [place] [address] Dr. Sandra Radford Hematocrit (Bld) [Volume fraction] 39.7 % Normal 36.0-48.0 [facility] Comment on above: Performed By: #### C BC #### [facility] [address] [place] [address] Dr. Sandra Radford Hemoglobin (Bld) [Mass/Vol] 12.8 g/dL Normal 12.0-16.0 [facility] Comment on above: Performed By: #### C BC #### [facility] [address] [place] [address] Dr. Sandra Radford IG # 0.01 10e3/ul Normal 0.00-0.03 [facility] Comment on above: Performed By: #### C BC #### [facility] [address] [place] [address] Dr. Sandra Radford IG % 0.2 % Normal 0.0-0.5 [facility] Comment on above: Performed By: #### C BC #### [facility] [address] [place] [address] Dr. Sandra Radford LYMPH # 1.6 103/ul Normal 1.2-3.8 [facility] Comment on above: Performed By: #### C BC #### [facility] [address] [place] [address] Dr. Sandra Radford Lymphocytes/100 WBC (Bld) 26.3 % Normal 20.5-60.0 [facility] Comment on above: Performed By: #### C BC #### [facility] [address] [place] [address] Dr. Sandra Radford MANUAL DIFF REQ NO Normal [facility] Comment on above: Performed By: #### C BC #### [facility] [address] [place] [address] Dr. Sandra Radford MCH (RBC) [Entitic mass] 29.9 pg Normal 26.7-34.0 [facility] Comment on above: Performed By: #### C BC #### [facility] [address] [address] [address] Sandra Radford MCHC (RBC) [Mass/Vol] 32.2 g/dL Normal 29.9-35.2 [facility] Comment on above: Performed By: #### C BC #### [facility] [address] [address] [address] Sandra Radford MCV (RBC) [Entitic vol] 92.8 fL Normal 81.0-99.0 [facility] Comment on above: Performed By: #### C BC #### [facility] [address] [place] [address] Dr. Sandra Radford MONO # 0.7 103/ul Normal 0.3-0.8 [facility] Comment on above: Performed By: #### C BC #### [facility] [address] [place] [address] Dr. aSndra Radford Monocytes/100 WBC (Bld) 10.6 % Normal 1.7-12.0 [facility] Comment on above: Performed By: #### C BC #### [facility] [address] [place] [address] Dr. Sandra Radford NEUT # 3.6 103/ul Normal 1.4-6.5 [facility] Comment on above: Performed By: #### C BC #### [facility] [address] [place] [address] Dr. Sandra Radford Neutrophils/100 WBC (Bld) 57.9 % Normal 43.0-75.[address] [facility] Comment on above: Performed By: #### C BC #### [facility] [address] [address] [address] Sandra Radford Platelet mean volume (Bld) [Entitic vol] 9.7 fL Normal 9.5-13.5 [facility] Comment on above: Performed By: #### C BC #### [facility] [address] [address] [address] Sandra Radford PLT 240 103/ul Normal 150-[address] [facility] Comment on above: Performed By: #### C BC #### [facility] [address] [address] [address] Sandra Radford RBC 4.28 106/ul Normal 4.20-5.40 [facility] Comment on above: Performed By: #### C BC #### [facility] [address] [address] [address] Sandra Radford WBC 6.2 103/ul Normal 4.0-11.0 [facility] Comment on above: Performed By: #### C BC #### [facility] [address] [address] [address] Sandra Radford Complete Blood Count and Dif esther 08-03-2022 Anisocytosis Ql (Bld) [facility] Other Basophilic stippling LM Ql (d) [facility] Other RBC morphology finding Nom (d) [facility] [employer] Other GLYCOHEMOGLOBIN A1Con 2022 ADA RECOMMENDATION SEE BELOW Normal [facility] Comment on above: Result Comment: ADA RECOMMENDED LIMIT 4.0 - 6.0 ADA THERAPEUTIC TARGET < 7.0 ACTION SUGGESTED > 7.0 Performed By: #### A 1C #### [facility] [address] [place] [address] Dr. Sandra Radford Glucose [Mass/Vol] 105 mg/dL Normal [facility] Comment on above: Performed By: #### A 1C #### [facility] [address] [place] [address] Dr. Sandra Radford HbA1c (Bld) [Mass fraction] 5.3 % Normal 4.5-6.2 [facility] Comment on above: Performed By: #### A 1C #### [facility] [address] [place] [address] Dr. Sandra Radford LIPID PROFILEon 08-03-2022 CHOL-HDL RATIO NORM SEE BELOW Normal [facility] Comment on above: Result Comment: 3.3 - 4.4 LOW RISK 4.4 - 7.1 AVERAGE RISK 7.1 - 11.0 MODERATE RISK >11.0 HIGH RISK Performed By: #### T SH, LIPID, BMP #### [facility] [address] [address] [address] Sandra Radford Cholesterol [Mass/Vol] 260 mg/dL Critically high <=200 mg/dL [facility] Comment on above: Performed By: #### T SH, LIPID, BMP #### [facility] [address] [address] [address] Sandra Radford Cholesterol in HDL [Mass/Vol] 58 mg/dL 40-60 mg/dL [facility] Comment on above: Performed By: #### T SH, LIPID, BMP #### [facility] [address] [address] [address] Sandra Radford Cholesterol in LDL [Mass/Vol] 165.8 mg/dL Normal [facility] Comment on above: Performed By: #### T SH, LIPID, BMP #### [facility] [address] [place] [address] Dr. Sandra Radford Cholesterol.total/C holesterol in HDL [Mass ratio] 4.5 {ratio} [facility] Comment on above: Performed By: #### T SH, LIPID, BMP #### [facility] [address] [address] [address] Sandra Radford HDL NORMAL > or = 60 mg/dl - LO W CARDIOVASCULAR RISK <40 mg/dl - HIGH CARDIOVASCULAR RISK Normal [facility] Comment on above: Performed By: #### T SH, LIPID, BMP #### [facility] [address] [place] [address] Dr. Sandra Radford LDL CALC NORMAL SEE BELOW Normal [facility] Comment on above: Result Comment: <100 mg/dl OPTIMAL 100 - 129 mg/dl NEAR OR ABOVE OPTIMAL 130 - 159 mg/dl BORDERLINE HIGH 160 - 189 mg/dl HIGH >190 mg/dl VERY HIGH Performed By: #### T SH, LIPID, BMP #### [facility] [address] [address] [address] Sandra Radford Triglyceride [Mass/Vol] 181 mg/dL Critically high <=150 mg/dL [facility] Comment on above: Performed By: #### T SH, LIPID, BMP #### [facility] [address] [address] [address] Sandra Radford VLDL CALC 36.2 mg/dL Normal [facility] Comment on above: Performed By: #### T CHON LIPID, BMP #### [facility] [address] [address] [address] Sandra Radford Lipid Panelon 08-03-2022 Lipid Panel > or = 60 mg/dl - LO W CARDIOVASCULAR RISK <40 mg/dl - HIGH CARDIOVASCULAR RISK [facility] Other Lipid Panel SEE BELOW [facility] Other Lipid Panel 165.8 mg/dL [facility] Other Lipid Panel 36.2 mg/dL [facility] [employer] Other PROF CHEM 8 (BAS METB)on Anion gap [Moles/Vol] 12.2 mmol/L [facility] Comment on above: Performed By: #### T CHON LIPID, BMP #### [facility] [address] [place] [address] Dr. Sandra Radford Calcium [Mass/Vol] 9.6 mg/dL Normal 8.5-10.1 [facility] Comment on above: Performed By: #### T CHON LIPID, BMP #### [facility] [address] [place] [address] Dr. Sandra Radford Chloride [Moles/Vol] 105 mmol/L 98-107 mmol/L [facility] Comment on above: Performed By: #### T COHN, LIPID, BMP #### [facility] [address] [address] [address] Sandra Radford CO2 [Moles/Vol] 27.3 mmol/L Normal 21.0-32.0 [facility] Comment on above: Performed By: #### T CHON, LIPID, BMP #### [facility] [address] [address] [address] Sandra Radford Creatinine [Mass/Vol] 1.02 mg/dL Normal 0.55-1.02 [facility] Comment on above: Performed By: #### T SH, LIPID, BMP #### [facility] [address] [address] [address] Sandra Radford EGFR-AF CHILEAN >60 Normal >=60 [facility] Comment on above: Performed By: #### T SH, LIPID, BMP #### [facility] [address] [address] [address] Sandra Radford EGFR-NON AF CHILEAN 52 mL/min/1.73m2 Critically low >=60 [facility] Comment on above: Performed By: #### T SH, LIPID, BMP #### [facility] [address] [address] [address] Sandra Radford Glucose [Mass/Vol] 95 mg/dL Normal 74-106 [facility] Comment on above: Performed By: #### T SH, LIPID, BMP #### [facility] [address] [place] [address] Dr. Sandra Radford Potassium [Moles/Vol] 4.5 mmol/L Normal 3.5-5.1 [facility] Comment on above: Performed By: #### T SH, LIPID, BMP #### [facility] [address] [address] [address] Sadnra Radford Sodium [Moles/Vol] 140 mmol/L Normal 136-145 [facility] Comment on above: Performed By: #### T SH, LIPID, BMP #### [facility] [address] [place] [address] Dr. Sandra Radford Urea nitrogen [Mass/Vol] 28.0 mg/dL Critically high 7.0-18.0 [facility] Comment on above: Performed By: #### T SH, LIPID, BMP #### [facility] [address] [place] [address] Dr. Sandra Radford Urea nitrogen/Creatinine [Mass ratio] 27.5 mg/mg [facility] Comment on above: Performed By: #### T SH, LIPID, BMP #### [facility] [address] [place] [address] Dr. Sandra Radford TSHon 08-03-2022 TSH 1.952 uIU/mL Normal 0.358-3.740 [facility] Comment on above: Performed By: #### T SH, LIPID, BMP #### [facility] [address] [place], [place] [address] Dr. Sandra Karimi 04-14-2022 CNOV Office Visit (ORTHCO ) NORMA BRENNAN ([id number]) 1940 F Date Time Provider Department 04/14/22 9:00 AM PEDRO GOFF During your visit today, we recorded the following information about you: Pedro Goff DO 04/14/2022 10:56 AM Signed CONSULT ORTHOPAEDIC: HIP PRIMARY CARE PHYSICIAN: Max Bruce DO REFERRING PROVIDER: Rosalio Roblero [address] [place] [id number] HPI: 82-year-old female presents today with right hip pain that has been chronic in nature over the last year and a half but acutely worsened over the last 6 months. 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 She overall uses a walker for ambulation and has significant leg length difference and requires a shoe lift. She states over the last 6 months that her right hip and leg pain is worsening especially after working with physical therapy and was seen in [facility] and recommended nonweightbearing for 6 [...] Deficiency Chronic Kidney Disease, Stage Iii (Moderate) ([facility]) Chronic Kidney Disease, Stage 3 Unspecified ([facility]) History of Total Right Hip Replacement Gastro-Esophageal Reflux Disease With Esophagitis, Without Bleeding SUBJECTIVE CHIEF COMPLAINT: Hip Pain HPI: Norma Brennan is a 82 year old patient here for evaluation and management of Right hip pain.Norma Brennan has had progressive problems with the hip(s) most of the day over the past 6 month(s) interfering with activities which include walking 2 blocks, 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 The problem began limiting activities 1-6 months ago. Currently the pain in the joint is rated at 7 out of 10 with minimal activity. (more content not included)... Normal [facility] CRP SerPl-mCncon 04-14-2022 CRP [Mass/Vol] mg/L Normal <0.9 [facility] Comment on above: Order Comment: Momo jain Type: BLOOD SPECIMEN Ordering Facility: [facility] Address: [address] [place] [address] Performed By: #### 1 988-5 #### [facility] CLIA [id number] [address] [place] [address] [place] ESR Westergren method (Bld) [Velocity]on 04-14-2022 ESR (Bld) [Velocity] 6 mm/h Normal 0-20 [facility] Comment on above: Order Comment: Momo jain Type: BLOOD SPECIMEN Ordering Facility: [facility] Address: [address] [place] [address] Performed By: #### 4 537-7 #### [facility] CLIA [id number] [address] [place] [address] [place] XR HIP 3V [...] significant abnormality. --- IMPRESSION: NO SIGNIFICANT CHANGE Nutrition Helper: ALIE Transcribe Date/Time: Apr 14 2022 8:42A Dictated by : CECELIA ALVAREZ MD This examination was interpreted and the report reviewed and electronically signed by: CECELIA ALVAREZ MD on Apr 14 2022 8:49AM EST [id number] N Normal [facility] 01-25-2022 CNPN Telephone (ORQ) NORMA BRENNAN ([id number]) 1940 F Date Time Provider Department 01/25/22 YECENIA MURPHY ORQ During your visit today, we recorded the following information about you: Shahana Casillas 01/25/2022 11:22 AM Signed Please contact Pilar larson/ Dr. Rosalio Flores ([facility]) Looking to discuss patient diagnosis, to see if patient can be seen by Dr Cho Second Opinion ( component loosening and Aseptic) Please dial Pilar [phone] Carrol Matthew RN 01/25/2022 12:22 PM Signed Spoke to Pilar, explained Dr Cho only does revisions on his surgical patients or patients with a pathologic or metastatic disease. 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 [address] [address] [address] Sandra Radford Basophils/100 WBC (Bld) 0.5 % Normal 0.2-2.[address] [facility] Comment on above: Performed By: #### C BC #### [facility] [address] [address] [address] Sandra Radford EO # 0.2 103/ul Normal 0.0-0.7 [facility] Comment on above: Performed By: #### C BC #### [facility] [address] [place] [address] Dr. Sandra Radford Eosinophils/100 WBC (Bld) 3.1 % Normal 0.9-7.0 [facility] Comment on above: Performed By: #### C BC #### [facility] [address] [place] [address] Dr. Sandra Radford Erythrocyte distribution width (RBC) [Ratio] 14.4 % Normal 11.0-15.0 [facility] Comment on above: Performed By: #### C BC #### [facility] [address] [place] [address] Dr. Sandra Radford Hematocrit (Bld) [Volume fraction] 34.1 % Critically low 36.0-48.0 [facility] Comment on above: Performed By: #### C BC #### [facility] [address] [place] [address] Dr. Sandra Radford Hemoglobin (Bld) [Mass/Vol] 11.2 g/dL Critically low 12.0-16.0 [facility] Comment on above: Performed By: #### C BC #### [facility] [address] [place] [address] Dr. Sandra Radford IG # 0.01 10e3/ul Normal 0.00-0.03 [facility] Comment on above: Performed By: #### C BC #### [facility] [address] [place] [address] Dr. Sandra Radford IG % 0.2 % Normal 0.0-0.[address] [facility] Comment on above: Performed By: #### C BC #### [facility] [address] [place] [address] Dr. Sandra Radford LYMPH # 1.5 103/ul Normal 1.2-3.[address] [facility] Comment on above: Performed By: #### C BC #### [facility] [address] [place] [address] Dr. Sandra Radford Lymphocytes/100 WBC (Bld) 25.1 % Normal 20.5-60.0 [facility] Comment on above: Performed By: #### C BC #### [facility] [address] [place] [address] Dr. Sandra Radford MANUAL DIFF REQ NO Normal [facility] Comment on above: Performed By: #### C BC #### [facility] [address] [place] [address] Dr. Sandra Radford MCH (RBC) [Entitic mass] 32.7 pg Normal 26.7-34.0 [facility] Comment on above: Performed By: #### C BC #### [facility] [address] [place] [address] Dr. Sandra Radford MCHC (RBC) [Mass/Vol] 32.8 g/dL Normal 29.9-35.2 [facility] Comment on above: Performed By: #### C BC #### [facility] [address] [place] [address] Dr. Sandra Radford MCV (RBC) [Entitic vol] 99.4 fL Critically high 81.0-99.0 [facility] Comment on above: Performed By: #### C BC #### [facility] [address] [place] [address] Dr. Sandra Radford MONO # 0.6 103/ul Normal 0.3-0.8 [facility] Comment on above: Performed By: #### C BC #### [facility] [address] [place] [address] Dr. Sandra Radford Monocytes/100 WBC (Bld) 10.7 % Normal 1.7-12.0 [facility] Comment on above: Performed By: #### C BC #### [facility] [address] [place] [address] Dr. Sandra Radford NEUT # 3.5 103/ul Normal 1.4-6.[address] [facility] Comment on above: Performed By: #### C BC #### [facility] [address] [place] [address] Dr. Sandra Radford Neutrophils/100 WBC (Bld) 60.4 % Normal 43.0-75.[address] [facility] Comment on above: Performed By: #### C BC #### [facility] [address] [address] [address] Sandra Radford Platelet mean volume (Bld) [Entitic vol] 10.2 fL Normal 9.5-13.5 [facility] Comment on above: Performed By: #### C BC #### [facility] [address] [address] [address] Sandra Radford PLT 202 103/ul Normal 150-[address] [facility] Comment on above: Performed By: #### C BC #### [facility] [address] [address] [address] Sandra Radford RBC 3.43 106/ul Critically low 4.20-5.40 [facility] Comment on above: Performed By: #### C BC #### [facility] [address] [place] [address] Dr. Sandra Radford WBC 5.8 103/ul Normal 4.0-11.0 [facility] Comment on above: Performed By: #### C BC #### [facility] [address] [address] [address] Sandra Radford CRPon 11-02-2021 CRP [Mass/Vol] mg/L Normal <=1.0 [facility] Comment on above: Performed By: #### C RP #### [facility] [address] [place] [address] Dr. Sandra Radford SED RATE WESTERGREN 2021 SED RATE 2 mm/hr Normal <=[address] [facility] Comment on above: Performed By: #### S EDR #### [facility] [address] [place] [address] Dr. Sandra Radford NM bone 3 phaseon 10-26-2021 NM bone 3 phase [facility] [place] [address] Nuclear Medicine Report Signed Patient: Norma Brennan MR#: [id number] 00 : 1940 Acct:[id number] Age/Sex: 81 / F ADM Date: 10/26/21 Loc: [place] Room: Type: [facility] Attending Dr: Rosalio Roblero II, [...] Lolis Reddy M.D.10/26/2021 4:09 PM Dictation Location: [place] [address] Transcribed By: [facility] 10/26/21 3254 Dictated By: Lolis Reddy MD 10/26/21 1559 Signed By: 10/26/21 [address] [facility] [address] femur RT wo conon 022 CT femur RT wo con [facility] [place] [address] [place] [address] CT Scan Report Signed Patient: Norma Brennan MR#: [id number] 00 : 1940 Acct:[id number] Age/Sex: 81 / F ADM Date: 10/20/21 Loc: [facility] Room: Type: [facility] Attending Dr: Rosalio Roblero II, [...] Centeno Jr., M.D.10/20/2021 11:15 AM Dictation Location: [place] [address] Transcribed By: [facility] 10/20/21 1115 Dictated By: Romeo Centeno Jr, MD 10/20/21 1057 Signed By: 10/20/21 1115 [facility] XR femur RT 2V*on 10-20-2021 XR femur RT 2V* [facility] [place] [address] [place] [address] XRay Report Signed Patient: Norma Brennan MR#: [id number] 00 : 1940 Acct:[id number] Age/Sex: 81 / F ADM Date: 10/20/21 [place] [facility] Room: Type: [facility] Attending Dr: Rosalio Roblero II, [...] Lolis Reddy M.D.10/20/2021 1:13 PM Dictation Location: [place] [address] Transcribed By: [facility] 10/20/21 1313 Dictated By: Lolis Reddy MD 10/20/21 1310 Signed By: 10/20/21 1313 [facility] XR pelvis 1-2Von 10-20-2021 XR pelvis 1-2V [facility] [place] [address] [place] [address] XRay Report Signed Patient: Norma Brennan MR#: [id number] 00 : 1940 Acct:[id number] Age/Sex: 81 / F ADM Date: 10/20/21 Loc: [facility] Room: Type: [facility] Attending Dr: Rosalio Roblero II, [...] Malachi Davis M.D.10/20/2021 1:08 PM Dictation Location: [place] [address] Transcribed By: [facility] 10/20/21 1308 Dictated By: Malachi Davis II, MD 10/20/21 1303 Signed By: 10/20/[address] [facility] XR hip RT 1Von 08-15-2021 XR hip RT 1V [facility] [place] [address] XRay Report Signed Patient: Norma Brennan MR#: [id number] : 1940 Acct:[id number] Age/Sex: 81 / F ADM Date: 08/15/21 Loc: [place] Room: Type: [facility] Attending Dr: Rosalio Roblero II, [...] Edgard Paez M.D.08/15/2021 9:09 AM Dictation Location: [id number] Transcribed By: [facility] 08/15/21908 Dictated By: Edgard Paez DO 08/15/21907 Signed By: 08/15/[address] [facility] Basic Metabolic Panelon 04-0 Calcium [Mass/Vol] 9.1 mg/dL Normal 8.2-10.2 [facility] Comment on above: Result Comment: PERF ORMED BY: [place] [address] PATHOLOGIST ASSEMBLY INSPECTOR HELPER MARIELLA KRAUSE M.D. Performed By: #### C [address] #### [place] [address] [place] Chloride [Moles/Vol] 105 mmol/L Normal 95-114 [facility] Comment on above: Performed By: #### C [place] [facility] #### [address] CO2 [Moles/Vol] 25.9 mmol/L Normal 22.0-30.0 [facility] Comment on above: Performed By: #### C [place] [facility] #### [place] [address] [place] Creatinine [Mass/Vol] 0.99 mg/dL Normal 0.44-1.03 [facility] Comment on above: Performed By: #### C [address] #### [place] [id number] [place] Estimated GFR ( Jahaira > 60 [facility] Comment on above: Result Comment: GFR estimated reference range: According to KDOQI guidelines, <60 ml/min/1.73m2 is sufficient to diagnose a patient with chronic kidney disease. Performed By: #### C [address] #### [place] [id number] [place] Estimated GFR (Non- Am 54 [facility] Comment on above: Performed By: #### C [address] #### [place] [id number] [place] Glucose [Mass/Vol] 92 mg/dL Normal 70-100 [facility] Comment on above: Result Comment: [place] Glucose Reference Range is dependent on time and content of last meal. Glucose of more than 200 mg/dL in a nonstressed, ambulatory subject supports the diagnosis of Diabetes Mellitus. ADA recommended reference range Performed By: #### C [place] 19 [facility] #### [facility] [address] [id number] [facility] Potassium [Moles/Vol] 4.7 mmol/L Normal 3.5-5.1 [facility] Comment on above: Performed By: #### C [place] 19 [facility] #### [facility] [address] [place] [id number] [place] Sodium [Moles/Vol] 139 mmol/L Normal 136-146 [facility] Comment on above: Performed By: #### C [place] 19 [facility] #### [facility] [address] [place] [id number] [place] Urea nitrogen [Mass/Vol] 32 mg/dL High 9-23 [facility] Comment on above: Performed By: #### C [place] 19 [facility] #### [facility] [address] COVID-19 [facility] 08[facility]-2021 SARS-CoV-2 (COVID-19) RNA FABIAN+probe Ql (Unsp spec) Negative Normal Negative [facility] Comment on above: Order Comment: Comme nt procedure 08/15/21 Healthcare Worker?: N Result Comment: Testing for SARS-CoV-2 by RT-PCR This test was developed and its performance characteristics determined by [employer] and validated at the [facility]. This test has not been FDA [...] is terminated or revoked sooner. PERFORMED BY: [place] [address] PATHOLOGIST ASSEMBLY INSPECTOR HELPER MARIELLA KRAUSE M.D. Performed By: #### C [place] 19 [facility] #### [address] ECG 12 lead ECGon 08-12-2021 ECG 12 lead ECG [facility] [place] [address] [place] [address] Electrocardiograph Report Signed Patient: Norma Brennan MR#: [id number] 00 : 1940 Acct:[id number] Age/Sex: 81 / F ADM Date: 08/12/21 Loc: Room: Type: [facility] Attending Dr: Rosalio Roblero II, MD [...] Signed By Felicitas Villeda MD [address] [facility] C-Reactive Proteinon 022 C-Reactive Protein 1.4 mg/dL High 0.0-1.0 [facility] Comment on above: Order Comment: Comme nt procedure 08/15/21 Healthcare Worker?: N Result Comment: PERF ORMED BY: [place] [id number] PATHOLOGIST ASSEMBLY INSPECTOR HELPER MARIELLA KRAUSE M.D. Performed By: #### C [address] #### [facility] [address] Complete Blood Count Auto Di ffon 08-03-2021 Basophils (Bld) [#/Vol] 0.0 10*3/uL Normal 0.0-0.2 [facility] Comment on above: Order Comment: Comme nt procedure 08/15/21 Healthcare Worker?: N Performed By: #### C [address] #### [facility] [address] Basophils/100 WBC (Bld) 0.5 % Normal . [facility] Comment on above: Order Comment: Comme nt procedure 08/15/21 Healthcare Worker?: N Performed By: #### C [address] #### [address] Eosinophils (Bld) [#/Vol] 0.2 10*3/uL Normal 0.0-0.45 [facility] Comment on above: Order Comment: Comme nt procedure 08/15/21 Healthcare Worker?: N Performed By: #### C [address] #### [address] Eosinophils/100 WBC (Bld) 4.2 % Normal . [facility] Comment on above: Order Comment: Comme nt procedure 08/15/21 Healthcare Worker?: N Performed By: #### C [address] #### [address] Erythrocyte distribution width (RBC) [Ratio] 14.7 % Normal 11.9-15.3 [facility] Comment on above: Order Comment: Comme nt procedure 08/15/21 Healthcare Worker?: N Performed By: #### C [address] #### [address] Hematocrit (Bld) [Volume fraction] 39.6 % Normal 34.0-46.4 [facility] Comment on above: Order Comment: Comme nt procedure 08/15/21 Healthcare Worker?: N Performed By: #### C [address] #### [address] Hemoglobin (Bld) [Mass/Vol] 12.9 g/dL Normal 11.8-15.4 [facility] Comment on above: Order Comment: Comme nt procedure 08/15/21 Healthcare Worker?: N Performed By: #### C [address] #### [address] Lymphocytes (Bld) [#/Vol] 1.5 10*3/uL Normal 1.00-4.8 [facility] Comment on above: Order Comment: Comme nt procedure 08/15/21 Healthcare Worker?: N Performed By: #### C [address] #### [address] Lymphocytes/100 WBC (Bld) 27.3 % Normal . [facility] Comment on above: Order Comment: Comme nt procedure 08/15/21 Healthcare Worker?: N Performed By: #### C [address] #### [address] MCH (RBC) [Entitic mass] 31.0 pg Normal 24.7-34.3 [facility] Comment on above: Order Comment: Comme nt procedure 08/15/21 Healthcare Worker?: N Performed By: #### C [address] #### [address] MCV (RBC) [Entitic vol] 95.4 fL Normal 80-100 [facility] Comment on above: Order Comment: Comme nt procedure 08/15/21 Healthcare Worker?: N Performed By: #### C [address] #### [address] Mean Corpuscular HGB Conc 32.4 g/dL Normal 32.0-35.0 [facility] Comment on above: Order Comment: Comme nt procedure 08/15/21 Healthcare Worker?: N Performed By: #### C [address] #### [facility] [address] [place] [id number] [place] Monocytes (Bld) [#/Vol] 0.5 10*3/uL Normal 0.0-0.8 [facility] Comment on above: Order Comment: Comme nt procedure 08/15/21 Healthcare Worker?: N Performed By: #### C [address] #### [facility] [address] [place] [id number] [place] Monocytes/100 WBC (Bld) 9.8 % Normal . [facility] Comment on above: Order Comment: Comme nt procedure 08/15/21 Healthcare Worker?: N Performed By: #### C [address] #### [facility] [address] [place] [address] [place] Neutrophils (Bld) [#/Vol] 3.2 10*3/uL Normal 1.8-7.7 [facility] Comment on above: Order Comment: Comme nt procedure 08/15/21 Healthcare Worker?: N Performed By: #### C [address] #### [place] [id number] [place] Neutrophils/100 WBC (Bld) 58.2 % Normal . [facility] Comment on above: Order Comment: Comme nt procedure 08/15/21 Healthcare Worker?: N Performed By: #### C [address] #### [place] [id number] [place] Nucleated RBC/100 WBC (Bld) [Ratio] 0.1 % Normal 0-0.5 [facility] Comment on above: Order Comment: Comme nt procedure 08/15/21 Healthcare Worker?: N Performed By: #### C [address] #### [facility] [address] [place] [address] [place] Platelet mean volume (Bld) [Entitic vol] 7.8 fL Normal 6.3-10.7 [facility] Comment on above: Order Comment: Comme nt procedure 08/15/21 Healthcare Worker?: N Performed By: #### C [address] #### [place] [id number] [place] Platelets (Bld) [#/Vol] 272 10*3/uL Normal 150-450 [facility] Comment on above: Order Comment: Comme nt procedure 08/15/21 Healthcare Worker?: N Performed By: #### C [place] 19 [facility] #### [facility] [address] RBC (Bld) [#/Vol] 4.15 10*6/uL Normal 3.60-5.00 [facility] Comment on above: Order Comment: Comme nt procedure 08/15/21 Healthcare Worker?: N Performed By: #### C [place] 19 [facility] #### [facility] [address] WBC (Bld) [#/Vol] 5.5 10*3/uL Normal 4.5-11.0 [facility] Comment on above: Order Comment: Comme nt procedure 08/15/21 Healthcare Worker?: N Performed By: #### C [place] [facility] #### [address] D-Dimer High Sensitivityon 0 08-03-2021 D-Dimer High Sensitivity 434 ng/mL High 0-243 [facility] Comment on above: Order Comment: Reaso [...] patients due to co-morbid conditions. PERFORMED BY: [place] [address] PATHOLOGIST ASSEMBLY INSPECTOR HELPER MARIELLA KRAUSE M.D. Performed By: #### D DIMER, CRP, CBC, ESR #### [address] Erythrocyte Sedimentation Ra brian 08-03-2021 ESR (Bld) [Velocity] 7 mm/h Normal 0-29 [facility] Comment on above: Order Comment: Comme nt procedure 08/15/21 Healthcare Worker?: N Result Comment: PERF ORMED BY: [place] [address] PATHOLOGIST ASSEMBLY INSPECTOR HELPER MARIELLA KRAUSE M.D. Performed By: #### C [place] 19 [facility] #### [place] [id number] [facility] XR knee BI 4Von 08-03-2021 XR knee BI 4V [facility] Main [place] [address] [place] [address] XRay Report Signed Patient: Norma Brennan MR#: [id number] : 1940 Acct:[id number] Age/Sex: 81 / F ADM Date: 08/03/21 [place] [facility] [place]: Type: [facility] Attending Dr: Rosalio Roblero II, MD Ordering Provider: Rosalio Roblero MD Date of Service: 08/03/21 XR/XR knee BI 4V: Osteoarthritis of knees, bilateral Copies to: Rosalio Roblero MD 4 views both knee plain film COMPARISON:None HISTORY:Bilateral knee pain medially. Cnpp-om-yvje contact of the medial compartment of the [...] Edgard Paez M.D.08/03/2021 2:13 PM Dictation Location: [place] [address] Transcribed By: [facility] 08/03/21 141 Dictated By: Edgard Paez DO 08/03/211411 Signed By: 08/03/[address] [facility] XR knee BI [address]V [facility] [employer] Other XR knee BI 4V [facility] Main [facility] [employer] Other XR knee BI 4V [address] [facility] [employer] [place] [address] [facility] [employer] Other XR knee BI 4V XRay Report [facility] Other XR knee BI 4V Signed [employer] Other XR knee BI 4V Patient: Lauro Brennan MR#: [id number] [place] [employer] Other XR knee BI 4V : 1940 Acct:[id number] [employer] Other XR knee BI 4V Age/Sex: 81 / F ADM Date: 08/03/21 [employer] Other XR knee BI 4V Loc: [facility] Room: Type : [facility] [employer] Other XR knee BI 4V Attending Dr: Rosalio Roblero II, MD [employer] Other XR knee BI 4V Ordering Provider: Rosalio Roblero MD [employer] Other XR knee BI 4V Date of Service: 08/03/21 [employer] Other XR knee BI 4V XR/XR knee BI 4V: Osteoarthritis of knees, bilateral [employer] Other XR knee BI 4V Copies to: Rosalio Roblero MD [employer] Other XR knee BI 4V 4 views both knee plain film [employer] Other XR knee BI 4V COMPARISON:None [employer] Other XR knee BI 4V HISTORY:Bilateral knee pain medially. [employer] Other XR knee BI 4V Xacy-bx-rmhg contact of the medial compartment of the LEFT knee identified. Mild remaining joint [employer] Other XR knee BI 4V space narrowing of both knees present. Small supra patellar effusion seen. Diffuse osteopenia asia [employer] Other XR knee BI 4V ntified. No fracture or dislocation. Moderate lateral LEFT patellar subluxation identified. Mild [employer] Other XR knee BI 4V lateral RIGHT patellar subluxation identified. 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 Remaining minor degenerative [employer] Other XR knee BI 4V change. [employer] Other XR knee BI 4V Impression dictated by: Edgard Paez M.D.08/03/2021 2:13 PM [employer] Other XR knee BI 4V Dictation Location: [place] [address] [employer] Other XR knee BI 4V Transcribed By: ML 08/03/21 [facility] [employer] Other XR knee BI 4V Dictated By: Edgard Paez DO 08/03/21 [facility] [employer] Other XR knee BI 4V Signed By: [employer] Other XR knee BI 4V 08/03/21 [facility] [employer] Other XR pelvis 1-2Von 08-03-2021 XR pelvis 1-2V [facility] Main [place] [address] [place] [address] XRay Report Signed Patient: Norma Brennan MR#: [id number] : 1940 Acct:[id number] Age/Sex: 81 / F ADM Date: 08/03/21 [place] [facility] Room: [...] Edgard Paez M.D.08/03/2021 2:20 PM Dictation Location: [place] [address] Transcribed By: [facility] 08/03/21 1420 Dictated By: Edgard Paez DO 08/03/21 1419 Signed By: 08/03/21 1420 [facility] XR pelvis 1-2V XR/XR pelvis 1-2V: Osteoarthritis of knees, bilateral [employer] Other XR pelvis 1-2V Single view of the pelvis plain film [employer] Other XR pelvis 1-2V HISTORY:Bilateral knee pain [employer] Other XR pelvis 1-2V The visualized portion of the RIGHT hip arthroplasty unremarkable. Bony alignment appears [employer] Other XR pelvis 1-2V adequate. Diffuse osteopenia. [employer] Other XR pelvis 1-2V No acute bony findings identified. [employer] Other XR pelvis 1-2V No focal soft tissue abnormality seen. [employer] Other XR pelvis 1-2V XR/XR pelvis 1-2V [employer] Other XR pelvis 1-2V IMPRESSION:Unremarka b le visualized the RIGHT hip arthroplasty. Diffuse osteopenia. Unremarkable [employer] Other XR pelvis 1-2V LEFT hip. [employer] Other XR pelvis 1-2V Impression dictated by: Edgard Paez M.D.08/03/2021 2:20 PM [employer] Other XR pelvis 1-2V Transcribed By: PWS 08/03/21 1420 [employer] Other XR pelvis 1-2V Dictated By: Edgard Paez DO 08/03/21 1419 [employer] Other XR pelvis 1-2V 08/03/21 1420 [employer] Other Vital Signs Date Time Vital Sign Value Performing Clinician Facility 05-09-2023 11:30-0500 Body height 152.4 cm Max Ball Other [employer] Other 05-09-2023 11:30-0500 Body mass index (BMI) [Ratio] 30.81 kg/m2 Max Ball Other [employer] Other 05-09-2023 11:30-0500 Body weight 71.58 kg Max Ball Other [employer] Other 05-09-2023 11:30-0500 Diastolic blood pressure 77 mm[Hg] Max Ball Other [employer] Other 05-09-2023 11:30-0500 Respiratory rate 12 /min Max Ball Other [employer] Other 05-09-2023 11:30-0500 Systolic blood pressure 146 mm[Hg] Max Ball Other [employer] Other 08-03-2022 12:00-0400 Body height 152.4 cm Max Ball Other [employer] Other 08-03-2022 12:00-0400 Body mass index (BMI) [Ratio] 31.64 kg/m2 Max Ball Other [employer] Other 08-03-2022 12:00-0400 Body weight 73.48 kg Max Ball Other [employer] Other 08-03-2022 12:00-0400 Diastolic blood pressure 82 mm[Hg] Max Ball Other [employer] Other 08-03-2022 12:00-0400 Respiratory rate 12 /min Max Ball Other [employer] Other 08-03-2022 12:00-0400 Systolic blood pressure 137 mm[Hg] Max Ball Other [employer] Other 10-20-2021 09:45-0400 Body height 152.4 cm Rosalio Osbaldo II Other [employer] Other 10-20-2021 09:45-0400 Body mass index (BMI) [Ratio] 28.9 kg/m2 Rosalio Corinth II Other [employer] Other 10-20-2021 09:45-0400 Body weight 67.13 kg Rosalio Corinth II Other [employer] Other 08-10-2021 15:45-0400 Body height 152.4 cm Rosalio Osbaldo II Other [employer] Other 08-10-2021 15:45-0400 Body mass index (BMI) [Ratio] 28.9 kg/m2 Rosalio Osbaldo II Other [employer] Other 08-10-2021 15:45-0400 Body weight 67.13 kg Rosalio Corinth II Other [employer] Other 08-03-2021 12:00-0400 Body height 152.4 cm Rosalio Roblero II Other [employer] Other 08-03-2021 12:00-0400 Body mass index (BMI) [Ratio] 28.9 kg/m2 Rosalio Roblero II Other [employer] Other 08-03-2021 12:00-0400 Body weight 67.13 kg Rosalio Roblero II Other [employer] Other Encounters Encounter Date Encounter Type Care Provider Facility Start: 05-21-2023 End: 05-22-2023 ambulatory Jennifer Damon MD Facility:[facility] Start: 05-09-2023 End: 05-09-2023 ambulatory Max Bruce Other [employer] Other Start: 05-09-2023 Office outpatient vi sit 25 minutes Max Bruce [facility] Start: 04-16-2023 End: 04-17-2023 ambulatory [facility] Start: 03-19-2023 End: 03-20-2023 ambulatory Jennifer Damon MD Facility:[facility] Start: 02-19-2023 End: 02-20-2023 ambulatory Jennifer Damon MD Facility:[facility] Start: 02-13-2023 End: 02-13-2023 ambulatory Max Burce Other [employer] Other Start: 02-13-2023 Telephone encounter Max RAMIREZ [facility] Start: 02-07-2023 End: 02-07-2023 ambulatory Max Bruce Other [employer] Other Start: 02-07-2023 Telephone encounter Max Subramanian [place] [facility] Start: 02-01-2023 End: 02-01-2023 ambulatory Max Bruce Other [employer] Other Start: 02-01-2023 Telephone encounter Max Bruce JAMES G [place] [facility] Start: 08-10-2022 End: 08-10-2022 ambulatory Max Bruce Other [employer] Other Start: 08-10-2022 Telephone encounter Max Bruce JAMES G [place] [facility] Start: 08-03-2022 End: 08-04-[address] MAX BRUCE Facility: Start: 08-03-2022 Patient encounter procedure Max Bruce [facility] Start: 04-14-2022 End: 04-14-2022 ambulatory MAX BRUCE Facility:[facility] Start: 02-06-2022 End: 02-06-2022 ambulatory Rosalio Corinth II Other [employer] Other Start: 02-06-2022 Telephone encounter Rosalio Corinth II [facility] Start: 01-25-2022 Telephone encounter Yecenia hawkins PA-C Work Phone: [facility] Comment on above: Brain Wave Technician - O ther (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 for patient's ortho./) Start: 01-19-2022 End: 01-19-2022 ambulatory Rosalio Corinth II Other [facility] Other Start: 01-19-2022 Telephone encounter Rosalio Corinth II [facility] Start: 01-02-2022 End: 01-02-2022 ambulatory Rosalio Corinth II Other [facility] Other Start: 01-02-2022 Telephone encounter Rosalio Corinth II [facility] Start: 11-30-2021 End: 11-30-2021 ambulatory Rosalio Corinth II Other [facility] Other Start: 11-30-2021 Telephone encounter Rosalio Corinth II [facility] Start: 11-18-2021 End: 11-18-2021 ambulatory Rosalio Corinth II Other [facility] Other Start: 11-18-2021 Office outpatient vi sit 25 minutes Rosalio Corinth II [facility] Start: 11-02-2021 End: 11-02-2021 ambulatory ROSALIO OSBALDO [facility] Other Start: 11-02-2021 Telephone encounter Rosalio Corinth II [facility] Start: 10-28-2021 End: 10-28-2021 ambulatory Rosalio Corinth II Other [facility] Other Start: 10-28-2021 Telephone encounter Rosalio Corinth II [facility] Start: 10-26-2021 End: 10-26-2021 ambulatory Rosalio M Corinth II Facility:[facility] Start: 10-21-2021 End: 10-21-2021 ambulatory Rosalio Corinth II Other [facility] Other Start: 10-21-2021 Telephone encounter Rosalio Corinth II [facility] Start: 10-20-2021 Office outpatient vi sit 25 minutes Rosalio Corinth II [facility] Start: 10-20-2021 End: 10-20-2021 ambulatory Rosalio M Osbaldo II [facility] Other Start: 10-14-2021 End: 10-14-2021 ambulatory Rosalio Osbaldo II Other [facility] Other Start: 10-14-2021 Telephone encounter Rosalio Corinth II [facility] Start: 09-22-2021 End: 09-22-2021 ambulatory Rosalio M Corinth II Facility:[facility] Start: 08-15-2021 End: 08-15-2021 ambulatory Rosalio M Corinth II Facility:[facility] Start: 08-12-2021 End: 08-12-2021 ambulatory Rosalio Roblero II Facility:[facility] Start: 08-10-2021 End: 08-10-2021 ambulatory Rosalio Roblero II Other [facility] Other Start: 08-10-2021 Office outpatient vi sit 25 minutes Rosalio Roblero II [facility] Start: 08-03-2021 FQHC visit new patient Rosalio matthews II [facility] Start: 08-03-2021 End: 08-03-2021 ambulatory Rosalio Roblero II [facility] Other Start: 07-13-2021 Adult health examination Max Bruce Other [facility] Other Procedures Date Procedure Procedure Detail Performing Clinician Depression screening Maryanne Bruce Other Plan of Treatment Date Care Activity Detail Author Start: 2022 Influenza vaccination INFLUENZA (#1) [facility] Start: 05-14-2021 ADVANCE DIRECTIVE DISCUSSION ADVANCE DIRECTIVE DISCUSSION [facility] Start: 01-04-2021 COVID-19 VACCINE (3 - Booster for Moderna series) COVID-19 VACCINE (3 - Booster for Moderna series) [facility] Start: 01-13-2004 BONE DENSITY BONE DENSITY [facility] Start: 01-13-2004 PNEUMOCOCCAL: 65+ (1 - PCV) PNEUMOCOCCAL: 65+ (1 - PCV) [facility] Start: 1989 SHINGRIX VACCINE (1 of 2) JAMISON GRIX VACCINE (1 of 2) [facility] Start: 01-13-1984 DIABETES SCREEN DIABETES SCREEN [facility] Start: 1958 Urine microalbumin profile DTAP,TDAP ,TD (1 - Tdap) [facility] Immunizations Immunization Date Immunization Notes Care Provider Fa darell 02-05-2023 Prevnar 20 Max Bruce Other [facility] Other 02-05-2023 influenza, high dose seasonal, preservative-free Max Bruce Other [facility] Other 04-21-2022 COVID-19 Vaccine Moderna - Documentation Purposes Only Max Bruce Other [facility] Other 03-11-2022 zoster vaccine recombinant Max Bruce Other [facility] Other 03-11-2022 zoster vaccine, live Benjami milagros Bruce Other [facility] Other 02-03-2022 influenza virus vaccine, split virus (incl. purified surface antigen) Max Bruce Other [facility] Other 02-03-2022 influenza, high dose seasonal, preservative-free Max Bruce Other [facility] Other 07-13-2021 zoster vaccine recombinant Max Bruce Other [facility] Other 03-31-2021 COVID-19 Vaccine Moderna - Documentation Purposes Only Max Bruce Other [facility] Other 01-24-2021 influenza virus vaccine, split virus (incl. purified surface antigen) Max Bruce Other [facility] Other 08-04-2020 COVID-19 Vaccine Moderna - Documentation Purposes Only Max Bruce Other [facility] Other 07-01-2020 COVID-19 Vaccine Moderna - Documentation Purposes Only Max Bruce Other [facility] Other 02-03-2020 influenza virus vaccine, split virus (incl. purified surface antigen) Max Bruce Other [facility] Other Payers Date Payer Category Payer Private Health Insurance 2021 Private Health Insurance [id number] 2021 Self-pay 2020 Medicare AETNA MEDICARE A ETNA MEDICARE PPO [id number] 2020-Present [phone] [address] [place] [address] PPO [id number] 1960 Medicare [id number] 1939 Unknown [id number] 93 1939 Unknown [id number] [id number] 93 1939 Unknown [id number] [id number] 96 1939 Unknown [id number] [id number] 96 1939 Unknown [id number] 2.16.840.1.121700.3.579.2.1 96 1939 Unknown [id number] 2.16.840.1.802764.3.579.2.1 96 Unknown [id number] 2.16.840.1.991753.3.579.2.5 31 Unknown [id number] 2.16.840.1.078219.3.579.2.5 31 Unknown [id number] 2.16.840.1.417716.3.579.2.5 31 Unknown [id number] 2.16.840.1.843359.3.579.2.5 31 Unknown [id number] 2.16.840.1.098703.3.579.2.5 31 Unknown [id number] 2.16.840.1.355354.3.579.2.5 31 Unknown [id number] 2.16.840.1.294771.3.579.2.5 31 Social History Date Type Detail Facility Sex Assigned At [facility] Other Start: 06-22-2020 Tobacco smoking status NHIS Never smoked tobacco [facility] Start: 06-22-2020 Tobacco use and exposure Smokeless tobacco non-user [facility] Start: 12-16-2020 Alcohol intake Current drinke r of alcohol (finding) [facility] Start: 06-22-2020 History SDOH Alcohol Comment 1 x weekly [facility] Start: 1940 Sex Assigned At Female [facility] Medical Equipment Procedure Code Equipment Code Equipment Origin al Text Equipment Identifier Dates Lens Iol 0d +19. 5 [place] Uv Abs - [id number] Start: 08-18-2020 Comment on above: Description: [...] doesn't help can use topical steroid drops [facility] Other 10-03-2023 Evaluation note* Encounter Date Diagnosis Assessment Notes Treatment Notes Treatment Clinical Notes Feb, SBE (subacute bacterial endocarditis) prophylaxis candidate (ICD-10 - Z29.89) [facility] Other 03-30-2023 Evaluation note* Encounter Date Diagnosis Assessment Notes Treatment Notes Treatment Clinical Notes Jul, SBE (subacute bacterial endocarditis) prophylaxis candidate (ICD-10 - Z29.8) [facility] Other 03-23-2023 Evaluation note* Encounter Date Diagnosis [...] High risk medication use (ICD-10 - Z79.899) [facility] Other 12-02-2022 NoteHNO ID: [id number] Author: Pedro Goff, DO Service: ? Author Type: Physician Type: Progress Notes Filed: 04/14/2022 10:56 AM Note Text: CONSULT ORTHOPAEDIC: HIP PRIMARY CARE PHYSICIAN: Mxa Bruce DO REFERRING PROVIDER: Rosalio Roblero II [address] [place] [address] [place] [id number] HPI: 82-year-old female presents today with right hip pain that has been chronic in nature over the last year and a half but acutely worsened over the last 6 months. 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 She overall uses a walker for ambulation and has significant leg length difference and requires a shoe lift. 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 Appears direct (more content not included)... [facility]12-02-2022 NoteHNO ID: [id number] Author: RT Anthony(Tyrel) Service: ? Author Type: [...] BY: RT Anthony(R) April 14, 2022 8:27 [facility]09-14-2022 Miscellaneous Notes * Telephone Encounter - Carrol Matthew RN - 01/25/2022 12:17 PM EDT Spoke to Pilar, explained Dr Cho only does revisions on his surgical patients or patients with a pathologic or metastatic disease. * Telephone Encounter - Shahana Mancini Pss - 01/25/2022 11:17 AM EDT Please contact Pilar larson/ Dr. Rosalio Flores ([facility]) Looking to discuss patient diagnosis, to see if patient can be seen by Dr Cho Second Opinion ( component loosening and Aseptic) Please dial Pilar [phone] [facility]* Encounter Date Diagnosis Assessment Notes Treatment Notes Treatment Clinical Notes Nov, Right hip pain (ICD-10 - M25.551) Nov, History of total right hip arthroplasty (ICD-10 - Z96.641) Nov, Other I again had a l stan discussion with the patient regarding her symptoms and treatment options. We discussed her lab results from [place] on 11/02/2021 and they are as follows: [...] to get her in with either the [facility] or [facility] to discuss the possibility of revision because at this point I do not feel that our health system would be the best place for her to get the surgery that may need to be required. Patient understands this and is willing to proceed with the nonweightbearing precautions for another 4 to 6 weeks. [facility] Other 06-17-2022 Evaluation note* Encounter Date Diagnosis Assessment Notes Treatment Notes Treatment Clinical Notes Oct, History of total right hip arthroplasty (ICD-10 - Z96.641) [facility] Other 06-09-2022 Evaluation note* Encounter Date Diagnosis [...] back after she gets her CT scan. [facility] Other 03-30-2022 Evaluation note* Encounter Date Diagnosis [...] the results and treatment plans moving forward. [facility] Other 03-23-2022 Evaluation note* Encounter Date Diagnosis [...] see her back after her labs result. 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 Source Comments (unrecognize d section and content) In the event this informatio n is protected by the Federal Confidentiality of Alcohol and Drug Abuse Patient Records regulations: The Federal rules restrict any use of the information to criminally investigate or prosecute any alcohol or drug abuse patient.[facility] Care Teams (unrecognized sec tion and content) Fisheries Enforcement Officer Relationship Specialty Start Date End Date Max Bruce, DO [address] [id number] PCP - General Internal Medicine 08/18/20 INFORMATION SOURCE (unrecogn ized section and content) DATE CREATED AUTHOR 04/14/2022 [facility] DATE CREATED AUTHOR AUTHOR'S ORGANIZ ATION 06/17/2022 [facility] DATE CREATED AUTHOR AUTHOR'S ORGANIZ ATION 08/07/2022 [facility] DATE CREATED AUTHOR AUTHOR'S ORGANIZ ATION 06/05/2023 [facility] FOR RECORDS PERTAINING TO PATIENTS WHO [...] BE BASED ON THE PRIMARY CLINICAL RECORDS. Dr. Scribbles [facility]. provides no warranty or guarantee of the accuracy or completeness of information in this document.
--- NOTE | 2023-07-18 10:53 | P.CN_ITS ---
Consult Note: HPI Data of Consult Patient: known to practice within the last 3 years Requesting Physician: Tressa Ayala NP Primary Care Provider: Max Bruce DO Consult Narrative Reason for consult: f/u Narrative: Norma Holt a pleasant 83 year old female presents for evaluation and management of chronic low back pain. Today pain 4/10 deep ache, worse with activity increases to 9/10. Patient reports mild relief from bilateral L4-5 L5- S1 RFA, patient is not finding moderate or significant relief. She is noticing improvement in ability to function but no pain improvement. Patient would like to discuss additional treatment options. cc:: CC: Tressa Ayala NP Review of Systems ROS Status of ROS 10 or more systems reviewed and unremark able except as noted in history and below Musculoskeletal Reports: back pain PFSH PFSH Medical History Arthritis ?M19.90 - Unspecified osteoarthritis, unspecified site (ICD-10) Lumbar stenosis ?M48.061 - Spinal stenosis, lumbar region without neurogenic claudication ( ICD-10) Post laminectomy syndrome ?M96.1 - Postlaminectomy syndrome, not elsewhere classified (ICD-10) Surgical History History of removal of retained hardware ?Z98.890 - Other specified postprocedural states (ICD-10) History of hip surgery ?Z98.890 - Other specified postprocedural states (ICD-10) H/O total hip arthroplasty ?Z96.649 - Presence of unspecified artificial hip joint (ICD-10) History of lumbar fusion ?Z98.1 - Arthrodesis status (ICD-10) Meds Home Medications and Allergies Home Medications Medication Instructions Recorded Confirmed Type calcium carbonate 600 mg-vitamin 1 tab PO DAILY 02/19/23 06/18/23 History D3 10 mcg (400 unit) tablet (Calcium 600 + D(3)) escitalopram oxalate 20 mg tablet 20 mg PO DAILY 02/19/23 06/18/23 History (Lexapro) magnesium 200 mg tablet 400 mg PO DAILY 02/19/23 06/18/23 History meloxicam 15 mg tablet 15 mg PO DAILY 02/19/23 06/18/23 History omeprazole 40 mg capsule,delayed 40 mg PO DAILY 02/19/23 06/18/23 History release fish oil 1 tab PO DAILY 03/09/23 06/18/23 History lutein 1 tab PO DAILY 03/09/23 06/18/23 History multivitamin 1 tab PO DAILY 03/09/23 06/18/23 History potassium 1 tab PO DAILY 03/09/23 06/18/23 History vitamin D 1 tab PO DAILY 03/09/23 06/18/23 History vitamin c 1 tab PO DAILY 03/09/23 06/18/23 History hydrocodone 5 mg-acetaminophen 325 1 tab PO TID PRN pain #90 tabs 03/19/23 06/18/23 Rx mg tablet hydrocodone 5 mg-acetaminophen 325 1 tab PO Q8H PRN pain #90 tabs 04/25/23 06/18/23 Rx mg tablet naloxone 4 mg/actuation nasal 4 mg intranasal Q2M #2 ea 04/25/23 06/18/23 Rx spray (Narcan) hydrocodone 5 mg-acetaminophen 325 1 tab PO TID PRN pain #90 tabs 05/31/23 06/18/23 Rx mg tablet pregabalin 25 mg capsule (Lyrica) 25 mg PO DAILY 06/18/23 06/18/23 History Allergies Allergy/AdvReac Type Severity Reaction Status Date / Time adhesive tape Allergy Rash Verified 06/18/23 08:35 percocet AdvReac disorientat Uncoded 06/18/23 08:35 ion Exam Narrative Exam Narrative: Psych-alert and oriented x 3. Attentive and appropriate, constitutionally normal, displays normal mood and affect per situation.? There are no obvious deficits in memory, reasoning, or intellect.? Skin-no obvious rashes, bruising, erythema noted to the patient's area of pain. Extremities- extremities are warm with minimal edema and palpable pulses. Lumbar-no significant tenderness to palpation noted in the lumbar spine and paraspinal musculature.? Pain is elicited with extension, and lateral rotation of the lumbar spine. Range of motion is slightly diminished with these motions due to pain. Facet loading maneuvers are positive bilaterally and do appear to be concordant with the patient's normal complaints of pain.? Coordination remains intact.? Gait remains non-antalgic. Constitutional Documenting provider has reviewed patient's vital signs: yes Common normals: no apparent distress, oriented x3, healthy appearing, alert and well nourished General appearance: cooperative HENMT Common normals: normocephalic, hearing grossly normal bilaterally and moist oral mucous membranes Head and scalp: normocephalic Eye Common normals: PERRL Pupil: PERRL Neck & C-Spine Common normals: full ROM General: normal visual inspection Chest Common normals: inspection of chest normal Respiratory Common normals: normal respiratory effort, no retractions and no use of accessory muscles Back & Pelvis Other: intermittent NC with activity right SIJ pain on exam, positive tenderness over right PSIS, positive liam, fadir, thigh thrust, and gaenslens. pain with palpation over right GTB, cannot lie on right side Neuro Common normals: oriented x3, CN's II-XII intact bilaterally, moves all extremities, no focal motor deficits, no sensory deficits noted and deep tendon reflexes 2+ bilaterally Sensorium/orientation: alert Motor exam: strength 5/5 throughout and no movement abnormalities noted Psych Common normals: mental status grossly normal, thought process normal, cooperative, affect normal, speech normal and activity/motor behavior normal Speech: normal speech Thought process: normal thought process Results Additional Findings Additional findings: I have checked an OARRS report on this patient today and there are no aberrancies noted in the prescribing history.?? A drug screen was completed and reviewed within the last year, and if there has not been a drug screen completed we ordered one today to monitor higher risk, state monitored pain medication use. As part of providing excellent, safe, comprehensive care, the following was completed at our patient's visit: 1. A medication reconciliation and review to ensure accurate knowledge of current/active medications, including asking our patients to inform us about any [id number] medications or herbal remedies/nutritional supplements/alternative remedies. 2. A review to specifically ensure our patients have had annual screening for: elevated body mass index (BMI), tobacco use, screening for depression, and screening for unhealthy alcohol use. When screening is concerning, patients are provided with education and the specific recommendation to discuss the concerning health issue and treatment options with their primary care provider. Assessment and Plan Assessment and Plan (1) Chronic prescription opiate use: (2) Lumbar postlaminectomy syndrome: (3) Lumbar spondylosis: (4) Lumbar stenosis with neurogenic claudication: (5) Greater trochanteric bursitis of right hip: (6) Sacroiliitis: Plan right L4-5 L5-S1 TFESI under fluoroscopy with Dr Damon for lumbar stenosis with NC right block of nerve innervating SIJ under fluoroscopy with Dr Damon psychiatric evaluation for consideration of spinal cord stimulator trial f/u 2 weeks after completion of injections, consider right greater trochanteric injection if needed
== END 2023-07-18 10:43 | disposition home or self-care (01) ==
PROVIDERS: PCP Internal Medicine; Visit Provider Nurse Practitioner
DX: Z79.891 Long term (current) use of opiate analgesic (principal); M96.1 Postlaminectomy syndrome, not elsewhere classified; M47.816 Spondylosis without myelopathy or radiculopathy, lumbar region; M48.062 Spinal stenosis, lumbar region with neurogenic claudication; M70.61 Trochanteric bursitis, right hip; M46.1 Sacroiliitis, not elsewhere classified
CPT/HCPCS: G0463

== ENCOUNTER 2023-08-06 10:02 | Day surgery (SDC) | payer MEDICARE, SELFPAY ==
--- OUTSIDE RECORDS SUMMARY | 2023-08-06 10:12 | XMS_ITS | CCD ---
Author Organization [facility] Care Team Providers Care Business Applications Specialist Name Role Phone Rosalio Roblero II Unavailable Max Bruce DO Primary Care Provider MAX BRUCE Primary Care Unavailable PEDRO GOFF Referring Unavailable MAX BRUCE Primary Care Unavailable PEDRO GOFF Attending Unavailable OSBALDO SILVERIO, ROSALIO Puente Referring Unavailabl e ISRAEL, MAX Gordon Primary Care Unavailable Osbaldo SILVERIO, Rosalio Puente Attending Unavailabl e Max Bruce Primary Care Unavailable Osbaldo II, Rosalio Puente Admitting Unavailabl e Presidio II, Rosalio M Admitting Unavailabl e Presidio II, Rosalio Puente Attending Unavailabl e Max Bruce Primary Care Unavailable Presidio II, Rosalio M Admitting Unavailabl e Presidio II, Rosalio Puente Attending Unavailabl e Max Bruce Primary Care Unavailable Osbaldo II, Rosalio Puente Attending Unavailabl e Max Bruce Primary Care Unavailable Osbaldo II, Rosalio M Admitting Unavailabl e Presidio II, Rosalio M Admitting Unavailabl e Presidio II, Rosalio Puente Attending Unavailabl e Max Bruce Primary Care Unavailable Presidio II, Rosalio Puente Admitting Unavailabl e Presidio II, Rosalio M Attending Unavailabl e Max Bruce Primary Care Unavailable Presidio II, Rosalio Puente Attending Unavailabl e Max Bruce Primary Care Unavailable Presidio II, Rosalio Puente Admitting Unavailabl e OSBALDO, ROSALIO Consulting Unavailable ROSALIO ROBLERO Attending Unavailable ROSALIO ROBLERO Admitting Unavailable ISRAEL, DR BERRY Attending Unavailable ISRAEL, DR BERRY Admitting Unavailable ISRAEL, DR BERRY Consulting Unavailable Max Bruce Unavailable Marisol ARGUETA, Jennifer Ojeda Attending Unavailable Marisol ARGUETA, Jennifer Ojeda Attending Unavailable Marisol ARGUETA, Jennifer Ojeda Attending Unavailable Marisol ARGUETA, Jennifer Ojeda Attending Unavailable Marisol ARGUETA, Jennifer Ojeda Attending Unavailable Allergies Allergy Classification Reported Allergen(s) Allergy Type Date of Onset Reaction(s) Facility (18 sources) Acetaminophen / oxyCODONE Drug Allergy Unknown [employer] Other (16 sources) Adhesive Tape; Translations: [adhesive tape] Propensity to adverse reactions 08-16-19 Unknown [facility] (1 source) oxyCODONE Drug Allergy 08-16-19 [facility] (4 sources) Adhesive Tape 1 x5yd *MEDICAL DEVICES AND SUPPLIES Propensity to adverse reactions Comment:Adhesi ve Tape Equals6 [facility] [employer] Other Medications Current Medications Medication Drug Class(es) [...] / neomycin 3.5 mg/ml / polymyxin b 52389 unt/ml otic suspension (1 source) Aminoglycoside Antibacterial, Polymyxin-class Antibacterial, Corticosteroid Start: 05-09-2023 Glhcwiii-Kwcyiefuq-ZI 3.5-38859-4 4 drops into affected ear Otic daily [...] Start: 08-01-2022 take 2 tablets by mo uth twice daily traMADol HCl 50 MG TAKE [...] 08-18-2020 Episodic Other aftercare (1 source) 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) drug therapy Episodic Other bone disease [...] Range Facility A1C with Estimated Average G afuan 08-03-2022 A1C with Estimated Average Glu [employer] [facility] Other Basic Metabolic Panelon 07-13 Calcium [Mass/Vol] 9.8879911 mg/dL 8.5-10 .1 mg/dL [employer] Other CO2 [Moles/Vol] 27.67640875 mmol/L 21.0-3 2.0 mmol/L [employer] Other Creatinine [Mass/Vol] 1.59774772 mg/dL 0.55-1.02 mg/dL [employer] Other Potassium [Moles/Vol] 4.85924984 mmol/L 3.5-5.1 mmol/L [employer] Other Urea nitrogen [Mass/Vol] 28.3626571 mg/dL Critically high 7.0-18.0 mg/dL [employer] Other Basic Metabolic Panel see note [employer] Other Basic Metabolic Panel 140 mmol/L 136-145 mmol/L [employer] Other Basic Metabolic Panel 95 mg/dL 74-106 mg/dL [employer] Other Basic Metabolic Panel 52 mL/min/1.73m2 Critically low >=60 mL/min/1.73m2 [employer] Other Basic Metabolic Panel >60 mL/min/1.73m2 >=60 mL/min/1.73m2 [employer] Other CBC AUTO DIFFon 08-03-2022 BASO # 0.0 103/ul Normal 0.0-0.1 [facility] Comment on above: Performed By: #### C BC #### [facility] [address] [place] [address] Dr. Sandra Radford Basophils/100 WBC (Bld) 0.5 % Normal 0.2-2.0 [facility] Comment on above: Performed By: #### C BC #### [facility] [address] [place] [address] Dr. Sandra Radford EO # 0.3 103/ul Normal 0.0-0.7 [facility] Comment on above: Performed By: #### C BC #### [facility] [address] [place] [address] Dr. Sandra Radford Eosinophils/100 WBC (Bld) 4.5 % Normal 0.9-7.0 [facility] Comment on above: Performed By: #### C BC #### [facility] [address] [place] [address] Dr. Sandra Radford Erythrocyte distribution width (RBC) [Ratio] 13.8 % Normal 11.0-15.0 [facility] Comment on above: Performed By: #### C BC #### [facility] [address] [place] [address] Dr. Sandra Radford Hematocrit (Bld) [Volume fraction] 39.7 % Normal 36.0-48.0 [facility] Comment on above: Performed By: #### C BC #### [facility] [address] [place] [address] Dr. Sandra Radford Hemoglobin (Bld) [Mass/Vol] 12.8 g/dL Normal 12.0-16.0 [facility] Comment on above: Performed By: #### C BC #### [facility] [address] [place] [address] Dr. Sandra Radford IG # 0.01 10e3/ul Normal 0.00-0.03 [facility] Comment on above: Performed By: #### C BC #### [facility] [address] [place] [address] Dr. Sandra Radford IG % 0.2 % Normal 0.0-0.5 [facility] Comment on above: Performed By: #### C BC #### [facility] [address] [place] [address] Dr. Sandra Radford LYMPH # 1.6 103/ul Normal 1.2-3.8 [facility] Comment on above: Performed By: #### C BC #### [facility] [address] [place] [address] Dr. Sandra Radford Lymphocytes/100 WBC (Bld) 26.3 % Normal 20.5-60.0 [facility] Comment on above: Performed By: #### C BC #### [facility] [address] [place] [address] Dr. Sandra Radford MANUAL DIFF REQ NO Normal [facility] Comment on above: Performed By: #### C BC #### [facility] [address] [place] [address] Dr. Sandra Radford MCH (RBC) [Entitic mass] 29.9 pg Normal 26.7-34.0 [facility] Comment on above: Performed By: #### C BC #### [facility] [address] [address] [address] Sandra Radford MCHC (RBC) [Mass/Vol] 32.2 g/dL Normal 29.9-35.2 [facility] Comment on above: Performed By: #### C BC #### [facility] [address] [place] [address] Dr. Sandra Radford MCV (RBC) [Entitic vol] 92.8 fL Normal 81.0-99.0 [facility] Comment on above: Performed By: #### C BC #### [facility] [address] [place] [address] Dr. Sandra Radford MONO # 0.7 103/ul Normal 0.3-0.8 [facility] Comment on above: Performed By: #### C BC #### [facility] [address] [place] [address] Dr. Sandra Radford Monocytes/100 WBC (Bld) 10.6 % Normal 1.7-12.0 [facility] Comment on above: Performed By: #### C BC #### [facility] [address] [place] [address] Dr. Sandra Radford NEUT # 3.6 103/ul Normal 1.4-6.5 [facility] Comment on above: Performed By: #### C BC #### [facility] [address] [place] [address] Dr. Sandra Radford Neutrophils/100 WBC (Bld) 57.9 % Normal 43.0-75.0 [facility] Comment on above: Performed By: #### C BC #### [facility] [address] [place] [address] Dr. Sandra Radford Platelet mean volume (Bld) [Entitic vol] 9.7 fL Normal 9.5-13.5 [facility] Comment on above: Performed By: #### C BC #### [facility] [address] [place] [address] Dr. Sandra Radford PLT 240 103/ul Normal 150-450 [facility] Comment on above: Performed By: #### C BC #### [facility] [address] [place] [address] Dr. Sandra Radford RBC 4.28 106/ul Normal 4.20-5.40 [facility] Comment on above: Performed By: #### C BC #### [facility] [address] [place] [address] Dr. Sandra Radford WBC 6.2 103/ul Normal 4.0-11.0 [facility] Comment on above: Performed By: #### C BC #### [facility] [address] [place] [address] Dr. Sandra Radford Complete Blood Count and Dif esther 08-03-2022 Anisocytosis Ql (Bld) [facility] [employer] Other Basophilic stippling LM Ql (d) [facility] [employer] Other RBC morphology finding Nom (d) [facility] [employer] Other GLYCOHEMOGLOBIN A1Con 2022 ADA RECOMMENDATION SEE BELOW Normal [facility] Comment on above: Result Comment: ADA RECOMMENDED LIMIT 4.0 - 6.0 ADA THERAPEUTIC TARGET < 7.0 ACTION SUGGESTED > 7.0 Performed By: #### A 1C #### [facility] [address] [place] [address] Dr. Sandra Radford Glucose [Mass/Vol] 105 mg/dL Normal [facility] Comment on above: Performed By: #### A 1C #### [facility] [address] [place] [address] Dr. Sandra Radford HbA1c (Bld) [Mass fraction] 5.3 % Normal 4.5-6.2 [facility] Comment on above: Performed By: #### A 1C #### [facility] [address] [place] [address] Dr. Sandra Radford LIPID PROFILEon 08-03-2022 CHOL-HDL RATIO NORM SEE BELOW Normal [facility] Comment on above: Result Comment: 3.3 - 4.4 LOW RISK 4.4 - 7.1 AVERAGE RISK 7.1 - 11.0 MODERATE RISK >11.0 HIGH RISK Performed By: #### T SH, LIPID, BMP #### [facility] [address] [address] [address] Sandra Radford Cholesterol [Mass/Vol] 260 mg/dL Critically high <=200 mg/dL [facility] Comment on above: Performed By: #### T SH, LIPID, BMP #### [facility] [address] [address] [address] Sandra Radford Cholesterol in HDL [Mass/Vol] 58 mg/dL 40-60 mg/dL [facility] Comment on above: Performed By: #### T SH, LIPID, BMP #### [facility] [address] [address] [address] Sandra Radford Cholesterol in LDL [Mass/Vol] 165.8 mg/dL Normal [facility] Comment on above: Performed By: #### T SH, LIPID, BMP #### [facility] [address] [place] [address] Dr. Sandra Radford Cholesterol.total/C holesterol in HDL [Mass ratio] 4.5 {ratio} [facility] Comment on above: Performed By: #### T SH, LIPID, BMP #### [facility] [address] [address] [address] Sandra Radford HDL NORMAL > or = 60 mg/dl - LO W CARDIOVASCULAR RISK <40 mg/dl - HIGH CARDIOVASCULAR RISK Normal [facility] Comment on above: Performed By: #### T SH, LIPID, BMP #### [facility] [address] [address] [address] Sandra Radford LDL CALC NORMAL SEE BELOW Normal [facility] Comment on above: Result Comment: <100 mg/dl OPTIMAL 100 - 129 mg/dl NEAR OR ABOVE OPTIMAL 130 - 159 mg/dl BORDERLINE HIGH 160 - 189 mg/dl HIGH >190 mg/dl VERY HIGH Performed By: #### T SH, LIPID, BMP #### [facility] [address] [address] [address] Sandra Radford Triglyceride [Mass/Vol] 181 mg/dL Critically high <=150 mg/dL [facility] Comment on above: Performed By: #### T SH, LIPID, BMP #### [facility] [address] [place] [address] Dr. Sandra Radford VLDL CALC 36.2 mg/dL Normal [facility] Comment on above: Performed By: #### T CHON LIPID, BMP #### [facility] [address] [address] [address] Sandra Radford Lipid Panelon 08-03-2022 Lipid Panel > or = 60 mg/dl - LO W CARDIOVASCULAR RISK <40 mg/dl - HIGH CARDIOVASCULAR RISK [employer] Other Lipid Panel SEE BELOW [employer] Other Lipid Panel 165.8 mg/dL [employer] Other Lipid Panel 36.2 mg/dL Equals[employer] [facility] [employer] Other PROF CHEM 8 (BAS METB)on Anion gap [Moles/Vol] 12.2 mmol/L [facility] Comment on above: Performed By: #### T CHON LIPID, BMP #### [facility] [address] [place] [address] Dr. Sandra Radford Calcium [Mass/Vol] 9.6 mg/dL Normal 8.5-10.1 [facility] Comment on above: Performed By: #### T CHON LIPID, BMP #### [facility] [address] [place] [address] Dr. Sandra Radford Chloride [Moles/Vol] 105 mmol/L 98-107 mmol/L [facility] Comment on above: Performed By: #### T CHON LIPID, BMP #### [facility] [address] [place] [address] Dr. Sandra Radford CO2 [Moles/Vol] 27.3 mmol/L Normal 21.0-32.0 [facility] Comment on above: Performed By: #### T CHON LIPID, BMP #### [facility] [address] [place] [address] Dr. Sandra Radford Creatinine [Mass/Vol] 1.02 mg/dL Normal 0.55-1.02 [facility] Comment on above: Performed By: #### T SH, LIPID, BMP #### [facility] [address] [address] [address] Sandra Radford EGFR-AF MACANESE >60 Normal >=60 [facility] Comment on above: Performed By: #### T SH, LIPID, BMP #### [facility] [address] [address] [address] Sandra Radford EGFR-NON AF MACANESE 52 mL/min/1.73m2 Critically low >=60 [facility] Comment on above: Performed By: #### T SH, LIPID, BMP #### [facility] [address] [address] [address] Sandra Radford Glucose [Mass/Vol] 95 mg/dL Normal 74-106 [facility] Comment on above: Performed By: #### T SH, LIPID, BMP #### [facility] [address] [address] [address] Sandra Radford Potassium [Moles/Vol] 4.5 mmol/L Normal 3.5-5.1 [facility] Comment on above: Performed By: #### T SH, LIPID, BMP #### [facility] [address] [address] [address] Sandra Radford Sodium [Moles/Vol] 140 mmol/L Normal 136-145 [facility] Comment on above: Performed By: #### T SH, LIPID, BMP #### [facility] [address] [address] [address] Sandra Radford Urea nitrogen [Mass/Vol] 28.0 mg/dL Critically high 7.0-18.0 [facility] Comment on above: Performed By: #### T SH, LIPID, BMP #### [facility] [address] [place] [address] Dr. Sandra Radford Urea nitrogen/Creatinine [Mass ratio] 27.5 mg/mg [facility] Comment on above: Performed By: #### T SH, LIPID, BMP #### [facility] [address] [place] [address] Dr. Sandra Radford TSHon 08-03-2022 TSH 1.952 uIU/mL Normal 0.358-3.740 [facility] Comment on above: Performed By: #### T SH, LIPID, BMP #### [facility] [id number] Sandra Karimi 04-14-2022 CNOV Office Visit (ORTHCO ) MIKANORMA ([id number]) 1940 F Date Time Provider Department 04/14/22 9:00 AM PEDRO GOFF During your visit today, we recorded the following information about you: Pedro Goff DO 04/14/2022 10:56 AM Signed CONSULT ORTHOPAEDIC: HIP PRIMARY CARE PHYSICIAN: Max Bruce DO REFERRING PROVIDER: Rosalio Roblero [address] [place] [address] HPI: 82-year-old female presents today with right hip pain that has been chronic in nature over the last year and a half but acutely worsened over the last 6 months. 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 She overall uses a walker for ambulation and has significant leg length difference and requires a shoe lift. She states over the last 6 months that her right hip and leg pain is worsening especially after working with physical therapy and was seen in 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 The problem began limiting activities 1-6 months ago. Currently the pain in the joint is rated at 7 out of 10 with minimal activity. (more content not included)... Normal [facility] CRP SerPl-mCncon 04-14-2022 CRP [Mass/Vol] mg/L Normal <0.9 [facility] Comment on above: Order Comment: Speci cristobal Type: BLOOD SPECIMEN Ordering Facility: [facility] Address: [address] [place] [address] Performed By: #### 1 988-5 #### [facility] [place] [id number] [address] [place] [address] [place] ESR Westergren method (Bld) [Velocity]on 04-14-2022 ESR (Bld) [Velocity] 6 mm/h Normal 0-20 [facility] Comment on above: Order Comment: Momo jain Type: BLOOD SPECIMEN Ordering Facility: [facility] Address: [address] [place] [address] Performed By: #### 4 537-7 #### [facility] CLIA [id number] [address] [place] [address] [place] XR HIP 3V PELV+ [...] significant abnormality. --- IMPRESSION: NO SIGNIFICANT CHANGE Decision Analyst: ALIE Transcribe Date/Time: Apr 14 2022 8:42A Dictated by : CECELIA ALVAREZ MD This examination was interpreted and the report reviewed and electronically signed by: CECELIA ALVAREZ MD on Apr 14 2022 8:49AM EST [id number] Normal [facility] CNPNon 01-25-2022 CNPN Telephone (ORQ) NORMA BRENNAN ([id number]) 1940 F Date Time Provider Department 01/25/22 YECENIA MURPHY ORQ During your visit today, we recorded the following information about you: Shahana Mancini Pss 01/25/2022 11:22 AM Signed Please contact Pilar larson/ Dr. Rosalio Flores ([facility]) Looking to discuss patient diagnosis, to see if patient can be seen by Dr Cho Second Opinion ( component loosening and Aseptic) Please dial Pilar [phone] Carrol Matthew RN 01/25/2022 12:22 PM Signed Spoke to Pilar, explained Dr Cho only does revisions on his surgical patients or patients with a pathologic or metastatic disease. 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 Sandra Radford Basophils/100 WBC (Bld) 0.5 % Normal 0.2-2.0 [facility] Comment on above: Performed By: #### C BC #### [facility] [address] [address] [address] Sandra Radford EO # 0.2 103/ul Normal 0.0-0.7 [facility] Comment on above: Performed By: #### C BC #### [facility] [address] [place] [address] Dr. Sandra Radford Eosinophils/100 WBC (Bld) 3.1 % Normal 0.9-7.0 [facility] Comment on above: Performed By: #### C BC #### [facility] [address] [place] [address] Dr. Sandra Radford Erythrocyte distribution width (RBC) [Ratio] 14.4 % Normal 11.0-15.0 [facility] Comment on above: Performed By: #### C BC #### [facility] [address] [place] [address] Dr. Sandra Radford Hematocrit (Bld) [Volume fraction] 34.1 % Critically low 36.0-48.0 [facility] Comment on above: Performed By: #### C BC #### [facility] [address] [place] [address] Dr. Sandra Radford Hemoglobin (Bld) [Mass/Vol] 11.2 g/dL Critically low 12.0-16.0 [facility] Comment on above: Performed By: #### C BC #### [facility] [address] [place] [address] Dr. Sandra Radford IG # 0.01 10e3/ul Normal 0.00-0.03 [facility] Comment on above: Performed By: #### C BC #### [facility] [address] [place] [address] Dr. Sandra Radford IG % 0.2 % Normal 0.0-0.5 [facility] Comment on above: Performed By: #### C BC #### [facility] [address] [place] [address] Dr. Sandra Radford LYMPH # 1.5 103/ul Normal 1.2-3.8 [facility] Comment on above: Performed By: #### C BC #### [facility] [address] [place] [address] Dr. Sandra Radford Lymphocytes/100 WBC (Bld) 25.1 % Normal 20.5-60.0 [facility] Comment on above: Performed By: #### C BC #### [facility] [address] [address] [address] Sandra Radford MANUAL DIFF REQ NO Normal [facility] Comment on above: Performed By: #### C BC #### [facility] [address] [place] [address] Dr. Sandra Radford MCH (RBC) [Entitic mass] 32.7 pg Normal 26.7-34.0 [facility] Comment on above: Performed By: #### C BC #### [facility] [address] [place] [address] Dr. Sandra Radford MCHC (RBC) [Mass/Vol] 32.8 g/dL Normal 29.9-35.2 [facility] Comment on above: Performed By: #### C BC #### [facility] [address] [place] [address] Dr. Sandra Radford MCV (RBC) [Entitic vol] 99.4 fL Critically high 81.0-99.0 [facility] Comment on above: Performed By: #### C BC #### [facility] [address] [place] [address] Dr. Sandra Radford MONO # 0.6 103/ul Normal 0.3-0.8 [facility] Comment on above: Performed By: #### C BC #### [facility] [address] [place] [address] Dr. Sandra Radford Monocytes/100 WBC (Bld) 10.7 % Normal 1.7-12.0 [facility] Comment on above: Performed By: #### C BC #### [facility] [address] [place] [address] Dr. Sandra Radford NEUT # 3.5 103/ul Normal 1.4-6.5 [facility] Comment on above: Performed By: #### C BC #### [facility] [address] [place] [address] Dr. Sandra Radford Neutrophils/100 WBC (Bld) 60.4 % Normal 43.0-75.0 [facility] Comment on above: Performed By: #### C BC #### [facility] [address] [address] Dr. Sandra Radford Platelet mean volume (Bld) [Entitic vol] 10.2 fL Normal 9.5-13.5 [facility] Comment on above: Performed By: #### C BC #### [facility] [address] [place] [address] Dr. Sandra Radford PLT 202 103/ul Normal 150-450 [facility] Comment on above: Performed By: #### C BC #### [facility] [address] [address] [address] Sandra Radford RBC 3.43 106/ul Critically low 4.20-5.40 [facility] Comment on above: Performed By: #### C BC #### [facility] [address] [address] [address] Sandra Radford WBC 5.8 103/ul Normal 4.0-11.0 [facility] Comment on above: Performed By: #### C BC #### [facility] [address] [address] [address] Sandra Radford CRPon 11-02-2021 CRP [Mass/Vol] mg/L Normal <=1.0 [facility] [place] Comment on above: Performed By: #### C RP #### [facility] [address] [place] [address] Dr. Sandra Radford SED RATE [facility] IS[facility] 2021 SED RATE 2 mm/hr Normal <=30 [facility] Comment on above: Performed By: #### S EDR #### [facility] [address] [place] [address] Dr. Sandra Radford NM bone 3 phaseon 10-26-2021 NM bone 3 phase [facility] [place] [address] Nuclear Medicine Report Signed Patient: Norma Brennan MR#: [id number] 00 : 1940 Acct:[id number] Age/Sex: 81 / F ADM Date: 10/26/21 Loc: [place] Room: Type: [facility] Attending Dr: Rosalio Roblero II, MD Copies to: DO Lolis Hoyos MD Robert M Presidio, MD Ordering Provider: Rosalio Roblero MD Date [...] Lolis Reddy M.D.10/26/2021 4:09 PM Dictation Location: [place] [address] Transcribed By: [facility] 10/26/21 1914 Dictated By: Lolis Reddy MD 10/26/21 1559 Signed By: 10/26/21 7920 [facility] CT femur RT wo conon 022 CT femur RT wo con [facility] [place] [address] [place] [address] CT Scan Report Signed Patient: Norma Brennan MR#: [id number] 00 : 1940 Acct:[id number] Age/Sex: 81 / F ADM Date: 10/20/21 Loc: [facility] Room: Type: [facility] Attending Dr: Rosalio Roblero II, MD [...] Centeno Jr., M.D.10/20/2021 11:15 AM Dictation Location: [place] [address] Transcribed By: [facility] 10/20/21 1115 Dictated By: Romeo Centeno Jr, MD 10/20/21 1057 Signed By: 10/20/21 1115 [facility] XR femur RT 2V*on 10-20-2021 XR femur RT 2V* [facility] [address] [place] [address] [place] [address] XRay Report Signed Patient: Norma Brennan MR#: [id number] 00 : 1940 Acct:[id number] Age/Sex: 81 / F ADM Date: 10/20/21 Loc: [facility] Room: Type: REG CLI Attending Dr: Rosalio [...] Lolis Reddy M.D.10/20/2021 1:13 PM Dictation Location: [place] [address] Transcribed By: [facility] 10/20/21 1313 Dictated By: Lolis Reddy MD 10/20/21 1310 Signed By: 10/20/21 1313 [facility] XR pelvis 1-2Von 10-20-2021 XR pelvis 1-2V [facility] [address] [place] [address] [place] [address] XRay Report Signed Patient: Norma Brennan MR#: [id number] 00 : 1940 Acct:[id number] Age/Sex: 81 / F ADM Date: 10/20/21 Loc: [facility] Room: Type: REG CLI Attending Dr: Rosalio [...] Malachi Davis M.D.10/20/2021 1:08 PM Dictation Location: [facility]- Transcribed By: [facility] 10/20/21 1308 Dictated By: Malachi Davis II, MD 10/20/21 1303 Signed By: 10/20/21 1308 [facility] XR hip RT 1Von 08-15-2021 XR hip RT 1V [facility] [address] [place] [address] [place] [address] XRay Report Signed Patient: Norma Brennan MR#: [id number] : 1940 Acct:[id number] Age/Sex: 81 / F ADM Date: 08/15/21 Loc: [place] Room: Type: [facility] Attending Dr: Rosalio Roblero II, [...] Edgard Paez M.D.08/15/2021 9:09 AM Dictation Location: [facility]13 Transcribed By: [facility] 08/15/21908 Dictated By: Edgard Paez DO 08/15/21907 Signed By: 08/15/21908 Normal [facility] Basic Metabolic Panelon 04-0 Calcium [Mass/Vol] 9.1 mg/dL Normal 8.2-10.2 [facility] Comment on above: Result Comment: PERF ORMED BY: [place] [address] PATHOLOGIST PLASTERER MAINTENANCE MARIELLA KRAUSE M.D. Performed By: #### C [address] #### [facility] [address] [place] [address] [place] Chloride [Moles/Vol] 105 mmol/L Normal 95-114 [facility] Comment on above: Performed By: #### C TEXHOMA 19 [facility] #### [facility] [address] [place] [address] [place] CO2 [Moles/Vol] 25.9 mmol/L Normal 22.0-30.0 [facility] Comment on above: Performed By: #### C TEXHOMA 19 [facility] #### [facility] [address] [place] [address] [place] Creatinine [Mass/Vol] 0.99 mg/dL Normal 0.44-1.03 [facility] Comment on above: Performed By: #### C [address] #### [facility] [address] [place], [place] [id number] [place] Estimated GFR ( Jahaira > 60 [facility] Comment on above: Result Comment: GFR estimated reference range: According to KDOQI guidelines, <60 ml/min/1.73m2 is sufficient to diagnose a patient with chronic kidney disease. Performed By: #### C TEXHOMA 19 [facility] #### [facility] [address] [place] [id number] [place] Estimated GFR (Non- Am 54 [facility] Comment on above: Performed By: #### C [address] #### [facility] [address] [place] [id number] [place] Glucose [Mass/Vol] 92 mg/dL Normal 70-100 [facility] Comment on above: Result Comment: [place] Glucose Reference Range is dependent on time and content of last meal. Glucose of more than 200 mg/dL in a nonstressed, ambulatory subject supports the diagnosis of Diabetes Mellitus. ADA recommended reference range Performed By: #### C OVID 19 [facility] #### [facility] [address] Potassium [Moles/Vol] 4.7 mmol/L Normal 3.5-5.1 [facility] Comment on above: Performed By: #### C OVID 19 [facility] #### [facility] [address] Sodium [Moles/Vol] 139 mmol/L Normal 136-146 [facility] Comment on above: Performed By: #### C OVID 19 [facility] #### [facility] [address] Urea nitrogen [Mass/Vol] 32 mg/dL High 9-23 [facility] Comment on above: Performed By: #### C OVID 19 [facility] #### [facility] [address] COVID-19 [facility]-20[facility] SARS-CoV-2 (COVID-19) RNA FABIAN+probe Ql (Unsp spec) Negative Normal Negative [facility] Comment on above: Order Comment: Comme nt procedure 08/15/21 Healthcare Worker?: N Result Comment: Testing for SARS-CoV-2 by RT-PCR This test was developed and its performance characteristics determined by [employer] and validated at the [facility]. This test has not been FDA [...] is terminated or revoked sooner. PERFORMED BY: [place] [address] PATHOLOGIST PLASTERER MAINTENANCE MARIELLA KRAUSE M.D. Performed By: #### C OVID 19 [facility] #### [place] [id number] [facility] ECG 12 lead ECGon 08-12-2021 ECG 12 lead ECG [facility] [address] [place] [address] [place] [address] Electrocardiograph Report Signed Patient: Norma Brennan MR#: [id number] 00 : 1940 Acct:[id number] Age/Sex: 81 / F ADM Date: 08/12/21 Loc: Room: Type: [facility] Attending Dr: Rosalio Roblero II, MD Ordering [...] (247) on 08/12/2021 9:52:22 AM Referred By: ISRAEL ROBLERO Electronically Signed By:FELICITAS VILLEDA MD Transcribed By: MUS Signed By Felicitas Villeda MD 0952 Normal [facility] C-Reactive Proteinon 022 C-Reactive Protein 1.4 mg/dL High 0.0-1.0 [facility] Comment on above: Order Comment: Comme nt procedure 08/15/21 Healthcare Worker?: N Result Comment: PERF ORMED BY: [place] [id number] PATHOLOGIST PLASTERER MAINTENANCE MARIELLA KRAUSE M.D. Performed By: #### C [address] #### [address] Complete Blood Count Auto Di ffon 08-03-2021 Basophils (Bld) [#/Vol] 0.0 10*3/uL Normal 0.0-0.2 [facility] Comment on above: Order Comment: Comme nt procedure 08/15/21 Healthcare Worker?: N Performed By: #### C [address] #### [place] [address] [place] Basophils/100 WBC (Bld) 0.5 % Normal . [facility] Comment on above: Order Comment: Comme nt procedure 08/15/21 Healthcare Worker?: N Performed By: #### C [address] #### [address] Eosinophils (Bld) [#/Vol] 0.2 10*3/uL Normal 0.0-0.45 [facility] Comment on above: Order Comment: Comme nt procedure 08/15/21 Healthcare Worker?: N Performed By: #### C [address] #### [place] [address] [place] Eosinophils/100 WBC (Bld) 4.2 % Normal . [facility] Comment on above: Order Comment: Comme nt procedure 08/15/21 Healthcare Worker?: N Performed By: #### C [address] #### [address] Erythrocyte distribution width (RBC) [Ratio] 14.7 % Normal 11.9-15.3 [facility] Comment on above: Order Comment: Comme nt procedure 08/15/21 Healthcare Worker?: N Performed By: #### C [address] #### [address] Hematocrit (Bld) [Volume fraction] 39.6 % Normal 34.0-46.4 [facility] Comment on above: Order Comment: Comme nt procedure 08/15/21 Healthcare Worker?: N Performed By: #### C [address] #### [address] Hemoglobin (Bld) [Mass/Vol] 12.9 g/dL Normal 11.8-15.4 [facility] Comment on above: Order Comment: Comme nt procedure 08/15/21 Healthcare Worker?: N Performed By: #### C [address] #### [address] Lymphocytes (Bld) [#/Vol] 1.5 10*3/uL Normal 1.00-4.8 [facility] Comment on above: Order Comment: Comme nt procedure 08/15/21 Healthcare Worker?: N Performed By: #### C [address] #### [address] Lymphocytes/100 WBC (Bld) 27.3 % Normal . [facility] Comment on above: Order Comment: Comme nt procedure 08/15/21 Healthcare Worker?: N Performed By: #### C [address] #### [address] MCH (RBC) [Entitic mass] 31.0 pg Normal 24.7-34.3 [facility] Comment on above: Order Comment: Comme nt procedure 08/15/21 Healthcare Worker?: N Performed By: #### C [address] #### [address] MCV (RBC) [Entitic vol] 95.4 fL Normal 80-100 [facility] Comment on above: Order Comment: Comme nt procedure 08/15/21 Healthcare Worker?: N Performed By: #### C [address] #### [address] Mean Corpuscular HGB Conc 32.4 g/dL Normal 32.0-35.0 [facility] Comment on above: Order Comment: Comme nt procedure 08/15/21 Healthcare Worker?: N Performed By: #### C [address] #### [address] [place] [address] [place] Monocytes (Bld) [#/Vol] 0.5 10*3/uL Normal 0.0-0.8 [facility] Comment on above: Order Comment: Comme nt procedure 08/15/21 Healthcare Worker?: N Performed By: #### C [address] #### [facility] [address] [place] [id number] [place] Monocytes/100 WBC (Bld) 9.8 % Normal . [facility] Comment on above: Order Comment: Comme nt procedure 08/15/21 Healthcare Worker?: N Performed By: #### C [address] #### [place] [address] [place] Neutrophils (Bld) [#/Vol] 3.2 10*3/uL Normal 1.8-7.7 [facility] Comment on above: Order Comment: Comme nt procedure 08/15/21 Healthcare Worker?: N Performed By: #### C [address] #### [place] [id number] [place] Neutrophils/100 WBC (Bld) 58.2 % Normal . [facility] Comment on above: Order Comment: Comme nt procedure 08/15/21 Healthcare Worker?: N Performed By: #### C [address] #### [place] [address] [place] Nucleated RBC/100 WBC (Bld) [Ratio] 0.1 % Normal 0-0.5 [facility] Comment on above: Order Comment: Comme nt procedure 08/15/21 Healthcare Worker?: N Performed By: #### C [address] #### [place] [id number] [place] Platelet mean volume (Bld) [Entitic vol] 7.8 fL Normal 6.3-10.7 [facility] Comment on above: Order Comment: Comme nt procedure 08/15/21 Healthcare Worker?: N Performed By: #### C [address] #### [place] [id number] [place] Platelets (Bld) [#/Vol] 272 10*3/uL Normal 150-450 [facility] Comment on above: Order Comment: Comme nt procedure 08/15/21 Healthcare Worker?: N Performed By: #### C OVID 19 [facility] #### [facility] [address] RBC (Bld) [#/Vol] 4.15 10*6/uL Normal 3.60-5.00 [facility] Comment on above: Order Comment: Comme nt procedure 08/15/21 Healthcare Worker?: N Performed By: #### C OVID 19 [facility] #### [address] WBC (Bld) [#/Vol] 5.5 10*3/uL Normal 4.5-11.0 [facility] Comment on above: Order Comment: Comme nt procedure 08/15/21 Healthcare Worker?: N Performed By: #### C TEXHOMA 19 [facility] #### [address] D-Dimer High Sensitivityon 0 08-03-2021 D-Dimer High Sensitivity 434 ng/mL High 0-243 [facility] Comment on above: Order Comment: Reaso [...] patients due to co-morbid conditions. PERFORMED BY: [place] [address] PATHOLOGIST PLASTERER MAINTENANCE MARIELLA KRAUSE M.D. Performed By: #### D DIMER, CRP, CBC, ESR #### [address] Erythrocyte Sedimentation Ra brian 08-03-2021 ESR (Bld) [Velocity] 7 mm/h Normal 0-29 [facility] Comment on above: Order Comment: Comme nt procedure 08/15/21 Healthcare Worker?: N Result Comment: PERF ORMED BY: [place] [address] PATHOLOGIST PLASTERER MAINTENANCE MARIELLA KRAUSE M.D. Performed By: #### C OVID 19 [facility] #### [address] XR knee BI 4Von 08-03-2021 XR knee BI 4V [facility] [place] [address] XRay Report Signed Patient: Norma Brennan MR#: [id number] : 1940 Acct:[id number] Age/Sex: 81 / F ADM Date: 08/03/21 Loc: [facility] Room: Type: [facility] Attending Dr: Rosalio Roblero II, MD Ordering Provider: Rosalio Roblero MD Date of Service: 08/03/21 XR/XR knee BI 4V: Osteoarthritis of knees, bilateral Copies to: Rosalio Roblero MD 4 views both knee plain film COMPARISON:None HISTORY:Bilateral knee pain medially. Neug-qt-zavi contact of the medial compartment of the [...] Edgard Paez M.D.08/03/2021 2:13 PM Dictation Location: [place] [address] Transcribed By: [facility] 08/03/211412 Dictated By: Edgard Paez DO 08/03/211411 Signed By: 08/03/21 1413 Normal [facility] XR knee BI 4V [facility] [employer] Other XR knee BI 4V [facility] [address] [place] [email or web address] Other XR knee BI 4V [address] [facility] [email or web address] Other XR [place] 4[place] [address] [facility] [email or web address] Other XR knee BI 4V XRay Report [facility] [employer] Other XR knee BI 4V Signed [employer] Other XR knee BI 4V Patient: Lauro Brennan MR#: [id number] [email or web address] [email or web address] Other XR knee BI 4V : 1940 Acct:[id number] [employer] Other XR knee BI 4V Age/Sex: 81 / F ADM Date: 08/03/21 [employer] Other XR knee BI 4V Loc: [facility] Room: Type : REG CLI [employer] Other XR knee BI 4V Attending Dr: Rosalio Roblero II, MD [employer] Other XR knee BI 4V Ordering Provider: Rosalio Roblero MD [employer] Other XR knee BI 4V Date of Service: 08/03/21 [employer] Other XR knee BI 4V XR/XR knee BI 4V: Osteoarthritis of knees, bilateral [employer] Other XR knee BI 4V Copies to: Rosalio Roblero MD [employer] Other XR knee BI 4V 4 views both knee plain film [employer] Other XR knee BI 4V COMPARISON:None [employer] Other XR knee BI 4V HISTORY:Bilateral knee pain medially. [employer] Other XR knee BI 4V Lrpw-sq-atxn contact of the medial compartment of the LEFT knee identified. Mild remaining joint [employer] Other XR knee BI 4V space narrowing of both knees present. Small supra patellar effusion seen. Diffuse osteopenia asia [employer] Other XR knee BI 4V ntified. No fracture or dislocation. Moderate lateral LEFT patellar subluxation identified. Mild [employer] Other XR knee BI 4V lateral RIGHT patellar subluxation identified. [employer] Other XR knee BI 4V XR/XR knee BI 4V [employer] Other XR knee BI 4V IMPRESSION:Advanced medial compartment degeneration on the LEFT. Remaining minor degenerative [employer] Other XR knee BI 4V change. [employer] Other XR knee BI 4V Impression dictated by: Edgard Paez M.D.08/03/2021 2:13 PM [employer] Other XR knee BI 4V Dictation Location: [place] [address] [employer] Other XR knee BI 4V Transcribed By: ML 08/03/21 [facility] [employer] Other XR knee BI 4V Dictated By: Edgard Paez DO 08/03/21 [facility] [employer] Other XR knee BI 4V Signed By: [employer] Other XR knee BI 4V 08/03/21 [facility] [employer] Other XR pelvis 1-2Von 08-03-2021 XR pelvis 1-2V [facility] [address] [place] [address] [place] [address] XRay Report Signed Patient: Norma Brennan MR#: [id number] : 1940 Acct:[id number] Age/Sex: 81 / F ADM Date: 08/03/21 Loc: [facility] Room: Type: [facility] Attending Dr: Rosalio Roblero II, MD [...] Edgard Paez M.D.08/03/2021 2:20 PM Dictation Location: [place] [address] Transcribed By: [facility] 08/03/21 1420 Dictated By: Edgard Paez DO 08/03/21 1419 Signed By: 08/03/21 1420 [facility] XR pelvis 1-2V XR/XR pelvis 1-2V: Osteoarthritis of knees, bilateral [employer] Other XR pelvis 1-2V Single view of the pelvis plain film [employer] Other XR pelvis 1-2V HISTORY:Bilateral knee pain [employer] Other XR pelvis 1-2V The visualized portion of the RIGHT hip arthroplasty unremarkable. Bony alignment appears [employer] Other XR pelvis 1-2V adequate. Diffuse osteopenia. [employer] Other XR pelvis 1-2V No acute bony findings identified. [employer] Other XR pelvis 1-2V No focal soft tissue abnormality seen. [employer] Other XR pelvis 1-2V XR/XR pelvis 1-2V [employer] Other XR pelvis 1-2V IMPRESSION:Unremarka b le visualized the RIGHT hip arthroplasty. Diffuse osteopenia. Unremarkable [employer] Other XR pelvis 1-2V LEFT hip. [employer] Other XR pelvis 1-2V Impression dictated by: Edgard Paez M.D.08/03/2021 2:20 PM [employer] Other XR pelvis 1-2V Transcribed By: PWS 08/03/21 1420 [employer] Other XR pelvis 1-2V Dictated By: Edgard Paez DO 08/03/21 1419 [email or web address] [email or web address] Other XR pelvis 1-2V 08/03/21 1420 [facility] [email or web address] Other Vital Signs Date Time Vital Sign Value Performing Clinician Facility 05-09-2023 11:30-0500 Body height 152.4 cm Max Ball Other [employer] Other 05-09-2023 11:30-0500 Body mass index (BMI) [Ratio] 30.81 kg/m2 Max Ball Other [employer] Other 05-09-2023 11:30-0500 Body weight 71.58 kg Max Ball Other [employer] Other 05-09-2023 11:30-0500 Diastolic blood pressure 77 mm[Hg] Max Ball Other [employer] Other 05-09-2023 11:30-0500 Respiratory rate 12 /min Max Ball Other [employer] Other 05-09-2023 11:30-0500 Systolic blood pressure 146 mm[Hg] Max Ball Other [employer] Other 08-03-2022 12:00-0400 Body height 152.4 cm Max Ball Other [employer] Other 08-03-2022 12:00-0400 Body mass index (BMI) [Ratio] 31.64 kg/m2 Max Ball Other [employer] Other 08-03-2022 12:00-0400 Body weight 73.48 kg Max Ball Other [employer] Other 08-03-2022 12:00-0400 Diastolic blood pressure 82 mm[Hg] Max Ball Other [employer] Other 08-03-2022 12:00-0400 Respiratory rate 12 /min Max Ball Other [employer] Other 08-03-2022 12:00-0400 Systolic blood pressure 137 mm[Hg] Max Ball Other [employer] Other 10-20-2021 09:45-0400 Body height 152.4 cm Rosalio Presidio II Other [employer] Other 10-20-2021 09:45-0400 Body mass index (BMI) [Ratio] 28.9 kg/m2 Rosalio Presidio II Other [employer] Other 10-20-2021 09:45-0400 Body weight 67.13 kg Rosalio Presidio II Other [employer] Other 08-10-2021 15:45-0400 Body height 152.4 cm Rosalio Presidio II Other [employer] Other 08-10-2021 15:45-0400 Body mass index (BMI) [Ratio] 28.9 kg/m2 Rosalio Presidio II Other [employer] Other 08-10-2021 15:45-0400 Body weight 67.13 kg Rosalio Presidio II Other [employer] Other 08-03-2021 12:00-0400 Body height 152.4 cm Rosalio Roblero II Other [employer] Other 08-03-2021 12:00-0400 Body mass index (BMI) [Ratio] 28.9 kg/m2 Rosalio Roblero II Other [employer] Other 08-03-2021 12:00-0400 Body weight 67.13 kg Rosalio Roblero II Other [employer] Other Encounters Encounter Date Encounter Type Care Provider Facility Start: 06-18-2023 End: 06-19-2023 [facility] Start: 05-21-2023 End: 05-22-2023 ambulatory [facility] Start: 05-09-2023 End: 05-09-2023 ambulatory Max Bruce Other [employer] Other Start: 05-09-2023 Office outpatient vi sit 25 minutes Max Bruce [facility] Start: 04-16-2023 End: 04-17-2023 ambulatory Jennifer Damon MD Facility: [facility] Start: 03-19-2023 End: 03-20-2023 [facility] Start: 02-19-2023 End: 02-20-2023 ambulatory [facility] Start: 02-13-2023 End: 02-13-2023 ambulatory Max Bruce Other [employer] Other Start: 02-13-2023 Telephone encounter Max RAMIREZ [facility] Start: 02-07-2023 End: 02-07-2023 ambulatory Max Bruce Other [employer] Other Start: 02-07-2023 Telephone encounter Max RAMIREZ [facility] Start: 02-01-2023 End: 02-01-2023 ambulatory Max Bruce Other [employer] Other Start: 02-01-2023 Telephone encounter Max RAMIREZ [facility] Start: 08-10-2022 End: 08-10-2022 ambulatory Max Bruce Other [employer] Other Start: 08-10-2022 Telephone encounter Max RAMIREZ [facility] Start: 08-03-2022 End: 08-04-[address] MAX BRUCE Facility: Start: 08-03-2022 Patient encounter procedure Max Bruce [facility] Start: 04-14-2022 End: 04-14-2022 ambulatory MAX BRUCE Facility:[facility] Start: 02-06-2022 End: 02-06-2022 ambulatory Rosalio Presidio II Other [employer] Other Start: 02-06-2022 Telephone encounter Rosalio Presidio II [facility] Start: 01-25-2022 Telephone encounter Yecenia hawkins PA-C Work Phone: [facility] Comment on above: Vocational Coordinator - O ther (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 for patient's ortho./) Start: 01-19-2022 End: 01-19-2022 ambulatory Rosalio Presidio II Other [employer] Other Start: 01-19-2022 Telephone encounter Rosalio Presidio II [facility] Start: 01-02-2022 End: 01-02-2022 ambulatory Rosalio Presidio II Other [employer] Other Start: 01-02-2022 Telephone encounter Rosalio Presidio II [facility] Start: 11-30-2021 End: 11-30-2021 ambulatory Rosalio Osbaldo II Other [employer] Other Start: 11-30-2021 Telephone encounter Rosalio Osbaldo II [facility] Start: 11-18-2021 End: 11-18-2021 ambulatory Rosalio Presidio II Other [employer] Other Start: 11-18-2021 Office outpatient vi sit 25 minutes Rosalio Osbaldo II [facility] Start: 11-02-2021 End: 11-02-2021 ambulatory ROSALIO OSBALDO [employer] Other Start: 11-02-2021 Telephone encounter Rosalio Presidio II [facility] Start: 10-28-2021 End: 10-28-2021 ambulatory Rosalio Osbaldo II Other [employer] Other Start: 10-28-2021 Telephone encounter Rosalio Presidio II [facility] Start: 10-26-2021 End: 10-26-2021 ambulatory Rosalio M Presidio II Facility:[facility] Start: 10-21-2021 End: 10-21-2021 ambulatory Rosalio Osbaldo II Other [employer] Other Start: 10-21-2021 Telephone encounter Rosalio Presidio II [facility] Start: 10-20-2021 Office outpatient vi sit 25 minutes Rosalio Presidio II [facility] Start: 10-20-2021 End: 10-20-2021 ambulatory Rosalio M Presidio II [employer] [facility] Start: 10-14-2021 End: 10-14-2021 ambulatory Rosalio Presidio II Other [employer] Other Start: 10-14-2021 Telephone encounter Rosalio Osbaldo II [facility] Start: 09-22-2021 End: 09-22-2021 ambulatory Rosalio M Presidio II Facility:[facility] Start: 08-15-2021 End: 08-15-2021 ambulatory Rosalio M Presidio II Facility:[facility] Start: 08-12-2021 End: 08-12-2021 ambulatory Rosalio Roblero II Facility:[facility] Start: 08-10-2021 End: 08-10-2021 ambulatory Rosalio Roblero II Other [employer] Other Start: 08-10-2021 Office outpatient vi sit 25 minutes Rosalio Roblero II [facility] Start: 08-03-2021 [facility] visit new patient Rosalio matthews II [facility] Start: 08-03-2021 End: 08-03-2021 ambulatory Rosalio Roblero II [employer] Other Start: 07-13-2021 Adult health examination Max Bruce Other [employer] Other Procedures Date Procedure Procedure Detail Performing Clinician Depression screening Maryanne Bruce Other Plan of Treatment Date Care Activity Detail Author Start: 2022 Influenza vaccination INFLUENZA (#1) [facility] Start: 05-14-2021 ADVANCE DIRECTIVE DISCUSSION ADVANCE DIRECTIVE DISCUSSION [facility] Start: 01-04-2021 COVID-19 VACCINE (3 - Booster for Moderna series) COVID-19 VACCINE (3 - Booster for Moderna series) [facility] Start: 01-13-2004 [address] BONE DENS[address] [facility] Start: 01-13-2004 PNEUMOCOCCAL: 65+ (1 - PCV) PNEUMOCOCCAL: 65+ (1 - PCV) [facility] Start: 1989 SHINGRIX VACCINE (1 of 2) JAMISON GRIX VACCINE (1 of 2) [facility] Start: 01-13-1984 DIABETES SCREEN DIABETES SCREEN [facility] Start: 1958 Urine microalbumin profile DTAP,TDAP ,TD (1 - Tdap) [facility] Immunizations Immunization Date Immunization Notes Care Provider Danelle lozoya 02-05-2023 Prevnar 20 Max Bruce Other [employer] Other 02-05-2023 influenza, high dose seasonal, preservative-free Max Bruce Other [employer] Other 04-21-2022 COVID-19 Vaccine Moderna - Documentation Purposes Only Max Bruce Other [employer] Other 03-11-2022 zoster vaccine recombinant Max Bruce Other [employer] Other 03-11-2022 zoster vaccine, live Benjami milagros Bruce Other [employer] Other 02-03-2022 influenza virus vaccine, split virus (incl. purified surface antigen) Max Bruce Other [employer] Other 02-03-2022 influenza, high dose seasonal, preservative-free Max Bruce Other [employer] Other 07-13-2021 zoster vaccine recombinant Max Bruce Other [employer] Other 03-31-2021 COVID-19 Vaccine Moderna - Documentation Purposes Only Max Bruce Other [employer] Other 01-24-2021 influenza virus vaccine, split virus (incl. purified surface antigen) Max Bruce Other [employer] Other 08-04-2020 COVID-19 Vaccine Moderna - Documentation Purposes Only Max Bruce Other [employer] Other 07-01-2020 COVID-19 Vaccine Moderna - Documentation Purposes Only Max Bruce Other [employer] Other 02-03-2020 influenza virus vaccine, split virus (incl. purified surface antigen) Max Bruce Other [employer] Other Payers Date Payer Category Payer Private Health Insurance 2021 Private Health Insurance [id number] 2021 Self-pay 2020 Medicare AETNA MEDICARE A ETNA MEDICARE PPO [id number] 2020-Present [phone] [address] [place] [address] PPO [id number] 1960 Medicare [id number] 1939 Unknown [id number] 93 1939 Unknown [id number] 2.16.840.1.302123.3.579.2.5 93 1939 Unknown [id number] 2.16.840.1.803087.3.579.2.1 96 1939 Unknown [id number] 2.16.840.1.140274.3.579.2.1 96 1939 Unknown [id number] 2.16.840.1.558420.3.579.2.1 96 1939 Unknown [id number] 2.16.840.1.786591.3.579.2.1 96 1939 Unknown [id number] 2.16.840.1.086935.3.579.2.1 96 Unknown [id number] 2.16.840.1.822388.3.579.2.5 31 Unknown [id number] 2.16.840.1.655140.3.579.2.5 31 Unknown [id number] 2.16.840.1.426419.3.579.2.5 31 Unknown [id number] 2.16.840.1.517860.3.579.2.5 31 Unknown [id number] 2.16.840.1.250082.3.579.2.5 31 Unknown [id number] 2.16.840.1.170442.3.579.2.5 31 Unknown [id number] 2.16.840.1.376556.3.579.2.5 31 Social History Date Type Detail Facility Sex Assigned At [facility] [employer] Other Start: 06-22-2020 Tobacco smoking status WYIS Never smoked tobacco [facility] Start: 06-22-2020 Tobacco use and exposure Smokeless tobacco non-user [facility] Start: 12-16-2020 Alcohol intake Current drinke r of alcohol (finding) [facility] Start: 06-22-2020 History SDOH Alcohol Comment [address] [facility] Start: 1940 Sex Assigned At Female C [facility] Medical Equipment Procedure Code Equipment Code Equipment Origin al Text Equipment Identifier Dates Lens Iol 0d +19. 5 [place] Uv Abs - [id number] Start: 08-18-2020 Comment on above: Description: [...] doesn't help can use topical steroid drops [employer] Other 10-03-2023 Evaluation note* Encounter Date Diagnosis Assessment Notes Treatment Notes Treatment Clinical Notes Feb, SBE (subacute bacterial endocarditis) prophylaxis candidate (ICD-10 - Z29.89) [employer] Other 03-30-2023 Evaluation note* Encounter Date Diagnosis Assessment Notes Treatment Notes Treatment Clinical Notes Jul, SBE (subacute bacterial endocarditis) prophylaxis candidate (ICD-10 - Z29.8) [employer] Other 03-23-2023 Evaluation note* Encounter Date Diagnosis [...] High risk medication use (ICD-10 - Z79.899) [employer] Other 12-02-2022 NoteHNO ID: [id number] Author: Pedro Goff DO Service: ? Author Type: Physician Type: Progress Notes Filed: 04/14/2022 10:56 AM Note Text: CONSULT ORTHOPAEDIC: HIP PRIMARY CARE PHYSICIAN: Max Bruce DO REFERRING PROVIDER: Rosalio Roblero II [address] [place] [address] HPI: 82-year-old female presents today with right hip pain that has been chronic in nature over the last year and a half but acutely worsened over the last 6 months. 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 She overall uses a walker for ambulation and has significant leg length difference and requires a shoe lift. She states over the last 6 months that her right hip and leg pain is worsening especially after working with physical therapy and was seen in 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 Appears direct (more content not included)... [facility]12-02-2022 NoteHNO ID: [id number] Author: RT Anthony(R) Service: ? Author Type: [...] PERIPHERAL IV DATA: Not applicable SIGNED BY: Harini RT Gaby(R) April 14, 2022 8:27 [facility]09-14-2022 Miscellaneous Notes * Telephone Encounter - Carrol Matthew RN - 01/25/2022 12:17 PM EDT Spoke to Pilar, briana Cho only does revisions on his surgical patients or patients with a pathologic or metastatic disease. * Telephone Encounter - Shahana Casillas - 01/25/2022 11:17 AM EDT Please contact Pilar larson/ Dr. Rosalio Flores ([facility]) Looking to discuss patient diagnosis, to see if patient can be seen by Dr Cho Second Opinion ( component loosening and Aseptic) Please dial Pilar [phone] [facility]* Encounter Date Diagnosis Assessment Notes Treatment Notes Treatment Clinical Notes Nov, Right hip pain (ICD-10 - M25.551) Nov, History of total right hip arthroplasty (ICD-10 - Z96.641) Nov, Other I again had a l stan discussion with the patient regarding her symptoms and treatment options. We discussed her lab results from [place] on 11/02/2021 and they are as follows: [...] her in with either the [facility] or [facility] to discuss the possibility of revision because at this point I do not feel that our health system would be the best place for her to get the surgery that may need to be required. Patient understands this and is willing to proceed with the nonweightbearing precautions for another 4 to 6 weeks. [employer] Other 06-17-2022 Evaluation note* Encounter Date Diagnosis Assessment Notes Treatment Notes Treatment Clinical Notes Oct, History of total right hip arthroplasty (ICD-10 - Z96.641) [employer] Other 06-09-2022 Evaluation note* Encounter Date Diagnosis [...] back after she gets her CT scan. [employer] Other 03-30-2022 Evaluation note* Encounter Date Diagnosis [...] the results and treatment plans moving forward. [employer] Other 03-23-2022 Evaluation note* Encounter Date Diagnosis [...] see her back after her labs result. 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 Source Comments (unrecognize d section and content) In the event this informatio n is protected by the Federal Confidentiality of Alcohol and Drug Abuse Patient Records regulations: The Federal rules restrict any use of the information to criminally investigate or prosecute any alcohol or drug abuse patient.[facility] Care Teams (unrecognized sec tion and content) Business Applications Specialist Relationship Specialty Start Date End Date Max Bruce DO [address] [id number] PCP - General Internal Medicine 08/18/20 INFORMATION SOURCE (unrecogn ized section and content) DATE CREATED AUTHOR 04/14/2022 [facility] DATE CREATED AUTHOR AUTHOR'S ORGANIZ ATION 06/17/2022 [facility] DATE CREATED AUTHOR AUTHOR'S ORGANIZ ATION 08/07/2022 [facility] DATE CREATED AUTHOR AUTHOR'S ORGANIZ ATION 07/20/2023 [facility] FOR RECORDS PERTAINING TO PATIENTS WHO [...] BE BASED ON THE PRIMARY CLINICAL RECORDS. [employer] [facility]. provides no warranty or guarantee of the accuracy or completeness of information in this document.
[2023-08-06 10:54] VITALS: BP 171/91; PULSE 74; RESP 16; TEMP 36.5; O2SAT 96
[2023-08-06 11:30] VITALS: BP 182/84; PULSE 72; RESP 18; O2SAT 93
[2023-08-06 11:32] VITALS: BP 178/84; PULSE 71; RESP 18; O2SAT 92
[2023-08-06] MEDS: TRIAMCINOLONE ACETONIDE 40 MG/ML VIAL 80 MG INJ (11:32)
[2023-08-06] MEDS: LIDOCAINE HCL 2% PF 100 MG/5 ML VIAL 3 ML INJ (11:32)
[2023-08-06] MEDS: IOHEXOL 240 MG/ML - 10 ML VIAL 24 MG INJ (11:32)
[2023-08-06] MEDS: BUPIVACAINE HCL 0.25% PF 25 MG/10 ML VIAL INJ (11:32)
[2023-08-06] MEDS: 0.9 % SODIUM CHLORIDE 10 ML INJ (11:32)
--- NOTE | 2023-08-06 11:35 | P.ON_ITS ---
Date of procedure: 08/06/23 Pre-op diagnosis: Lumbar stenosis with neurogenic claudication Post-op diagnosis: same as pre-op Procedure: Procedure: Right L4-5, l5-S1 transforaminal epidural steroid injection Medications: Bupivacaine 0.25% 2cc, lidocaine 2% 1cc, kenalog 80mg The patient was seen and examined in the preoperative holding area.? Informed consent was obtained and placed on the chart.? Patient was brought to the medical procedure unit and placed in the prone position where a timeout was completed verifying the correct patient, procedure site, position, and planned special equipment using sterile aseptic technique.? Under direct fluoroscopic visualization a 25-gauge Quincke tipped spinal needle was advanced to the designated neural foramen where contrast dye was injected to show adequate spread.? The needle was inserted at level right L4-5. There was no evidence of vascular or adverse uptake.? Epidural spread was appreciated.? The above- mentioned injectate was then placed in a 1.5 mL aliquot preceded by negative aspiration.? The needle was removed. The needle was inserted and the procedure repeated at level right L5-S1.? The surgery site was covered.? Patient was taken to the postprocedural recovery area and monitored for an appropriate length of time before found suitable for discharge in the accompaniment of a responsible adult. Surgeon: Jennifer Damon Pathology: none sent Condition: stable Disposition: no change
--- NOTE | 2023-08-06 12:09 | PC.NURSE ---
pt advised to f/u with PCP for high BP at procedure today. She also had a numb/tingly right leg for a few mins post procedure, resolved with time. Able to bear weight upon d/c but taken down by w/c for safety.
== END 2023-08-06 12:09 | disposition home or self-care (01) ==
PROVIDERS: PCP Internal Medicine; Visit Provider Anesthesiology
DX: M48.062 Spinal stenosis, lumbar region with neurogenic claudication (principal)
CPT/HCPCS: 64483; 64484; Q9966

== ENCOUNTER 2023-09-10 07:48 | Day surgery (SDC) | payer MEDICARE, SELFPAY ==
--- OUTSIDE RECORDS SUMMARY | 2023-09-10 07:53 | XMS_ITS | CCD ---
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 Name Role Phone Rosalio Roblero II Unavailable Max Bruce DO Primary Care Provider MAX BRUCE Primary Care Unavailable PEDRO GOFF Referring Unavailable MAX BRUCE Primary Care Unavailable PEDRO GOFF Attending Unavailable OSBALDO SILVERIO, ROSALIO Puente Referring Unavailabl e ISRAEL, MAX Gordon Primary Care Unavailable Osbaldo SILVERIO, Rosalio Puente Attending Unavailabl e Max Bruce Primary Care Unavailable Osbaldo II, Rosalio Puente Admitting Unavailabl e Coamo II, Rosalio M Admitting Unavailabl e Coamo II, Rosalio Puente Attending Unavailabl e Max Bruce Primary Care Unavailable Coamo II, Rosalio M Admitting Unavailabl e Coamo II, Rosalio Puente Attending Unavailabl e Max Bruce Primary Care Unavailable Osbaldo II, Rosalio Puente Attending Unavailabl e Max Bruce Primary Care Unavailable Osbaldo II, Rosalio M Admitting Unavailabl e Coamo II, Rosalio M Admitting Unavailabl e Coamo II, Rosalio Puente Attending Unavailabl e Max Bruce Primary Care Unavailable Coamo II, Rosalio Puente Admitting Unavailabl e Coamo II, Rosalio M Attending Unavailabl e Max Bruce Primary Care Unavailable Coamo II, Rosalio Puente Attending Unavailabl e Max Bruce Primary Care Unavailable Coamo II, Rosalio Puente Admitting Unavailabl e OSBALDO, [...] sources) Acetaminophen / oxyCODONE Drug Allergy Unknown [employer] Other (16 sources) Adhesive Tape; Translations: [adhesive tape] Propensity to adverse reactions 08-16-19 Unknown [facility] Repository (1 source) oxyCODONE Drug Allergy 08-16-19 [facility] Repository (4 sources) Adhesive Tape 1 x5yd *MEDICAL DEVICES AND SUPPLIES Propensity to adverse reactions Comment:Adhesi ve Tape i4[employer]ms [facility] [employer] Other Medications Current Medications Medication Drug Class(es) [...] / neomycin 3.5 mg/ml / polymyxin b 62482 unt/ml otic suspension (1 source) Aminoglycoside Antibacterial, Polymyxin-class Antibacterial, Corticosteroid Start: 05-09-2023 Yoohnppl-Tnswvchsu-LT 3.5-82730-0 4 drops into affected ear Otic daily [...] 08-18-2020 Episodic Other aftercare (1 source) 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 Episodic Other bone disease [...] afuan 08-03-2022 A1C with Estimated Average Glu [employer] Other Basic Metabolic Panelon 07-13 Calcium [Mass/Vol] 9.4523784 mg/dL 8.5-10 .1 mg/dL [employer] Other CO2 [Moles/Vol] 27.83652559 mmol/L 21.0-3 2.0 mmol/L [employer] Other Creatinine [Mass/Vol] 1.19180030 mg/dL 0.55-1.02 mg/dL [employer] Other Potassium [Moles/Vol] 4.64337661 mmol/L 3.5-5.1 mmol/L [employer] Other Urea nitrogen [Mass/Vol] 28.9515752 mg/dL Critically high 7.0-18.0 mg/dL [employer] Other Basic Metabolic Panel see note [employer] Other Basic Metabolic Panel 140 mmol/L 136-145 mmol/L [employer] Other Basic Metabolic Panel 95 mg/dL 74-106 mg/dL [employer] Other Basic Metabolic Panel 52 mL/min/1.73m2 Critically low >=60 mL/min/1.73m2 [employer] Other Basic Metabolic Panel >60 mL/min/1.73m2 >=60 mL/min/1.73m2 [employer] Other CBC AUTO DIFFon 08-03-2022 BASO # 0.0 103/ul Normal 0.0-0.1 [facility] Comment on above: Performed By: #### C BC #### [facility] [address] [place] [address] Dr. Sandra Radford Basophils/100 WBC (Bld) 0.5 % Normal 0.2-2.0 [facility] Comment on above: Performed By: #### C BC #### [facility] [address] [place] [address] Dr. Sandra Radford EO # 0.3 103/ul Normal 0.0-0.7 [facility] Comment on above: Performed By: #### C BC #### [facility] [address] [place] [address] Dr. Sandra Radford Eosinophils/100 WBC (Bld) 4.5 % Normal 0.9-7.0 [facility] Comment on above: Performed By: #### C BC #### [facility] [address] [place] [address] Dr. Sandra Radford Erythrocyte distribution width (RBC) [Ratio] 13.8 % Normal 11.0-15.0 [facility] Comment on above: Performed By: #### C BC #### [facility] [address] [place] [address] Dr. Sandra Radford Hematocrit (Bld) [Volume fraction] 39.7 % Normal 36.0-48.0 [facility] Comment on above: Performed By: #### C BC #### [facility] [address] [place] [address] Dr. Sandra Radford Hemoglobin (Bld) [Mass/Vol] 12.8 g/dL Normal 12.0-16.0 [facility] Comment on above: Performed By: #### C BC #### [facility] [address] [place] [address] Dr. Sandra Radford IG # 0.01 10e3/ul Normal 0.00-0.03 [facility] Comment on above: Performed By: #### C BC #### [facility] [address] [place] [address] Dr. Sandra Radford IG % 0.2 % Normal 0.0-0.5 [facility] Comment on above: Performed By: #### C BC #### [facility] [address] [place] [address] Dr. Sandra Radford LYMPH # 1.6 103/ul Normal 1.2-3.8 [facility] Comment on above: Performed By: #### C BC #### [facility] [address] [place] [address] Dr. Sandra Radford Lymphocytes/100 WBC (Bld) 26.3 % Normal 20.5-60.0 [facility] Comment on above: Performed By: #### C BC #### [facility] [address] [place] [address] Dr. Sandra Radford MANUAL DIFF REQ NO Normal [facility] Comment on above: Performed By: #### C BC #### [facility] [address] [place] [address] Dr. Sandra Radford MCH (RBC) [Entitic mass] 29.9 pg Normal 26.7-34.0 [facility] Comment on above: Performed By: #### C BC #### [facility] [address] [address] [address] Sandra Radford MCHC (RBC) [Mass/Vol] 32.2 g/dL Normal 29.9-35.2 [facility] Comment on above: Performed By: #### C BC #### [facility] [address] [place] [address] Dr. Sandra Radford MCV (RBC) [Entitic vol] 92.8 fL Normal 81.0-99.0 [facility] Comment on above: Performed By: #### C BC #### [facility] [address] [place] [address] Dr. Sandra Radford MONO # 0.7 103/ul Normal 0.3-0.8 [facility] Comment on above: Performed By: #### C BC #### [facility] [address] [place] [address] Dr. Sandra Radford Monocytes/100 WBC (Bld) 10.6 % Normal 1.7-12.0 [facility] Comment on above: Performed By: #### C BC #### [facility] [address] [place] [address] Dr. Sandra Radford NEUT # 3.6 103/ul Normal 1.4-6.5 [facility] Comment on above: Performed By: #### C BC #### [facility] [address] [place] [address] Dr. Sandra Radford Neutrophils/100 WBC (Bld) 57.9 % Normal 43.0-75.0 [facility] Comment on above: Performed By: #### C BC #### [facility] [address] [place] [address] Dr. Sandra Radford Platelet mean volume (Bld) [Entitic vol] 9.7 fL Normal 9.5-13.5 [facility] Comment on above: Performed By: #### C BC #### [facility] [address] [place] [address] Dr. Sandra Radford PLT 240 103/ul Normal 150-450 [facility] Comment on above: Performed By: #### C BC #### [facility] [address] [place] [address] Dr. Sandra Radford RBC 4.28 106/ul Normal 4.20-5.40 [facility] Comment on above: Performed By: #### C BC #### [facility] [address] [place] [address] Dr. Sandra Radford WBC 6.2 103/ul Normal 4.0-11.0 [facility] Comment on above: Performed By: #### C BC #### [facility] [address] [place] [address] Dr. Sandra Radford Complete Blood Count and Dif esther 08-03-2022 Anisocytosis Ql (Bld) Merged With [facility] [employer] Other Basophilic stippling LM Ql (d) Merged With [facility] [employer] Other RBC morphology finding Nom (d) Merged With [facility] [employer] Other GLYCOHEMOGLOBIN A1Con 2022 ADA RECOMMENDATION SEE BELOW Normal [facility] Comment on above: Result Comment: ADA RECOMMENDED LIMIT 4.0 - 6.0 ADA THERAPEUTIC TARGET < 7.0 ACTION SUGGESTED > 7.0 Performed By: #### A 1C #### [facility] [address] [place] [address] Dr. Sandra Radford Glucose [Mass/Vol] 105 mg/dL Normal [facility] Comment on above: Performed By: #### A 1C #### [facility] [address] [place] [address] Dr. Sandra Radford HbA1c (Bld) [Mass fraction] 5.3 % Normal 4.5-6.2 [facility] Comment on above: Performed By: #### A 1C #### [facility] [address] [place] [address] Dr. Sandra Radford LIPID PROFILEon 08-03-2022 CHOL-HDL RATIO NORM SEE BELOW Normal [facility] Comment on above: Result Comment: 3.3 - 4.4 LOW RISK 4.4 - 7.1 AVERAGE RISK 7.1 - 11.0 MODERATE RISK >11.0 HIGH RISK Performed By: #### T SH, LIPID, BMP #### [facility] [address] [address] [address] Sandra Radford Cholesterol [Mass/Vol] 260 mg/dL Critically high <=200 mg/dL [facility] Comment on above: Performed By: #### T SH, LIPID, BMP #### [facility] [address] [address] [address] Sandra Radford Cholesterol in HDL [Mass/Vol] 58 mg/dL 40-60 mg/dL [facility] Comment on above: Performed By: #### T SH, LIPID, BMP #### [facility] [address] [address] [address] Sandra Radford Cholesterol in LDL [Mass/Vol] 165.8 mg/dL Normal [facility] Comment on above: Performed By: #### T SH, LIPID, BMP #### [facility] [address] [place] [address] Dr. Sandra Radford Cholesterol.total/C holesterol in HDL [Mass ratio] 4.5 {ratio} [facility] Comment on above: Performed By: #### T SH, LIPID, BMP #### [facility] [address] [address] [address] Sandra Radford HDL NORMAL > or = 60 mg/dl - LO W CARDIOVASCULAR RISK <40 mg/dl - HIGH CARDIOVASCULAR RISK Normal [facility] Comment on above: Performed By: #### T SH, LIPID, BMP #### [facility] [address] [address] [address] Sandra Radford LDL CALC NORMAL SEE BELOW Normal [facility] Comment on above: Result Comment: <100 mg/dl OPTIMAL 100 - 129 mg/dl NEAR OR ABOVE OPTIMAL 130 - 159 mg/dl BORDERLINE HIGH 160 - 189 mg/dl HIGH >190 mg/dl VERY HIGH Performed By: #### T SH, LIPID, BMP #### [facility] [address] [address] [address] Sandra Radford Triglyceride [Mass/Vol] 181 mg/dL Critically high <=150 mg/dL [facility] Comment on above: Performed By: #### T SH, LIPID, BMP #### [facility] [address] [place] [address] Dr. Sandra Radford VLDL CALC 36.2 mg/dL Normal [facility] Comment on above: Performed By: #### T CHON LIPID, BMP #### [facility] [address] [address] [address] Sandra Radford Lipid Panelon 08-03-2022 Lipid Panel > or = 60 mg/dl - LO W CARDIOVASCULAR RISK <40 mg/dl - HIGH CARDIOVASCULAR RISK [employer] Other Lipid Panel SEE BELOW [employer] Other Lipid Panel 165.8 mg/dL [employer] Other Lipid Panel 36.2 mg/dL [employer] [facility] [employer] Other PROF CHEM 8 (BAS METB)on Anion gap [Moles/Vol] 12.2 mmol/L [facility] Comment on above: Performed By: #### T CHON LIPID, BMP #### [facility] [address] [place] [address] Dr. Sandra Radford Calcium [Mass/Vol] 9.6 mg/dL Normal 8.5-10.1 [facility] Comment on above: Performed By: #### T CHON LIPID, BMP #### [facility] [address] [place] [address] Dr. Sandra Radford Chloride [Moles/Vol] 105 mmol/L 98-107 mmol/L [facility] Comment on above: Performed By: #### T CHON LIPID, BMP #### [facility] [address] [place] [address] Dr. Sandra Radford CO2 [Moles/Vol] 27.3 mmol/L Normal 21.0-32.0 [facility] Comment on above: Performed By: #### T CHON LIPID, BMP #### [facility] [address] [place] [address] Dr. Sandra Radford Creatinine [Mass/Vol] 1.02 mg/dL Normal 0.55-1.02 [facility] Comment on above: Performed By: #### T SH, LIPID, BMP #### [facility] [address] [address] [address] Sandra Radford EGFR-AF ERITREAN >60 Normal >=60 [facility] Comment on above: Performed By: #### T SH, LIPID, BMP #### [facility] [address] [address] [address] Sandra Radford EGFR-NON AF ERITREAN 52 mL/min/1.73m2 Critically low >=60 [facility] Comment on above: Performed By: #### T SH, LIPID, BMP #### [facility] [address] [address] [address] Sandra Radford Glucose [Mass/Vol] 95 mg/dL Normal 74-106 [facility] Comment on above: Performed By: #### T SH, LIPID, BMP #### [facility] [address] [address] [address] Sandra Radford Potassium [Moles/Vol] 4.5 mmol/L Normal 3.5-5.1 [facility] Comment on above: Performed By: #### T SH, LIPID, BMP #### [facility] [address] [address] [address] Sandra Radford Sodium [Moles/Vol] 140 mmol/L Normal 136-145 [facility] Comment on above: Performed By: #### T SH, LIPID, BMP #### [facility] [address] [address] [address] Sandra Radford Urea nitrogen [Mass/Vol] 28.0 mg/dL Critically high 7.0-18.0 [facility] Comment on above: Performed By: #### T SH, LIPID, BMP #### [facility] [address] [place] [address] Dr. Sandra Radford Urea nitrogen/Creatinine [Mass ratio] 27.5 mg/mg [facility] Comment on above: Performed By: #### T SH, LIPID, BMP #### [facility] [address] [place] [address] Dr. Sandra Radford TSHon 08-03-2022 TSH 1.952 uIU/mL Normal 0.358-3.740 [facility] Comment on above: Performed By: #### T SH, LIPID, BMP #### [facility] [id number] Sandra Karimi 04-14-2022 CNOV Office Visit (ORTHCO ) MIKANORMA ([id number]) 1940 F Date Time Provider Department 04/14/22 9:00 AM PEDRO GOFF During your visit today, we recorded the following information about you: Pedro Goff DO 04/14/2022 10:56 AM Signed CONSULT ORTHOPAEDIC: HIP PRIMARY CARE PHYSICIAN: Max Bruce DO REFERRING PROVIDER: Rosalio Roblero [address] [place] [address] HPI: 82-year-old female presents today with right hip pain that has been chronic in nature over the last year and a half but acutely worsened over the last 6 months. 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 She overall uses a walker for ambulation and has significant leg length difference and requires a shoe lift. She states over the last 6 months that her right hip and leg pain is worsening especially after working with physical therapy and was seen in [facility] and recommended nonweightbearing for 6 months with [...] Deficiency Chronic Kidney Disease, Stage Iii (Moderate) ([facility]) Chronic Kidney Disease, Stage 3 Unspecified ([facility]) History of Total Right Hip Replacement Gastro-Esophageal Reflux Disease With Esophagitis, Without Bleeding SUBJECTIVE CHIEF COMPLAINT: Hip Pain HPI: Norma Brennan is a 82 year old patient here for evaluation and management of Right hip pain.Norma Brennan has had progressive problems with the hip(s) most of the day over the past 6 month(s) interfering with activities which include walking 2 blocks, 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 The problem began limiting activities 1-6 months ago. Currently the pain in the joint is rated at 7 out of 10 with minimal activity. (more content not included)... Normal [facility] CRP SerPl-mCncon 04-14-2022 CRP [Mass/Vol] mg/L Normal <0.[address] [facility] Comment on above: Order Comment: Speci cristobal Type: BLOOD SPECIMEN Ordering Facility: [facility] Address: [address] [place] [address] Performed By: #### 1 988-5 #### [facility] [place] [id number] [address] [place] [address] [place] ESR Westergren method (Bld) [Velocity]on 04-14-2022 ESR (Bld) [Velocity] 6 mm/h Normal 0-[address] [facility] Comment on above: Order Comment: Momo jain Type: BLOOD SPECIMEN Ordering Facility: [facility] Address: [address] [place] [address] Performed By: #### 4 537-7 #### [facility] CLIA [id number] [address] [place] [address] [place] XR HIP 3V PELV+ [...] significant abnormality. 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 CNPNon 01-25-2022 CNPN Telephone (ORQ) NORMA BRENNAN ([id number]) 1940 F Date Time Provider Department 01/25/22 YECENIA MURPHY ORQ During your visit today, we recorded the following information about you: Shahana Mancini Pss 01/25/2022 11:22 AM Signed Please contact Pilar larson/ Dr. Rosalio Flores ([facility]) Looking to discuss patient diagnosis, to see if patient can be seen by Dr Cho Second Opinion ( component loosening and Aseptic) Please dial Pilar [phone] Carrol Matthew RN 01/25/2022 12:22 PM Signed Spoke to Pilar, explained Dr Cho only does revisions on his surgical patients or patients with a pathologic or metastatic disease. 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 CBC AUTO DIFFon 11-02-2021 BASO # 0.0 103/ul Normal 0.0-0.1 [facility] Comment on above: Performed By: #### C BC #### [facility] [address] [address] [address] Sandra Radford Basophils/100 WBC (Bld) 0.5 % Normal 0.2-2.0 [facility] Comment on above: Performed By: #### C BC #### [facility] [address] [address] [address] Sandra Radford EO # 0.2 103/ul Normal 0.0-0.7 [facility] Comment on above: Performed By: #### C BC #### [facility] [address] [place] [address] Dr. Sandra Radford Eosinophils/100 WBC (Bld) 3.1 % Normal 0.9-7.0 [facility] Comment on above: Performed By: #### C BC #### [facility] [address] [place] [address] Dr. Sandra Radford Erythrocyte distribution width (RBC) [Ratio] 14.4 % Normal 11.0-15.0 [facility] Comment on above: Performed By: #### C BC #### [facility] [address] [place] [address] Dr. Sandra Rafdord Hematocrit (Bld) [Volume fraction] 34.1 % Critically low 36.0-48.0 [facility] Comment on above: Performed By: #### C BC #### [facility] [address] [place] [address] Dr. Sandra Radford Hemoglobin (Bld) [Mass/Vol] 11.2 g/dL Critically low 12.0-16.0 [facility] Comment on above: Performed By: #### C BC #### [facility] [address] [place] [address] Dr. Sandra Radford IG # 0.01 10e3/ul Normal 0.00-0.03 [facility] Comment on above: Performed By: #### C BC #### [facility] [address] [place] [address] Dr. Sandra Radford IG % 0.2 % Normal 0.0-0.5 [facility] Comment on above: Performed By: #### C BC #### [facility] [address] [place] [address] Dr. Sandra Radford LYMPH # 1.5 103/ul Normal 1.2-3.8 [facility] Comment on above: Performed By: #### C BC #### [facility] [address] [place] [address] Dr. Sandra Radford Lymphocytes/100 WBC (Bld) 25.1 % Normal 20.5-60.0 [facility] Comment on above: Performed By: #### C BC #### [facility] [address] [address] [address] Sandra Radford MANUAL DIFF REQ NO Normal [facility] Comment on above: Performed By: #### C BC #### [facility] [address] [place] [address] Dr. Sandra Radford MCH (RBC) [Entitic mass] 32.7 pg Normal 26.7-34.0 [facility] Comment on above: Performed By: #### C BC #### [facility] [address] [place] [address] Dr. Sandra Radford MCHC (RBC) [Mass/Vol] 32.8 g/dL Normal 29.9-35.2 [facility] Comment on above: Performed By: #### C BC #### [facility] [address] [place] [address] Dr. Sandra Radford MCV (RBC) [Entitic vol] 99.4 fL Critically high 81.0-99.0 [facility] Comment on above: Performed By: #### C BC #### [facility] [address] [place] [address] Dr. Sandra Radford MONO # 0.6 103/ul Normal 0.3-0.8 [facility] Comment on above: Performed By: #### C BC #### [facility] [address] [place] [address] Dr. Sandra Radford Monocytes/100 WBC (Bld) 10.7 % Normal 1.7-12.0 [facility] Comment on above: Performed By: #### C BC #### [facility] [address] [place] [address] Dr. Sandra Radford NEUT # 3.5 103/ul Normal 1.4-6.5 [facility] Comment on above: Performed By: #### C BC #### [facility] [address] [place] [address] Dr. Sandra Radford Neutrophils/100 WBC (Bld) 60.4 % Normal 43.0-75.0 [facility] Comment on above: Performed By: #### C BC #### [facility] [address] [address] [address] Sandra Radford Platelet mean volume (Bld) [Entitic vol] 10.2 fL Normal 9.5-13.5 [facility] Comment on above: Performed By: #### C BC #### [facility] [address] [place] [address] Dr. Sandra Radford PLT 202 103/ul Normal 150-450 [facility] Comment on above: Performed By: #### C BC #### [facility] [address] [address] [address] Sandra Radford RBC 3.43 106/ul Critically low 4.20-5.40 [facility] Comment on above: Performed By: #### C BC #### [facility] [address] [address] [address] Sandra Radford WBC 5.8 103/ul Normal 4.0-11.0 [facility] Comment on above: Performed By: #### C BC #### [facility] [address] [address] [address] Sandra Radford CRPon 11-02-2021 CRP [Mass/Vol] mg/L Normal <=1.0 [facility] Comment on above: Performed By: #### C RP #### [facility] [address] [place] [address] Dr. Sandra Radford [facility] 2 mm/hr Normal <=30 [facility] Comment on above: Performed By: #### S EDR #### [facility] [address] [place] [address] Dr. Sandra Radford NM bone 3 phaseon 10-26-2021 NM bone 3 phase [facility] [place] [address] Nuclear Medicine Report Signed Patient: Norma Brennan MR#: [id number] 00 : 1940 Acct:[id number] Age/Sex: 81 / F ADM Date: 10/26/21 Loc: [place] Room: Type: [facility] Attending Dr: Rosalio Roblero II, MD Copies to: DO Llois Hoyos MD Robert M Coamo, MD Ordering Provider: Rosalio Roblero MD Date [...] Lolis Reddy M.D.10/26/2021 4:09 PM Dictation Location: [place] [address] Transcribed By: [facility] 10/26/21 8319 Dictated By: Lolis Reddy MD 10/26/21 1559 Signed By: 10/26/21 2779 [facility] CT femur RT wo conon 022 CT femur RT wo con [facility] [place] [address] [place] [address] CT Scan Report Signed Patient: Norma Brennan MR#: [id number] 00 : 1940 Acct:[id number] Age/Sex: 81 / F ADM Date: 10/20/21 Loc: [facility] Room: Type: [facility] Attending Dr: Rosalio Roblero II, MD Ordering [...] Centeno Jr., M.D.10/20/2021 11:15 AM Dictation Location: [place] [address] Transcribed By: [facility] 10/20/21 1115 Dictated By: Romeo Centeno Jr, MD 10/20/21 1057 Signed By: 10/20/21 1115 [facility] [facility] XR femur RT 2V*on 10-20-2021 XR femur RT 2V* [facility] [address] [place] [address] [place] [address] XRay Report Signed Patient: Norma Brennan MR#: [id number] 00 : 1940 Acct:[id number] Age/Sex: 81 / F ADM Date: 10/20/21 [...] Lolis Reddy M.D.10/20/2021 1:13 PM Dictation Location: [place] [address] Transcribed By: [facility] 10/20/21 1313 Dictated By: Lolis Reddy MD 10/20/21 1310 Signed By: 10/20/21 1313 [facility] XR pelvis 1-2Von 10-20-2021 XR pelvis 1-2V [facility] [address] [place] [address] [place] [address] XRay Report Signed Patient: Norma Brennan MR#: [id number] 00 : 1940 Acct:[id number] Age/Sex: 81 / F ADM Date: 10/20/21 Loc: [facility] Room: Type: REG CLI Attending Dr: Rosalio [...] Malachi Davis M.D.10/20/2021 1:08 PM Dictation Location: [facility]- Transcribed By: [facility] 10/20/21 1308 Dictated By: Malachi Davis II, MD 10/20/21 1303 Signed By: 10/20/21 1308 [facility] XR hip RT 1Von 08-15-2021 XR hip RT 1V [facility] [address] [place] [address] [place] [address] XRay Report Signed Patient: Norma Brennan MR#: [id number] : 1940 Acct:[id number] Age/Sex: 81 / F ADM Date: 08/15/21 Loc: [place] Room: Type: [facility] Attending Dr: Rosalio Roblero II, MD Ordering [...] 9:09 AM Dictation Location: [facility]IO-PC-13 Transcribed By: [facility] 08/15/21908 Dictated By: Edgard Paez DO 08/15/21907 Signed By: 08/15/21908 Normal [facility] Basic Metabolic Panelon 04-0 Calcium [Mass/Vol] 9.1 mg/dL Normal 8.2-10.2 [facility] Comment on above: Result Comment: PERF ORMED BY: [place] [address] PATHOLOGIST EXCELLENCE MANAGER MARIELLA KRAUSE M.D. Performed By: #### C [address] #### [facility] [address] [place] [address] [place] Chloride [Moles/Vol] 105 mmol/L Normal 95-114 [facility] Comment on above: Performed By: #### C [place] [address] [facility] #### [facility] [address] [place] [address] [place] CO2 [Moles/Vol] 25.9 mmol/L Normal 22.0-30.0 [facility] Comment on above: Performed By: #### C [place] [address] [facility] [place] [facility] #### [facility] [address] [place] [address] [place] Creatinine [Mass/Vol] 0.99 mg/dL Normal 0.44-1.03 [facility] Comment on above: Performed By: #### C [address] #### [facility] [address] [place], [place] [id number] [place] Estimated GFR ( Jahaira > 60 [facility] Comment on above: Result Comment: GFR estimated reference range: According to KDOQI guidelines, <60 ml/min/1.73m2 is sufficient to diagnose a patient with chronic kidney disease. Performed By: #### C [place] [address] [facility] [place] #### [facility] [address] [place] [id number] [place] Estimated GFR (Non- Am 54 [facility] Comment on above: Performed By: #### C [address] #### [facility] [address] [place] [id number] [place] Glucose [Mass/Vol] 92 mg/dL Normal 70-100 [facility] Comment on above: Result Comment: [place] Glucose Reference Range is dependent on time and content of last meal. Glucose of more than 200 mg/dL in a nonstressed, ambulatory subject supports the diagnosis of Diabetes Mellitus. ADA recommended reference range Performed By: #### C [place] 19 [facility] [place] #### [facility] [address] Potassium [Moles/Vol] 4.7 mmol/L Normal 3.5-5.1 [facility] Comment on above: Performed By: #### C [place] 19 [facility] [place] [facility] #### [facility] [address] Sodium [Moles/Vol] 139 mmol/L Normal 136-146 [facility] Comment on above: Performed By: #### C [place] 19 [facility] [place] [facility] #### [facility] [address] Urea nitrogen [Mass/Vol] 32 mg/dL High 9-23 [facility] Comment on above: Performed By: #### C [place] 19 [facility] [place] [facility] #### [facility] [address] COVID-19 [facility] [place] SARS-CoV-2 (COVID-19) RNA FABIAN+probe Ql (Unsp spec) Negative Normal Negative [facility] Comment on above: Order Comment: Comme nt procedure 08/15/21 Healthcare Worker?: N Result Comment: Testing for SARS-CoV-2 by RT-PCR This test was developed and its performance characteristics determined by [employer]) and validated at the [facility]. This test has not been FDA [...] is terminated or revoked sooner. PERFORMED BY: [place] [address] PATHOLOGIST EXCELLENCE MANAGER MARIELLA KRAUSE M.D. Performed By: #### C [place] 19 [facility] [place] #### [place] [id number] [facility] ECG 12 lead ECGon 08-12-2021 ECG 12 lead ECG [facility] [address] [place] [address] [place] [address] Electrocardiograph Report Signed Patient: Norma Brennan MR#: [id number] 00 : 1940 Acct:[id number] Age/Sex: 81 / F ADM Date: 08/12/21 Loc: Room: Type: [facility] Attending Dr: Rosalio Roblero II, MD [...] Signed By Felicitas Villeda MD 0952 Normal [facility] C-Reactive Proteinon 022 C-Reactive Protein 1.4 mg/dL High 0.0-1.0 [facility] Comment on above: Order Comment: Comme nt procedure 08/15/21 Healthcare Worker?: N Result Comment: PERF ORMED BY: [place] [id number] PATHOLOGIST EXCELLENCE MANAGER MARIELLA KRAUSE M.D. Performed By: #### C [address] #### [address] Complete Blood Count Auto Di ffon 08-03-2021 Basophils (Bld) [#/Vol] 0.0 10*3/uL Normal 0.0-0.2 [facility] Comment on above: Order Comment: Comme nt procedure 08/15/21 Healthcare Worker?: N Performed By: #### C [address] #### [place] [address] [place] Basophils/100 WBC (Bld) 0.5 % Normal . [facility] Comment on above: Order Comment: Comme nt procedure 08/15/21 Healthcare Worker?: N Performed By: #### C [address] #### [address] Eosinophils (Bld) [#/Vol] 0.2 10*3/uL Normal 0.0-0.45 [facility] Comment on above: Order Comment: Comme nt procedure 08/15/21 Healthcare Worker?: N Performed By: #### C [address] #### [place] [address] [place] Eosinophils/100 WBC (Bld) 4.2 % Normal . [facility] Comment on above: Order Comment: Comme nt procedure 08/15/21 Healthcare Worker?: N Performed By: #### C [address] #### [address] Erythrocyte distribution width (RBC) [Ratio] 14.7 % Normal 11.9-15.3 [facility] Comment on above: Order Comment: Comme nt procedure 08/15/21 Healthcare Worker?: N Performed By: #### C [address] #### [address] Hematocrit (Bld) [Volume fraction] 39.6 % Normal 34.0-46.4 [facility] Comment on above: Order Comment: Comme nt procedure 08/15/21 Healthcare Worker?: N Performed By: #### C [address] #### [address] Hemoglobin (Bld) [Mass/Vol] 12.9 g/dL Normal 11.8-15.4 [facility] Comment on above: Order Comment: Comme nt procedure 08/15/21 Healthcare Worker?: N Performed By: #### C [address] #### [address] Lymphocytes (Bld) [#/Vol] 1.5 10*3/uL Normal 1.00-4.8 [facility] Comment on above: Order Comment: Comme nt procedure 08/15/21 Healthcare Worker?: N Performed By: #### C [address] #### [address] Lymphocytes/100 WBC (Bld) 27.3 % Normal . [facility] Comment on above: Order Comment: Comme nt procedure 08/15/21 Healthcare Worker?: N Performed By: #### C [address] #### [address] MCH (RBC) [Entitic mass] 31.0 pg Normal 24.7-34.3 [facility] Comment on above: Order Comment: Comme nt procedure 08/15/21 Healthcare Worker?: N Performed By: #### C [address] #### [address] MCV (RBC) [Entitic vol] 95.4 fL Normal 80-100 [facility] Comment on above: Order Comment: Comme nt procedure 08/15/21 Healthcare Worker?: N Performed By: #### C [address] #### [address] Mean Corpuscular HGB Conc 32.4 g/dL Normal 32.0-35.0 [facility] Comment on above: Order Comment: Comme nt procedure 08/15/21 Healthcare Worker?: N Performed By: #### C [address] #### [address] [place] [address] [place] Monocytes (Bld) [#/Vol] 0.5 10*3/uL Normal 0.0-0.8 [facility] Comment on above: Order Comment: Comme nt procedure 08/15/21 Healthcare Worker?: N Performed By: #### C [address] #### [facility] [address] [place] [id number] [place] Monocytes/100 WBC (Bld) 9.8 % Normal . [facility] Comment on above: Order Comment: Comme nt procedure 08/15/21 Healthcare Worker?: N Performed By: #### C [address] #### [place] [address] [place] Neutrophils (Bld) [#/Vol] 3.2 10*3/uL Normal 1.8-7.7 [facility] Comment on above: Order Comment: Comme nt procedure 08/15/21 Healthcare Worker?: N Performed By: #### C [address] #### [place] [id number] [place] Neutrophils/100 WBC (Bld) 58.2 % Normal . [facility] Comment on above: Order Comment: Comme nt procedure 08/15/21 Healthcare Worker?: N Performed By: #### C [address] #### [place] [address] [place] Nucleated RBC/100 WBC (Bld) [Ratio] 0.1 % Normal 0-0.5 [facility] Comment on above: Order Comment: Comme nt procedure 08/15/21 Healthcare Worker?: N Performed By: #### C [address] #### [place] [id number] [place] Platelet mean volume (Bld) [Entitic vol] 7.8 fL Normal 6.3-10.7 [facility] Comment on above: Order Comment: Comme nt procedure 08/15/21 Healthcare Worker?: N Performed By: #### C [address] #### [place] [id number] [place] Platelets (Bld) [#/Vol] 272 10*3/uL Normal 150-450 [facility] Comment on above: Order Comment: Comme nt procedure 08/15/21 Healthcare Worker?: N Performed By: #### C [place] 19 [facility] [place] #### [facility] [address] RBC (Bld) [#/Vol] 4.15 10*6/uL Normal 3.60-5.00 [facility] Comment on above: Order Comment: Comme nt procedure 08/15/21 Healthcare Worker?: N Performed By: #### C [place] 19 [facility] [place] #### [address] WBC (Bld) [#/Vol] 5.5 10*3/uL Normal 4.5-11.0 [facility] Comment on above: Order Comment: Comme nt procedure 08/15/21 Healthcare Worker?: N Performed By: #### C [place] 19 [facility] [place] #### [address] D-Dimer High Sensitivityon 0 08-03-2021 D-Dimer High Sensitivity 434 ng/mL High 0-243 [facility] Comment on above: Order Comment: Reaso [...] patients due to co-morbid conditions. PERFORMED BY: [place] [address] PATHOLOGIST EXCELLENCE MANAGER MARIELLA KRAUSE M.D. Performed By: #### D DIMER, CRP, CBC, ESR #### [address] Erythrocyte Sedimentation Ra brian 08-03-2021 ESR (Bld) [Velocity] 7 mm/h Normal 0-29 [facility] Comment on above: Order Comment: Comme nt procedure 08/15/21 Healthcare Worker?: N Result Comment: PERF ORMED BY: [place] [address] PATHOLOGIST EXCELLENCE MANAGER MARIELLA KRAUSE M.D. Performed By: #### C [place] 19 [facility] [place] #### [address] XR knee BI 4Von 08-03-2021 XR knee BI 4V [facility] [place] [address] XRay Report Signed Patient: Norma Brennan MR#: [id number] : 1940 Acct:[id number] Age/Sex: 81 / F ADM Date: 08/03/21 Loc: [facility] Room: Type: [facility] Attending Dr: Rosalio Roblero II, MD Ordering Provider: Rosalio Roblero MD Date of Service: 08/03/21 XR/XR knee BI 4V: Osteoarthritis of knees, bilateral Copies to: Rosalio Roblero MD 4 views both knee plain film COMPARISON:None HISTORY:Bilateral knee pain medially. Mmni-hf-cflp contact of the medial compartment of the [...] Edgard Paez M.D.08/03/2021 2:13 PM Dictation Location: [place] [address] Transcribed By: [facility] 08/03/211412 Dictated By: Edgard Paez DO 08/03/211411 Signed By: 08/03/21 1413 Normal [facility] XR knee BI 4V [facility] [employer] Other XR knee BI 4V [facility] [address] [place] [employer] Other XR knee BI 4V [address] [facility] [employer] Other XR [place] [address] [address] [facility] [employer] Other XR knee BI 4V XRay Report [employer] Other XR knee BI 4V Signed [employer] Other XR knee BI 4V Patient: Lauro Brennan MR#: [id number] [employer] Other XR knee BI 4V : 1940 Acct:[id number] [employer] Other XR knee BI 4V Age/Sex: 81 / F ADM Date: 08/03/21 [employer] Other XR knee BI 4V Loc: [facility] Room: Type : REG CLI [employer] Other XR knee BI 4V Attending Dr: Rosalio Roblero II, MD [employer] Other XR knee BI 4V Ordering Provider: Rosalio Roblero MD [employer] Other XR knee BI 4V Date of Service: 08/03/21 [employer] Other XR knee BI 4V XR/XR knee BI 4V: Osteoarthritis of knees, bilateral [employer] Other XR knee BI 4V Copies to: Rosalio Roblero MD [employer] Other XR knee BI 4V 4 views both knee plain film [employer] Other XR knee BI 4V COMPARISON:None [employer] Other XR knee BI 4V HISTORY:Bilateral knee pain medially. [employer] Other XR knee BI 4V Rkdr-yb-ifch contact of the medial compartment of the LEFT knee identified. Mild remaining joint [employer] Other XR knee BI 4V space narrowing of both knees present. Small supra patellar effusion seen. Diffuse osteopenia asia [employer] Other XR knee BI 4V ntified. No fracture or dislocation. Moderate lateral LEFT patellar subluxation identified. Mild [employer] Other XR knee BI 4V lateral RIGHT patellar subluxation identified. [employer] Other XR knee BI 4V XR/XR knee BI 4V [employer] Other XR knee BI 4V IMPRESSION:Advanced medial compartment degeneration on the LEFT. Remaining minor degenerative [employer] Other XR knee BI 4V change. [employer] Other XR knee BI 4V Impression dictated by: Edgard Paez M.D.08/03/2021 2:13 PM [employer] Other XR knee BI 4V Dictation Location: [place] [address] [employer] Other XR knee BI 4V Transcribed By: ML 08/03/21 [facility] [employer] Other XR knee BI 4V Dictated By: Edgard Paez DO 08/03/21 [facility] [employer] Other XR knee BI 4V Signed By: [employer] Other XR knee BI 4V 08/03/21 Critical access hospital [employer] Other XR pelvis 1-2Von 08-03-2021 XR pelvis 1-2V [facility] [address] [place] [address] [place] [address] XRay Report Signed Patient: Norma Brennan MR#: [id number] : 1940 Acct:[id number] Age/Sex: 81 / F ADM Date: 08/03/21 Loc: [facility] Room: Type: [facility] CLI Attending Dr: Rosalio Roblero II, [...] Edgard Paez M.D.08/03/2021 2:20 PM Dictation Location: [place] [address] Transcribed By: [facility] 08/03/21 1420 Dictated By: Edgard Paez DO 08/03/21 1419 Signed By: 08/03/21 1420 [facility] XR pelvis 1-2V XR/XR pelvis 1-2V: Osteoarthritis of knees, bilateral [employer] Other XR pelvis 1-2V Single view of the pelvis plain film [employer] Other XR pelvis 1-2V HISTORY:Bilateral knee pain [employer] Other XR pelvis 1-2V The visualized portion of the RIGHT hip arthroplasty unremarkable. Bony alignment appears [employer] Other XR pelvis 1-2V adequate. Diffuse osteopenia. [employer] Other XR pelvis 1-2V No acute bony findings identified. [employer] Other XR pelvis 1-2V No focal soft tissue abnormality seen. [employer] Other XR pelvis 1-2V XR/XR pelvis 1-2V [employer] Other XR pelvis 1-2V IMPRESSION:Unremarka b le visualized the RIGHT hip arthroplasty. Diffuse osteopenia. Unremarkable [employer] Other XR pelvis 1-2V LEFT hip. [employer] Other XR pelvis 1-2V Impression dictated by: Edgard Paez M.D.08/03/2021 2:20 PM [employer] Other XR pelvis 1-2V Transcribed By: P[facility] 08/03/21 1420 [employer] Other XR pelvis 1-2V Dictated By: Edgard Paez DO 08/03/21 1419 [employer] Other XR pelvis 1-2V 08/03/21 1420 [facility] [employer] Other Vital Signs Date Time Vital Sign Value Performing Clinician Facility 05-09-2023 11:30-0500 Body height 152.4 cm Max Ball Other [employer] Other 05-09-2023 11:30-0500 Body mass index (BMI) [Ratio] 30.81 kg/m2 Max Ball Other [employer] Other 05-09-2023 11:30-0500 Body weight 71.58 kg Max Ball Other [employer] Other 05-09-2023 11:30-0500 Diastolic blood pressure 77 mm[Hg] Max Ball Other [employer] Other 05-09-2023 11:30-0500 Respiratory rate 12 /min Max Ball Other [employer] Other 05-09-2023 11:30-0500 Systolic blood pressure 146 mm[Hg] Max Ball Other [employer] Other 08-03-2022 12:00-0400 Body height 152.4 cm Max Ball Other [employer] Other 08-03-2022 12:00-0400 Body mass index (BMI) [Ratio] 31.64 kg/m2 Max Ball Other [employer] Other 08-03-2022 12:00-0400 Body weight 73.48 kg Max Ball Other [employer] Other 08-03-2022 12:00-0400 Diastolic blood pressure 82 mm[Hg] Max Ball Other [employer] Other 08-03-2022 12:00-0400 Respiratory rate 12 /min Max Ball Other [employer] Other 08-03-2022 12:00-0400 Systolic blood pressure 137 mm[Hg] Max Ball Other [employer] Other 10-20-2021 09:45-0400 Body height 152.4 cm Rosalio Coamo II Other [employer] Other 10-20-2021 09:45-0400 Body mass index (BMI) [Ratio] 28.9 kg/m2 Rosalio Coamo II Other [employer] Other 10-20-2021 09:45-0400 Body weight 67.13 kg Rosalio Coamo II Other [employer] Other 08-10-2021 15:45-0400 Body height 152.4 cm Rosalio Coamo II Other [employer] Other 08-10-2021 15:45-0400 Body mass index (BMI) [Ratio] 28.9 kg/m2 Rosalio Coamo II Other [employer] Other 08-10-2021 15:45-0400 Body weight 67.13 kg Rosalio Coamo II Other [employer] Other 08-03-2021 12:00-0400 Body height 152.4 cm Rosalio Roblero II Other [employer] Other 08-03-2021 12:00-0400 Body mass index (BMI) [Ratio] 28.9 kg/m2 Rosalio Roblero II Other [employer] Other 08-03-2021 12:00-0400 Body weight 67.13 kg Rosalio Roblero II Other [employer] Other Encounters Encounter Date Encounter Type Care Provider Facility Start: 06-18-2023 End: 06-19-2023 [facility] Start: 05-21-2023 End: 05-22-2023 [facility]ulatory [facility] Start: 05-09-2023 End: 05-09-2023 ambulatory Max Bruce Other [employer] Other Start: 05-09-2023 Office outpatient vi sit 25 minutes Max Bruce [facility] Start: 04-16-2023 End: 04-17-2023 ambulatory Jennifer Damon MD Facility: [facility] Start: 03-19-2023 End: 03-20-2023 [facility] Start: 02-19-2023 End: 02-20-2023 [facility]ulatory [facility] Start: 02-13-2023 End: 02-13-2023 ambulatory Max Bruce Other [employer] Other Start: 02-13-2023 Telephone encounter Max RAMIREZ [facility] Start: 02-07-2023 End: 02-07-2023 ambulatory Max Bruce Other [employer] Other Start: 02-07-2023 Telephone encounter Max RAMIREZ [facility] Start: 02-01-2023 End: 02-01-2023 ambulatory Max Bruce Other [employer] Other Start: 02-01-2023 Telephone encounter Max RAMIREZ [facility] Start: 08-10-2022 End: 08-10-2022 ambulatory Max Bruce Other [employer] Other Start: 08-10-2022 Telephone encounter Max RAMIREZ [facility] Start: 08-03-2022 End: 08-04-[address] MAX BRUCE Facility: Start: 08-03-2022 Patient encounter procedure Max Bruce [facility] Start: 04-14-2022 End: 04-14-2022 ambulatory MAX BRUCE Facility:[facility] Start: 02-06-2022 End: 02-06-2022 ambulatory Rosalio Coamo II Other [employer] Other Start: 02-06-2022 Telephone encounter Rosalio Coamo II [facility] Start: 01-25-2022 Telephone encounter Yecenia hawkins PA-C Work Phone: [facility] [place] Comment on above: 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 (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 for patient's ortho./) Start: 01-19-2022 End: 01-19-2022 ambulatory Rosalio Coamo II Other [employer] Other Start: 01-19-2022 Telephone encounter Rosalio Coamo II [facility] Start: 01-02-2022 End: 01-02-2022 ambulatory Rosalio Coamo II Other [employer] Other Start: 01-02-2022 Telephone encounter Rosalio Coamo II [facility] Start: 11-30-2021 End: 11-30-2021 ambulatory Rosalio Osbaldo II Other [employer] Other Start: 11-30-2021 Telephone encounter Rosalio Osbaldo II [facility] Start: 11-18-2021 End: 11-18-2021 ambulatory Rosalio Coamo II Other [employer] Other Start: 11-18-2021 Office outpatient vi sit 25 minutes Rosalio Osbaldo II [facility] Start: 11-02-2021 End: 11-02-2021 ambulatory ROSALIO OSBALDO [employer] Other Start: 11-02-2021 Telephone encounter Rosalio Coamo II [facility] Start: 10-28-2021 End: 10-28-2021 ambulatory Rosalio Osbaldo II Other [employer] Other Start: 10-28-2021 Telephone encounter Rosalio Coamo II [facility] Start: 10-26-2021 End: 10-26-2021 ambulatory Rosalio M Coamo II Facility:[facility] Start: 10-21-2021 End: 10-21-2021 ambulatory Rosalio Osbaldo II Other [employer] Other Start: 10-21-2021 Telephone encounter Rosalio Coamo II [facility] Start: 10-20-2021 Office outpatient vi sit 25 minutes Rosalio Coamo II [facility] Start: 10-20-2021 End: 10-20-2021 ambulatory Rosalio M Coamo II [employer] Other Start: 10-14-2021 End: 10-14-2021 ambulatory Rosalio Coamo II Other [employer] Other Start: 10-14-2021 Telephone encounter Rosalio Osbadlo II [facility] Start: 09-22-2021 End: 09-22-2021 ambulatory Rosalio M Coamo II Facility:[facility] Start: 08-15-2021 End: 08-15-2021 ambulatory Rosalio M Coamo II Facility:[facility] Start: 08-12-2021 End: 08-12-2021 ambulatory Rosalio Roblero II Facility:[facility] Start: 08-10-2021 End: 08-10-2021 ambulatory Rosalio Roblero II Other [employer] Other Start: 08-10-2021 Office outpatient vi sit 25 minutes Rosalio Roblero II [facility] Start: 08-03-2021 [facility] visit new patient Rosalio matthews II [facility] Start: 08-03-2021 End: 08-03-2021 ambulatory Rosalio Roblero II [employer] Other Start: 07-13-2021 Adult health examination Max Bruce Other [employer] Other Procedures Date Procedure Procedure Detail Performing Clinician Depression screening Maryanne Bruce Other Plan of Treatment Date Care Activity Detail Author Start: 2022 Influenza vaccination INFLUENZA (#1) [facility] Start: 05-14-2021 ADVANCE DIRECTIVE DISCUSSION ADVANCE DIRECTIVE DISCUSSION [facility] Start: 01-04-2021 COVID-19 VACCINE (3 - Booster for Moderna series) COVID-19 VACCINE (3 - Booster for Moderna series) [facility] Start: 01-13-2004 BONE DENSITY BONE DENSITY [facility] [facility] Start: 01-13-2004 PNEUMOCOCCAL: 65+ (1 - PCV) PNEUMOCOCCAL: 65+ (1 - PCV) [facility] Start: 1989 SHINGRIX VACCINE (1 of 2) JAMISON GRIX VACCINE (1 of 2) [facility] Start: 01-13-1984 DIABETES SCREEN DIABETES SCREEN [facility] Start: 1958 Urine microalbumin profile DTAP,TDAP ,TD (1 - Tdap) [facility] Immunizations Immunization Date Immunization Notes Care Provider Danelle lozoya 02-05-2023 Prevnar 20 Max Bruce Other [facility] Other 02-05-2023 influenza, high dose seasonal, preservative-free Max Bruce Other [facility] Other 04-21-2022 COVID-19 Vaccine Moderna - Documentation Purposes Only Max Bruce Other [facility] Other 03-11-2022 zoster vaccine recombinant Max Bruce Other [facility] Other 03-11-2022 zoster vaccine, live Benjami milagros Bruce Other [facility] Other 02-03-2022 influenza virus vaccine, split virus (incl. purified surface antigen) Max Bruce Other [facility] Other 02-03-2022 influenza, high dose seasonal, preservative-free Max Bruce Other [facility] Other 07-13-2021 zoster vaccine recombinant Max Bruce Other [facility] Other 03-31-2021 COVID-19 Vaccine Moderna - Documentation Purposes Only Max Bruce Other [facility] Other 01-24-2021 influenza virus vaccine, split virus (incl. purified surface antigen) Max Bruce Other [facility] Other 08-04-2020 COVID-19 Vaccine Moderna - Documentation Purposes Only Max Bruce Other [facility] Other 07-01-2020 COVID-19 Vaccine Moderna - Documentation Purposes Only Max Bruce Other [facility] Other 02-03-2020 influenza virus vaccine, split virus (incl. purified surface antigen) Max Bruce Other [facility] Other Payers Date Payer Category Payer Private Health Insurance 2021 Private Health Insurance [id number] 2021 Self-pay 2020 Medicare AETNA MEDICARE A ETNA MEDICARE PPO [id number] 2020-Present [phone] [address] [place] [address] PPO [id number] 1959 Medicare [id number] 1939 Unknown [id number] [id number] 93 1939 Unknown [id number] 2.16.840.1.651697.3.579.2.5 93 1939 Unknown [id number] 2.16.840.1.649706.3.579.2.1 96 1939 Unknown [id number] 2.16.840.1.924332.3.579.2.1 96 1939 Unknown [id number] 2.16.840.1.926882.3.579.2.1 96 1939 Unknown [id number] 2.16.840.1.043051.3.579.2.1 96 1939 Unknown [id number] 2.16.840.1.925935.3.579.2.1 96 Unknown [id number] 2.16.840.1.320161.3.579.2.5 31 Unknown [id number] 2.16.840.1.295782.3.579.2.5 31 Unknown [id number] 2.16.840.1.521571.3.579.2.5 31 Unknown [id number] 2.16.840.1.546672.3.579.2.5 31 Unknown [id number] 2.16.840.1.013968.3.579.2.5 31 Unknown [id number] 2.16.840.1.422801.3.579.2.5 31 Unknown [id number] 2.16.840.1.342195.3.579.2.5 31 Social History Date Type Detail Facility Sex Assigned At Merged With [facility] [employer] Other Start: 06-22-2020 Tobacco smoking status NDIS Never smoked tobacco [facility] Start: 06-22-2020 Tobacco use and exposure Smokeless tobacco non-user [facility] Start: 12-16-2020 Alcohol intake Current drinke r of alcohol (finding) [facility] Start: 06-22-2020 History SDOH Alcohol Comment 1 x weekly [facility] Start: 1940 Sex Assigned At Female [facility] Medical Equipment Procedure Code Equipment Code Equipment Origin al Text Equipment Identifier Dates Lens Iol 0d +19. 5 [place] Uv Abs - [id number] Start: 08-18-2020 Comment on above: Description: [...] doesn't help can use topical steroid drops [facility] Other 10-03-2023 Evaluation note* Encounter Date Diagnosis Assessment Notes Treatment Notes Treatment Clinical Notes Feb, SBE (subacute bacterial endocarditis) prophylaxis candidate (ICD-10 - Z29.89) [facility] Other 03-30-2023 Evaluation note* Encounter Date Diagnosis Assessment Notes Treatment Notes Treatment Clinical Notes Jul, SBE (subacute bacterial endocarditis) prophylaxis candidate (ICD-10 - Z29.8) [facility] Other 03-23-2023 Evaluation note* Encounter Date Diagnosis [...] High risk medication use (ICD-10 - Z79.899) [facility] Other 12-02-2022 NoteHNO ID: [id number] Author: Pedro Goff DO Service: ? Author Type: Physician Type: Progress Notes Filed: 04/14/2022 10:56 AM Note Text: CONSULT ORTHOPAEDIC: HIP PRIMARY CARE PHYSICIAN: Max Bruce DO REFERRING PROVIDER: Rosalio Roblero II [address] [place] [id number] HPI: 82-year-old female presents today with right hip pain that has been chronic in nature over the last year and a half but acutely worsened over the last 6 months. 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 She overall uses a walker for ambulation and has significant leg length difference and requires a shoe lift. She states over the last 6 months that her right hip and leg pain is worsening especially after working with physical therapy and was seen in [facility] and recommended nonweightbearing for 6 months with [...] Deficiency Chronic Kidney Disease, Stage Iii (Moderate) ([facility]) Chronic Kidney Disease, Stage 3 Unspecified ([facility]) History of Total Right Hip Replacement Gastro-Esophageal Reflux Disease With Esophagitis, Without Bleeding SUBJECTIVE CHIEF COMPLAINT: Hip Pain HPI: Norma Brennan is a 82 year old patient here for evaluation and management of Right hip pain.Norma Brennan has had progressive problems with the hip(s) most of the day over the past 6 month(s) interfering with activities which include walking 2 blocks, 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 [facility]12-02-2022 NoteHNO ID: [id number] Author: RT Anthony(R) Service: ? Author Type: [...] Harini RT Gaby(R) April 14, 2022 8:27 [facility]09-14-2022 Miscellaneous Notes * Telephone Encounter - [...] component loosening and Aseptic) Please dial Pilar [phone] [facility]* Encounter Date Diagnosis Assessment Notes Treatment Notes Treatment Clinical Notes Nov, Right hip pain (ICD-10 - M25.551) Nov, History of total right hip arthroplasty (ICD-10 - Z96.641) Nov, Other I again had a l stan discussion with the patient regarding her symptoms and treatment options. We discussed her lab results from [facility] on 11/02/2021 and they are as follows: [...] to get her in with either the [facility] or [facility] to discuss the possibility of revision because at this point I do not feel that our health system would be the best place for her to get the surgery that may need to be required. Patient understands this and is willing to proceed with the nonweightbearing precautions for another 4 to 6 weeks. [facility] Other 06-17-2022 Evaluation note* Encounter Date Diagnosis Assessment Notes Treatment Notes Treatment Clinical Notes Oct, History of total right hip arthroplasty (ICD-10 - Z96.641) [facility] Other 06-09-2022 Evaluation note* Encounter Date Diagnosis [...] back after she gets her CT scan. [facility] Other 03-30-2022 Evaluation note* Encounter Date Diagnosis [...] the results and treatment plans moving forward. [facility] Other 03-23-2022 Evaluation note* Encounter Date Diagnosis [...] see her back after her labs result. 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 DATE CREATED AUTHOR AUTHOR'S ORGANIZ ATION 06/17/2022 [facility] DATE CREATED AUTHOR AUTHOR'S ORGANIZ ATION 08/07/2022 [facility] DATE CREATED AUTHOR AUTHOR'S ORGANIZ ATION 07/20/2023 [facility] FOR RECORDS PERTAINING TO PATIENTS WHO [...] BE BASED ON THE PRIMARY CLINICAL RECORDS. [facility]. provides no warranty or guarantee of the accuracy or completeness of information in this document.
[2023-09-10 08:07] VITALS: BP 178/96; PULSE 67; TEMP 36.6; O2SAT 97
[2023-09-10 08:47] VITALS: BP 195/86; PULSE 69; O2SAT 95
--- NOTE | 2023-09-10 08:48 | P.ON_ITS ---
Date of procedure: 09/10/23 Pre-op diagnosis: Right sacroiliitis Post-op diagnosis: same as pre-op Procedure: Procedure: Right sacroiliac joint injection Medications: Bupivacaine 0.25% 3cc, kenalog 40mg After informed consent was obtained, the patient was brought to the medical p rocedure unit and placed in the prone position, when a timeout was completed verifying correct patient, procedure, site, positioning, implant, and/or special equipment.? The skin overlying the area was prepped and draped in standard sterile fashion using alcohol.? A 25-gauge needle was inserted towards the right sacroiliac joint under direct fluoroscopic imaging.? Needle tip was advanced until the joint was encountered.? We instilled a total of 3 mL of solution.? Postoperatively needles were removed.? The patient tolerated the procedure well without complication.? The patient reported reduction in pain symptoms postoperatively. Anesthesia: Local Surgeon: Jennifer Damon Pathology: none sent Condition: stable Disposition: no change
[2023-09-10 08:49] VITALS: BP 195/84; PULSE 72; O2SAT 95
[2023-09-10] MEDS: BUPIVACAINE HCL 0.25% PF 25 MG/10 ML VIAL INJ (08:50)
[2023-09-10] MEDS: IOHEXOL 240 MG/ML - 10 ML VIAL 12 MG INJ (08:50)
[2023-09-10] MEDS: LIDOCAINE HCL 2% PF 100 MG/5 ML VIAL 1.5 ML INJ (08:51)
[2023-09-10] MEDS: TRIAMCINOLONE ACETONIDE 40 MG/ML VIAL INJ (08:51)
== END 2023-09-10 08:54 | disposition home or self-care (01) ==
LOC: SURGOUT 07:48
PROVIDERS: PCP Internal Medicine; Visit Provider Anesthesiology
DX: M46.1 Sacroiliitis, not elsewhere classified (principal)
CPT/HCPCS: 27096; Q9966

== ENCOUNTER 2023-09-11 14:50 | Outpatient (OUT) | payer MEDICARE, SELFPAY ==
[2023-09-11 15:29] LABS: Basophils Percent Auto 0.3 % (0.2-2.0); Eosinophils Absolute Auto 0.1 10^3/uL (0.0-0.7); Eosinophils Percent Auto 0.7 % (0.9-7.0); Hematocrit 37.8 % (36.0-48.0); Immature Granulocytes Abs Auto 0.01 10^3/uL (0.00-0.03); Immature Granulocytes Pct Auto 0.1 % (0.0-0.5); Lymphocytes Absolute Auto 1.2 10^3/uL (1.2-3.8); Lymphocytes Percent Auto 16.2 % (20.5-60.0); Mean Corpuscular HGB Conc 31.7 g/dL (29.9-35.2); Mean Corpuscular Hemoglobin 30.2 pg (26.7-34.0); Mean Platelet Volume 10.1 fL (9.5-13.5); Monocytes Absolute Auto 0.5 10^3/uL (0.3-0.8); Monocytes Percent Auto 6.8 % (1.7-12.0); Neutrophils Absolute Auto 5.6 10^3/uL (1.4-6.5); Neutrophils Percent Auto 75.9 % (43.0-75.0); Platelet Count 295 10^3/uL (150-450); Red Blood Count 3.98 10^6/uL (4.20-5.40); Red Cell Distribution Width 15.3 % (11.0-15.0); White Blood Count 7.3 10^3/uL (4.0-11.0)
[2023-09-11 15:41] LABS: Estimated Average Glucose 108 mg/dL; Glycohemoglobin A1C 5.4 % (4.5-6.2)
[2023-09-11 15:53] LABS: Alanine Aminotransferase 21 U/L (14-59); Albumin Globulin Ratio 0.9; Albumin Level 3.4 g/dL (3.4-5.0); Alkaline Phosphatase 53 U/L (46-116); Anion Gap 10.4; Aspartate Amino Transferase 15 U/L (15-37); BUN Creatinine Ratio 23.8; Bilirubin Total 0.6 mg/dL (0.2-1.0); Calcium 9.3 mg/dL (8.5-10.1); Carbon Dioxide 28.3 mmol/L (21.0-32.0); Chloride 103 mmol/L (98-107); Estimated GFR (African America >60 (>=60); Estimated GFR (Non-African Ame 52 (>=60); Globulin 3.6 g/dL; Glucose 102 mg/dL (74-106); Potassium 3.7 mmol/L (3.5-5.1); Sodium 138 mmol/L (136-145); Thyroid Stimulating Hormone 1.787 uIU/mL (0.358-3.740)
== END 2023-09-11 14:51 | disposition home or self-care (01) ==
LOC: LAB 14:52
PROVIDERS: PCP Internal Medicine; Visit Provider Internal Medicine
DX: R73.01 Impaired fasting glucose (principal); N18.9 Chronic kidney disease, unspecified; R53.83 Other fatigue; E55.9 Vitamin D deficiency, unspecified
CPT/HCPCS: 36415; 80053; 82306; 83036; 84443; 85025

== ENCOUNTER 2023-09-20 10:36 | Outpatient (OUT) | payer MEDICARE, SELFPAY ==
--- NOTE | 2023-09-20 10:59 | P.CN_ITS ---
Consult Note: HPI Data of Consult Patient: known to practice within the last 3 years Requesting Physician: Tressa Ayala NP Primary Care Provider: Max Bruce, DO Consult Narrative Reason for consult: f/u Narrative: Norma Holt a pleasant 83 year old female presents for evaluation and management of chronic low back and right hip pain. Today pain 3/10 deep ache, worse with activity increases to 9/10. Patient reports mild relief from bilateral L4-5 L5-S1 RFA, patient is not finding moderate or significant relief. She is noticing improvement in ability to function but no pain improvement. Recently underwent right L4-5 L5-S1 TFESI and right SIJ injection with very minimal relief. We had previously discussed Spinal cord stimulator trial but patient would like to stop interventional therapy at this time. cc:: CC: Tressa Ayala NP Review of Systems ROS Status of ROS 10 or more systems reviewed and unremark able except as noted in history and below Musculoskeletal Reports: back pain and joint pain PFSH PFSH Medical History Arthritis ?M19.90 - Unspecified osteoarthritis, unspecified site (ICD-10) Lumbar stenosis ?M48.061 - Spinal stenosis, lumbar region without neurogenic claudication (ICD-10) Post laminectomy syndrome ?M96.1 - Postlaminectomy syndrome, not elsewhere classified (ICD-10) Surgical History History of removal of retained hardware ?Z98.890 - Other specified postprocedural states (ICD-10) History of hip surgery ?Z98.890 - Other specified postprocedural states (ICD-10) H/O total hip arthroplasty ?Z96.649 - Presence of unspecified artificial hip joint (ICD-10) History of lumbar fusion ?Z98.1 - Arthrodesis status (ICD-10) Meds Home Medications and Allergies Home Medications ?Medication ?Instructions ?Recorded ?Confirmed ?Type calcium carbonate 600 mg-vitamin 1 tab PO DAILY 02/19/23 09/10/23 History D3 10 mcg (400 unit) tablet (Calcium 600 + D(3)) escitalopram oxalate 20 mg tablet 20 mg PO DAILY 02/19/23 09/10/23 History (Lexapro) magnesium 200 mg tablet 400 mg PO DAILY 02/19/23 09/10/23 History meloxicam 15 mg tablet 15 mg PO DAILY 02/19/23 09/10/23 History omeprazole 40 mg capsule,delayed 40 mg PO DAILY 02/19/23 09/10/23 History release fish oil 1 tab PO DAILY 03/09/23 09/10/23 History lutein 1 tab PO DAILY 03/09/23 09/10/23 History multivitamin 1 tab PO DAILY 03/09/23 09/10/23 History potassium 1 tab PO DAILY 03/09/23 09/10/23 History vitamin D 1 tab PO DAILY 03/09/23 09/10/23 History vitamin c 1 tab PO DAILY 03/09/23 09/10/23 History naloxone 4 mg/actuation nasal 4 mg intranasal Q2M #2 ea 04/25/23 09/10/23 Rx spray (Narcan) hydrocodone 5 mg-acetaminophen 325 1 tab PO TID PRN pain #90 tabs 08/21/23 09/10/23 Rx mg tablet Allergies Allergy/AdvReac Type Severity Reaction Status Date / Time adhesive tape Allergy Rash Verified 09/10/23 08:10 acetaminophen [From Percocet] AdvReac Mild Verified 09/10/23 08:10 oxycodone [From Percocet] AdvReac Mild Verified 09/10/23 08:10 Exam Narrative Exam Narrative: Psych-alert and oriented x 3. Attentive and appropriate, constitutionally normal, displays normal mood and affect per situation.? There are no obvious deficits in memory, reasoning, or intellect.? Skin-no obvious rashes, bruising, erythema noted to the patient's area of pain. Extremities- extremities are warm with minimal edema and palpable pulses. Lumbar-no significant tenderness to palpation noted in the lumbar spine and paraspinal musculature.? Pain is elicited with extension, and lateral rotation of the lumbar spine. Range of motion is slightly diminished with these motions due to pain. Facet loading maneuvers are positive bilaterally and do appear to be concordant with the patient's normal complaints of pain.? Coordination remains intact.? Gait remains non-antalgic. Constitutional Documenting provider has reviewed patient's vital signs: yes Common normals: no apparent distress, oriented x3, healthy appearing, alert and well nourished General appearance: cooperative HENWY Common normals: normocephalic, hearing grossly normal bilaterally and moist oral mucous membranes Head and scalp: normocephalic Eye Common normals: PERRL Pupil: PERRL Neck & C-Spine Common normals: full ROM General: normal visual inspection Chest Common normals: inspection of chest normal Respiratory Common normals: normal respiratory effort, no retractions and no use of accessory muscles Back & Pelvis Other: intermittent NC with activity right SIJ pain on exam, positive tenderness over right PSIS, positive liam, fadir, thigh thrust, and gaenslens. pain with palpation over right GTB, cannot lie on right side Neuro Common normals: oriented x3, CN's II-XII intact bilaterally, moves all extremities, no focal motor deficits, no sensory deficits noted and deep tendon reflexes 2+ bilaterally Sensorium/orientation: alert Motor exam: strength 5/5 throughout and no movement abnormalities noted Psych Common normals: mental status grossly normal, thought process normal, cooperative, affect normal, speech normal and activity/motor behavior normal Speech: normal speech Thought process: normal thought process Results Additional Findings Additional findings: If on a controlled substance or opioids, I have checked an [place] report on this patient and there are no aberrancies noted in the prescribing history.??If on a controlled substance or opioid a drug screen was completed and reviewed within the last year, and if there has not been a drug screen completed we ordered one today to monitor higher risk, state monitored pain medication use. As part of providing excellent, safe, comprehensive care, the following was completed at our patient's visit: 1. A medication reconciliation and review to ensure accurate knowledge of current/active medications, including asking our patients to inform us about any [id number] medications or herbal remedies/nutritional supplements/alternative remedies. 2. A review to specifically ensure our patients have had annual screening for screening for depression, screening for tobacco use, and screening for unhealthy alcohol use. For concerning screenings had a discussion with the patient, provided patient education, and recommended follow-up with primary care provider when appropriate. If patient noted with a risk of falling, they received education on strength, gait, and balance training to prevent future risk of falling. Assessment and Plan Assessment and Plan (1) Chronic prescription opiate use: (2) Lumbar postlaminectomy syndrome: (3) Lumbar spondylosis: (4) Lumbar stenosis with neurogenic claudication: (5) Greater trochanteric bursitis of right hip: (6) Sacroiliitis: Plan unfortunately has failed to respond to numerous injection options, would not like to purse any additional injection therapy options or spinal cord stimulator trial. PCP has offered to take over medication management, we will refill [place] 5-325mg TID PRN moderate to severe pain 90 tabs, up to 3 months if needed f/u as needed
== END 2023-09-20 10:37 | disposition home or self-care (01) ==
PROVIDERS: PCP Internal Medicine; Visit Provider Nurse Practitioner
DX: Z79.891 Long term (current) use of opiate analgesic (principal); M96.1 Postlaminectomy syndrome, not elsewhere classified; M47.816 Spondylosis without myelopathy or radiculopathy, lumbar region; M48.062 Spinal stenosis, lumbar region with neurogenic claudication; M70.61 Trochanteric bursitis, right hip; M46.1 Sacroiliitis, not elsewhere classified
CPT/HCPCS: G0463

== ENCOUNTER 2024-01-08 12:14 | Outpatient (OUT) | payer MEDICARE, SELFPAY ==
--- OUTSIDE RECORDS SUMMARY | 2024-01-08 12:19 | XMS_ITS | CCD ---
Author Organization [facility] Care Team Providers Care 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 Name Role Phone Rosalio Roblero II Unavailable [phone] Max Bruce DO Primary Care Provider MAX BRUCE Primary Care Unavailable PEDRO GOFF Referring Unavailable MAX BRUCE Primary Care Unavailable [facility]EDRO GOFF Attending Unavailable OSBALDO SILVERIO, ROSALIO Puente Referring Unavaildebbi e TEO MAX E Primary Care Unavailable Osbaldo SILVERIO, Rosalio Puente Attending Unavailabl e Teo, Max Primary Care Unavailable Osabldo II, Rosalio Puente Admitting Unavailabl e Motley II, Rosalio M Admitting Unavailabl e Motley II, Rosalio Puente Attending Unavailabl e Max Bruce Primary Care Unavailable Motley II, Rosalio Puente Admitting Unavailabl e Osbaldo II, Rosalio Puente Attending Unavailabl e Ball, Max Primary Care Unavailable Motley II, Rosalio Puente Attending Unavailabl e Ball, Max Primary Care Unavailable Osbaldo II, Rosalio M Admitting Unavailabl e Motley II, Rosalio M Admitting Unavailabl e Motley II, Rosalio Puente Attending Unavailabl e Ball Max Primary Care Unavailable Motley II, Rosalio Puente Admitting Unavailabl e Motley II, Rosalio M Attending Unavailabl e Ball, Max Primary Care Unavailable Motley II, Rosalio Puente Attending Unavailabl e Teo, Max Primary Care Unavailable Motley II, Rosalio Puente Admitting Unavailabl e OSBALDOROSALIO DAVIS Consulting Unavailable ROSALIO ROBLERO Attending Unavailable ROSALIO ROBLERO Admitting Unavailable TEO, DR BERRY Attending Unavailable TEO, DR BERRY Admitting Unavailable TEO, DR BERRY Consulting Unavailable Teo Max Unavailable Marisol ARGUETA, Jennifer Ojeda Attending Unavailable Marisol ARGUETA, Jennifer Ojeda Attending Unavailable Mairsol ARGUETA, Jennifer Ojeda Attending Unavailable Gifaizaitis , Jennifer Ojeda Attending Unavailable Gieditis , Jennifer Ojeda Attending Unavailable Gifaizaitis , Jennifer Ojeda Attending Unavailable Gifaizaitis , Jennifer Ojeda Attending Unavailable Allergies Allergy Classification Reported Allergen(s) Allergy Type Date of Onset Reaction(s) Facility (18 sources) Acetaminophen / oxyCODONE Drug Allergy Unknown [facility] Other (18 sources) Adhesive Tape; Translations: [adhesive tape] Propensity to adverse reactions 08-16-19 Unknown, Blister [facility] (3 sources) oxyCODONE Drug Allergy 08-16-19 Agitated [facility] (4 sources) Adhesive Tape 1 x5yd *MEDICAL DEVICES AND SUPPLIES Propensity to adverse reactions Comment:Adhesi ve Tape [facility] Other (2 sources) Acetaminophen Drug Allergy 09-11-19 Unknown Reaction [facility] Medications Current Medications Medication Drug Class(es) Dates Sig (Normalized) Sig (Original) acetaminophen 325 mg / HYDROcodone bitartrate 5 mg oral tablet (5 sources) Opioid Agonist Start: 09-11-2023 End: 12-03-2023 take 1 tablet by mouth every eight hours Hydrocodone-Aceta minophen Active 1 TAB PO Every 8 hours December 03, 2023 start 12/02 take 1 tablet by ritu th every eight hours HYDROcodone-Acetaminophen 5-325 MG 1 tab let as needed Oral every 8 hours Active ascorbic acid 500 mg oral tablet (10 sources) Vitamin C Start: 08-12-2021 take 1 tablet by mouth once daily Ascorbic Acid (Vitamin C) (Vitamin C) 500 mg Tablet Active 500 MG PO Daily August 12, 2021 12:00am take 1 tablet by mouth every twe nty-four hours calcium carbonate 1500 mg or al tablet (18 sources) take 1 tablet by mouth every twe lve hours take 1 tablet by mouth every twe lve hours cholecalciferol 0.025 mg oral tablet (20 sources) Vitamin D Start: 08-12-2021 take 1 tablet by mouth once daily Cholecalciferol (Vitamin D3) (Vitamin D3) 25 mcg (1,000 unit) Tablet Active 25 MCG PO Daily August 12, 2021 12:00am take 1 capsule by mouth every tw enty-four hours escitalopram 20 mg oral tablet (20 sources) Serotonin Reuptake Inhibitor Start: 10-12-2023 take 1 tablet by mouth once daily Escitalopram Oxalate Active 0 .ROUTE .COMPLEX October 12, 2023 1:16pm TAKE 1 TABLET BY MOUTH EVERY DAY FOR 90 DAYS Start: 03-26-2020 End: 10-12-2023 take 20 mg by mouth once daily in the morning Escitalopram Oxalate Discontinued 20 MG PO Every morning August 12, 2021 12:00am October 12, 2023 1:16pm Comment on above: Take 20 mg by mouth once daily. Fish Oils (18 sources) take 1 capsule by mo uth once daily take 1 capsule by mouth once ro ly Fish Oil 1200 MG 1 capsule Orally Once a day Active gabapentin 100 mg oral capsule (2 sources) Anti-epileptic Agent Start: 09-11-2023 take 100 mg by mouth once daily at bedtime Gabapentin Active 100 MG PO Daily at bedtime September 11, 2023 12:00am lutein 40 mg oral capsule (20 sources) Start: 09-11-2023 take 40 mg by mouth once daily at mealtime Lutein Active 40 MG PO Daily September 11, 2023 12:00am administer with meals Start: 08-12-2021 End: 09-11-2023 take 20 mg by mouth once daily Lutein Discontinued 20 MG PO Daily August 12, 2021 12:00am September 11, 2023 8:12am take 1 capsule by mo uth every twenty-four hours LUTEIN ORAL Take by mouth. 0 Active Comment on above: Take by mouth. Magnesium (18 sources) take 1 tablet by mouth once laly y take 1 tablet by mouth once laly y Magnesium 500 MG 1 tablet with a meal Orally Once a day Active magnesium oxide 400 mg oral tablet (2 sources) Start: 08-12-2021 take 400 mg by mouth once daily Magnesium Oxide Active 400 MG PO Daily August 12, 2021 12:00am meloxicam 15 mg oral tablet (20 sources) Nonsteroidal Anti-inflammatory Drug Start: 11-26-2023 take 1 tablet by mouth once daily Meloxicam Active 0 .ROUTE .COMPLEX November 26, 2023 1:27pm TAKE 1 TABLET BY MOUTH EVERY DAY Start: 03-29-2020 End: 11-26-2023 take 15 mg by mouth once daily in the morning Meloxicam Discontinued 15 MG PO Every morning August 12, 2021 12:00am November 26, 2023 1:27pm Comment on above: Take 15 mg by mouth once daily. Multivitamin preparation (20 sources) Start: 08-12-2021 take 1 tablet by mouth once daily Multivitamin Active 1 TAB PO Daily August 12, 2021 12:00am Multivitamin Act bruce [place]-3 Fatty Acids (Fish Oil Concentrate) 1,000 mg Capsule (2 sources) Start: 08-12-2021 take 1 capsule by mouth once daily [place]-3 Fatty Acids (Fish Oil Concentrate) 1,000 mg Capsule Active 1000 MG PO Daily August 12, 2021 12:00am omeprazole 40 mg delayed release oral capsule (20 sources) Proton Pump Inhibitor Start: 07-16-2023 take 1 capsule by mouth once daily at breakfast Omeprazole Active 0 .ROUTE .COMPLEX 90 July 16, 2023 1:57pm TAKE 1 CAPSULE BY MOUTH DAILY ON AN EMPTY STOMACH FOLLOWED IN 30 MINUTES BY BREAKFAST Start: 03-25-2020 End: 07-16-2023 take 40 mg by mouth once daily in the morning Omeprazole Discontinued 40 MG PO Every morning August 12, 2021 12:00am July 16, 2023 1:57pm Comment on above: Take 40 mg by mouth once daily. traMADol hydrochloride 50 mg oral tablet (20 sources) Opioid Agonist Start: 12-18-2022 take 2 tablets by mouth twice daily traMADol HCl 50 MG TAKE 2 TABLETS BY MOUTH TWICE A DAY Dec, Active Start: 08-01-2022 take 2 tablets by [facility] twice daily traMADol HCl 50 MG TAKE 2 TABLETS BY MOUTH TWICE A DAY Jul, Active Start: 08-12-2021 End: 09-11-2023 take 100 mg by mouth twice daily Tramadol Discontinued 100 MG PO Twice daily August 12, 2021 12:00am September 11, 2023 8:12am Start: 05-27-2020 take 2 tablets by mo [facility] twice daily traMADol (ULTRAM) 50 mg tablet Take 100 mg by mouth twice daily. 0 05/27/2020 Active [facility]four [facility] traMADol HCl 50 MG 1 tablet as needed Orally Once a day Active Comment on above: Take 100 mg by mouth twice daily. Vitamin C 1000 MG (10 sources) take 1 tablet by once daily take 1 tablet by mouth once laly y Vitamin C 1000 MG 1 tablet Orally Once a day Active Completed/Discontinued Medications Medication Drug Class(es) Dates Sig (Normalized) Sig (Original) 8 hr acetaminophen 650 mg extended release oral tablet (2 sources) Start: 08-12-2021 End: 09-11-2023 take 1 tablet by mouth every twelve hours Acetaminophen (Tylenol Arthritis) 650 mg Tablet Extended Release Discontinued 650 MG PO Q12H August 12, 2021 12:00am September 11, 2023 8:12am amoxicillin 500 mg oral capsule (7 sources) Penicillin-class Antibacterial Start: 08-10-2022 Amoxicillin 500 MG 4 capsules Orally 30-60 minutes prior to dentist appt. for 1 days Feb, Not-Taking/PRN hydrocortisone 10 mg/ml / neomycin 3.5 mg/ml / polymyxin b [id number] unt/ml otic suspension (5 sources) Aminoglycoside Antibacterial, Polymyxin-class Antibacterial, Corticosteroid Start: 08-21-2023 End: 09-11-2023 Neomycin-Polymyxin -Hc Discontinued 0 .ROUTE .COMPLEX 10 August 21, 2023 4:41pm September 11, 2023 8:12am PLACE 4 DROPS INTO AFFECTED EAR(S) ONCE A DAY NEEDED FOR ITCHING OR DISCOMFORT Start: 08-21-2023 End: 08-21-2023 Loystuwq-Nzopoighi-Wl Discon tinued 4 DROPS OTIC August 21, 2023 12:00am August 21, 2023 4:41pm 4 drops into affected ear Otic daily as needed for itching or discomfort Start: 05-09-2023 Neomycin-Polym yxin-HC [id number] 4 drops into affected ear Otic daily as needed for itching or discomfort for 30 days Apr, Active ketorolac tromethamine 5 mg/ml ophthalmic solution (1 source) Nonsteroidal Anti-inflammatory Drug, Cyclooxygenase Inhibitor Start: 08-18-2020 keTORolac (ACUL AR) 0.5 % ophthalmic solution USE DIRECTED BY PHYSICIAN, IN OPERATIVE EYE, BEGINNING ONE DAY AFTER SURGERY 1 Bottle 0 08/18/2020 Active Comment on above: USE DIRECTED BY Andres ALLEN, IN OPERATIVE EYE, BEGINNING ONE DAY AFTER SURGERY prednisoLONE acetate 10 mg/ml ophthalmic suspension (1 source) Corticosteroid Start: 08-18-2020 prednisoLONE a cetate (PRED FORTE, ECONOPRED PLUS) 1 % ophthalmic suspension USE DIRECTED BY PHYSICIAN, IN OPERATIVE EYE, BEGINNING ONE DAY AFTER SURGERY 1 Bottle 0 08/18/2020 Active Comment on above: USE DIRECTED BY Andres ALLEN, IN OPERATIVE EYE, BEGINNING ONE DAY AFTER SURGERY Problems Active Problems Problem Classification Problem Date Documented Da te Episodic/Chronic Anxiety disorders (14 sources) Generalized anxiety disorder; Translations: [Generalized anxiety disorder] Resolved: 05-19-2020 Chronic Chronic kidney disease (12 sources) Chronic kidney disease stage 3; Translations: [Chronic kidney disease, stage III (moderate)] 08-18-2020 Chronic Diabetes mellitus without complication (14 sources) Impaired glucose tolerance (oral); Translations: [Impaired glucose tolerance] Onset: 08-06-2022 Episodic Disorders of lipid metabolism (11 sources) Familial hypercholesterolemia ; Translations: [Familial hypercholesterolemia ] Onset: 08-06-2022 Chronic Esophageal disorders (7 sources) Gastro-esophageal reflux disease with esophagitis; Translations: [Gastroesophageal reflux disease with esophagitis without hemorrhage] 09-09-2023 Chronic Genitourinary symptoms and ill-defined conditions (7 [...] 08-18-2020 Episodic Other aftercare (1 source) Other fpc (current) drug therapy Episodic Other aftercare (1 source) Drug therapy finding; Translations: [prison (current) use of opiate analgesic] 12-09-2023 Episodic Other aftercare (1 source) 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; Translations: [Long-term (current) use of other medications] 12-11-2023 Episodic Other bone disease and musculoskeletal deformities [...] Translations: [Total hip replacement prosthesis] Chronic Other diseases of veins and lymphatics (2 sources) Venous insufficiency of leg; Translations: [Venous insufficiency (chronic) (peripheral)] 09-09-2023 Episodic Other diseases of veins and lymphatics (2 sources) Venous insufficiency (chronic) (peripheral); Translations: [Venous (peripheral) insufficiency, unspecified] 09-11-2023 Episodic Other ear and sense organ disorders (1 source) Bilateral auditory canal chronic non-infective otitis externa; Translations: [Other otitis externa, bilateral] Chronic Other ear and sense organ disorders (1 source) Other otitis externa, bilateral Chronic Other ear and sense organ disorders (1 source) Impacted cerumen; Translations: [Impacted cerumen, left ear] Episodic Other hereditary and degenerative nervous system conditions (2 sources) Restless legs; Translations: [Restless legs syndrome] 09-11-2023 Chronic Other hereditary and degenerative nervous system conditions (2 sources) Restless legs syndrome; Translations: [Restless legs syndrome (RLS)] 09-11-2023 Chronic Other injuries and conditions due to external [...] Spondylosis; intervertebral disc disorders; other back problems (20 sources) Lumbar spondylosis; Translations: [Spondylosis without myelopathy [...] Range Facility A1C with Estimated Average G jim 08-03-2022 A1C with Estimated Average Glu [facility] Other Basic Metabolic Panelon 07-13 Calcium [Mass/Vol] 9.6155334 mg/dL 8.5-10 .1 mg/dL [facility] Other CO2 [Moles/Vol] 27.92593195 mmol/L 21.0-3 2.0 mmol/L [facility] Other Creatinine [Mass/Vol] 1.66331479 mg/dL 0.55-1.02 mg/dL [facility] Other Potassium [Moles/Vol] 4.06768233 mmol/L 3.5-5.1 mmol/L [facility] Other Urea nitrogen [Mass/Vol] 28.9599802 mg/dL Critically high 7.0-18.0 mg/dL [facility] Other Basic Metabolic Panel see note [facility] Other Basic Metabolic Panel 140 mmol/L 136-145 mmol/L [facility] Other Basic Metabolic Panel 95 mg/dL 74-106 mg/dL [facility] Other Basic Metabolic Panel 52 mL/min/1.73m2 Critically low >=60 mL/min/1.73m2 [facility] Other Basic Metabolic Panel >60 mL/min/1.73m2 >=60 mL/min/1.73m2 [facility] Other CBC AUTO DIFFon 08-03-2022 BASO # 0.0 103/ul Normal 0.0-0.1 [facility] Comment on above: Performed By: #### C BC #### [facility] [address] [place] [address] Dr. Sandra Radford Basophils/100 WBC (Bld) 0.5 % Normal 0.2-2.0 [facility] Comment on above: Performed By: #### C BC #### [facility] [address] [place] [address] Dr. Sandra Radford EO # 0.3 103/ul Normal 0.0-0.7 [facility] Comment on above: Performed By: #### C BC #### [facility] [address] [place] [address] Dr. Sandra Radford Eosinophils/100 WBC (Bld) 4.5 % Normal 0.9-7.0 [facility] Comment on above: Performed By: #### C BC #### [facility] [address] [place] [address] Dr. Sandra Radford Erythrocyte distribution width (RBC) [Ratio] 13.8 % Normal 11.0-15.0 [facility] Comment on above: Performed By: #### C BC #### [facility] [address] [place] [address] Dr. Sandra Radford Hematocrit (Bld) [Volume fraction] 39.7 % Normal 36.0-48.0 [facility] Comment on above: Performed By: #### C BC #### [facility] [address] [place] [address] Dr. Sandra Radford Hemoglobin (Bld) [Mass/Vol] 12.8 g/dL Normal 12.0-16.0 [facility] Comment on above: Performed By: #### C BC #### [facility] [address] [place] [address] Dr. Sandra Radford IG # 0.01 10e3/ul Normal 0.00-0.03 [facility] Comment on above: Performed By: #### C BC #### [facility] [address] [place] [address] Dr. Sandra Radford IG % 0.2 % Normal 0.0-0.5 [facility] Comment on above: Performed By: #### C BC #### [facility] [address] [place] [address] Dr. Sandra Radford LYMPH # 1.6 103/ul Normal 1.2-3.8 [facility] Comment on above: Performed By: #### C BC #### [facility] [address] [place] [address] Dr. Sandra Radford Lymphocytes/100 WBC (Bld) 26.3 % Normal 20.5-60.0 [facility] Comment on above: Performed By: #### C BC #### [facility] [address] [place] [address] Dr. Sandra Radford MANUAL DIFF REQ NO Normal [facility] Comment on above: Performed By: #### C BC #### [facility] [address] [place] [address] Dr. Sandra Radford MCH (RBC) [Entitic mass] 29.9 pg Normal 26.7-34.0 [facility] Comment on above: Performed By: #### C BC #### [facility] [address] [place] [address] Dr. Sandra Radford MCHC (RBC) [Mass/Vol] 32.2 g/dL Normal 29.9-35.2 [facility] Comment on above: Performed By: #### C BC #### [facility] [address] [place] [address] Dr. Sandra Radford MCV (RBC) [Entitic vol] 92.8 fL Normal 81.0-99.0 [facility] Comment on above: Performed By: #### C BC #### [facility] [address] [place] [address] Dr. Sandra Radford MONO # 0.7 103/ul Normal 0.3-0.8 [facility] Comment on above: Performed By: #### C BC #### [facility] [address] [place] [address] Dr. Sandra Radford Monocytes/100 WBC (Bld) 10.6 % Normal 1.7-12.0 [facility] Comment on above: Performed By: #### C BC #### [facility] [address] [place] [address] Dr. Sandra Radford NEUT # 3.6 103/ul Normal 1.4-6.5 [facility] Comment on above: Performed By: #### C BC #### [facility] [address] [place] [address] Dr. Sandra Radford Neutrophils/100 WBC (Bld) 57.9 % Normal 43.0-75.0 [facility] Comment on above: Performed By: #### C BC #### [facility] [address] [address] [address] Sandra Radford Platelet mean volume (Bld) [Entitic vol] 9.7 fL Normal 9.5-13.5 [facility] Comment on above: Performed By: #### C BC #### [facility] [address] [address] [address] Sandra Radford PLT 240 103/ul Normal 150-450 [facility] Comment on above: Performed By: #### C BC #### [facility] [address] [place] [address] Dr. Sandra Radford RBC 4.28 106/ul Normal 4.20-5.40 [facility] Comment on above: Performed By: #### C BC #### [facility] [address] [place] [address] Dr. Sandra Radford WBC 6.2 103/ul Normal 4.0-11.0 [facility] Comment on above: Performed By: #### C BC #### [facility] [address] [place] [address] Dr. Sandra Radford Complete Blood Count and Dif esther 08-03-2022 Anisocytosis Ql (Bld) [facility] ([facility]) Other Basophilic stippling LM Ql (Bld) [facility] ([facility]) Other RBC morphology finding Nom (Bld) [facility] ([facility]) Other GLYCOHEMOGLOBIN A1Con 2022 ADA RECOMMENDATION SEE BELOW Normal [facility] Comment on above: Result Comment: ADA RECOMMENDED LIMIT 4.0 - 6.0 ADA THERAPEUTIC TARGET < 7.0 ACTION SUGGESTED > 7.0 Performed By: #### A 1C #### [facility] [address] [place] [address] Dr. Sandra Radford Glucose [Mass/Vol] 105 mg/dL Normal [facility] Comment on above: Performed By: #### A 1C #### [facility] [address] [place] [address] Dr. Sandra Radford HbA1c (Bld) [Mass fraction] 5.3 % Normal 4.5-6.2 [facility] Comment on above: Performed By: #### A 1C #### [facility] [address] [address] [address] Sandra Radford LIPID PROFILEon 08-03-2022 CHOL-HDL RATIO NORM SEE BELOW Normal [facility] Comment on above: Result Comment: 3.3 - 4.4 LOW RISK 4.4 - 7.1 AVERAGE RISK 7.1 - 11.0 MODERATE RISK >11.0 HIGH RISK Performed By: #### T SH, LIPID, BMP #### [facility] [address] [address] [address] Sandra Radford Cholesterol [Mass/Vol] 260 mg/dL Critically high <=200 mg/dL [facility] Comment on above: Performed By: #### T SH, LIPID, BMP #### [facility] [address] [address] [address] Sandra Radford Cholesterol in HDL [Mass/Vol] 58 mg/dL 40-60 mg/dL [facility] Comment on above: Performed By: #### T SH, LIPID, BMP #### [facility] [address] [address] [address] Sandra Radford Cholesterol in LDL [Mass/Vol] 165.8 mg/dL Normal [facility] Comment on above: Performed By: #### T SH, LIPID, BMP #### [facility] [address] [address] [address] Sandra Radford Cholesterol.total/C holesterol in HDL [Mass ratio] 4.5 {ratio} [facility] Comment on above: Performed By: #### T SH, LIPID, BMP #### [facility] [address] [address] [address] Sandra Radford HDL NORMAL > or = 60 mg/dl - LO W CARDIOVASCULAR RISK <40 mg/dl - HIGH CARDIOVASCULAR RISK Normal [facility] Comment on above: Performed By: #### T SH, LIPID, BMP #### [facility] [address] [address] [address] Sandra Radford LDL CALC NORMAL SEE BELOW Normal [facility] Comment on above: Result Comment: <100 mg/dl OPTIMAL 100 - 129 mg/dl NEAR OR ABOVE OPTIMAL 130 - 159 mg/dl BORDERLINE HIGH 160 - 189 mg/dl HIGH >190 mg/dl VERY HIGH Performed By: #### T CHON, LIPID, BMP #### [facility] [address] [address] [address] Sandra Radford Triglyceride [Mass/Vol] 181 mg/dL Critically high <=150 mg/dL [facility] Comment on above: Performed By: #### T CHON, LIPID, BMP #### [facility] [address] [address] [address] Sandra Radford VLDL CALC 36.2 mg/dL Normal [facility] Comment on above: Performed By: #### T CHON LIPID, BMP #### [facility] [address] [address] [address] Sandra Radford Lipid Panelon 08-03-2022 Lipid Panel > or = 60 mg/dl - LO W CARDIOVASCULAR RISK <40 mg/dl - HIGH CARDIOVASCULAR RISK [facility] Other Lipid Panel SEE BELOW [facility] Other Lipid Panel 165.8 mg/dL [facility] Other Lipid Panel 36.2 mg/dL [facility] Other PROF CHEM 8 (BAS METB)on Anion gap [Moles/Vol] 12.2 mmol/L [facility] Comment on above: Performed By: #### T CHON, LIPID, BMP #### [facility] [address] [address] [address] Sandra Radford Calcium [Mass/Vol] 9.6 mg/dL Normal 8.5-10.1 [facility] Comment on above: Performed By: #### T CHON, LIPID, BMP #### [facility] [address] [address] [address] Sandra Radford Chloride [Moles/Vol] 105 mmol/L 98-107 mmol/L [facility] Comment on above: Performed By: #### T CHON, LIPID, BMP #### [facility] [address] [address] [address] Sandra Radford CO2 [Moles/Vol] 27.3 mmol/L Normal 21.0-32.0 [facility] Comment on above: Performed By: #### T SH, LIPID, BMP #### [facility] [address] [address] [address] Sandra Radford Creatinine [Mass/Vol] 1.02 mg/dL Normal 0.55-1.02 [facility] Comment on above: Performed By: #### T SH, LIPID, BMP #### [facility] [address] [address] [address] Sandra Radford EGFR-AF IRAQI >60 Normal >=60 [facility] Comment on above: Performed By: #### T SH, LIPID, BMP #### [facility] [address] [place] [address] Dr. Sandra Radford EGFR-NON AF IRAQI 52 mL/min/1.73m2 Critically low >=60 [facility] Comment on above: Performed By: #### T SH, LIPID, BMP #### [facility] [address] [address] [address] Sandra Radford Glucose [Mass/Vol] 95 mg/dL Normal 74-106 [facility] Comment on above: Performed By: #### T SH, LIPID, BMP #### [facility] Laboratory [address] [place] [address] Dr. Sandra Radford Potassium [Moles/Vol] 4.5 mmol/L Normal 3.5-5.1 [facility] Comment on above: Performed By: #### T SH, LIPID, BMP #### [facility] [address] [address] [address] Sandra Radford Sodium [Moles/Vol] 140 mmol/L Normal 136-145 [facility] Comment on above: Performed By: #### T SH, LIPID, BMP #### [facility] [address] [address] [address] Sandra Radford Urea nitrogen [Mass/Vol] 28.0 mg/dL Critically high 7.0-18.0 [facility] Comment on above: Performed By: #### T SH, LIPID, BMP #### [facility] [address] [place], [place] [address] Dr. Sandra Radford Urea nitrogen/Creatinine [Mass ratio] 27.5 mg/mg [facility] Comment on above: Performed By: #### T SH, LIPID, BMP #### [facility] [address] [place], [place] [address] Dr. Sandra Radford TSHon 08-03-2022 TSH 1.952 uIU/mL Normal 0.358-3.740 [facility] Comment on above: Performed By: #### T SH, LIPID, BMP #### [facility] [address] [place], [place] [address] Dr. Sandra Radford CNOVon 04-14-2022 CNOV Office Visit (ORTHCO ) NORMA BRENNAN ([id number]) 1940 F Date Time Provider Department 04/14/22 9:00 AM PEDRO GOFF During your visit today, we recorded the following information about you: Pedro Goff DO 04/14/2022 10:56 AM Signed CONSULT ORTHOPAEDIC: HIP PRIMARY CARE PHYSICIAN: Max Bruce DO REFERRING PROVIDER: Rosalio Roblero [address] [place] [address] HPI: 82-year-old female presents today with right hip pain that has been chronic in nature over the last year and a half but acutely worsened over the last 6 months. 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 She overall uses a walker for ambulation and has significant leg length difference and requires a shoe lift. She states over the last 6 months that her right hip and leg pain is worsening especially after working with physical therapy and was seen in [facility] and recommended nonweightbearing for 6 [...] Deficiency Chronic Kidney Disease, Stage Iii (Moderate) ([facility]) Chronic Kidney Disease, Stage 3 Unspecified ([facility]) History of Total Right Hip [...] activities which include walking 2 blocks, doing english drawer, rising from a sitting position, standing for prolonged periods of time, getting in and out of a car, dressing, and climbing stairs. The problem began limiting activities 1-6 months ago. Currently the pain in the joint is rated at 7 out of 10 with minimal activity. (more content not included)... Normal [facility] CRP SerPl-ncon 04-14-2022 CRP [Mass/Vol] mg/L Normal <0.9 [facility] Comment on above: Order Comment: Speci men Type: BLOOD SPECIMEN Ordering Facility: [facility] Address: [address] [place] [address] Performed By: #### 1 988-5 #### [facility] CLIA [id number] [address] [place] [address] [place] ESR Westergren method (Bld) [Velocity]on 04-14-2022 ESR (Bld) [Velocity] 6 mm/h Normal 0-20 [facility] Comment on above: Order Comment: Speci men Type: BLOOD SPECIMEN Ordering Facility: [facility] Address: [address] [place] [address] Performed By: #### 4 [id number] #### [facility] CLIA [id number] [address] [place] [address] [place] XR HIP 3V [...] significant abnormality. --- IMPRESSION: NO SIGNIFICANT CHANGE Card Doffer: ALIE Transcribe Date/Time: Apr 14 2022 8:42A Dictated by : CECELIA ALVAREZ MD This examination was interpreted and the report reviewed and electronically signed by: CECELIA ALVAREZ MD on Apr 14 2022 8:49AM EST [id number] Normal [facility] CNPAnn 01-25-2022 CNPN Telephone (ORQ) NORMA BRENNAN ([id number]) 1940 F Date Time Provider Department 01/25/22 YECENIA MURPHY During your visit today, we recorded the following information about you: Shahana Neelyamita Casillas 01/25/2022 11:22 AM Signed Please contact Pilar larson/ Dr. Rosalio Flores ([facility]) Looking to discuss patient diagnosis, to see if patient can be seen by Dr Cho Second Opinion ( component loosening and Aseptic) Please dial Pilar [phone] Carrol Matthew RN 01/25/2022 12:22 PM Signed Spoke to Pilar, explained Dr Cho only does revisions on his surgical patients or patients with a pathologic or metastatic disease. 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 Sandra Radford Basophils/100 WBC (Bld) 0.5 % Normal 0.2-2.0 [facility] Comment on above: Performed By: #### C BC #### [facility] [address] [place] [address] Dr. Sandra Radford EO # 0.2 103/ul Normal 0.0-0.7 [facility] Comment on above: Performed By: #### C BC #### [facility] [address] [place] [address] Dr. Sandra Radford Eosinophils/100 WBC (Bld) 3.1 % Normal 0.9-7.0 [facility] Comment on above: Performed By: #### C BC #### [facility] [address] [place] [address] Dr. Sandra Radford Erythrocyte distribution width (RBC) [Ratio] 14.4 % Normal 11.0-15.0 [facility] Comment on above: Performed By: #### C BC #### [facility] [address] [place] [address] Dr. Sandra Radford Hematocrit (Bld) [Volume fraction] 34.1 % Critically low 36.0-48.0 [facility] Comment on above: Performed By: #### C BC #### [facility] [address] [place] [address] Dr. Sandra Radford Hemoglobin (Bld) [Mass/Vol] 11.2 g/dL Critically low 12.0-16.0 [facility] Comment on above: Performed By: #### C BC #### [facility] [address] [place] [address] Dr. Sandra Radford IG # 0.01 10e3/ul Normal 0.00-0.03 [facility] Comment on above: Performed By: #### C BC #### [facility] [address] [place] [address] Dr. Sandra Radford IG % 0.2 % Normal 0.0-0.5 [facility] Comment on above: Performed By: #### C BC #### [facility] [address] [place] [address] Dr. Sandra Radford LYMPH # 1.5 103/ul Normal 1.2-3.8 [facility] Comment on above: Performed By: #### C BC #### [facility] [address] [place] [address] Dr. Sandra Radford Lymphocytes/100 WBC (Bld) 25.1 % Normal 20.5-60.0 [facility] Comment on above: Performed By: #### C BC #### [facility] [address] [place] [address] Dr. Sandra Radford MANUAL DIFF REQ NO Normal [facility] Comment on above: Performed By: #### C BC #### [facility] [address] [place] [address] Dr. Sandra Radford MCH (RBC) [Entitic mass] 32.7 pg Normal 26.7-34.0 [facility] Comment on above: Performed By: #### C BC #### [facility] [address] [place] [address] Dr. Sandra Radford MCHC (RBC) [Mass/Vol] 32.8 g/dL Normal 29.9-35.2 [facility] Comment on above: Performed By: #### C BC #### [facility] [address] [place] [address] Dr. Sandra Radford MCV (RBC) [Entitic vol] 99.4 fL Critically high 81.0-99.0 [facility] Comment on above: Performed By: #### C BC #### [facility] [address] [place] [address] Dr. Sandra Radford MONO # 0.6 103/ul Normal 0.3-0.8 [facility] Comment on above: Performed By: #### C BC #### [facility] [address] [place] [address] Dr. Sandra Radford Monocytes/100 WBC (Bld) 10.7 % Normal 1.7-12.0 [facility] Comment on above: Performed By: #### C BC #### [facility] [address] [place] [address] Dr. Sandra Radford NEUT # 3.5 103/ul Normal 1.4-6.5 [facility] Comment on above: Performed By: #### C BC #### [facility] [address] [place] [address] Dr. Sandra Radford Neutrophils/100 WBC (Bld) 60.4 % Normal 43.0-75.0 [facility] Comment on above: Performed By: #### C BC #### [facility] [address] [place] [address] Dr. Sandra Radford Platelet mean volume (Bld) [Entitic vol] 10.2 fL Normal 9.5-13.5 [facility] Comment on above: Performed By: #### C BC #### [facility] [address] [place] [address] Dr. Sandra Radford PLT 202 103/ul Normal 150-450 [facility] Comment on above: Performed By: #### C BC #### [facility] [address] [place] [address] Dr. Sandra Radford RBC 3.43 106/ul Critically low 4.20-5.40 [facility] Comment on above: Performed By: #### C BC #### [facility] [address] [place] [address] Dr. Sandra Radford WBC 5.8 103/ul Normal 4.0-11.0 [facility] Comment on above: Performed By: #### C BC #### [facility] [address] [place] [address] Dr. Sandra Radford CRPon 11-02-2021 CRP [Mass/Vol] mg/L Normal <=1.0 [facility] Comment on above: Performed By: #### C RP #### [facility] [address] [place] [address] Dr. Sandra Radford SED RATE WESTERGRENon 2021 SED RATE 2 mm/hr Normal <=30 [facility] Comment on above: Performed By: #### S EDR #### [facility] [address] [address] [address] Sandra Radford GA bone 3 phaseon 10-26-2021 GA bone 3 phase [facility] [place] [address] [place] [address] Nuclear Medicine Report Signed Patient: Norma Brennan MR#: [id number] 00 : 1940 Acct:[id number] Age/Sex: 81 / F ADM Date: 10/26/21 Loc: [place] Room: Type: [facility] Attending Dr: Rosalio Roblero II, MD Copies to: DO Lolis Hoyos MD Robert M Carlisle, MD Ordering Provider: Rosalio Roblero MD Date of Service: 10/26/21 [facility] bone 3 phase: Right hip pain WHOLE-BODY [...] antecubital region is the site of injection. GA/GA bone 3 phase IMPRESSION: SLIGHT HYPEREMIA WELL MILD INCREASED UPTAKE ALONG THE PROXIMAL POSTERIOR MEDIAL ASPECT OF THE RIGHT FEMORAL SHAFT ADJACENT TO PATIENT'S PROSTHESIS. THIS IS NONSPECIFIC GIVEN THE CHANGES OF THE FEMUR ON RECENT PLAIN FILMS AND CT. ADDITIONAL AREAS OF DEGENERATIVE UPTAKE, DESCRIBED. Impression dictated by: Lolis Reddy M.D.10/26/2021 4:09 PM Dictation Location: [place] [address] Transcribed By: [facility] 10/26/21 1609 Dictated By: Lolis Reddy MD 10/26/21 1559 Signed By: 10/26/21 [address] [facility] CT femur RT wo conon 022 CT femur RT wo con [facility] [place] [address] [place] [address] CT Scan Report Signed Patient: Norma Brennan MR#: [id number] 00 : 1940 Acct:[id number] Age/Sex: 81 / F ADM Date: 10/20/21 Loc: [facility] Room: Type: [facility] Attending Dr: Rosalio Roblero II, MD [...] Centeno Jr., M.D.10/20/2021 11:15 AM Dictation Location: [place] [address] Transcribed By: ML 10/20/21 1115 Dictated By: Romeo Centeno Jr, MD 10/20/21 1057 Signed By: 10/20/21 1115 Normal [facility] XR femur RT 2V*on 10-20-2021 XR femur RT 2V* [facility] [place] [address] [place] [address] XRay Report Signed Patient: Norma Brennan MR#: [id number] 00 : 1940 Acct:[id number] Age/Sex: 81 / F ADM Date: 10/20/21 Loc: [facility] Room: Type: [facility] Attending Dr: Rosalio Roblero II, MD [...] Lolis Reddy M.D.10/20/2021 1:13 PM Dictation Location: [place] [address] Transcribed By: ML 10/20/21 1313 Dictated By: Lolis Reddy MD 10/20/21 1310 Signed By: 10/20/21 1313 [facility] XR pelvis 1-2Von 10-20-2021 XR pelvis 1-2V [facility] [address] [address] XRay Report Signed Patient: Norma Brennan MR#: [id number] 00 : 1940 Acct:[id number] Age/Sex: 81 / F ADM Date: 10/20/21 [facility]: Type: [facility] Attending Dr: Rosalio Roblero II, MD [...] evidence of prior revision. Impression dictated by: Malcahi Davis M.D.10/20/2021 1:08 PM Dictation Location: [place] [address] Transcribed By: [facility] 10/20/21 1308 Dictated By: Malachi Davis II, MD 10/20/21 1303 Signed By: 10/20/21 1308 [facility] XR hip RT 1Von 08-15-2021 XR hip RT 1V [facility] [address] [address] XRay Report Signed Patient: Norma Brennan MR#: [id number] : 1940 Acct:[id number] Age/Sex: 81 / F ADM Date: 08/15/21 Loc: [place] Room: Type: [facility] Attending Dr: Rosalio Roblero II, MD Ordering [...] Edgard Paez M.D.08/15/2021 9:09 AM Dictation Location: [facility] Transcribed By: [facility] 08/15/[address]08 Dictated By: Edgard Paez DO 08/15/[address] Signed By: 08/15/219[address] Normal [facility] Basic Metabolic Panelon 04-0 Calcium [Mass/Vol] 9.1 mg/dL Normal 8.2-10.2 [facility] Comment on above: Result Comment: PERF ORMED BY: [place] [address] PATHOLOGIST TRAINING PROJECT MANAGER MARIELLA KRAUSE M.D. Performed By: #### C [address] #### [facility] [address] [place] [address] [place] Chloride [Moles/Vol] 105 mmol/L Normal 95-114 [facility] Comment on above: Performed By: #### C [address] #### [facility] [address] [place] [phone] [place] CO2 [Moles/Vol] 25.9 mmol/L Normal 22.0-30.0 [facility] Comment on above: Performed By: #### C [address] #### [facility] [address] [place] [phone] [place] Creatinine [Mass/Vol] 0.99 mg/dL Normal 0.44-1.03 [facility] Comment on above: Performed By: #### C [address] #### [facility] [address] [phone] [place] Estimated GFR ( Jahaira > 60 Normal [facility] Comment on above: Result Comment: GFR estimated reference range: According to KDOQI guidelines, <60 ml/min/1.73m2 is sufficient to diagnose a patient with chronic kidney disease. Performed By: #### C [place] [address] [facility] #### [facility] [address] Estimated GFR (Non- Am 54 Normal [facility] Comment on above: Performed By: #### C [place] [address] [facility] #### [address] Glucose [Mass/Vol] 92 mg/dL Normal 70-100 [facility] Comment on above: Result Comment: [place] Glucose Reference Range is dependent on time and content of last meal. Glucose of more than 200 mg/dL in a nonstressed, ambulatory subject supports the diagnosis of Diabetes Mellitus. ADA recommended reference range Performed By: #### C [place] [address] [facility] #### [address] Potassium [Moles/Vol] 4.7 mmol/L Normal 3.5-5.1 [facility] Comment on above: Performed By: #### C [place] 19 [facility] #### [address] Sodium [Moles/Vol] 139 mmol/L Normal 136-146 [facility] Comment on above: Performed By: #### C [place] [address] [facility] #### [address] Urea nitrogen [Mass/Vol] 32 mg/dL High 9-23 [facility] Comment on above: Performed By: #### C [place] [address] [facility] #### [address] COVID[facility]19 [facility] SARS-CoV-2 (COVID-19) RNA FABIAN+probe Ql (Unsp spec) Negative Normal Negative [facility] Comment on above: Order Comment: Comme nt procedure 08/15/21 Healthcare Worker?: N Result Comment: Testing for SARS-CoV-2 by RT-PCR This test was developed and its performance characteristics determined by [employer] and validated at the [facility]. This test has not been FDA [...] is terminated or revoked sooner. PERFORMED BY: [place] [address] PATHOLOGIST TRAINING PROJECT MANAGER MARIELLA KRAUSE M.D. Performed By: #### C [place] [address] [facility] #### [address] ECG 12 lead ECGon 08-12-2021 ECG 12 lead ECG [facility] [place] [address] [place] [address] Electrocardiograph Report Signed Patient: Norma Brennan MR#: [id number] 00 : 1940 Acct:[id number] Age/Sex: 81 / F ADM Date: 08/12/21 Loc: Room: Type: [facility] Attending Dr: Rosalio Roblero II, MD [...] Signed By Felicitas Villeda [place] 0[address] Normal [facility] C-Reactive Proteinon 022 C-Reactive Protein 1.4 mg/dL High 0.0-1.0 [facility] Comment on above: Order Comment: Comme nt procedure 08/15/21 Healthcare Worker?: N Result Comment: PERF ORMED BY: [place] [address] PATHOLOGIST TRAINING PROJECT MANAGER MARIELLA KRAUSE M.D. Performed By: #### C [place] [address] [facility] #### [address] Complete Blood Count Auto Di ffon 08-03-2021 Basophils (Bld) [#/Vol] 0.0 10*3/uL Normal 0.0-0.2 [facility] Comment on above: Order Comment: Comme nt procedure 08/15/21 Healthcare Worker?: N Performed By: #### C [place] [address] [facility] #### [place] [address] [place] Basophils/100 WBC (Bld) 0.5 % Normal . [facility] Comment on above: Order Comment: Comme nt procedure 08/15/21 Healthcare Worker?: N Performed By: #### C [place] [address] [facility] #### [place] [address] [place] Eosinophils (Bld) [#/Vol] 0.2 10*3/uL Normal 0.0-0.45 [facility] Comment on above: Order Comment: Comme nt procedure 08/15/21 Healthcare Worker?: N Performed By: #### C [place] [address] [facility] #### [place] [address] [place] Eosinophils/100 WBC (Bld) 4.2 % Normal . [facility] Comment on above: Order Comment: Comme nt procedure 08/15/21 Healthcare Worker?: N Performed By: #### C [place] 19 [facility] #### [place] [phone] [place] Erythrocyte distribution width (RBC) [Ratio] 14.7 % Normal 11.9-15.3 [facility] Comment on above: Order Comment: Comme nt procedure 08/15/21 Healthcare Worker?: N Performed By: #### C [place] [address] [facility] #### [address] Hematocrit (Bld) [Volume fraction] 39.6 % Normal 34.0-46.4 [facility] Comment on above: Order Comment: Comme nt procedure 08/15/21 Healthcare Worker?: N Performed By: #### C [address] #### [address] Hemoglobin (Bld) [Mass/Vol] 12.9 g/dL Normal 11.8-15.4 [facility] Comment on above: Order Comment: Comme nt procedure 08/15/21 Healthcare Worker?: N Performed By: #### C [address] #### [address] Lymphocytes (Bld) [#/Vol] 1.5 10*3/uL Normal 1.00-4.8 [facility] Comment on above: Order Comment: Comme nt procedure 08/15/21 Healthcare Worker?: N Performed By: #### C [address] #### [address] Lymphocytes/100 WBC (Bld) 27.3 % Normal . [facility] Comment on above: Order Comment: Comme nt procedure 08/15/21 Healthcare Worker?: N Performed By: #### C [address] #### [address] MCH (RBC) [Entitic mass] 31.0 pg Normal 24.7-34.3 [facility] Comment on above: Order Comment: Comme nt procedure 08/15/21 Healthcare Worker?: N Performed By: #### C [address] #### [address] MCV (RBC) [Entitic vol] 95.4 fL Normal 80-100 [facility] Comment on above: Order Comment: Comme nt procedure 08/15/21 Healthcare Worker?: N Performed By: #### C [place] [address] [facility] #### [facility] [address] [place] [phone] [facility] Mean Corpuscular HGB Conc 32.4 g/dL Normal 32.0-35.0 [facility] Comment on above: Order Comment: Comme nt procedure 08/15/21 Healthcare Worker?: N Performed By: #### C [place] 19 [facility] #### [facility] [address] [place] [address] [place] Monocytes (Bld) [#/Vol] 0.5 10*3/uL Normal 0.0-0.8 [facility] Comment on above: Order Comment: Comme nt procedure 08/15/21 Healthcare Worker?: N Performed By: #### C [place] [address] [facility] #### [facility] [address] [place] [phone] [place] Monocytes/100 WBC (Bld) 9.8 % Normal . [facility] Comment on above: Order Comment: Comme nt procedure 08/15/21 Healthcare Worker?: N Performed By: #### C [place] 19 [facility] #### [facility] [address] [place] [phone] [place] Neutrophils (Bld) [#/Vol] 3.2 10*3/uL Normal 1.8-7.7 [facility] Comment on above: Order Comment: Comme nt procedure 08/15/21 Healthcare Worker?: N Performed By: #### C [place] 19 [facility] #### [facility] [address] [place], [place] [phone] [place] Neutrophils/100 WBC (Bld) 58.2 % Normal . [facility] Comment on above: Order Comment: Comme nt procedure 08/15/21 Healthcare Worker?: N Performed By: #### C [place] 19 [facility] #### [facility] [address] [place], [place] [phone] [place] Nucleated RBC/100 WBC (Bld) [Ratio] 0.1 % Normal 0-0.5 [facility] Comment on above: Order Comment: Comme nt procedure 08/15/21 Healthcare Worker?: N Performed By: #### C [place] 19 [facility] #### [facility] [address] Platelet mean volume (Bld) [Entitic vol] 7.8 fL Normal 6.3-10.7 [facility] Comment on above: Order Comment: Comme nt procedure 08/15/21 Healthcare Worker?: N Performed By: #### C [address] #### [address] Platelets (Bld) [#/Vol] 272 10*3/uL Normal 150-450 [facility] Comment on above: Order Comment: Comme nt procedure 08/15/21 Healthcare Worker?: N Performed By: #### C [address] #### [address] RBC (Bld) [#/Vol] 4.15 10*6/uL Normal 3.60-5.00 [facility] [place] [facility] Comment on above: Order Comment: Comme nt procedure 08/15/21 Healthcare Worker?: N Performed By: #### C [address] #### [address] WBC (Bld) [#/Vol] 5.5 10*3/uL Normal 4.5-11.0 [facility] Comment on above: Order Comment: Comme nt procedure 08/15/21 Healthcare Worker?: N Performed By: #### C [address] #### [place] [phone] [facility] D-Dimer High Sensitivityon 0 08-03-2021 D-Dimer High Sensitivity 434 ng/mL High 0-243 [facility] Comment on above: Order Comment: Reaso [...] patients due to co-morbid conditions. PERFORMED BY: [place] [address] PATHOLOGIST TRAINING PROJECT MANAGER MARIELLA KRAUSE M.D. Performed By: #### D DIMER, CRP, CBC, ESR #### [address] Erythrocyte Sedimentation Ra brian 08-03-2021 ESR (Bld) [Velocity] 7 mm/h Normal 0-29 [facility] Comment on above: Order Comment: Comme nt procedure 08/15/21 Healthcare Worker?: N Result Comment: PERF ORMED BY: [place] [address] PATHOLOGIST TRAINING PROJECT MANAGER MARIELLA KRAUSE M.D. Performed By: #### C OVID 19 [facility] [id number] [facility] XR knee BI 4Von 08-03-2021 XR knee BI 4V [facility] [place] [address] [place] [address] XRay Report Signed Patient: Norma Brnenan MR#: [id number] : 1940 Acct:[id number] Age/Sex: 81 / F ADM Date: 08/03/21 Loc: [facility] Room: Type: [facility] Attending Dr: Rosalio Roblero II, MD Ordering Provider: Rosalio Roblero MD Date of Service: 08/03/21 XR/XR knee BI 4V: Osteoarthritis of knees, bilateral Copies to: Rosalio Roblero MD 4 views both knee plain film COMPARISON:None HISTORY:Bilateral knee pain medially. Qazd-ty-gaqi contact of the medial compartment of the [...] Edgard Paez M.D.08/03/2021 2:13 PM Dictation Location: [place] [address] Transcribed By: [facility] 08/03/21 1413 Dictated By: Edgard Paez DO 08/03/21 1412 Signed By: 08/03/21 1413 Normal [facility] XR knee BI 4V [facility] ([place]) Other XR knee BI 4V [facility] Main [facility] ([place]) Other XR knee BI 4V [address] [place] [address] [facility] ([place]) Other XR [place] BI 4[place] [address] [facility] [place] Other XR knee BI 4V [facility]Ray Report [facility] Other XR knee BI 4V Signed [place] Other XR knee BI 4V Patient: Lauro Brennan MR#: [id number] [place] Other XR knee BI 4V : 1940 Acct:[id number] [employer] Other XR knee BI 4V Age/Sex: 81 / F ADM Date: 08/03/21 [employer] Other XR knee BI 4V Loc: [facility] Room: Type : [facility] [employer] Other XR knee BI 4V Attending Dr: Rosalio Roblero II, MD [employer] Other XR knee BI 4V Ordering Provider: Rosalio Roblero MD [employer] Other XR knee BI 4V Date of Service: 08/03/21 [employer] Other XR knee BI 4V XR/XR knee BI 4V: Osteoarthritis of knees, bilateral [employer] Other XR knee BI 4V Copies to: Rosalio Roblero MD [employer] Other XR knee BI 4V 4 views both knee plain film [employer] Other XR knee BI 4V COMPARISON:None [employer] Other XR knee BI 4V HISTORY:Bilateral knee pain medially. [employer] Other XR knee BI 4V Squn-ql-rbgd contact of the medial compartment of the LEFT knee identified. Mild remaining joint [employer] Other XR knee BI 4V space narrowing of both knees present. Small supra patellar effusion seen. Diffuse osteopenia asia [employer] Other XR knee BI 4V ntified. No fracture or dislocation. Moderate lateral LEFT patellar subluxation identified. Mild [employer] Other XR knee BI 4V lateral RIGHT patellar subluxation identified. 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 Remaining minor degenerative [employer] Other XR knee BI 4V change. [employer] Other XR knee BI 4V Impression dictated by: Edgard Paez M.D.08/03/2021 2:13 PM [employer] Other XR knee BI 4V Dictation Location: [place] [address] [employer] Other XR knee BI 4V Transcribed By: ML 08/03/21 [facility] [employer] Other XR knee BI 4V Dictated By: Edgard Paez DO 08/03/21 [facility] [employer] Other XR knee BI 4V Signed By: [employer] Other XR knee BI 4V 08/03/21 1413 [place] Other XR pelvis 1-2Von 08-03-2021 XR pelvis 1-2V [facility] Main [place] [address] [place] [address] XRay Report Signed Patient: Norma Brennan MR#: [id number] : 1940 Acct:[id number] Age/Sex: 81 / F ADM Date: 08/03/21 Loc: [facility] Room: Type: [facility] Attending Dr: Rosalio Roblero II, MD [...] Edgard Paez M.D.08/03/2021 2:20 PM Dictation Location: [place] [address] Transcribed By: [facility] 08/03/21 1420 Dictated By: Edgard Paez DO 08/03/21 141 Signed By: 08/03/21 1420 [facility] XR pelvis 1-2V XR/XR pelvis 1-2V: Osteoarthritis of knees, bilateral [employer] Other XR pelvis 1-2V Single view of the pelvis plain film [employer] Other XR pelvis 1-2V HISTORY:Bilateral knee pain [employer] Other XR pelvis 1-2V The visualized portion of the RIGHT hip arthroplasty unremarkable. Bony alignment appears [employer] Other XR pelvis 1-2V adequate. Diffuse osteopenia. [employer] Other XR pelvis 1-2V No acute bony findings identified. [employer] Other XR pelvis 1-2V No focal soft tissue abnormality seen. [employer] Other XR pelvis 1-2V XR/XR pelvis 1-2V [employer] Other XR pelvis 1-2V IMPRESSION:Unremarka norma davis visualized the RIGHT hip arthroplasty. Diffuse osteopenia. Unremarkable [employer] Other XR pelvis 1-2V LEFT hip. [employer] Other XR pelvis 1-2V Impression dictated by: Edgard Paez M.D.08/03/2021 2:20 PM [employer] Other XR pelvis 1-2V Transcribed By: PWS 08/03/21 1420 [employer] Other XR pelvis 1-2V Dictated By: Edgard Paez DO 08/03/21 1419 [employer] Other XR pelvis 1-2V 08/03/21 1420 [employer] Other Vital Signs Date Time Vital Sign Value Performing Clinician Facility 12-11-2023 13:35-0400 Body height 152.4 cm [facility] 12-11-2023 13:35-0400 Body mass index (BMI) [Ratio] 30.7 kg/m2 [facility] 12-11-2023 13:35-0400 Body weight 71.21 kg [facility] 12-11-2023 13:35-0400 Diastolic blood pressure 94 mm[Hg] [facility] 12-11-2023 13:35-0400 Heart rate 76 /min [facility] 12-11-2023 13:35-0400 Respiratory rate 12 /min [facility] 12-11-2023 13:35-0400 Systolic blood pressure 162 mm[Hg] [facility] 09-11-2023 13:55-0400 Body height 152.4 cm [facility] 09-11-2023 13:55-0400 Body mass index (BMI) [Ratio] 30.8 kg/m2 [facility] 09-11-2023 13:55-0400 Body weight 71.66 kg [facility] 09-11-2023 13:55-0400 Diastolic blood pressure 79 mm[Hg] [facility] 09-11-2023 13:55-0400 Heart rate 75 /min [facility] 09-11-2023 13:55-0400 Respiratory rate 12 /min [facility] 09-11-2023 13:55-0400 Systolic blood pressure 166 mm[Hg] [facility] 05-09-2023 11:30-0500 Body height 152.4 cm Max Ball Other [facility] ([place]) Other 05-09-2023 11:30-0500 Body mass index (BMI) [Ratio] 30.81 kg/m2 Max Ball Other [facility]) Other 05-09-2023 11:30-0500 Body weight 71.58 kg Max Ball Other [facility]) Other 05-09-2023 11:30-0500 Diastolic blood pressure 77 mm[Hg] Max Ball Other [employer] Other 05-09-2023 11:30-0500 Respiratory rate 12 /min Max Ball Other [facility] ([place]) Other 05-09-2023 11:30-0500 Systolic blood pressure 146 mm[Hg] Max Ball Other [employer] Other 08-03-2022 12:00-0400 Body height 152.4 cm Max Ball Other [employer] Other 08-03-2022 12:00-0400 Body mass index (BMI) [Ratio] 31.64 kg/m2 Max Ball Other [employer] Other 08-03-2022 12:00-0400 Body weight 73.48 kg Max Ball Other [employer] Other 08-03-2022 12:00-0400 Diastolic blood pressure 82 mm[Hg] Max Ball Other [employer] Other 08-03-2022 12:00-0400 Respiratory rate 12 /min Max Ball Other [employer] Other 08-03-2022 12:00-0400 Systolic blood pressure 137 mm[Hg] Max Ball Other [employer] Other 10-20-2021 09:45-0400 Body height 152.4 cm Rosalio Motley II Other [employer] Other 10-20-2021 09:45-0400 Body mass index (BMI) [Ratio] 28.9 kg/m2 Rosalio Motley II Other [employer] Other 10-20-2021 09:45-0400 Body weight 67.13 kg Rosalio Osbaldo II Other [employer] Other 08-10-2021 15:45-0400 Body height 152.4 cm Rosalio Motley II Other [employer] Other 08-10-2021 15:45-0400 Body mass index (BMI) [Ratio] 28.9 kg/m2 Rosalio Motley II Other [employer] Other 08-10-2021 15:45-0400 Body weight 67.13 kg Rosalio Motley II Other [employer] Other 08-03-2021 12:00-0400 Body height 152.4 cm Rosalio Roblero II Other [employer] Other 08-03-2021 12:00-0400 Body mass index (BMI) [Ratio] 28.9 kg/m2 Rosalio Roblero II Other [employer] Other 08-03-2021 12:00-0400 Body weight 67.13 kg Rosalio Roblero II Other [employer] Other Encounters Encounter Date Encounter Type Care Provider Facility Start: 12-11-2023 End: 12-11-2023 ambulatory [facility] Work Phone: Start: 12-11-2023 End: 12-11-2023 Patient encounter procedure [facility] Work Phone: Start: 09-11-2023 End: 09-11-2023 ambulatory [facility] Work Phone: Start: 09-11-2023 End: 09-11-2023 Patient encounter procedure [facility] Work Phone: Start: 09-10-2023 End: 09-11-2023 ambulatory Jennifer Damon MD Facility: [facility] Start: 08-21-2023 Non-patient / Non-visit [facility] Work Phone: Start: 08-06-2023 End: 08-07-2023 ambulatory Jennifer Damon MD Facility: [facility] Start: 06-18-2023 End: 06-19-2023 ambulatory Jennifer Damon MD Facility: [facility] Start: 05-21-2023 End: 05-22-2023 ambulatory Jennifer Damon MD Facility: [facility] Start: 05-09-2023 End: 05-09-2023 ambulatory Max Bruce Other [employer] Other Start: 05-09-2023 Office outpatient vi sit 25 minutes Max Bruce [facility] Start: 04-16-2023 End: 04-17-2023 ambulatory Jennifer Damon MD Facility:[facility] Start: 03-19-2023 End: 03-20-2023 ambulatory Jennifer Damon MD Facility:[facility] Start: 02-19-2023 End: 02-20-2023 ambulatory Jennifer Damon MD Facility:[facility] Start: 02-13-2023 End: 02-13-2023 ambulatory Max Bruce Other [employer] Other Start: 02-13-2023 Telephone encounter Max Bruce [facility] Start: 02-07-2023 End: 02-07-2023 ambulatory Max Bruce Other [employer] Other Start: 02-07-2023 Telephone encounter Max Bruce [facility] Start: 02-01-2023 End: 02-01-2023 ambulatory Max Bruce Other [employer] Other Start: 02-01-2023 Telephone encounter Max Bruce [facility] Start: 08-10-2022 End: 08-10-2022 ambulatory Max Bruce Other [employer] Other Start: 08-10-2022 Telephone encounter Max Bruce [facility] Start: 08-03-2022 End: 08-04-[address] MAX BRUCE Facility: Start: 08-03-2022 Patient encounter procedure Max Bruce [facility] Start: 04-14-2022 End: 04-14-2022 ambulatory MAX BRUCE Facility:[facility] Start: 02-06-2022 End: 02-06-2022 ambulatory Rosalio Roblero II Other [employer] Other Start: 02-06-2022 Telephone encounter Rosalio Osbaldo II [facility] Start: 01-25-2022 Telephone encounter Yecenia hawkins PA-C Work Phone: [facility] Comment on above: [employer] Director - O ther (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 for patient's ortho./) Start: 01-19-2022 End: 01-19-2022 ambulatory Rosalio Osbaldo II Other [employer] Other Start: 01-19-2022 Telephone encounter Rosalio Motley II [facility] Start: 01-02-2022 End: 01-02-2022 ambulatory Rosalio Osbaldo II Other [employer] Other Start: 01-02-2022 Telephone encounter Rosalio Motley II [facility] Start: 11-30-2021 End: 11-30-2021 ambulatory Rosalio Motley II Other [employer] Other Start: 11-30-2021 Telephone encounter Rosalio Osbaldo II [facility] Start: 11-18-2021 End: 11-18-2021 ambulatory Rosalio Osbaldo II Other [employer] Other Start: 11-18-2021 Office outpatient vi sit 25 minutes Rosalio Osbaldo II [facility] Start: 11-02-2021 End: 11-02-2021 ambulatory ROSALIO OSBALDO [employer] Other Start: 11-02-2021 Telephone encounter Rosalio Motley II [facility] Start: 10-28-2021 End: 10-28-2021 ambulatory Rosalio Osbaldo II Other [employer] Other Start: 10-28-2021 Telephone encounter Rosalio Motley II [facility] Start: 10-26-2021 End: 10-26-2021 ambulatory Rosalio M Motley II Facility:[facility] Start: 10-21-2021 End: 10-21-2021 ambulatory Rosalio Osbaldo II Other [employer] Other Start: 10-21-2021 Telephone encounter Rosalio Motley II [facility] Start: 10-20-2021 Office outpatient vi sit 25 minutes Rosalio Motley II [facility] Start: 10-20-2021 End: 10-20-2021 ambulatory Rosalio M Motley II [employer] Other Start: 10-14-2021 End: 10-14-2021 ambulatory Rosalio Motley II Other [employer] Other Start: 10-14-2021 Telephone encounter Rosalio Osbaldo II [facility] Start: 09-22-2021 End: 09-22-2021 ambulatory Rosalio M Motley II Facility:[facility] Start: 08-15-2021 End: 08-15-2021 ambulatory Rosalio M Motley II Facility:[facility] Start: 08-12-2021 End: 08-12-2021 ambulatory Rosalio M Osbaldo II Facility:[facility] Start: 08-10-2021 End: 08-10-2021 ambulatory Rosalio Motley II Other [employer] Other Start: 08-10-2021 Office outpatient vi sit 25 minutes Rosalio Motley II [facility] Start: 08-03-2021 FQ visit new patient Rosalio Dakotah le II [facility] Start: 08-03-2021 End: 08-03-2021 ambulatory Rosalio M Motley II [employer] Other Start: 07-13-2021 Adult health examination Max Bruce Other [employer] Other Procedures Date Procedure Procedure Detail Performing Clinician Depression screening Maryanne Bruce Other Plan of Treatment Date Care Activity Detail Author Start: 09-01-2022 Influenza vaccination INFLUENZA (#1) [facility] Start: 05-14-2021 ADVANCE DIRECTIVE DISCUSSION ADVANCE DIRECTIVE DISCUSSION [facility] Start: 01-04-2021 COVID-19 VACCINE (3 - Booster for Moderna series) COVID-19 VACCINE (3 - Booster for Moderna series) [facility] Start: 01-13-2004 BONE DENSITY BONE DENSITY [facility] Start: 01-13-2004 PNEUMOCOCCAL: 65+ (1 - PCV) PNEUMOCOCCAL: 65+ (1 - PCV) [facility] Start: 1989 SHINGRIX VACCINE (1 of 2) JAMISON GRIX VACCINE (1 of 2) [facility] Start: 01-13-1984 DIABETES SCREEN DIABETES SCREEN [facility] Start: 1958 Urine microalbumin profile DTAP,TDAP,TD (1 - Tdap) [facility] Comprehensive metabo lic 2000 panel - Serum or Plasma [facility] Immunizations Immunization Date Immunization Notes Care Provider Fa cility 02-05-2023 influenza virus vaccine, unspecified formulation [facility] 02-05-2023 Prevnar 20 Max Bruce Other [facility] 02-05-2023 influenza, high dose seasonal, preservative-free Max Bruce Other [employer] Other 04-21-2022 COVID-19 Vaccine Moderna - Documentation Purposes Only Max Bruce Other [facility] 03-11-2022 zoster vaccine recombinant Max Bruce Other [facility] 03-11-2022 zoster vaccine, live Benjami milagros Bruce Other [facility] 02-03-2022 influenza virus vaccine, split virus (incl. purified surface antigen) Max Bruce Other [employer] Other 02-03-2022 influenza virus vaccine, unspecified formulation [facility] 02-03-2022 influenza, high dose seasonal, preservative-free Max Bruce Other [employer] Other 07-13-2021 zoster vaccine recombinant Max Bruce Other [facility] 03-31-2021 COVID-19 Vaccine Moderna - Documentation Purposes Only Max Bruce Other [facility] 01-24-2021 influenza virus vaccine, split virus (incl. purified surface antigen) Max Bruce Other [facility]) Other 01-24-2021 influenza virus vaccine, unspecified formulation [facility] 08-04-2020 COVID-19 Vaccine Moderna - Documentation Purposes Only Max Bruce Other [facility] 08-03-2020 COVID-19 mRNA-1273 (Moderna) [facility] 07-01-2020 COVID-19 Vaccine Moderna - Documentation Purposes Only Max Bruce Other [facility] 02-03-2020 influenza virus vaccine, split virus (incl. purified surface antigen) Max Bruce Other [facility]) Other 02-03-2020 influenza virus vaccine, unspecified formulation [facility] Payers Date Payer Category Payer Private Health Insurance 2021 Private Health Insurance [id number] 2021 Self-pay 2020 Medicare AETNA MEDICARE A ETNA MEDICARE PPO [id number] 2020-Present [phone] [address] [place] [address] PPO [id number] 1960 Medicare [id number] 1940 Unknown [id number] 1940 Unknown [id number] [id number] 1940 Unknown [id number] 2.16.840.1.941148.3.579.2.1 96 1940 Unknown [id number] 2.16.840.1.737218.3.579.2.1 96 1940 Unknown [id number] 2.16.840.1.650620.3.579.2.1 96 1940 Unknown [id number] 2.16.840.1.929944.3.579.2.1 96 1940 Unknown [id number] 2.16.840.1.880572.3.579.2.1 96 1940 Unknown [id number] 2.16.840.1.421079.3.579.2.1 96 1940 Unknown [id number] 2.16.840.1.684805.3.579.2.1 96 Unknown [id number] 2.16.840.1.456780.3.579.2.5 31 Unknown [id number] 2.16.840.1.311453.3.579.2.5 31 Unknown [id number] 2.16.840.1.364997.3.579.2.5 31 Unknown [id number] 2.16.840.1.917360.3.579.2.5 31 Unknown [id number] 2.16.840.1.865611.3.579.2.5 31 Unknown [id number] 2.16.840.1.709789.3.579.2.5 31 Unknown [id number] 2.16.840.1.139766.3.579.2.5 31 Social History Date Type Detail Facility Sex Assigned At [facility] Other Start: 06-22-2020 End: 08-15-2021 Tobacco smoking status HIIS Never smoked tobacco [facility] Start: 06-22-2020 Tobacco use and exposure Smokeless tobacco non-user [facility] Start: 12-16-2020 Alcohol intake Current drinke r of alcohol (finding) [facility] Start: 06-22-2020 History SDOH Alcohol Comment 1 x weekly [facility] Start: 1940 Sex Assigned At Female C [facility] Medical Equipment Procedure Code Equipment Code Equipment Origin al Text Equipment Identifier Dates Lens Iol 0d +19. 5 [place] Uv Abs - [id number] Start: 08-18-2020 Comment on above: Description: [...] doesn't help can use topical steroid drops [employer] Other 10-03-2023 Evaluation note* Encounter Date Diagnosis Assessment Notes Treatment Notes Treatment Clinical Notes Feb, SBE (subacute bacterial endocarditis) prophylaxis candidate (ICD-10 - Z29.89) [employer] Other 03-30-2023 Evaluation note* Encounter Date Diagnosis Assessment Notes Treatment Notes Treatment Clinical Notes Jul, SBE (subacute bacterial endocarditis) prophylaxis candidate (ICD-10 - Z29.8) [employer] Other 03-23-2023 Evaluation note* Encounter Date Diagnosis [...] High risk medication use (ICD-10 - Z79.899) [employer] Other 12-02-2022 NoteHNO ID: [id number] Author: Pedro Goff DO Service: ? Author Type: Physician Type: Progress Notes Filed: 04/14/2022 10:56 AM Note Text: CONSULT ORTHOPAEDIC: HIP PRIMARY CARE PHYSICIAN: Max Bruce DO REFERRING PROVIDER: Rosalio Roblero II [address] [place] [address] [place] [phone] HPI: 82-year-old female presents today with right hip pain that has been chronic in nature over the last year and a half but acutely worsened over the last 6 months. 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 She overall uses a walker for ambulation and has significant leg length difference and requires a shoe lift. She states over the last 6 months that her right hip and leg pain is worsening especially after working with physical therapy and was seen in [facility] and recommended nonweightbearing for 6 [...] Deficiency Chronic Kidney Disease, Stage Iii (Moderate) ([facility]) Chronic Kidney Disease, Stage 3 Unspecified ([facility]) History of Total Right Hip [...] activities which include walking 2 blocks, doing english drawer, rising from a sitting position, standing for [...] factors. Appears direct (more content not included)... [facility]12-02-2022 NoteHNO ID: [id number] Author: RT Anthony(R) Service: ? Author Type: [...] BY: RT Anthony(R) April 14, 2022 8:27 [facility]09-14-2022 Miscellaneous Notes * Telephone Encounter - Carrol Matthew RN - 01/25/2022 12:17 PM EDT Spoke to briana Quezada Dr only does revisions on his surgical patients or patients with a pathologic or metastatic disease. * Telephone Encounter - Carlitosanam Addis Pss - 01/25/2022 11:17 AM EDT Please contact Pilar larson/ Dr[facility] Rosalio Flores ([facility]) Looking to discuss patient diagnosis, to see if patient can be seen by Dr Cho Second Opinion ( component loosening and Aseptic) Please dial Pilar [phone] [facility]* Encounter Date Diagnosis Assessment Notes Treatment Notes Treatment Clinical Notes Nov, Right hip pain (ICD-10 - M25.551) Nov, History of total right hip arthroplasty (ICD-10 - Z96.641) Nov, Other I again had a l stan discussion with the patient regarding her symptoms and treatment options. We discussed her lab results from [facility] on 11/02/2021 and they are as follows: [...] to get her in with either the [facility] or [facility] to discuss the possibility of revision because at this point I do not feel that our health system would be the best place for her to get the surgery that may need to be required. Patient understands this and is willing to proceed with the nonweightbearing precautions for another 4 to 6 weeks. [employer] Other 06-17-2022 Evaluation note* Encounter Date Diagnosis Assessment Notes Treatment Notes Treatment Clinical Notes Oct, History of total right hip arthroplasty (ICD-10 - Z96.641) [employer] Other 06-09-2022 Evaluation note* Encounter Date Diagnosis [...] back after she gets her CT scan. [employer] Other 03-30-2022 Evaluation note* Encounter Date Diagnosis [...] the results and treatment plans moving forward. [employer] Other 03-23-2022 Evaluation note* Encounter Date Diagnosis [...] see her back after her labs result. [employer] Other Evaluation noteNo [facility] [place] [facility] Other Evaluation note* Diagnosis Onset Date Resolution Status Chronic kidney disease acute Chronic venous insufficiency of lower extremity acute LAZARO (generalized anxiety disorder) acute GERD (gastroesophageal reflux disease) acute IFG (impaired fasting glucose) acute Lumbar spondylosis acute RLS (restless legs syndrome) acute Medicare annual wellness visit, subsequent noneactive [facility] Work Phone: Evaluation note* Diagnosis Onset Date Resolution Status Chronic kidney disease acute Chronic venous insufficiency of lower extremity acute LAZARO (generalized anxiety disorder) acute GERD (gastroesophageal reflux disease) acute IFG (impaired fasting glucose) acute Lumbar spondylosis acute Opiate analgesic use agreement exists acute RLS (restless legs syndrome) acute [facility] Work Phone: History general Narrative - Reported* Type Description Date Medical History chronic depression Medical History anxiety Medical History Acid reflux Surgical History Back surgery Surgical History Hip surgery X5 [employer] Other Hisruto general Narrative - Reported* Type Description Date [...] FUSION 2014 Hospitalization History see surgical hx [employer] Other Advance Directives Documents on File Type Date Recorded Patient Scrap Cutter Expl anation Advance Directive(s) 08/18/2020 9:58 AM Advance Directive Response Recorded Date/ Time Advance Directives No June 3:43pm Summary Purpose Family History Relationship Condition Age at Onset Recorded Date/T michael Not Specified Sjogren syndrome wit h other organ involvement Unknown natural son Malignant neoplasm of esophagus Unknown daughter Congenital anomaly of liver Unknown Relationship Condition Age at Onset Recorded Date/T michael mother Sjogren syndrome wit h other organ involvement Unknown son Malignant neoplasm of esophagus Unknown daughter Congenital anomaly of liver Unknown Chief Complaint and Reason for Visit Chief Complaint Amb Documentation [facility] Wellness Reason for Visit Chronic kidney disea se Chronic venous insufficiency of lower extremity LAZARO (generalized anxiety disorder) GERD (gastroesophageal reflux disease) IFG (impaired fasting glucose) Lumbar spondylosis RLS (restless legs syndrome) Medicare annual wellness visit, subsequent Chief Complaint 3 month follow up Reason for Visit Chronic kidney disea se Chronic venous insufficiency of lower extremity LAZARO (generalized anxiety disorder) GERD (gastroesophageal reflux disease) IFG (impaired fasting glucose) Lumbar spondylosis Opiate analgesic use agreement exists RLS (restless legs syndrome) Additional Source Comments REASON FOR VISIT (unrecogniz ed section and content) Reason Comments 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 Source Comments (unrecognize d section and content) In the event this informatio n is protected by the Federal Confidentiality of Alcohol and Drug Abuse Patient Records regulations: The Federal rules restrict any use of the information to criminally investigate or prosecute any alcohol or drug abuse patient.[facility] Care Teams (unrecognized sec tion and content) Team Status: Active Member Role Status Dates Max Bruce DO Primary Care Provider Active Team Status: Inactive Member Role Status Dates Max Bruce DO Primary Care Provide r, Attending Provider Active Start: December 11, 2023 End: December 11, 2023 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 Relationship Specialty Start Date End Date Max Bruce DO [address] [place] [address] PCP - General Internal Medicine 08/18/20 Team Status: Active Member Role Status Dates Max Bruce DO Primary Care Provider Active Team Status: Active Member Role Status Dates Max Bruce DO Primary Care Provider Active Start: August 21, 2023 Muriel Jurado ARIAS Attending Provider Active Start : August 21, 2023 Team Status: Inactive Member Role Status Dates Max Bruce DO Primary Care Provide r, Attending Provider Active Start: September 11, 2023 End: September 11, 2023 Team Status: Inactive Member Role Status Dates Max Bruce DO Primary Care Provide r, Attending Provider Active Start: December 11, 2023 End: December 11, 2023 INFORMATION SOURCE (unrecogn ized section and content) DATE CREATED AUTHOR 04/14/2022 [facility] DATE CREATED AUTHOR AUTHOR'S ORGANIZ ATION 06/17/2022 [facility] DATE CREATED AUTHOR AUTHOR'S ORGANIZ ATION 08/07/2022 [facility] DATE CREATED AUTHOR AUTHOR'S ORGANIZ ATION 09/20/2023 Goals (unrecognized section and content) Goals may be documented in a n alternate section FOR RECORDS PERTAINING TO PATIENTS WHO ARE [...] BE BASED ON THE PRIMARY CLINICAL RECORDS. [facility] [employer] [facility]. provides no warranty or guarantee of the accuracy or completeness of information in this document.
[2024-01-08 12:35] LABS: Basophils Absolute Auto 0.1 10^3/uL (0.0-0.1); Basophils Percent Auto 0.8 % (0.2-2.0); Eosinophils Absolute Auto 0.2 10^3/uL (0.0-0.7); Eosinophils Percent Auto 3.9 % (0.9-7.0); Hematocrit 40.3 % (36.0-48.0); Hemoglobin 13.2 g/dL (12.0-16.0); Immature Granulocytes Abs Auto 0.01 10^3/uL (0.00-0.03); Immature Granulocytes Pct Auto 0.2 % (0.0-0.5); Lymphocytes Absolute Auto 1.6 10^3/uL (1.2-3.8); Lymphocytes Percent Auto 26.5 % (20.5-60.0); Mean Corpuscular HGB Conc 32.8 g/dL (29.9-35.2); Mean Corpuscular Hemoglobin 30.5 pg (26.7-34.0); Mean Corpuscular Volume 93.1 fL (81.0-99.0); Monocytes Absolute Auto 0.5 10^3/uL (0.3-0.8); Monocytes Percent Auto 8.9 % (1.7-12.0); Neutrophils Absolute Auto 3.5 10^3/uL (1.4-6.5); Neutrophils Percent Auto 59.7 % (43.0-75.0); Platelet Count 243 10^3/uL (150-450); Red Blood Count 4.33 10^6/uL (4.20-5.40); Red Cell Distribution Width 13.1 % (11.0-15.0); White Blood Count 5.9 10^3/uL (4.0-11.0)
== END 2024-01-08 12:15 | disposition home or self-care (01) ==
LOC: LAB 12:16
PROVIDERS: PCP Internal Medicine; Visit Provider Internal Medicine
DX: N18.31 Chronic kidney disease, stage 3a (principal)
CPT/HCPCS: 36415; 85025

== ENCOUNTER 2024-01-30 11:04 | Outpatient (OUT) | payer MEDICARE, SELFPAY ==
--- OUTSIDE RECORDS SUMMARY | 2024-01-30 11:11 | XMS_ITS | CCD ---
Author Organization [facility] Care Team Providers Care Mandrel Press Hand Name Role Phone Rosalio Roblero II Unavailable Max Bruce DO Primary Care Provider MAX BRUCE Primary Care Unavailable PEDRO GOFF Referring Unavailable MAX BRUCE Primary Care Unavailable PEDRO GOFF Attending Unavailable OSBALDO SILVERIO, ROSALIO Puente Referring Unavaildebbi e TEO MAX E Primary Care Unavailable Osbaldo SILVERIO, Rosalio Puente Attending Unavailabl e Teo, Max Primary Care Unavailable Osbaldo II, Rosalio Puente Admitting Unavailabl e Carlock II, Rosalio M Admitting Unavailabl e Osbaldo II, Rosalio Puente Attending Unavailabl e Max Bruce Primary Care Unavailable Carlock II, Rosalio Puente Admitting Unavailabl e Osbaldo II, Rosalio Puente Attending Unavailabl e Ball, Max Primary Care Unavailable Carlock II, Rosalio Puente Attending Unavailabl e Ball, Max Primary Care Unavailable Carlock II, Rosalio M Admitting Unavailabl e Carlock II, Rosalio M Admitting Unavailabl e Osbaldo II, Rosalio Puente Attending Unavailabl e Ball Max Primary Care Unavailable Carlock II, Rosalio Puente Admitting Unavailabl e Carlock II, Rosalio M Attending Unavailabl e Ball, Max Primary Care Unavailable Carlock II, Rosalio Puente Attending Unavailabl e Teo, Max Primary Care Unavailable Carlock II, Rosalio Puente Admitting Unavailabl e OSBALDOROSALIO DAVIS Consulting Unavailable ROSALIO ROBLERO Attending Unavailable ROSALIO ROBLERO Admitting Unavailable TEO, DR BERRY Attending Unavailable TEO, DR BERRY Admitting Unavailable TEO, DR BERRY Consulting Unavailable Teo Max Unavailable Marisol ARGUETA, Jennifer Ojeda Attending Unavailable Marisol ARGUETA, Jennifer Ojeda Attending Unavailable Marisol ARGUETA, Jennifer Ojeda Attending Unavailable Giedraitis , Jennifer Ojeda Attending Unavailable Giedraitis , Jennifer Ojeda Attending Unavailable Gieditis , Jennifer Ojeda Attending Unavailable Giedraitis , Jennifer Ojeda Attending Unavailable Allergies Allergy Classification Reported Allergen(s) Allergy Type Date of Onset Reaction(s) Facility (18 sources) Acetaminophen / oxyCODONE Drug Allergy Unknown [id number] Other (20 sources) Adhesive Tape; Translations: [adhesive tape] Propensity to adverse reactions 08-16-19 Unknown, Blister [facility] (5 sources) oxyCODONE Drug Allergy 08-16-19 Agitated [facility] (4 sources) Adhesive Tape 1 x5yd *MEDICAL DEVICES AND SUPPLIES Propensity to adverse reactions Comment:Adhesi ve Tape [id number] Other (4 sources) Acetaminophen Drug Allergy 09-11-19 Unknown Reaction [facility] Medications Current Medications Medication Drug Class(es) Dates Sig (Normalized) Sig (Original) ascorbic acid 500 mg oral tablet (12 sources) Vitamin C Start: 08-12-2021 take 1 [...] capsule by mouth every tw enty-four hours DULoxetine 30 mg delayed release oral capsule (2 sources) Serotonin and Norepinephrine Reuptake Inhibitor Start: 12-31-2023 take 30 mg by mouth once daily Duloxetine Active 30 MG PO Daily December 31, 2023 12:00am Fish Oils (18 sources) take 1 capsule by mouth once daily take 1 capsule by mouth once ro ly Fish Oil 1200 MG 1 capsule Orally Once a day Active gabapentin 100 mg oral capsule (4 sources) Anti-epileptic Agent Start: 09-11-2023 take 100 [...] 11, 2023 8:12am take 1 capsule by [facility] every twenty-four hours LUTEIN ORAL Take by mouth. 0 Active Comment on above: Take by mouth. Magnesium (18 sources) take 1 tablet by mouth once laly y take 1 tablet by mouth once laly y Magnesium 500 MG 1 tablet with a meal Orally Once a day Active magnesium oxide 400 mg oral tablet (4 sources) Start: 08-12-2021 take 400 mg by mouth once daily Magnesium Oxide Active 400 MG PO Daily August 12, 2021 12:00am meloxicam 15 mg oral tablet (20 sources) Nonsteroidal Anti-inflammatory Drug Start: 11-26-2023 take 1 tablet by mouth once daily Meloxicam Active 0 .ROUTE .COMPLEX 90 November 26, 2023 1:27pm TAKE 1 TABLET [...] August 12, 2021 12:00am Multivitamin Act bruce Wilberforce-3 Fatty Acids (Fish Oil Concentrate) 1,000 mg Capsule (4 sources) Start: 08-12-2021 take 1 capsule by mouth once daily Wilberforce-3 Fatty Acids (Fish Oil Concentrate) 1,000 mg [...] acetaminophen 650 mg extended release oral tablet (4 sources) Start: 08-12-2021 End: 09-11-2023 take 1 tablet by mouth every twelve hours Acetaminophen (Tylenol Arthritis) 650 mg Tablet Extended Release Discontinued 650 MG PO Q12H August 12, 2021 12:00am September 11, 2023 8:12am acetaminophen 325 mg / HYDROcodone bitartrate 5 mg oral tablet (13 sources) Opioid Agonist Start: 09-11-2023 End: 01-02-2024 take 1 tablet by mouth every eight hours Hydrocodone-Acetami nophen Discontinued 1 TAB PO Every 8 hours December 03, 2023 January 02, 2024 4:40pm start 12/02 take 1 tablet by ritu th every eight hours HYDROcodone-Acetaminophen 5-325 MG 1 tab let as needed Oral every 8 hours Active amoxicillin 500 mg oral capsule (7 sources) Penicillin-class Antibacterial Start: 08-10-2022 Amoxicillin 500 MG 4 capsules Orally 30-60 minutes prior to dentist appt. for 1 days Feb, Not-Taking/PRN escitalopram 20 mg oral tablet (20 sources) Serotonin Reuptake Inhibitor Start: 12-14-2023 End: 12-31-2023 take 10 mg by mouth once daily Escitalopram Oxalate Discontinued 10 MG PO Daily December 14, 2023 12:18pm December 31, 2023 5:44pm Start: 10-12-2023 End: 12-14-2023 take 1 tablet by mouth once daily Escitalopram Oxalate Discontinued 0 .ROUTE .COMPLEX October 12, 2023 1:16pm December 14, 2023 12:19pm TAKE 1 TABLET BY MOUTH EVERY DAY FOR 90 DAYS Start: 03-26-2020 End: 10-12-2023 take 20 mg by mouth once daily in the morning Escitalopram Oxalate Discontinued 20 MG PO Every morning August 12, 2021 12:00am October 12, 2023 1:16pm Comment on above: Take 20 mg by mouth once daily. hydrocortisone 10 mg/ml / neomycin 3.5 mg/ml / polymyxin b [id number] unt/ml otic suspension (9 sources) Aminoglycoside Antibacterial, Polymyxin-class Antibacterial, Corticosteroid Start: 08-21-2023 End: 09-11-2023 Rpuqwbkx-Posyuuqox-Qh Discontinued 0 .ROUTE .COMPLEX August 21, 2023 4:41pm September 11, 2023 8:12am PLACE 4 DROPS INTO AFFECTED EAR(S) ONCE A DAY NEEDED FOR ITCHING OR DISCOMFORT Start: 08-21-2023 End: 08-21-2023 Uadfekxd-Fpsawchof-Jj Discon tinued 4 DROPS OTIC August 21, 2023 12:00am August 21, 2023 4:41pm 4 drops into affected ear Otic daily as needed for itching or discomfort Start: 05-09-2023 Neomycin-Polym yxin-HC [id number] 4 drops into affected ear Otic daily [...] Date Documented Da te Episodic/Chronic Anxiety disorders (18 sources) Generalized anxiety disorder; Translations: [Generalized anxiety disorder] Resolved: 05-19-2020 Chronic Chronic kidney disease (19 sources) Chronic kidney disease stage 3; Translations: [Chronic kidney disease, stage III (moderate)] 08-18-2020 Chronic Diabetes mellitus without complication (18 sources) Impaired glucose tolerance (oral); Translations: [Impaired glucose tolerance] Onset: 08-06-2022 Episodic Disorders of lipid metabolism (13 sources) Familial hypercholesterolemia ; Translations: [Familial hypercholesterolemia ] Onset: 08-06-2022 Chronic Esophageal disorders (11 sources) Gastro-esophageal reflux disease with esophagitis; Translations: [Gastroesophageal reflux disease with esophagitis without hemorrhage] 09-09-2023 Chronic Gastrointestinal hemorrhage (3 sources) Melena; Translations: [Melena] 01-10-2024 Episodic Genitourinary symptoms and ill-defined conditions (7 sources) [...] 08-18-2020 Episodic Other aftercare (1 source) Other fdc (current) drug therapy Episodic Other aftercare (3 sources) Drug therapy finding; Translations: [correction (current) use of opiate analgesic] 12-09-2023 Episodic Other aftercare (4 sources) intermediate frame tender (current) use of opiate analgesic; Translations: [...] Chronic Other diseases of veins and lymphatics (4 sources) Venous insufficiency of leg; Translations: [Venous insufficiency (chronic) (peripheral)] 09-09-2023 Episodic Other diseases of veins and lymphatics (4 sources) Venous insufficiency (chronic) (peripheral); Translations: [Venous [...] Other hereditary and degenerative nervous system conditions (4 sources) Restless legs; Translations: [Restless legs syndrome] 09-11-2023 Chronic Other hereditary and degenerative nervous system conditions (7 sources) Restless legs syndrome; Translations: [Restless legs [...] (1 source) Other chronic pain Chronic Other non-traumatic joint disorders (5 sources) Pain in right shoulder; Translations: [Right shoulder pain] 01-10-2024 Episodic Other nutritional; endocrine; and metabolic disorders (1 [...] Test Name Value Interpretation Reference Range Facility Basophils Auto (Bld) [#/Vol] on 01-08-2024 Basophils (Bld) [#/Vol] 0.1 10 3/uL 0.0-0.1 [facility] Basophils/100 WBC Auto (Bld) on 01-08-2024 Basophils/100 WBC (Bld) 0.8 % 0.2-2.0 [facility] Eosinophils/100 WBC Auto (Bl d)on 01-08-2024 Eosinophils/100 WBC (Bld) 3.9 % 0.9-7.0 [facility] Erythrocyte distribution wid th Auto (RBC) [Ratio]on 01-08-2024 Erythrocyte distribution width (RBC) [Ratio] 13.1 % 11.0-15.0 [facility] Hematocrit Auto (Bld) [Volum e fraction]on 01-08-2024 Hematocrit (Bld) [Volume fraction] 40.3 % 36.0-48.0 [facility] Hemoglobin [Mass/volume] in Bloodon 01-08-2024 Hemoglobin (Bld) [Mass/Vol] 13.2 g/dL 12.0-16.0 [facility] Laboratory - Hematology and Cell countson 01-08-2024 Immature granulocytes/100 WBC (Bld) 0.2 % 0.0-0.5 [facility] Leukocytes [#/volume] correc camille for nucleated erythrocytes in Blood by Automated counon 01-08-2024 WBC corrected for nucl RBC Auto (Bld) [#/Vol] 5.9 10 3/uL 4.0-11.0 [facility] Lymphocytes Auto (Bld) [#/Vo l]on 01-08-2024 Lymphocytes (Bld) [#/Vol] 1.6 10 3/uL 1.2-3.8 [facility] Lymphocytes/100 WBC Auto (Bl d)on 01-08-2024 Lymphocytes/100 WBC (Bld) 26.5 % 20.5-60.0 [facility] MCH Auto (RBC) [Entitic mass ]on 01-08-2024 MCH (RBC) [Entitic mass] 30.5 pg 26.7-34.0 [facility] MCHC Auto (RBC) [Mass/Vol]on 01-08-2024 MCHC (RBC) [Mass/Vol] 32.8 g/dL 29.9-35.2 [facility] MCV Auto (RBC) [Entitic vol] on 01-08-2024 MCV (RBC) [Entitic vol] 93.1 fL 81.0-99.0 [facility] Monocytes Auto (Bld) [#/Vol] on 01-08-2024 Monocytes (Bld) [#/Vol] 0.5 10 3/uL 0.3-0.8 [facility] Monocytes/100 WBC Auto (Bld) on 01-08-2024 Monocytes/100 WBC (Bld) 8.9 % 1.7-12.0 [facility] Neutrophils Auto (Bld) [#/Vo l]on 01-08-2024 Neutrophils (Bld) [#/Vol] 3.5 10 3/uL 1.4-6.5 [facility] Neutrophils/100 WBC Auto (Bl d)on 01-08-2024 Neutrophils/100 WBC (Bld) 59.7 % 43.0-75.0 [facility] No Panel Informationon 01-07 Eosinophils # (Auto) 0.2 10 3/uL 0.0-0.7 [facility] Immature Granulocyte # (Auto) 0.01 10 3/uL 0.00-0.03 [facility] Platelet mean volume Auto (B ld) [Entitic vol]on 01-08-2024 Platelet mean volume (Bld) [Entitic vol] 10.0 fL 9.5-13.5 [facility] Platelets Auto (Bld) [#/Vol] on 01-08-2024 Platelets (Bld) [#/Vol] 243 10 3/uL 150-450 [facility] RBC Auto (Bld) [#/Vol]on RBC (Bld) [#/Vol] 4.33 10 6/uL 4.20-5.40 [facility] A1C with Estimated Average G luon 08-03-2022 A1C with Estimated Average Glu [id number] Other Basic Metabolic Panelon 07-13 Calcium [Mass/Vol] 9.5402042 mg/dL 8.5-10 .1 mg/dL [id number] Other CO2 [Moles/Vol] 27.58307748 mmol/L 21.0-3 2.0 mmol/L [id number] Other Creatinine [Mass/Vol] 1.00450728 mg/dL 0.55-1.02 mg/dL [id number] Other Potassium [Moles/Vol] 4.83325977 mmol/L 3.5-5.1 mmol/L [id number] Other Urea nitrogen [Mass/Vol] 28.0973124 mg/dL Critically high 7.0-18.0 mg/dL [id number] Other Basic Metabolic Panel see note [email or web address] Other Basic Metabolic Panel 140 mmol/L 136-145 mmol/L [email or web address] Other Basic Metabolic Panel 95 mg/dL 74-106 mg/dL [email or web address] Other Basic Metabolic Panel 52 mL/min/1.73m2 Critically low >=60 mL/min/1.73m2 [id number] Other Basic Metabolic Panel >60 mL/min/1.73m2 >=60 mL/min/1.73m2 [id number] Other CBC AUTO DIFFon 08-03-2022 BASO # 0.0 103/ul Normal 0.0-0.1 [facility] Comment on above: Performed By: #### C BC #### [facility] [address] [place] [address] Dr. Sandra Radford Basophils/100 WBC (Bld) 0.5 % Normal 0.2-2.0 [facility] Comment on above: Performed By: #### C BC #### [facility] [address] [place] [address] Dr. Sandra Radford EO # 0.3 103/ul Normal 0.0-0.7 [facility] Comment on above: Performed By: #### C BC #### [facility] [address] [place] [address] Dr. Sandra Radford Eosinophils/100 WBC (Bld) 4.5 % Normal 0.9-7.0 [facility] Comment on above: Performed By: #### C BC #### [facility] [address] [place] [address] Dr. Sandra Radford Erythrocyte distribution width (RBC) [Ratio] 13.8 % Normal 11.0-15.0 [facility] Comment on above: Performed By: #### C BC #### [facility] [address] [place] [address] Dr. Sandra Radford Hematocrit (Bld) [Volume fraction] 39.7 % Normal 36.0-48.0 [facility] Comment on above: Performed By: #### C BC #### [facility] [address] [place] [address] Dr. Sandra Radford Hemoglobin (Bld) [Mass/Vol] 12.8 g/dL Normal 12.0-16.0 [facility] Comment on above: Performed By: #### C BC #### [facility] [address] [place] [address] Dr. Sandra Radford IG # 0.01 10e3/ul Normal 0.00-0.03 [facility] Comment on above: Performed By: #### C BC #### [facility] [address] [place] [address] Dr. Sandra Radford IG % 0.2 % Normal 0.0-0.5 [facility] Comment on above: Performed By: #### C BC #### [facility] [address] [place] [address] Dr. Sandra Radford LYMPH # 1.6 103/ul Normal 1.2-3.8 [facility] Comment on above: Performed By: #### C BC #### [facility] [address] [place] [address] Dr. Sandra Radford Lymphocytes/100 WBC (Bld) 26.3 % Normal 20.5-60.0 [facility] Comment on above: Performed By: #### C BC #### [facility] [address] [place] [address] Dr. Sandra Radford MANUAL DIFF REQ NO Normal [facility] Comment on above: Performed By: #### C BC #### [facility] [address] [place] [address] Dr. Sandra Radford MCH (RBC) [Entitic mass] 29.9 pg Normal 26.7-34.0 [facility] Comment on above: Performed By: #### C BC #### [facility] [address] [place] [address] Dr. Sandra Radford MCHC (RBC) [Mass/Vol] 32.2 g/dL Normal 29.9-35.2 [facility] Comment on above: Performed By: #### C BC #### [facility] [address] [place] [address] Dr. Sandra Radford MCV (RBC) [Entitic vol] 92.8 fL Normal 81.0-99.0 [facility] Comment on above: Performed By: #### C BC #### [facility] [address] [place] [address] Dr. Sandra Radford MONO # 0.7 103/ul Normal 0.3-0.8 [facility] Comment on above: Performed By: #### C BC #### [facility] [address] [place] [address] Dr. Sandra Radford Monocytes/100 WBC (Bld) 10.6 % Normal 1.7-12.0 [facility] Comment on above: Performed By: #### C BC #### [facility] [address] [address] [address] Sandra Radford NEUT # 3.6 103/ul Normal 1.4-6.5 [facility] Comment on above: Performed By: #### C BC #### [facility] [address] [place] [address] Dr. Sandra Radford Neutrophils/100 WBC (Bld) 57.9 % Normal 43.0-75.0 [facility] Comment on above: Performed By: #### C BC #### [facility] [address] [place] [address] Dr. Sandra Radford Platelet mean volume (Bld) [Entitic vol] 9.7 fL Normal 9.5-13.5 [facility] Comment on above: Performed By: #### C BC #### [facility] [address] [place] [address] Dr. Sandra Radford PLT 240 103/ul Normal 150-450 [facility] Comment on above: Performed By: #### C BC #### [facility] [address] [place] [address] Dr. Sandra Radford RBC 4.28 106/ul Normal 4.20-5.40 [facility] Comment on above: Performed By: #### C BC #### [facility] [address] [place] [address] Dr. Sandra Radford WBC 6.2 103/ul Normal 4.0-11.0 [facility] Comment on above: Performed By: #### C BC #### [facility] [address] [place] [address] Dr. Sandra Radford Complete Blood Count and Dif esther 08-03-2022 Anisocytosis Ql (Bld) [id number] Other Basophilic stippling LM Ql (Bld) [id number] Other RBC morphology finding Nom (Bld) [id number] Other GLYCOHEMOGLOBIN A1Con 2022 ADA RECOMMENDATION SEE BELOW Normal [facility] Comment on above: Result Comment: ADA RECOMMENDED LIMIT 4.0 - 6.0 ADA THERAPEUTIC TARGET < 7.0 ACTION SUGGESTED > 7.0 Performed By: #### A 1C #### [facility] [address] [place] [address] Dr. Sandra Radford Glucose [Mass/Vol] 105 mg/dL Normal [facility] Comment on above: Performed By: #### A 1C #### [facility] [address] [address] [address] Sandra Radford HbA1c (Bld) [Mass fraction] 5.3 % Normal 4.5-6.2 [facility] Comment on above: Performed By: #### A 1C #### [facility] [address] [place] [address] Dr. Sandra Radford LIPID PROFILEon 08-03-2022 CHOL-HDL RATIO NORM SEE BELOW Normal [facility] Comment on above: Result Comment: 3.3 - 4.4 LOW RISK 4.4 - 7.1 AVERAGE RISK 7.1 - 11.0 MODERATE RISK >11.0 HIGH RISK Performed By: #### T SH, LIPID, BMP #### [facility] [address] [place] [address] Dr. Sandra Radford Cholesterol [Mass/Vol] 260 mg/dL Critically high <=200 mg/dL [facility] Comment on above: Performed By: #### T SH, LIPID, BMP #### [facility] [address] [place] [address] Dr. Sandra Radford Cholesterol in HDL [Mass/Vol] 58 mg/dL 40-60 mg/dL [facility] Comment on above: Performed By: #### T SH, LIPID, BMP #### [facility] [address] [address] [address] Sandra Radford Cholesterol in LDL [Mass/Vol] 165.8 mg/dL Normal [facility] Comment on above: Performed By: #### T SH, LIPID, BMP #### [facility] [address] [place] [address] Dr. Sandra Radford Cholesterol.total/C holesterol in HDL [Mass ratio] 4.5 {ratio} [facility] Comment on above: Performed By: #### T CHON, LIPID, BMP #### [facility] [address] [address] [address] Sandra Radford HDL NORMAL > or = 60 mg/dl - LO W CARDIOVASCULAR RISK <40 mg/dl - HIGH CARDIOVASCULAR RISK Normal [facility] Comment on above: Performed By: #### T SH, LIPID, BMP #### [facility] [address] [address] [address] Sandra Radford LDL CALC NORMAL SEE BELOW Normal [facility] Comment on above: Result Comment: <100 mg/dl OPTIMAL 100 - 129 mg/dl NEAR OR ABOVE OPTIMAL 130 - 159 mg/dl BORDERLINE HIGH 160 - 189 mg/dl HIGH >190 mg/dl VERY HIGH Performed By: #### T CHON, LIPID, BMP #### [facility] [address] [address] [address] Sandra Radford Triglyceride [Mass/Vol] 181 mg/dL Critically high <=150 mg/dL [facility] Comment on above: Performed By: #### T CHON, LIPID, BMP #### [facility] [address] [address] [address] Sandra Radford VLDL CALC 36.2 mg/dL Normal [facility] Comment on above: Performed By: #### T CHON, LIPID, BMP #### [facility] [address] [address] [address] Sandra Radford Lipid Panelon 08-03-2022 Lipid Panel > or = 60 mg/dl - LO W CARDIOVASCULAR RISK <40 mg/dl - HIGH CARDIOVASCULAR RISK [id number] Other Lipid Panel SEE BELOW [id number] Other Lipid Panel 165.8 mg/dL [id number] Other Lipid Panel 36.2 mg/dL [id number] Other PROF CHEM 8 (BAS METB)on Anion gap [Moles/Vol] 12.2 mmol/L [facility] Comment on above: Performed By: #### T SH, LIPID, BMP #### [facility] [address] [address] [address] Sandra Rafdord Calcium [Mass/Vol] 9.6 mg/dL Normal 8.5-10.1 [facility] Comment on above: Performed By: #### T SH, LIPID, BMP #### [facility] [address] [place] [address] Dr. Sandra Radford Chloride [Moles/Vol] 105 mmol/L 98-107 mmol/L [facility] Comment on above: Performed By: #### T SH, LIPID, BMP #### [facility] [address] [place] [address] Dr. Sandra Radford CO2 [Moles/Vol] 27.3 mmol/L Normal 21.0-32.0 [facility] Comment on above: Performed By: #### T SH, LIPID, BMP #### [facility] [address] [place] [address] Dr. Sandra Radford Creatinine [Mass/Vol] 1.02 mg/dL Normal 0.55-1.02 [facility] Comment on above: Performed By: #### T CHON, LIPID, BMP #### [facility] [address] [place] [address] Dr. Sandra Radford EGFR-AF JAPANESE >60 Normal >=60 [facility] Comment on above: Performed By: #### T SH, LIPID, BMP #### [facility] [address] [place] [address] Dr. Sandra Radford EGFR-NON AF JAPANESE 52 mL/min/1.73m2 Critically low >=60 [facility] Comment on above: Performed By: #### T SH, LIPID, BMP #### [facility] [address] [place] [address] Dr. Sandra Radford Glucose [Mass/Vol] 95 mg/dL Normal 74-106 [facility] Comment on above: Performed By: #### T SH, LIPID, BMP #### [facility] [address] [place] [address] Dr. Sandra Radford Potassium [Moles/Vol] 4.5 mmol/L Normal 3.5-5.1 [facility] Comment on above: Performed By: #### T SH, LIPID, BMP #### [facility] [address] [address] [address] Sandra Radford Sodium [Moles/Vol] 140 mmol/L Normal 136-145 [facility] Comment on above: Performed By: #### T SH, LIPID, BMP #### [facility] [address] [address] [address] Sandra Radford Urea nitrogen [Mass/Vol] 28.0 mg/dL Critically high 7.0-18.0 [facility] Comment on above: Performed By: #### T SH, LIPID, BMP #### [facility] [address] [address] [address] Sandra Radford Urea nitrogen/Creatinine [Mass ratio] 27.5 mg/mg [facility] Comment on above: Performed By: #### T SH, LIPID, BMP #### [facility] [address] [address] [address] Sandra Radford TSHon 08-03-2022 TSH 1.952 uIU/mL Normal 0.358-3.740 [facility] Comment on above: Performed By: #### T SH, LIPID, BMP #### [facility] [address] [address] [address] Sandra Radford CNOVon 04-14-2022 CNOV Office Visit (LIZET ) NORMA BRENNAN ([id number]) 1940 F Date Time Provider Department 04/14/22 9:00 AM PEDRO GOFF During your visit today, we recorded the following information about you: Pedro Goff DO 04/14/2022 10:56 AM Signed CONSULT ORTHOPAEDIC: HIP PRIMARY CARE PHYSICIAN: Max Bruce DO REFERRING PROVIDER: Rsoalio Roblero II [address] [place] [address] [place] [id number] HPI: 82-year-old female presents today with right hip pain that has been chronic in nature over the last year and a half but acutely worsened over the last 6 months. 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 She overall uses a walker for ambulation and has significant leg length difference and requires a shoe lift. She states over the last 6 months that her right hip and leg pain is worsening especially after working with physical therapy and was seen in [facility] and recommended nonweightbearing for 6 [...] Kidney Disease, Stage Iii (Moderate) ([facility]) Chronic Kidney Disease, Stage 3 Unspecified ([facility]) History of Total Right Hip Replacement Gastro-Esophageal Reflux Disease With Esophagitis, Without Bleeding SUBJECTIVE CHIEF COMPLAINT: Hip Pain HPI: Norma Brennan is a 82 year old patient here for evaluation and management of Right hip pain.Norma Brennan has had progressive problems with the hip(s) most of the day over the past 6 month(s) interfering with activities which include walking 2 blocks, 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 The problem began limiting activities 1-6 months ago. Currently the pain in the joint is rated at 7 out of 10 with minimal activity. (more content not included)... Normal [facility] CRP [Mass/Vol] mg/L Normal <0.9 [facility] Comment on above: Order Comment: Speci men Type: BLOOD SPECIMEN [facility]ing [facility] Address: [address] [id number] Performed By: #### 1 988-5 #### [facility] CLIA [id number] [address] [place], [place] [id number] [address] JAHAIRA ESR Westergren method (Bld) [Velocity]on 04-14-2022 ESR (Bld) [Velocity] 6 mm/h Normal 0-20 [facility] Comment on above: Order Comment: Speci men Type: BLOOD SPECIMEN Ordering Facility: [facility] Address: [address] [place] [address] Performed By: #### 4 537-7 #### [facility] CLIA [id number] [address] [facility] DESK [id number] [place] [address] XR HIP 3V PELV+ AP/LAT RTon 04-14-2022 [...] significant abnormality. --- IMPRESSION: NO SIGNIFICANT CHANGE Master Welder: ALIE Transcribe Date/Time: Apr 14 2022 8:42A Dictated by : CECELIA ALVAREZ MD This examination was interpreted and the report reviewed and electronically signed by: CECELIA ALVAREZ MD on Apr 14 2022 8:49AM EST [id number] N Normal [facility] MIKANORMA ([id number]) 1940 F Date Time Provider Department 01/25/22 YECENIA MURPHY ORQ During your visit today, we recorded the following information about you: Shahana Mancini Pss 01/25/2022 11:22 AM Signed Please contact Pilar larson/ Dr. Rosalio Flores ([facility]) Looking to discuss patient diagnosis, to see if patient can be seen by Dr hCo Second Opinion ( component loosening and Aseptic) Please dial Pilar [phone] Carrol Matthew RN 01/25/2022 12:22 PM Signed Spoke to Pilar, explained Dr Cho only does revisions on his surgical patients or patients with a pathologic or metastatic disease. 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 Prescriptions [...] Status:Closed by CARROL MATTHEW on 01/25/22 Normal [facility] CBC AUTO DIFFon 11-02-2021 BASO # 0.0 103/ul Normal 0.0-0.1 [facility] Comment on above: Performed By: #### C BC #### [facility] [address] [address] [address] Sandra Radford Basophils/100 WBC (Bld) 0.5 % Normal 0.2-2.0 [facility] Comment on above: Performed By: #### C BC #### [facility] [address] [place] [address] Dr. Sandra Radford EO # 0.2 103/ul Normal 0.0-0.7 [facility] Comment on above: Performed By: #### C BC #### [facility] [address] [address] [address] Sandra Radford Eosinophils/100 WBC (Bld) 3.1 % Normal 0.9-7.0 [facility] Comment on above: Performed By: #### C BC #### [facility] [address] [place] [address] Dr. Sandra Radford Erythrocyte distribution width (RBC) [Ratio] 14.4 % Normal 11.0-15.0 [facility] Comment on above: Performed By: #### C BC #### [facility] [address] [address] [address] Sandra Radford Hematocrit (Bld) [Volume fraction] 34.1 % Critically low 36.0-48.0 [facility] Comment on above: Performed By: #### C BC #### [facility] [address] [place] [address] Dr. Sandra Radford Hemoglobin (Bld) [Mass/Vol] 11.2 g/dL Critically low 12.0-16.0 [facility] Comment on above: Performed By: #### C BC #### [facility] [address] [place] [address] Dr. Sandra Radford IG # 0.01 10e3/ul Normal 0.00-0.03 [facility] Comment on above: Performed By: #### C BC #### [facility] [address] [place] [address] Dr. Sandra Radford IG % 0.2 % Normal 0.0-0.5 [facility] Comment on above: Performed By: #### C BC #### [facility] [address] [place] [address] Dr. Sandra Radford LYMPH # 1.5 103/ul Normal 1.2-3.8 [facility] Comment on above: Performed By: #### C BC #### [facility] [address] [place] [address] Dr. Sandra Radford Lymphocytes/100 WBC (Bld) 25.1 % Normal 20.5-60.0 [facility] Comment on above: Performed By: #### C BC #### [facility] [address] [place] [address] Dr. Sandra Radford MANUAL DIFF REQ NO Normal [facility] Comment on above: Performed By: #### C BC #### [facility] [address] [place] [address] Dr. Sandra Radford MCH (RBC) [Entitic mass] 32.7 pg Normal 26.7-34.0 [facility] Comment on above: Performed By: #### C BC #### [facility] [address] [place] [address] Dr. Sandra Radford MCHC (RBC) [Mass/Vol] 32.8 g/dL Normal 29.9-35.2 [facility] Comment on above: Performed By: #### C BC #### [facility] [address] [place] [address] Dr. Sandra Radford MCV (RBC) [Entitic vol] 99.4 fL Critically high 81.0-99.0 [facility] Comment on above: Performed By: #### C BC #### [facility] [address] [place] [address] Dr. Sandra Radford MONO # 0.6 103/ul Normal 0.3-0.8 [facility] Comment on above: Performed By: #### C BC #### [facility] [address] [address] [address] Sandra Radford Monocytes/100 WBC (Bld) 10.7 % Normal 1.7-12.0 [facility] Comment on above: Performed By: #### C BC #### [facility] [address] [place] [address] Dr. Sandra Radford NEUT # 3.5 103/ul Normal 1.4-6.5 [facility] Comment on above: Performed By: #### C BC #### [facility] [address] [place] [address] Dr. Sandra Radford Neutrophils/100 WBC (Bld) 60.4 % Normal 43.0-75.0 [facility] Comment on above: Performed By: #### C BC #### [facility] [address] [place] [address] Dr. Sandra Radford Platelet mean volume (Bld) [Entitic vol] 10.2 fL Normal 9.5-13.5 [facility] Comment on above: Performed By: #### C BC #### [facility] [address] [place] [address] Dr. Sandra Radford PLT 202 103/ul Normal 150-450 [facility] Comment on above: Performed By: #### C BC #### [facility] [address] [place] [address] Dr. Sandra Radford RBC 3.43 106/ul Critically low 4.20-5.40 [facility] Comment on above: Performed By: #### C BC #### [facility] [address] [place] [address] Dr. Sandra Radford WBC 5.8 103/ul Normal 4.0-11.0 [facility] Comment on above: Performed By: #### C BC #### [facility] [address] [place] [address] Dr. Sandra Radford CRPon 11-02-2021 CRP [Mass/Vol] mg/L Normal <=1.0 [facility] Comment on above: Performed By: #### C RP #### [facility] [address] [address] [address] Sandra Radford SED RATE WESTERGRENon 2021 SED RATE 2 mm/hr Normal <=30 [facility] Comment on above: Performed By: #### S EDR #### [facility] [address] [address] [address] Sandra Radford NM bone 3 phaseon 10-26-2021 AR bone 3 phase [facility] [place] [address] [place] [address] Nuclear Medicine Report Signed Patient: Norma Brennan MR#: [id number] 00 : 1940 Acct:[id number] Age/Sex: 81 / F ADM Date: 10/26/21 Loc: [place] Room: Type: [facility] Attending Dr: Rosalio Roblero II, MD Copies to: DO Lolis Hoyos MD Robert M Carlisle, MD Ordering Provider: Rosalio Roblero MD Date of Service: 10/26/21 AR/AR bone 3 phase: Right hip pain WHOLE-BODY [...] Lolis Reddy M.D.10/26/2021 4:09 PM Dictation Location: [place] [address] Transcribed By: [facility] 10/26/21 1609 Dictated By: Lolis Reddy MD 10/26/21 1559 Signed By: 10/26/21 [address] [facility] [address] femur RT wo conon 022 CT femur RT wo [place] [address] CT Scan Report Signed Patient: Norma Brennan MR#: [id number] 00 : 1940 Acct:[id number] Age/Sex: 81 / F ADM Date: 10/20/21 Loc: [facility] Room: Type: [facility] Attending Dr: Rosalio Roblero II, MD Ordering Provider: Rosalio Rbolero MD Date of Service: 10/20/21 CT/CT femur [...] Centeno Jr., M.D.10/20/2021 11:15 AM Dictation Location: [place] [address] Transcribed By: [facility] 10/20/21 1115 Dictated By: Romeo Centeno Jr, MD 10/20/21 1057 Signed By: 10/20/21 1115 Normal [facility] XR femur RT 2V*on 10-20-2021 XR femur RT 2V* [facility] [place] [address] [place] [address] XRay Report Signed Patient: Norma Brennan MR#: [id number] 00 : 1940 Acct:[id number] Age/Sex: 81 / F ADM Date: 10/20/21 Loc: [facility] Room: Type: [facility] Attending Dr: Rosalio Roblero II, MD [...] Lolis Reddy M.D.10/20/2021 1:13 PM Dictation Location: [facility]-11 Transcribed By: [facility] 10/20/21 1313 Dictated By: Lolis Reddy MD 10/20/21 1310 Signed By: 10/20/21 1313 Normal [facility] XR pelvis 1-2Von 10-20-2021 XR pelvis 1-2V [facility] [place] [address] [place] [address] XRay Report Signed Patient: Norma Brennan MR#: [id number] 00 : 1940 Acct:[id number] Age/Sex: 81 / F ADM Date: 10/20/21 Loc: [facility] Room: Type: [facility] Attending Dr: Rosalio Roblero II, MD [...] Malachi Davis M.D.10/20/2021 1:08 PM Dictation Location: [facility]-07 Transcribed By: [facility] 10/20/21 1308 Dictated By: Malachi Davis II, MD 10/20/21 1303 Signed By: 10/20/21 1308 [facility] XR hip RT 1Von 08-15-2021 XR hip RT 1V [facility] [place] [address] [place] [address] XRay Report Signed Patient: Norma Brennan MR#: [id number] : 1940 Acct:[id number] Age/Sex: 81 / F ADM Date: 08/15/21 Loc: [place] Room: Type: [facility] Attending Dr: Rosalio Roblero II, MD Ordering [...] Edgard Paez M.D.08/15/2021 9:09 AM Dictation Location: [facility]--13 Transcribed By: [facility] 08/15/21908 Dictated By: Edgard Paez DO 08/15/21907 Signed By: 08/15/21 0909 [facility] Basic Metabolic Panelon 04 Calcium [Mass/Vol] 9.1 mg/dL Normal 8.2-10.2 [facility] Comment on above: Result Comment: PERF ORMED BY: [address] [place] [address] PATHOLOGIST SENIOR INTERACTION DESIGNER MARIELLA KRAUSE M.D. Performed By: #### C OVID 19 [facility] #### [facility] [address] [id number] [place] Chloride [Moles/Vol] 105 mmol/L Normal 95-114 [facility] Comment on above: Performed By: #### C OVID 19 [facility] #### [facility] [address] [place] [address] [place] CO2 [Moles/Vol] 25.9 mmol/L Normal 22.0-30.0 [facility] Comment on above: Performed By: #### C [place] 19 [facility] #### [facility] [address] [id number] [place] Creatinine [Mass/Vol] 0.99 mg/dL Normal 0.44-1.03 [facility] Comment on above: Performed By: #### C [place] 19 [facility] #### [facility] [address] Estimated GFR ( Jahaira > 60 Normal [facility] Comment on above: Result Comment: GFR estimated reference range: According to KDOQI guidelines, <60 ml/min/1.73m2 is sufficient to diagnose a patient with chronic kidney disease. Performed By: #### C [address] #### [facility] [address] [id number] [facility] Estimated GFR (Non- Am 54 Normal [facility] Comment on above: Performed By: #### C [address] #### [place] [id number] [facility] Glucose [Mass/Vol] 92 mg/dL Normal 70-100 [facility] Comment on above: Result Comment: [place] om Glucose Reference Range is dependent on time and content of last meal. Glucose of more than 200 mg/dL in a nonstressed, ambulatory subject supports the diagnosis of Diabetes Mellitus. ADA recommended reference range Performed By: #### C [place] 19 [facility] #### [place] [id number] [place] Potassium [Moles/Vol] 4.7 mmol/L Normal 3.5-5.1 [facility] Comment on above: Performed By: #### C [address] #### [facility] [address] [id number] [place] Sodium [Moles/Vol] 139 mmol/L Normal 136-146 [facility] Comment on above: Performed By: #### C [place] 19 [facility] #### [facility] [address] [id number] [place] Urea nitrogen [Mass/Vol] 32 mg/dL High 9-23 [facility] Comment on above: Performed By: #### C [place] 19 [facility] #### [facility] [address] [place] [address] [facility] COVID-19 FRMCon 08-12-2021 SARS-CoV-2 (COVID-19) RNA FABIAN+probe Ql (Unsp spec) Negative Normal Negative [facility] Comment on above: Order Comment: Comme nt procedure 08/15/21 Healthcare Worker?: N Result Comment: Testing for SARS-CoV-2 by RT-PCR This test was developed and its performance characteristics determined by [employer] and validated at the [facility]. This test has not been [...] is terminated or revoked sooner. PERFORMED BY: [place] [address] PATHOLOGIST SENIOR INTERACTION DESIGNER MARIELLA KRAUSE M.D. Performed By: #### C OVID 19 [facility] #### [place] [id number] [facility] ECG 12 lead ECGon 08-12-2021 ECG 12 lead ECG [facility] [place] [address] [place] [address] Electrocardiograph Report Signed Patient: Norma Brennan MR#: [id number] 00 : 1940 Acct:[id number] Age/Sex: 81 / F ADM Date: 08/12/21 [facility]: [facility] Att[facility] Dr: Rosalio Roblero II, MD Ordering Provider: Rosalio Roblero MD Date of Service: 04/06/04/800 ECG/ECG 12 lead ECG: surgery 08/15/21 Copies [...] Signed By Felicitas Villeda MD 0952 Normal [facility] C-Reactive Proteinon 022 C-Reactive Protein 1.4 mg/dL High 0.0-1.0 [facility] Comment on above: Order Comment: Comme nt procedure 08/15/21 Healthcare Worker?: N Result Comment: PERF ORMED BY: [place] [address] PATHOLOGIST SENIOR INTERACTION DESIGNER MARIELLA KRAUSE M.D. Performed By: #### C [place] 19 [facility] #### [address] Complete Blood Count Auto Di ffon 08-03-2021 Basophils (Bld) [#/Vol] 0.0 10*3/uL Normal 0.0-0.2 [facility] Comment on above: Order Comment: Comme nt procedure 08/15/21 Healthcare Worker?: N Performed By: #### C OVID 19 [facility] #### [address] Basophils/100 WBC (Bld) 0.5 % Normal . [facility] Comment on above: Order Comment: Comme nt procedure 08/15/21 Healthcare Worker?: N Performed By: #### C OVID [address] [place] [address] #### [address] Eosinophils (Bld) [#/Vol] 0.2 10*3/uL Normal 0.0-0.45 [facility] Comment on above: Order Comment: Comme nt procedure 08/15/21 Healthcare Worker?: N Performed By: #### C OVID 19 [facility] #### [facility] [address] [place] [address] [place] Eosinophils/100 WBC (Bld) 4.2 % Normal . [facility] Comment on above: Order Comment: Comme nt procedure 08/15/21 Healthcare Worker?: N Performed By: #### C [place] 19 [facility] #### [address] Erythrocyte distribution width (RBC) [Ratio] 14.7 % Normal 11.9-15.3 [facility] Comment on above: Order Comment: Comme nt procedure 08/15/21 Healthcare Worker?: N Performed By: #### C [place] 19 [facility] #### [address] Hematocrit (Bld) [Volume fraction] 39.6 % Normal 34.0-46.4 [facility] Comment on above: Order Comment: Comme nt procedure 08/15/21 Healthcare Worker?: N Performed By: #### C [place] 19 [facility] #### [address] Hemoglobin (Bld) [Mass/Vol] 12.9 g/dL Normal 11.8-15.4 [facility] Comment on above: Order Comment: Comme nt procedure 08/15/21 Healthcare Worker?: N Performed By: #### C [place] 19 [facility] #### [place] [address] [place] Lymphocytes (Bld) [#/Vol] 1.5 10*3/uL Normal 1.00-4.8 [facility] Comment on above: Order Comment: Comme nt procedure 08/15/21 Healthcare Worker?: N Performed By: #### C OVID 19 [facility] #### [place] [address] [place] Lymphocytes/100 WBC (Bld) 27.3 % Normal . [facility] Comment on above: Order Comment: Comme nt procedure 08/15/21 Healthcare Worker?: N Performed By: #### C [address] #### [facility] [address] MCH (RBC) [Entitic mass] 31.0 pg Normal 24.7-34.3 [facility] Comment on above: Order Comment: Comme nt procedure 08/15/21 Healthcare Worker?: N Performed By: #### C [address] #### [address] MCV (RBC) [Entitic vol] 95.4 fL Normal 80-100 [facility] Comment on above: Order Comment: Comme nt procedure 08/15/21 Healthcare Worker?: N Performed By: #### C [address] #### [address] Mean Corpuscular HGB Conc 32.4 g/dL Normal 32.0-35.0 [facility] Comment on above: Order Comment: Comme nt procedure 08/15/21 Healthcare Worker?: N Performed By: #### C [address] #### [address] Monocytes (Bld) [#/Vol] 0.5 10*3/uL Normal 0.0-0.8 [facility] Comment on above: Order Comment: Comme nt procedure 08/15/21 Healthcare Worker?: N Performed By: #### C [address] #### [place] [address] [place] Monocytes/100 WBC (Bld) 9.8 % Normal . [facility] Comment on above: Order Comment: Comme nt procedure 08/15/21 Healthcare Worker?: N Performed By: #### C [address] #### [place] [address] [place] Neutrophils (Bld) [#/Vol] 3.2 10*3/uL Normal 1.8-7.7 [facility] Comment on above: Order Comment: Comme nt procedure 08/15/21 Healthcare Worker?: N Performed By: #### C [address] #### [place] [address] Neutrophils/100 WBC (Bld) 58.2 % Normal . [facility] Comment on above: Order Comment: Comme nt procedure 08/15/21 Healthcare Worker?: N Performed By: #### C [place] 19 [facility] #### [address] Nucleated RBC/100 WBC (Bld) [Ratio] 0.1 % Normal 0-0.5 [facility] Comment on above: Order Comment: Comme nt procedure 08/15/21 Healthcare Worker?: N Performed By: #### C [address] #### [address] Platelet mean volume (Bld) [Entitic vol] 7.8 fL Normal 6.3-10.7 [facility] Comment on above: Order Comment: Comme nt procedure 08/15/21 Healthcare Worker?: N Performed By: #### C [address] #### [address] Platelets (Bld) [#/Vol] 272 10*3/uL Normal 150-450 [facility] Comment on above: Order Comment: Comme nt procedure 08/15/21 Healthcare Worker?: N Performed By: #### C [address] #### [address] RBC (Bld) [#/Vol] 4.15 10*6/uL Normal 3.60-5.00 [facility] Comment on above: Order Comment: Comme nt procedure 08/15/21 Healthcare Worker?: N Performed By: #### C [place] 19 [facility] #### [place] [address] [place] WBC (Bld) [#/Vol] 5.5 10*3/uL Normal 4.5-11.0 [facility] Comment on above: Order Comment: Comme nt procedure 08/15/21 Healthcare Worker?: N Performed By: #### C [address] #### [address] D-Dimer High Sensitivityon 0 08-03-2021 D-Dimer High Sensitivity 434 ng/mL High 0-243 [facility] Comment on above: Order Comment: [...] patients due to co-morbid conditions. PERFORMED BY: [place] [address] PATHOLOGIST SENIOR INTERACTION DESIGNER MARIELLA KRAUSE M.D. Performed By: #### D DIMER, CRP, CBC, ESR #### [place] [id number] [facility] Erythrocyte Sedimentation Ra brian 08-03-2021 ESR (Bld) [Velocity] 7 mm/h Normal 0-29 [facility] Comment on above: Order Comment: Comme nt procedure 08/15/21 Healthcare Worker?: N Result Comment: PERF ORMED BY: [place] [address] PATHOLOGIST SENIOR INTERACTION DESIGNER MARIELLA KRAUSE M.D. Performed By: #### C [place] 19 [facility] #### [place] [id number] [facility] XR knee BI 4Von 08-03-2021 XR knee BI 4V [facility] [place] [address] [place] [address] XRay Report Signed Patient: Norma Brennan MR#: [id number] : 1940 Acct:[id number] Age/Sex: 81 / F ADM Date: 08/03/21 Loc: [facility] Room: Type: [facility] Attending Dr: Rosalio Roblero II, MD Ordering Provider: Rosalio Roblero MD Date of Service: 08/03/21 XR/XR knee BI 4V: Osteoarthritis of knees, bilateral Copies to: Rosalio Roblero MD 4 views both knee plain film COMPARISON:None HISTORY:Bilateral knee pain medially. [id number]-tx-[id number] contact of the medial compartment of the [...] Edgard Paez M.D.08/03/2021 2:13 PM Dictation Location: [place] [address] Transcribed By: [facility] 08/03/21 1413 Dictated By: Edgard Paez DO 08/03/21 1412 Signed By: 08/03/21 1413 [facility] XR knee BI 4V [facility] [email or web address] Other XR knee BI 4V [facility] [email or web address] Other XR knee BI 4V [address] [place] [address] [email or web address] Other XR knee BI 4V [address] [employer] Other XR knee BI 4V XRay Report [employer] Other XR knee BI 4V Signed [employer] Other XR knee BI 4V Patient: Lauro Brennan MR#: [id number] [employer] Other XR knee BI 4V : 1940 Acct:[id number] Other XR knee BI 4V Age/Sex: 81 / F ADM Date: 08/03/21 [employer] Other XR knee BI 4V Loc: [facility] Room: Type : [facility] [employer] Other XR knee BI 4V Attending Dr: Rosalio Roblero II, MD [email or web address] Other XR knee BI 4V Ordering Provider: Rosalio Roblero MD [email or web address] Other XR knee BI 4V Date of Service: 08/03/21 [email or web address] Other XR knee BI 4V XR/XR knee BI 4V: Osteoarthritis of knees, bilateral [email or web address] Other XR knee BI 4V Copies to: Rosalio Roblero MD [email or web address] Other XR knee BI 4V 4 views both knee plain film [email or web address] Other XR knee BI 4V COMPARISON:None [email or web address] Other XR knee BI 4V HISTORY:Bilateral knee pain medially. [email or web address] Other XR knee BI 4V Swpm-lz-rzif contact of the medial compartment of the LEFT knee identified. Mild remaining joint [email or web address] Other XR knee BI 4V space narrowing of both knees present. Small supra patellar effusion seen. Diffuse osteopenia asia [email or web address] Other XR knee BI 4V ntified. No fracture or dislocation. Moderate lateral LEFT patellar subluxation identified. Mild [email or web address] Other XR knee BI 4V lateral RIGHT patellar subluxation identified. 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 Remaining minor degenerative [email or web address] Other XR knee BI 4V change. [email or web address] Other XR knee BI 4V Impression dictated by: Edgard Paez M.D.08/03/2021 2:13 PM [email or web address] Other XR knee BI 4V Dictation Location: RADIO-PC-01 [employer] Other XR knee BI 4V Transcribed By: PWS 08/03/21 1413 [employer] Other XR knee BI 4V Dictated By: Edgard Paez DO 08/03/21 1412 [employer] Other XR knee BI 4V Signed By: [employer] Other XR knee BI 4V 08/03/21 1413 [facility] Other XR pelvis 1-2Von 08-03-2021 XR pelvis 1-2V [facility] [address] [place] [address] XRay Report Signed Patient: Norma Brennan MR#: [id number] : 1940 Acct:[id number] Age/Sex: 81 / F ADM Date: 08/03/21 Loc: [facility] Room: Type: [facility] Attending Dr: Rosalio Roblero II, MD [...] Edgard Paez M.D.08/03/2021 2:20 PM Dictation Location: RADIO--01 Transcribed By: [facility] 08/03/21 1420 Dictated By: Edgard Paez DO 08/03/21 141 Signed By: 08/03/21 1420 [facility] XR pelvis 1-2V XR/XR pelvis 1-2V: Osteoarthritis of knees, bilateral [email or web address] Other XR pelvis 1-2V Single view of the pelvis plain film [email or web address] Other XR pelvis 1-2V HISTORY:Bilateral knee pain [email or web address] Other XR pelvis 1-2V The visualized portion of the RIGHT hip arthroplasty unremarkable. Bony alignment appears [email or web address] Other XR pelvis 1-2V adequate. Diffuse osteopenia. [email or web address] Other XR pelvis 1-2V No acute bony findings identified. [email or web address] Other XR pelvis 1-2V No focal soft tissue abnormality seen. [email or web address] Other XR pelvis 1-2V XR/XR pelvis 1-2V [email or web address] Other XR pelvis 1-2V IMPRESSION:Unremarka b le visualized the RIGHT hip arthroplasty. Diffuse osteopenia. Unremarkable [email or web address] Other XR pelvis 1-2V LEFT hip. [employer] Other XR pelvis 1-2V Impression dictated by: Edgard Paez M.D.08/03/2021 2:20 PM [email or web address] Other XR pelvis 1-2V Transcribed By: [facility] 08/03/21 [email or web address] Other XR pelvis 1-2V Dictated By: Edgard Paez DO 08/03/21 1419 [email or web address] Other XR pelvis 1-2V 08/03/21 1420 [employer] Other Vital Signs Date Time Vital Sign Value Performing Clinician Facility 01-29-2024 15:53-0400 Body height 152.4 cm [facility] 01-29-2024 15:53-0400 Body mass index (BMI) [Ratio] 30.9 kg/m2 [facility] 01-29-2024 15:53-0400 Body weight 71.78 kg [facility] 01-29-2024 15:53-0400 Diastolic blood pressure 91 mm[Hg] [facility] 01-29-2024 15:53-0400 Heart rate 96 /min [facility] 01-29-2024 15:53-0400 Respiratory rate 12 /min [facility] 01-29-2024 15:53-0400 Systolic blood pressure 171 mm[Hg] [facility] 01-11-2024 09:12-0400 Body height 152.4 cm [facility] 01-11-2024 09:12-0400 Body mass index (BMI) [Ratio] 30.2 kg/m2 [facility] 01-11-2024 09:12-0400 Body weight 70.36 kg [facility] 01-11-2024 09:12-0400 Diastolic blood pressure 79 mm[Hg] [facility] 01-11-2024 09:12-0400 Heart rate 96 /min [facility] 01-11-2024 09:12-0400 Respiratory rate 12 /min [facility] 01-11-2024 09:12-0400 Systolic blood pressure 112 mm[Hg] [facility] 12-11-2023 13:35-0400 Body height 152.4 cm [facility] 12-11-2023 13:35-0400 Body mass index (BMI) [Ratio] 30.7 kg/m2 [facility] 12-11-2023 13:35-0400 Body weight 71.21 kg [facility] 12-11-2023 13:35-0400 Diastolic blood pressure 94 mm[Hg] [facility] 12-11-2023 13:35-0400 Heart rate 76 /min [facility] 12-11-2023 13:35-0400 Respiratory rate 12 /min [facility] 12-11-2023 13:35-0400 Systolic blood pressure 162 mm[Hg] [facility] 09-11-2023 13:55-0400 Body height 152.4 cm [facility] 09-11-2023 13:55-0400 Body mass index (BMI) [Ratio] 30.8 kg/m2 [facility] 09-11-2023 13:55-0400 Body weight 71.66 kg [facility] 09-11-2023 13:55-0400 Diastolic blood pressure 79 mm[Hg] [facility] 09-11-2023 13:55-0400 Heart rate 75 /min [facility] 09-11-2023 13:55-0400 Respiratory rate 12 /min [facility] 09-11-2023 13:55-0400 Systolic blood pressure 166 mm[Hg] [facility] 05-09-2023 11:30-0500 Body height 152.4 cm Max Ball Other [facility] [email or web address] Other 05-09-2023 11:30-0500 Body mass index (BMI) [Ratio] 30.81 kg/m2 Max Ball Other [facility] [email or web address] Other 05-09-2023 11:30-0500 Body weight 71.58 kg Max Ball Other [facility] [email or web address] Other 05-09-2023 11:30-0500 Diastolic blood pressure 77 mm[Hg] Max Ball Other [facility] [email or web address] Other 05-09-2023 11:30-0500 Respiratory rate 12 /min Max Ball Other [facility] [email or web address] Other 05-09-2023 11:30-0500 Systolic blood pressure 146 mm[Hg] Max Ball Other [email or web address] Other 08-03-2022 12:00-0400 Body height 152.4 cm Max Ball Other [email or web address] Other 08-03-2022 12:00-0400 Body mass index (BMI) [Ratio] 31.64 kg/m2 Max Ball Other [email or web address] Other 08-03-2022 12:00-0400 Body weight 73.48 kg Max Ball Other [email or web address] Other 08-03-2022 12:00-0400 Diastolic blood pressure 82 mm[Hg] Max Ball Other [email or web address] Other 08-03-2022 12:00-0400 Respiratory rate 12 /min Max Ball Other [email or web address] Other 08-03-2022 12:00-0400 Systolic blood pressure 137 mm[Hg] Max Ball Other [email or web address] Other 10-20-2021 09:45-0400 Body height 152.4 cm Rosalio Carlock II Other [email or web address] Other 10-20-2021 09:45-0400 Body mass index (BMI) [Ratio] 28.9 kg/m2 Rosalio Carlock II Other [email or web address] Other 10-20-2021 09:45-0400 Body weight 67.13 kg Rosalio Carlock II Other [email or web address] Other 08-10-2021 15:45-0400 Body height 152.4 cm Rosalio Osbaldo II Other [email or web address] Other 08-10-2021 15:45-0400 Body mass index (BMI) [Ratio] 28.9 kg/m2 Rosalio Carlock II Other [email or web address] Other 08-10-2021 15:45-0400 Body weight 67.13 kg Rosalio Carlock II Other [email or web address] Other 08-03-2021 12:00-0400 Body height 152.4 cm Rosalio Carlock II Other [email or web address] Other 08-03-2021 12:00-0400 Body mass index (BMI) [Ratio] 28.9 kg/m2 Rosalio Roblero II Other [email or web address] Other 08-03-2021 12:00-0400 Body weight 67.13 kg Rosalio Roblero II Other [email or web address] Other Encounters Encounter Date Encounter Type Care Provider Facility Start: 01-29-2024 End: 01-29-2024 ambulatory [facility] Work Phone: Start: 01-29-2024 End: 01-29-2024 Patient encounter procedure [facility] Work Phone: Start: 01-11-2024 End: 01-11-2024 ambulatory [facility] Work Phone: Start: 01-11-2024 End: 01-11-2024 Patient encounter procedure [facility] Work Phone: Start: 01-08-2024 Non-patient / Non-visit [facility] [employer] Work Phone: Start: 12-11-2023 End: 12-11-2023 ambulatory [facility] Work Phone: Start: 12-11-2023 End: 12-11-2023 Patient encounter procedure [facility] Work Phone: Start: 09-11-2023 End: 09-11-2023 ambulatory [facility] Work Phone: Start: 09-11-2023 End: 09-11-2023 Patient encounter procedure [facility] Work Phone: Start: 09-10-2023 End: 09-11-2023 ambulatory Jennifer Damon MD Facility: [facility] Start: 08-21-2023 Non-patient / Non-visit [facility] Work Phone: Start: 08-06-2023 End: 08-07-2023 ambulatory Jennifer Damon MD Facility: [facility] Start: 06-18-2023 End: 06-19-2023 ambulatory Andjimmy Damon MD Facility[facility] Start: 05-21-2023 End: 05-22-2023 ambulatory Andjimmy Damon MD Facility:[facility] Start: 05-09-2023 End: 05-09-2023 ambulatory Max Bruce Other [email or web address] Other Start: 05-09-2023 Office outpatient vi sit 25 minutes Max Bruce [facility] Start: 04-16-2023 End: 04-17-2023 ambulatory Jennifer Damon MD Facility:[facility] Start: 03-19-2023 End: 03-20-2023 ambulatory Jennifer Damon MD Facility:[facility] Start: 02-19-2023 End: 02-20-2023 [facility]ulatory [facility] Start: 02-13-2023 End: 02-13-2023 ambulatory Max Bruce Other [email or web address] Other Start: 02-13-2023 Telephone encounter Max RAMIREZ [facility] Start: 02-07-2023 End: 02-07-2023 ambulatory Max Bruce Other [email or web address] Other Start: 02-07-2023 Telephone encounter Max RAMIREZ [facility] Start: 02-01-2023 End: 02-01-2023 ambulatory Max Bruce Other [email or web address] Other Start: 02-01-2023 Telephone encounter Max RAMIREZ [facility] Start: 08-10-2022 End: 08-10-2022 ambulatory Max Bruce Other [email or web address] Other Start: 08-10-2022 Telephone encounter Max Subramanian [facility] Start: 08-03-2022 End: 08-04-[address] MAX BRUCE Facility: Start: 08-03-2022 Patient encounter procedure Max Bruce [facility] Start: 04-14-2022 End: 04-14-2022 ambulatory MAX BRUCE Facility:[facility] Start: 02-06-2022 End: 02-06-2022 ambulatory Rosalio Carlock II Other [email or web address] Other Start: 02-06-2022 Telephone encounter Rosalio Osbaldo II [facility] Start: 01-25-2022 Telephone encounter Yecenia hawkins PA-C Work Phone: [facility] 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: 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 (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 for patient's ortho./) Start: 01-19-2022 End: 01-19-2022 ambulatory Rosalio Carlock II Other [email or web address] Other Start: 01-19-2022 Telephone encounter Rosalio Carlock II [facility] Start: 01-02-2022 End: 01-02-2022 ambulatory Rosalio Osbaldo II Other [email or web address] Other Start: 01-02-2022 Telephone encounter Rosalio Osbaldo II [facility] Start: 11-30-2021 End: 11-30-2021 ambulatory Rosalio Carlock II Other [email or web address] Other Start: 11-30-2021 Telephone encounter Rosalio Carlock II [facility] Start: 11-18-2021 End: 11-18-2021 ambulatory Rosalio Carlock II Other [email or web address] Other Start: 11-18-2021 Office outpatient vi sit 25 minutes Rosalio Osbaldo II [facility] Start: 11-02-2021 End: 11-02-2021 ambulatory ROSALIO OSBALDO [email or web address] Other Start: 11-02-2021 Telephone encounter Rosalio Carlock II [facility] Start: 10-28-2021 End: 10-28-2021 ambulatory Rosalio Osbaldo II Other [email or web address] Other Start: 10-28-2021 Telephone encounter Rosalio Osbaldo II [facility] Start: 10-26-2021 End: 10-26-2021 ambulatory Rosalio M Carlock II Facility:[facility] Start: 10-21-2021 End: 10-21-2021 ambulatory Rosalio Carlock II Other [email or web address] Other Start: 10-21-2021 Telephone encounter Rosalio Carlock II [facility] Start: 10-20-2021 Office outpatient vi sit 25 minutes Rosalio Carlock II [facility] Start: 10-20-2021 End: 10-20-2021 ambulatory Rosalio M Osbaldo II [employer] Other Start: 10-14-2021 End: 10-14-2021 ambulatory Orsalio Carlock II Other [email or web address] Other Start: 10-14-2021 Telephone encounter Rosalio Carlock II [facility] Start: 09-22-2021 End: 09-22-2021 ambulatory Rosalio M Carlock II Facility:[facility] Start: 08-15-2021 End: 08-15-2021 ambulatory Rosalio M Carlock II Facility:[facility] Start: 08-12-2021 End: 08-12-2021 ambulatory Rosalio M Osbaldo II Facility:[facility] Start: 08-10-2021 End: 08-10-2021 ambulatory Rosalio Carlock II Other [email or web address] Other Start: 08-10-2021 Office outpatient vi sit 25 [address]o [address] [facility] Start: 08-03-2021 [facility] visit new patient Rosalio davis II [facility] Start: 08-03-2021 End: 08-03-2021 ambulatory Rosalio Roblero II [email or web address] Other Start: 07-13-2021 Adult health examination Max Bruce Other [email or web address] Other Procedures Date Procedure Procedure Detail Performing Clinician Depression screening Maryanne Bruce Other Plan of Treatment Date Care Activity Detail Author Start: 2022 Influenza vaccination INFLUENZA (#1) [facility] Start: 05-14-2021 ADVANCE DIRECTIVE DISCUSSION ADVANCE DIRECTIVE DISCUSSION [facility] Start: 01-04-2021 COVID-19 VACCINE (3 - Booster for Moderna series) COVID-19 VACCINE (3 - Booster for Moderna series) [facility] Start: 01-13-2004 BONE DENSITY BONE DENSITY [facility] Start: 01-13-2004 PNEUMOCOCCAL: 65+ (1 - PCV) PNEUMOCOCCAL: 65+ (1 - PCV) [facility] Start: 1989 SHINGRIX VACCINE (1 of 2) JAMISON GRIX VACCINE (1 of 2) [facility] Start: 01-13-1984 DIABETES SCREEN DIABETES SCREEN [facility] Start: 1958 Urine microalbumin profile DTAP,TDAP,TD (1 - Tdap) [facility] Comprehensive metabo lic 2000 panel - Serum or Plasma [facility] XR Shoulder - right Views [facility] Immunizations Immunization Date Immunization Notes Care Provider Fa cility 02-05-2023 influenza virus vaccine, unspecified formulation [facility] 02-05-2023 Prevnar 20 Max Bruce Other [facility] 02-05-2023 influenza, high dose seasonal, preservative-free Max Bruce Other [email or web address] Other 04-21-2022 COVID-19 Vaccine Moderna - Documentation Purposes Only Max Bruce Other [facility] 03-11-2022 zoster vaccine recombinant Max Bruce Other [facility] 03-11-2022 zoster vaccine, live Benjami milagros Bruce Other [facility] 02-03-2022 influenza virus vaccine, split virus (incl. purified surface antigen) Max Bruce Other [email or web address] Other 02-03-2022 influenza virus vaccine, unspecified formulation [facility] 02-03-2022 influenza, high dose seasonal, preservative-free Max Bruce Other [employer] Other 07-13-2021 zoster vaccine recombinant Max Bruce Other [facility] 03-31-2021 COVID-19 Vaccine Moderna - Documentation Purposes Only Max Bruce Other [facility] 01-24-2021 influenza virus vaccine, split virus (incl. purified surface antigen) Max Bruce Other [facility] [email or web address] Other 01-24-2021 influenza virus vaccine, unspecified formulation [facility] 08-04-2020 COVID-19 Vaccine Moderna - Documentation Purposes Only Max Bruce Other [facility] 08-03-2020 COVID-19 mRNA-1273 (Moderna) [facility] 07-01-2020 COVID-19 Vaccine Moderna - Documentation Purposes Only Max Bruce Other [facility] 02-03-2020 influenza virus vaccine, split virus (incl. purified surface antigen) Max Bruce Other [facility] [email or web address] Other 02-03-2020 influenza virus vaccine, unspecified formulation [facility] Payers Date Payer Category Payer Private Health Insurance 2021 Private Health Insurance [id number] 2021 Self-pay 2020 Medicare AETNA MEDICARE A ETNA MEDICARE PPO [id number] 2020-Present [phone] [address] [place] [address] PPO [id number] 1960 Medicare [id number] 1940 Unknown [id number] 93 1940 Unknown [id number] [id number] 93 1940 Unknown [id number] 2.16.840.1.984754.3.579.2.1 96 1940 Unknown [id number] 2.16.840.1.682282.3.579.2.1 96 1940 Unknown [id number] 2.16.840.1.801865.3.579.2.1 96 1940 Unknown [id number] 2.16.840.1.819415.3.579.2.1 96 1940 Unknown [id number] 2.16.840.1.440909.3.579.2.1 96 1940 Unknown [id number] 2.16.840.1.241692.3.579.2.1 96 1940 Unknown [id number] 2.16.840.1.744125.3.579.2.1 96 Unknown [id number] 2.16.840.1.818848.3.579.2.5 31 Unknown [id number] 2.16.840.1.245318.3.579.2.5 31 Unknown [id number] 2.16.840.1.305869.3.579.2.5 31 Unknown [id number] 2.16.840.1.960376.3.579.2.5 31 Unknown [id number] 2.16.840.1.879296.3.579.2.5 31 Unknown [id number] 2.16.840.1.346083.3.579.2.5 31 Unknown [id number] 2.16.840.1.501092.3.579.2.5 31 Social History Date Type Detail Facility Sex Assigned At [email or web address] Other Start: 06-22-2020 End: 08-15-2021 Tobacco smoking status IAIS Never smoked tobacco [facility] Start: 06-22-2020 Tobacco use and exposure Smokeless tobacco non-user [facility] Start: 12-16-2020 Alcohol intake Current drinke r of alcohol (finding) [facility] Start: 06-22-2020 History SDOH Alcohol Comment 1 x weekly [facility] Start: 1940 Sex Assigned At Female C [facility] Medical Equipment Procedure Code Equipment Code Equipment Origin al Text Equipment Identifier Dates Lens Iol 0d +19. 5 [facility] Uv Abs - [id number] Start: 08-18-2020 Comment on above: Description: [...] doesn't help can use topical steroid drops [email or web address] Other 10-03-2023 Evaluation note* Encounter Date Diagnosis Assessment Notes Treatment Notes Treatment Clinical Notes Feb, SBE (subacute bacterial endocarditis) prophylaxis candidate (ICD-10 - Z29.89) [email or web address] Other 03-30-2023 Evaluation note* Encounter Date Diagnosis Assessment Notes Treatment Notes Treatment Clinical Notes Jul, SBE (subacute bacterial endocarditis) prophylaxis candidate (ICD-10 - Z29.8) [email or web address] Other 03-23-2023 Evaluation note* Encounter Date Diagnosis [...] High risk medication use (ICD-10 - Z79.899) [email or web address] Other 12-02-2022 NoteHNO ID: [id number] Author: Pedro Goff DO Service: ? Author Type: Physician Type: Progress Notes Filed: 04/14/2022 10:56 AM Note Text: CONSULT ORTHOPAEDIC: HIP PRIMARY CARE PHYSICIAN: Max Bruce DO REFERRING PROVIDER: Rosalio Roblero II [address] [place] [address] [place] [address] HPI: 82-year-old female presents today with right hip pain that has been chronic in nature over the last year and a half but acutely worsened over the last 6 months. 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 She overall uses a walker for ambulation and has significant leg length difference and requires a shoe lift. She states over the last 6 months that her right hip and leg pain is worsening especially after working with physical therapy and was seen in [facility] and recommended nonweightbearing for 6 [...] Kidney Disease, Stage Iii (Moderate) ([facility]) Chronic Kidney Disease, Stage 3 Unspecified ([facility]) History of Total Right Hip Replacement Gastro-Esophageal Reflux Disease With Esophagitis, Without Bleeding SUBJECTIVE CHIEF COMPLAINT: Hip Pain HPI: Norma Brennan is a 82 year old patient here for evaluation and management of Right hip pain.Norma Brennan has had progressive problems with the hip(s) most of the day over the past 6 month(s) interfering with activities which include walking 2 blocks, 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 Appears direct (more content not included)... [facility]12-02-2022 NoteHNO ID: [id number] Author: RT Anthony(R) Service: ? Author Type: [...] IV DATA: Not applicable SIGNED BY: Harini Gaby RT(R) April 14, 2022 8:27 [facility]09-14-2022 Miscellaneous Notes * Telephone Encounter - Carrol Matthew RN - 01/25/2022 12:17 PM EDT Spoke to Pilar, briana Cho only does revisions on his surgical patients or patients with a pathologic or metastatic disease. * Telephone Encounter - Shahana Casillas - 01/25/2022 11:17 AM EDT Please contact Pilar larson/ Dr. Rosalio Flores ([facility]) Looking to discuss patient diagnosis, to see if patient can be seen by Dr Cho Second Opinion ( component loosening and Aseptic) Please dial Pilar [phone] [facility] Evaluation note* Encounter Date Diagnosis Assessment Notes Treatment Notes Treatment Clinical Notes Nov, Right hip pain (ICD-10 - M25.551) Nov, History of total right hip arthroplasty (ICD-10 - Z96.641) Nov, Other I again had a l stan discussion with the patient regarding her symptoms and treatment options. We discussed her lab results from [facility] on 11/02/2021 and they are as follows: [...] to get her in with either the [facility] or [facility] to discuss the possibility of revision because at this point I do not feel that our health system would be the best place for her to get the surgery that may need to be required. Patient understands this and is willing to proceed with the nonweightbearing precautions for another 4 to 6 weeks. [email or web address] Other 06-17-2022 Evaluation note* Encounter Date Diagnosis Assessment Notes Treatment Notes Treatment Clinical Notes Oct, History of total right hip arthroplasty (ICD-10 - Z96.641) [email or web address] Other 06-09-2022 Evaluation note* Encounter Date Diagnosis [...] back after she gets her CT scan. [email or web address] Other 03-30-2022 Evaluation note* Encounter Date Diagnosis [...] the results and treatment plans moving forward. [email or web address] Other 03-23-2022 Evaluation note* Encounter Date Diagnosis [...] see her back after her labs result. [email or web address] Other Evaluation noteNo [facility] [employer] Other Evaluation note* Diagnosis Onset Date Resolution Status Chronic kidney disease acute Chronic venous insufficiency of lower extremity acute LAZARO (generalized anxiety disorder) acute GERD (gastroesophageal reflux disease) acute IFG (impaired fasting glucose) acute Lumbar spondylosis acute RLS (restless legs syndrome) acute Medicare annual wellness visit, subsequent noneactive [facility] Work Phone: Evaluation note* Diagnosis Onset Date Resolution Status Chronic kidney disease acute Chronic venous insufficiency of lower extremity acute LAZARO (generalized anxiety disorder) acute GERD (gastroesophageal reflux disease) acute IFG (impaired fasting glucose) acute Lumbar spondylosis acute Opiate analgesic use agreement exists acute RLS (restless legs syndrome) acute [facility] Work Phone: Evaluation note* Diagnosis Onset Date Resolution Status Chronic kidney disease acute Chronic venous insufficiency of lower extremity acute LAZARO (generalized anxiety disorder) acute GERD (gastroesophageal reflux disease) acute IFG (impaired fasting glucose) acute Lumbar spondylosis acute Opiate analgesic use agreement exists acute RLS (restless legs syndrome) acute Chronic kidney disease acute Lumbar spondylosis acute Melena acute Opiate analgesic use agreement exists acute Primary osteoarthritis of right shoulder acute Right shoulder pain acute RLS (restless legs syndrome) acute [facility] Work Phone: Evaluation note* Diagnosis Onset Date Resolution Status Chronic kidney disease acute Chronic venous insufficiency of lower extremity acute LAZARO (generalized anxiety disorder) acute GERD (gastroesophageal reflux disease) acute IFG (impaired fasting glucose) acute Lumbar spondylosis acute Opiate analgesic use agreement exists acute RLS (restless legs syndrome) acute Chronic kidney disease acute Primary osteoarthritis of right shoulder acute Right shoulder pain acute RLS (restless legs syndrome) acute Chronic kidney disease acute Primary osteoarthritis of right shoulder acute Right shoulder pain acute RLS (restless legs syndrome) acute [facility] Work Phone: History general Narrative - Reported* Type Description Date Medical History chronic depression Medical History anxiety Medical History Acid reflux Surgical History Back surgery Surgical History Hip surgery X5 [id number] Other History general Narrative - Reported* Type [...] FUSION 2014 Hospitalization History see surgical hx [id number] Other Advance Directives Documents on File Type Date 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 Advance Directive(s) 08/18/2020 9:58 AM [...] use agreement exists RLS (restless legs syndrome) Chief Complaint 3 month follow up right shoulder pain Reason for Visit Chronic kidney disea se Chronic venous insufficiency of lower extremity LAZARO (generalized anxiety disorder) GERD (gastroesophageal reflux disease) IFG (impaired fasting glucose) Lumbar spondylosis Opiate analgesic use agreement exists RLS (restless legs syndrome) Chronic kidney disease Lumbar spondylosis Melena Opiate analgesic use agreement exists Primary osteoarthritis of right shoulder Right shoulder pain RLS (restless legs syndrome) Chief Complaint 3 month follow up right shoulder pain right arm pain Reason for Visit Chronic kidney disea se Chronic venous insufficiency of lower extremity LAZARO (generalized anxiety disorder) GERD (gastroesophageal reflux disease) IFG (impaired fasting glucose) Lumbar spondylosis Opiate analgesic use agreement exists RLS (restless legs syndrome) Chronic kidney disease Primary osteoarthritis of right shoulder Right shoulder pain RLS (restless legs syndrome) Chronic kidney disease Primary osteoarthritis of right shoulder Right shoulder pain RLS (restless legs syndrome) Additional Source Comments REASON FOR VISIT (unrecogniz ed section and content) 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 Source Comments (unrecognize d section and content) In the event this informatio n is protected by the Federal Confidentiality of Alcohol and Drug Abuse Patient Records regulations: The Federal rules restrict any use of the information to criminally investigate or prosecute any alcohol or drug abuse patient.[facility] Care Teams (unrecognized sec tion and content) Team Status: Active Member Role Status Dates Max Bruce DO Primary Care Provider Active Team Status: Inactive Member Role Status Dates Max Bruce DO Primary Care Provide r, Attending Provider Active Start: December 11, 2023 End: December 11, 2023 Mandrel Press Hand Relationship Specialty Start Date End Date Max Bruce, DO [address] [facility] [address] PCP - General Internal Medicine 08/18/20 Team Status: Active Member Role Status Dates Max Bruce , Primary Care Provider Active Start: August 21, 2023 ARIAS Abel Attending Provider Active Start : August 21, 2023 Team Status: Inactive Member Role Status Dates Max Bruce DO Primary Care Provide r, Attending Provider Active Start: September 11, 2023 End: September 11, 2023 Team Status: Active Member Role Status Dates Max Bruce DO Primary Care Provide r, Attending Provider Active Start: January 08, 2024 Team Status: Inactive Member Role Status Dates Max Bruce DO Primary Care Provide r, Attending Provider Active Start: January 11, 2024 End: January 11, 2024 Team Status: Inactive Member Role Status Dates Max Bruce , Primary Care Provide r, Attending Provider Active Start: January 29, 2024 End: January 29, 2024 INFORMATION SOURCE (unrecogn ized section and content) DATE CREATED AUTHOR 04/14/2022 [facility] DATE CREATED AUTHOR AUTHOR'S ORGANIZ ATION 06/17/2022 [facility] DATE CREATED AUTHOR AUTHOR'S ORGANIZ ATION 08/07/2022 [facility] DATE CREATED AUTHOR AUTHOR'S ORGANIZ ATION 09/20/2023 [facility] Goals (unrecognized section and content) Goals may [...] BE BASED ON THE PRIMARY CLINICAL RECORDS. [employer] [facility]. provides no warranty or guarantee of the accuracy or completeness of information in this document.
--- NOTE | 2024-01-30 11:14 | XR_ITS ---
The [address] [address] Patient Name: KAM BRENNAN MRN: [id number] date: 1940 Sex: F Assigned Patient Location: [facility] Current Patient Location: Accession/Order Number: [id number] Exam Date: 01/30/2024 11:20 Report Date: 02/01/2024 07:13 At the request of: KRISTI WOOD Procedure: XR shoulder RT min 2V PROCEDURE: XR shoulder RT min 2V COMPARISON: None. HISTORY: right shoulder pain FINDINGS: BONES:No acute fracture or dislocation. The glenohumeral joint are intact. Mild osteoarthropathy SOFT TISSUES:Negative. No visible soft tissue swelling. EFFUSION:None visible. OTHER: Negative. XR/XR shoulder RT min 2V IMPRESSION: Mild osteoarthritis Electronically authenticated by: LUISA BURGOS Date: 02/01/2024 07:13
== END 2024-01-30 11:05 | disposition home or self-care (01) ==
LOC: RAD 11:07
PROVIDERS: PCP Internal Medicine; Visit Provider Internal Medicine
DX: M25.511 Pain in right shoulder (principal); M19.011 Primary osteoarthritis, right shoulder
CPT/HCPCS: 73030

== ENCOUNTER 2024-08-11 11:07 | Observation (INO) | payer MEDICARE, SELFPAY ==
[2024-08-11] VITALS (30 sets, daily range): BP systolic 117–209; BP diastolic 62–101; PULSE 55–86; TEMP 36.4–36.6; O2SAT 87–97; BMI 33.6; BMI 31.1
--- NOTE | 2024-08-11 11:25 | ECG_ITS ---
The [facility] Test Date: 2024-08-11 Pat Name: KAM BRENNAN Department: Room: - Gender: Female Count Room Clerk: : 1940 Requested By: 1030 Order Number: [id number] Reading MD: ALEX ERAZO M.D. Measurements Intervals [place]de Rate: 66 P: 113 ME: 198 QRS: 133 QRSD: 82 T: 158 QT: 378 QTc: 392 Interpretive Statements 1100 Sinus rhythm 5120 Possible right ventricular hypertrophy 0101 Possible arm leads reversed, check lead requested 2777 borderline ECG No previous ECG available for comparison Electronically Signed On 08-11-2024 20:25:47 EDT by ALEX ERAZO M.D.
--- NOTE | 2024-08-11 11:25 | ED_ITS ---
HPI HPI - General Adult General Chief complaint: Shortness of Breath/Dyspnea Stated complaint: SOB WEAKNESS Time Seen by Provider: 08/11/24 11:10 Source: patient Mode of arrival: Wheelchair Limitations: no limitations History of Present Illness HPI narrative: 84-year-old female presented to the emergency department on the advice of her physician. She reported to him today that she had chest pain for about 20 minutes yesterday which went between her shoulders and then that resolved and since then she has been a bit short of breath. She feels off. She has never had any heart or lung issues. She has not had a fever or cough. Related Data Home Medications ?Medication ?Instructions ?Recorded ?Confirmed calcium 600 mg (as 1 tab PO DAILY 02/19/23 09/10/23 carbonate)-vitamin D3 10 mcg (400 unit) tablet (Calcium 600 + D(3)) escitalopram oxalate 20 mg tablet 20 mg PO DAILY 02/19/23 08/11/24 (Lexapro) magnesium 200 mg tablet 400 mg PO DAILY 02/19/23 09/10/23 meloxicam 15 mg tablet 15 mg PO DAILY 02/19/23 08/11/24 omeprazole 40 mg capsule,delayed 40 mg PO DAILY 02/19/23 08/11/24 release fish oil 1 tab PO DAILY 03/09/23 08/11/24 lutein 1 tab PO DAILY 03/09/23 09/10/23 multivitamin 1 tab PO DAILY 03/09/23 09/10/23 potassium 1 tab PO DAILY 03/09/23 09/10/23 vitamin D 1 tab PO DAILY 03/09/23 09/10/23 vitamin c 1 tab PO DAILY 03/09/23 09/10/23 Previous Rx's ?Medication ?Instructions ?Recorded naloxone 4 mg/actuation nasal 4 mg intranasal Q2M #2 ea 04/25/23 spray (Narcan) hydrocodone 5 mg-acetaminophen 325 1 tab PO TID PRN pain #90 tabs 08/21/23 mg tablet hydrocodone 5 mg-acetaminophen 325 1 tab PO Q8H PRN pain #90 tabs 09/20/23 mg tablet Allergies Allergy/AdvReac Type Severity Reaction Status Date / Time adhesive tape Allergy Rash Verified 09/10/23 08:10 oxycodone (From Percocet) AdvReac Mild Agitated Verified 08/11/24 11:57 Opioid HPI Opioid Management Most Recent Opioid Data: Last Pain Scale 0 08/11/24 11:49 08/11/24 Review of Systems ROS Narrative A ten point review of systems is negative except as noted above. PFSH PFSH Medical History Arthritis ?M19.90 - Unspecified osteoarthritis, unspecified site (ICD-10) Lumbar stenosis ?M48.061 - Spinal stenosis, lumbar region without neurogenic claudication (ICD-10) Post laminectomy syndrome ?M96.1 - Postlaminectomy syndrome, not elsewhere classified (ICD-10) Surgical History History of removal of retained hardware ?Z98.890 - Other specified postprocedural states (ICD-10) History of hip surgery ?Z98.890 - Other specified postprocedural states (ICD-10) H/O total hip arthroplasty ?Z96.649 - Presence of unspecified artificial hip joint (ICD-10) History of lumbar fusion ?Z98.1 - Arthrodesis status (ICD-10) Social History Little interest or pleasure in doing things: not at all Feeling down, depressed, or hopeless: not at all Exam Narrative Exam Narrative: Nurses note and vital signs reviewed and patient is not hypoxic. General: The patient appears well and in no apparent distress. Patient is resting comfortably on cart. Skin: Warm, dry, no pallor noted. There is no rash noted. Head: Normocephalic, atraumatic Eye: Normal conjunctiva, no drainage Ears, Nose, Mouth, and Throat: oral mucosa is moist. Nares patent. Cardiovascular: Regular Rate and Rhythm Respiratory: Patient is in no distress, no accessory muscle use, lungs are clear to auscultation, no wheezing, rales or rhonchi Back: non-tender GI: Soft and nontender Musculoskeletal: The patient has no evidence of calf tenderness, no pitting edema, symmetrical pulses noted bilaterally Neurological: A&O, normal speech Psychiatric: Cooperative Constitutional Vital Signs, click to edit/add: Last Vital Signs Temp 97.9 F 08/11/24 11:10 Pulse 86 08/11/24 12:53 Resp 18 08/11/24 12:53 BP 181/95 H 08/11/24 12:30 Pulse Ox 91 L 08/11/24 12:40 O2 Del Method Room Air 08/11/24 11:10 Course Vital Signs Vital signs: Vital Signs Temperature 97.9 F 08/11/24 11:10 Pulse Rate 72 08/11/24 11:10 Respiratory Rate 18 08/11/24 11:10 Blood Pressure 182/98 H 08/11/24 11:10 Pulse Oximetry 97 08/11/24 11:10 Oxygen Delivery Method Room Air 08/11/24 11:10 Temperature 97.9 F 08/11/24 11:10 Pulse Rate 86 08/11/24 12:53 Respiratory Rate 18 08/11/24 12:53 Blood Pressure 181/95 H 08/11/24 12:30 Pulse Oximetry 91 L 08/11/24 12:40 Oxygen Delivery Method Room Air 08/11/24 11:10 Medical Decision Making MDM Narrative Medical decision making narrative: Thus far her workup is negative. Her symptoms however are quite concerning and she has never had chest pain or heart issues. She will be admitted for observation. Treatment diagnosis and disposition were discussed with the patient and her family. Differential Diagnosis Differential Diagnosis: STEMI, NSTEMI, pneumonia, unstable angina Lab Data Lab results reviewed: Yes I reviewed the patient's lab results Labs: Lab Results 08/11/24 Range/Units 11:20 WBC 6.3 (4.0-11.0) 10^3/uL RBC 4.29 (4.20-5.40) 10^6/uL Hgb 13.1 (12.0-16.0) g/dL Hct 39.2 (36.0-48.0) % MCV 91.4 (81.0-99.0) fL MCH 30.5 (26.7-34.0) pg MCHC 33.4 (29.9-35.2) g/dL RDW 14.0 (11.0-15.0) % Plt Count 236 (150-450) 10^3/uL MPV 10.9 (9.5-13.5) fL Neut % (Auto) 64.1 (43.0-75.0) % Lymph % (Auto) 24.8 (20.5-60.0) % [place] % (Auto) 6.7 (1.7-12.0) % Eos % (Auto) 3.7 (0.9-7.0) % Baso % (Auto) 0.5 (0.2-2.0) % Neut # (Auto) 4.0 (1.4-6.5) 10^3/uL Lymph # (Auto) 1.6 (1.2-3.8) 10^3/uL [place] # (Auto) 0.4 (0.3-0.8) 10^3/uL Eos # (Auto) 0.2 (0.0-0.7) 10^3/uL Baso # (Auto) 0.0 (0.0-0.1) 10^3/uL Abs Immat Gran (auto) 0.01 (0.00-0.03) 10^3/uL Imm/Tot Granulo (auto) 0.2 (0.0-0.5) % Sodium 138 (136-145) mmol/L Potassium 4.5 (3.5-5.1) mmol/L Chloride 103 (98-107) mmol/L Carbon Dioxide 26.8 (21.0-32.0) mmol/L Anion Gap 12.7 BUN 24.0 H (7.0-18.0) mg/dL Creatinine 0.93 (0.55-1.02) mg/dL Est GFR ( Amer) >60 (>=60 mL/min/1.73m^2) Est GFR (Non-Af Amer) 57 L (>=60 mL/min/1.73m^2) BUN/Creatinine Ratio 25.8 Glucose 93 (74-106) mg/dL Calcium 9.3 (8.5-10.1) mg/dL Troponin I High Sens 6.6 (4.0-51.3) pg/mL NT-Pro-B Natriuret Pep 339.0 (<=1800.0) pg/mL Imaging Data Chest x-ray: Radiologist's impression: ITS Impressions Chest X-Ray 08/11/24 11:25 IMPRESSION: NO ACUTE FINDINGS. Impression dictated by: Lolis Reddy M.D.08/11/2024 11:43 AM Dictation Location: [place] [address] Electronically authenticated by: [id number] Y Date: 08/11/2024 11:43 ECG Data Attestation: I personally reviewed and interpreted this ECG as follows: (EKG on my interpretation shows normal sinus rhythm with a rate of 66 and no acute change) Discharge Plan Discharge Chief Complaint: Shortness of Breath/Dyspnea Clinical Impression: Chest pain Patient Disposition: Admitted as Observation Time of Disposition Decision: 13:19 Condition: Good
--- NOTE | 2024-08-11 11:25 | XR_ITS ---
The [address] [address] Patient Name: KAM BRENNAN MRN: [id number] date: 1940 Sex: F Assigned Patient Location: ER Current Patient Location: ER Accession/Order Number: [id number] Exam Date: 08/11/2024 11:41 Report Date: 08/11/2024 11:43 At the request of: DARLYN KHAN MD Procedure: XR chest 1V PA CHEST: CLINICAL HISTORY: Chest pain, short of breath COMPARISON: None The heart is normal in size. The aorta is mildly ectatic. No vascular congestion is noted. No consolidation, sizable effusion or pneumothorax is seen. The visualized bony structures are osteopenic. There is dextroscoliotic curvature and endplate spurring. Mild degenerative change is also present at the imaged shoulders. XR/XR chest 1V IMPRESSION: NO ACUTE FINDINGS. Impression dictated by: Lolis Reddy M.D.08/11/2024 11:43 AM Dictation Location: [place] [address] Electronically authenticated by: [id number] Y Date: 08/11/2024 11:43
[2024-08-11 11:43] LABS: Basophils Percent Auto 0.5 % (0.2-2.0); Eosinophils Absolute Auto 0.2 10^3/uL (0.0-0.7); Eosinophils Percent Auto 3.7 % (0.9-7.0); Hematocrit 39.2 % (36.0-48.0); Hemoglobin 13.1 g/dL (12.0-16.0); Immature Granulocytes Abs Auto 0.01 10^3/uL (0.00-0.03); Immature Granulocytes Pct Auto 0.2 % (0.0-0.5); Lymphocytes Absolute Auto 1.6 10^3/uL (1.2-3.8); Lymphocytes Percent Auto 24.8 % (20.5-60.0); Mean Corpuscular HGB Conc 33.4 g/dL (29.9-35.2); Mean Corpuscular Hemoglobin 30.5 pg (26.7-34.0); Mean Corpuscular Volume 91.4 fL (81.0-99.0); Mean Platelet Volume 10.9 fL (9.5-13.5); Monocytes Absolute Auto 0.4 10^3/uL (0.3-0.8); Monocytes Percent Auto 6.7 % (1.7-12.0); Neutrophils Percent Auto 64.1 % (43.0-75.0); Platelet Count 236 10^3/uL (150-450); Red Blood Count 4.29 10^6/uL (4.20-5.40); White Blood Count 6.3 10^3/uL (4.0-11.0)
[2024-08-11 12:03] LABS: Anion Gap 12.7; BUN Creatinine Ratio 25.8; Calcium 9.3 mg/dL (8.5-10.1); Carbon Dioxide 26.8 mmol/L (21.0-32.0); Chloride 103 mmol/L (98-107); Estimated GFR (African America >60 (>=60 mL/min/1.73m^2); Estimated GFR (Non-African Ame 57 (>=60 mL/min/1.73m^2); Glucose 93 mg/dL (74-106); Potassium 4.5 mmol/L (3.5-5.1); Sodium 138 mmol/L (136-145); Troponin I High Sensitivity 6.6 pg/mL (4.0-51.3)
[2024-08-11] MEDS: ASPIRIN 81 MG TAB.CHEW 324 MG PO (13:31)
--- NOTE | 2024-08-11 14:10 | P.HP_ITS ---
HPI H&P: HPI History of Present Illness Chief complaint: SOB WEAKNESS, CHEST PAIN Narrative: Patient presented emergency room with chest pain happened the previous day, nothing today but still has some shortness of breath and feels weak since that time I saw patient up in the medical surgical floor, resting comfortably in bed with no complaints at rest, patient does describe dyspnea with pretty much any activity Opioid HPI Opioid Management Most Recent Pain and Opioid Data: Last Pain Scale 0 08/11/24 11:49 08/11/24 Last Pain Assessment 08/11/24 18:24 Last ORT Total Score 0 08/11/24 14:30 08/11/24 Last ORT Risk Category Low Risk 08/11/24 14:30 08/11/24 Review of Systems ROS Status of ROS Negative 10 or more systems reviewed and unremarkable except as noted in history and below PFSH PFSH Medical History (Updated 08/11/24 @ 13:19 by Onofre Brewer MD) Arthritis ?M19.90 - Unspecified osteoarthritis, unspecified site (ICD-10) Lumbar stenosis ?M48.061 - Spinal stenosis, lumbar region without neurogenic claudication (ICD-10) Post laminectomy syndrome ?M96.1 - Postlaminectomy syndrome, not elsewhere classified (ICD-10) Surgical History (Updated 08/11/24 @ 14:25 by Jocy Pendleton) H/O varicose vein ligation ?Z98.890 - Other specified postprocedural states (ICD-10) ?Z86.79 - Personal history of other diseases of the circulatory system (ICD- 10) History of removal of retained hardware ?Z98.890 - Other specified postprocedural states (ICD-10) History of hip surgery ?Z98.890 - Other specified postprocedural states (ICD-10) H/O total hip arthroplasty ?Z96.649 - Presence of unspecified artificial hip joint (ICD-10) History of lumbar fusion ?Z98.1 - Arthrodesis status (ICD-10) Family History (Updated 08/11/24 @ 14:26 by Jocy Pendleton) Father Family history of CHF (congestive heart failure) Family history of hypertension Grandmother Family history of cancer Social History (Updated 08/11/24 @ 14:42 by Jocy Pendleton) Within the past year, how often did you have a drink containing alcohol: monthly or less Within the past year, how often did you have six or more drinks on one occasion: never Smoking status: Never smoker Non-prescribed substance use: denies use Previous occupational history: retired Highest level of school completed/degree received: high school graduate In a typical week, how many times do you talk on the telephone with family, friends, or neighbors: 3 or more times per week How often do you get together with friends or relatives: 3 or more times per week How often do you attend buddhism or yazidism services: 1-3 times per year Do you belong to any clubs or organizations such as buddhism groups unions, [employer] or athletic groups, or school groups: no Little interest or pleasure in doing things: not at all Feeling down, depressed, or hopeless: not at all Feel stressed/tense/nervous/anxious/difficulty sleeping: not at all Gender Identity: female Meds Home Medications and Allergies Home Medications ?Medication ?Instructions ?Recorded ?Confirmed ?Type calcium 600 mg (as 1 tab PO DAILY 02/19/23 08/11/24 History carbonate)-vitamin D3 10 mcg (400 unit) tablet (Calcium 600 + D(3)) escitalopram oxalate 20 mg tablet 20 mg PO DAILY 02/19/23 08/11/24 History (Lexapro) magnesium 200 mg tablet 400 mg PO DAILY 02/19/23 08/11/24 History meloxicam 15 mg tablet 15 mg PO DAILY 02/19/23 08/11/24 History omeprazole 40 mg capsule,delayed 40 mg PO DAILY 02/19/23 08/11/24 History release fish oil 1 tab PO DAILY 03/09/23 08/11/24 History lutein 1 tab PO DAILY 03/09/23 08/11/24 History multivitamin 1 tab PO DAILY 03/09/23 08/11/24 History potassium 1 tab PO DAILY 03/09/23 08/11/24 History vitamin c 1 tab PO DAILY 03/09/23 08/11/24 History hydrocodone 5 mg-acetaminophen 325 1 tab PO TID PRN pain #90 tabs 08/21/23 08/11/24 Rx mg tablet naloxone 4 mg/actuation nasal 4 mg intranasal Q2M PRN opioid 08/11/24 08/11/24 History spray (Narcan) overdose ropinirole 0.25 mg tablet 0.25 mg PO QPM 08/11/24 08/11/24 History Allergies Allergy/AdvReac Type Severity Reaction Status Date / Time adhesive tape Allergy Rash Verified 09/10/23 08:10 oxycodone (From Percocet) AdvReac Mild Agitated Verified 08/11/24 11:57 Exam Constitutional Vital Signs, click to edit/add: Last Vital Signs Temp 97.9 F 08/11/24 11:10 Pulse 71 08/11/24 13:30 Resp 19 08/11/24 13:30 BP 164/91 H 08/11/24 13:30 Pulse Ox 95 08/11/24 13:30 O2 Del Method Room Air 08/11/24 11:10 Documenting provider has reviewed patient's vital signs: yes Common normals: no apparent distress Chest Common normals: inspection of chest normal Respiratory Common normals: normal respiratory effort and no retractions Cardio Common normals: regular rate and regular rhythm GI Common normals: Normal to inspection, nondistended, normoactive bowel sounds present Extremity Common normals: normal to inspection and no clubbing, cyanosis or edema Results Labs Labs: Short CBC 08/11/24 Range/Units 11:20 WBC 6.3 (4.0-11.0) 10^3/uL Hgb 13.1 (12.0-16.0) g/dL Hct 39.2 (36.0-48.0) % Plt Count 236 (150-450) 10^3/uL BMP 08/11/24 11:20 Sodium 138 Potassium 4.5 Chloride 103 Carbon Dioxide 26.8 BUN 24.0 H Creatinine 0.93 Glucose 93 Calcium 9.3 Assessment and Plan Assessment and Plan (1) Chest pain: (2) Restless leg syndrome: (3) Lumbar postlaminectomy syndrome: Plan Admission findings: Uncontrolled hypertension, rest of labs essentially unremarkable other than mild elevation in BUN, patient with a history of chest pain admitted overnight for observation to rule out myocardial ischemia Chest pain-check echocardiogram, repeat cardiac markers in a.m., consider cardiology consult based on results Uncontrolled hypertension-so far improved Lumbar radiculopathy-continue with home medications Depression-continue with home medications Hypomagnesemia-continue with home medications GERD continue with home medications Restless leg syndrome-continue with home medications Admission status: Patient admitted with chest pain, to rule out myocardial ische ashley, echocardiogram pending, medically necessary treatment would likely only span 1 midnight, observation status
[2024-08-11 14:48] LABS: Troponin I High Sensitivity 6.8 pg/mL (4.0-51.3)
[2024-08-11] MEDS: METOPROLOL TARTRATE 25 MG TABLET PO ×2 (15:06→20:42)
[2024-08-11] MEDS: ISOSORBIDE MONONITRATE 30 MG TAB.ER.24H PO (15:06)
--- NOTE | 2024-08-11 16:07 | SWNOTE1 ---
Medicare Outpatient Observation Notice reviewed and discussed with patient. Pt. verbalized understanding and signed the form. Original given to patient and copy placed in patient?s chart.
--- NOTE | 2024-08-11 16:07 | SWNOTE1 ---
SW met with pt to discuss dc needs. Pt's son was in room as well. Pt lives at home alone (with dog and cat). She uses a cane or walker, depending on where she is going. Pt does still drives and cooks herself and does her own grocery shopping. Pt has no services coming in at this time. No anticipated discharge needs.
[2024-08-11 17:50] LABS: Troponin I High Sensitivity 7.9 pg/mL (4.0-51.3)
[2024-08-11] MEDS: HYDROCODONE/ACET 5-325 MG TABLET 1 TAB PO (20:42)
[2024-08-11] MEDS: ROPINIROLE HCL 0.25 MG TABLET PO (20:42)
[2024-08-12] VITALS (11 sets, daily range): BP systolic 144–161; BP diastolic 71–82; PULSE 52–68; TEMP 36.3–36.9; O2SAT 91–93
[2024-08-12] MEDS: ACETAMINOPHEN 500 MG TABLET 1000 MG PO (03:49)
[2024-08-12 05:54] LABS: Basophils Percent Auto 0.4 % (0.2-2.0); Eosinophils Absolute Auto 0.3 10^3/uL (0.0-0.7); Hematocrit 35.4 % (36.0-48.0); Hemoglobin 11.6 g/dL (12.0-16.0); Immature Granulocytes Abs Auto 0.01 10^3/uL (0.00-0.03); Immature Granulocytes Pct Auto 0.1 % (0.0-0.5); Lymphocytes Absolute Auto 1.6 10^3/uL (1.2-3.8); Lymphocytes Percent Auto 23.2 % (20.5-60.0); Mean Corpuscular HGB Conc 32.8 g/dL (29.9-35.2); Mean Corpuscular Hemoglobin 30.1 pg (26.7-34.0); Mean Corpuscular Volume 91.7 fL (81.0-99.0); Mean Platelet Volume 10.3 fL (9.5-13.5); Monocytes Absolute Auto 0.6 10^3/uL (0.3-0.8); Monocytes Percent Auto 8.7 % (1.7-12.0); Neutrophils Absolute Auto 4.3 10^3/uL (1.4-6.5); Neutrophils Percent Auto 63.6 % (43.0-75.0); Platelet Count 209 10^3/uL (150-450); Red Blood Count 3.86 10^6/uL (4.20-5.40); Red Cell Distribution Width 13.8 % (11.0-15.0); White Blood Count 6.8 10^3/uL (4.0-11.0)
[2024-08-12 06:17] LABS: Anion Gap 13.6; Calcium 9.1 mg/dL (8.5-10.1); Carbon Dioxide 28.9 mmol/L (21.0-32.0); Chloride 105 mmol/L (98-107); Estimated GFR (African America >60 (>=60 mL/min/1.73m^2); Estimated GFR (Non-African Ame 53 (>=60 mL/min/1.73m^2); Glucose 95 mg/dL (74-106); Potassium 4.5 mmol/L (3.5-5.1); Sodium 143 mmol/L (136-145); Troponin I High Sensitivity 7.5 pg/mL (4.0-51.3)
[2024-08-12] MEDS: ASCORBIC ACID 500 MG TABLET PO (08:28)
[2024-08-12] MEDS: MAGNESIUM OXIDE 400 MG TABLET PO (08:28)
[2024-08-12] MEDS: FISH OIL 1,000 MG CAPSULE 1000 MG PO (08:28)
[2024-08-12] MEDS: MELOXICAM 7.5 MG TABLET 15 MG PO (08:28)
[2024-08-12] MEDS: ASPIRIN 81 MG TABLET.DR PO (08:28)
[2024-08-12] MEDS: ESCITALOPRAM 10 MG TABLET 20 MG PO (08:28)
[2024-08-12] MEDS: OMEPRAZOLE 20 MG CAPSULE.DR 40 MG PO (08:28)
[2024-08-12] MEDS: METOPROLOL TARTRATE 25 MG TABLET PO (08:29)
[2024-08-12] MEDS: ISOSORBIDE MONONITRATE 30 MG TAB.ER.24H PO (08:29)
--- NOTE | 2024-08-12 11:14 | CM.NOTE ---
Rounds made with Dr. Pepe, pt will discharge to home. Dr. Pepe discussed lab work and diagnosis, talked with pt regarding need for outpatient stress that would be ordered by PCP. Pt will f/u with PCP at discharge.
--- NOTE | 2024-08-12 11:29 | PM.DS1 ---
DS: Providers Provider Date of admission: 08/11/24 14:09 Primary care physician: Max Bruce DO Consults: 08/11/24 14:10 Consult to Pharmacy Routine Consulting Provider: Reason for consultation: Please Soddy Daisy me when Med Rec is Updated Has provider been notified: No Occupational Therapy Eval and Treat Routine Reason for consultation: Only if needed for Rehab Has provider been notified: No Physical Therapy Eval and Treat Routine Reason for consultation: Eval and Treat Has provider been notified: No DS: Diagnosis Discharge Diagnosis (1) Chest pain: (2) Restless leg syndrome: (3) Lumbar spondylosis: DS: Summary Hospital Course Hospital Course: Reason for admission: See ER note and H&P for details. 84 y/o female sent from PCP office for chest pain and not feeling well. Reports day prior episode of pain in chest and between scapula. Pain lasted about 30 minutes and resolved. Next am woke up and felt off. Mild SOB with exertion and weakness. Directed to ER and CE negative. EKG without change. Admitted for monitoring. Hospital course: Did well in hospital. No further chest pain. CE negative and EKG without change. Ambulated with PT and did well. No further SOB or weakness. History of chronic back pain but stable. Discharged home in stable condition. Follow up with PCP in 1-2 weeks and likely will need outpatient stress test. Resume home medication without change. Time Spent with Patient Time attestation: Total time spent providing and/or coordinating discharge services: Time spent: greater than 30 minutes Exam Constitutional Vital Signs, click to edit/add: Last Vital Signs Temp 98.5 F 08/12/24 07:22 Pulse 62 08/12/24 10:00 Resp 20 08/12/24 07:22 BP 144/71 H 08/12/24 10:58 Pulse Ox 92 L 08/12/24 07:22 O2 Del Method Room Air 08/12/24 07:22 O2 Flow Rate 57 08/11/24 16:43 Documenting provider has reviewed patient's vital signs: yes Common normals: no apparent distress, oriented x3 and alert HENMT Common normals: normocephalic Eye Common normals: PERRL and EOMs intact bilaterally Respiratory Common normals: normal respiratory effort and clear to auscultation bilaterally Cardio Common normals: regular rate, regular rhythm, no gallops, no murmurs and no rub GI Common normals: Normal to inspection, nondistended, normoactive bowel sounds present and non-tender Extremity Common normals: no pedal edema DS: Data Data Completed and Pending Labs on day of discharge: Labs from last 24 hours 08/12/24 08/11/24 08/11/24 05:36 17:16 14:25 WBC 6.8 RBC 3.86 L Hgb 11.6 L Hct 35.4 L MCV 91.7 MCH 30.1 MCHC 32.8 RDW 13.8 Plt Count 209 MPV 10.3 Neut % (Auto) 63.6 Lymph % (Auto) 23.2 [place] % (Auto) 8.7 Eos % (Auto) 4.0 Baso % (Auto) 0.4 Neut # (Auto) 4.3 Lymph # (Auto) 1.6 [place] # (Auto) 0.6 Eos # (Auto) 0.3 Baso # (Auto) 0.0 Abs Immat Gran (auto) 0.01 Imm/Tot Granulo (auto) 0.1 Sodium 143 Potassium 4.5 Chloride 105 Carbon Dioxide 28.9 Anion Gap 13.6 BUN 18.0 Creatinine 1.00 Est GFR ( Amer) >60 Est GFR (Non-Af Amer) 53 L BUN/Creatinine Ratio 18.0 Glucose 95 Calcium 9.1 Magnesium 2.0 Troponin I High Sens 7.5 7.9 6.8 NT-Pro-B Natriuret Pep 464.0 08/11/24 11:20 WBC 6.3 RBC 4.29 Hgb 13.1 Hct 39.2 MCV 91.4 MCH 30.5 MCHC 33.4 RDW 14.0 Plt Count 236 MPV 10.9 Neut % (Auto) 64.1 Lymph % (Auto) 24.8 [place] % (Auto) 6.7 Eos % (Auto) 3.7 Baso % (Auto) 0.5 Neut # (Auto) 4.0 Lymph # (Auto) 1.6 [place] # (Auto) 0.4 Eos # (Auto) 0.2 Baso # (Auto) 0.0 Abs Immat Gran (auto) 0.01 Imm/Tot Granulo (auto) 0.2 Sodium 138 Potassium 4.5 Chloride 103 Carbon Dioxide 26.8 Anion Gap 12.7 BUN 24.0 H Creatinine 0.93 Est GFR ( Amer) >60 Est GFR (Non-Af Amer) 57 L BUN/Creatinine Ratio 25.8 Glucose 93 Calcium 9.3 Magnesium Troponin I High Sens 6.6 NT-Pro-B Natriuret Pep 339.0 Discharge Plan Discharge Disposition: Home, Self-Care Condition: Good Discharge Medications: Continued meloxicam 15 mg tablet 15 mg PO DAILY omeprazole 40 mg capsule,delayed release(DR/EC) 40 mg PO DAILY escitalopram oxalate [Lexapro] 20 mg tablet 20 mg PO DAILY calcium carbonate-vitamin D3 [Calcium 600 + D(3)] 600 mg-10 mcg (400 unit) tablet 1 tab PO DAILY magnesium 200 mg tablet 400 mg PO DAILY multivitamin Tablet 1 tab PO DAILY lutein 1 tab PO DAILY fish oil 1 tab PO DAILY vitamin c 1 tab PO DAILY potassium 1 tab PO DAILY hydrocodone-acetaminophen 5-325 mg tablet 1 tab PO TID PRN (Reason: pain) Qty: 90 0RF Rx Instructions: MUST LAST 30 DAYS ropinirole 0.25 mg tablet 0.25 mg PO QPM naloxone [Narcan] 4 mg/actuation spray,non-aerosol 4 mg intranasal Q2M PRN (Reason: opioid overdose) Rx Instructions: spray 1 dose into ONE nostril; alternate nostrils w each dose until help arrives Activity: resume usual activities as tolerated Diet: advance to your usual diet Print Language: Yi Patient Instructions: Chest Pain (DC) Forms: Portal Instructions Follow Up Appointments: August 15 @ 10:30am with Dr. Bruce [phone]
--- NOTE | 2024-08-12 14:10 | CA_ITS ---
Patient Name: KAM BRENNAN MR#: [id number] : 1940 Exam Date: 08/12/2024 Ordering Doctor: DR Eros Vasquez . ECHOCARDIOGRAM REPORT PROCEDURE: CA ECHO DOPPLER COMPLETE INDICATIONS: Chest pain COMPARISON: None. DESCRIPTION: COMPLETE ECHOCARDIOGRAM Real-time transthoracic echocardiography with 2D, M-mode, spectral and color flow Doppler performed. QUALITY: Technical quality was good. LEFT VENTRICLE: Normal chamber size. Normal left ventricular wall thickness. Normal systolic function. LV EF: Normal left ventricular ejection fraction, (>55%). DIASTOLIC: Diastolic function is indeterminate. ATRIAL SEPTUM: LEFT ATRIUM: Normal chamber size. RIGHT ATRIUM: Normal chamber size. RIGHT VENTRICLE: Normal chamber size. Normal right ventricular systolic function. TRICUSPID VALVE: Normal mobility and thickness. No stenosis with mild regurgitation. No evidence of pulmonary hypertension. RVSP 29 mmHg MITRAL VALVE: Normal mobility and thickness. No evidence of mitral valve stenosis. There is mild mitral annular calcification. No mitral regurgitation. AORTIC VALVE: Normal trileaflet appearance. Mildly calcified aortic valve. Normal leaflet mobility. No evidence of aortic valve stenosis. Trivial aortic regurgitation. AORTIC ROOT: Aortic root is normal in size (3.9 cm). Ascending aorta is normal in size (3.5 cm). PULMONIC VALVE: Normal thickness and mobility. No stenosis. Trivial regurgitation. PERICARDIUM: No evidence of pericardial effusion. IVC: Not well visualized. PLEURA: CONCLUSION: 1. Normal ventricular size and systolic function. Estimated LVEF is 60 to 65%. 2. No significant valvular dysfunction. 3. Normal right-sided pressures. Adult Echocardiography Procedure Report Left Ventricle LVEDD (3.7 - 5.6 cm): 4.40 cm LVESD (2.2 - 4.0 cm): 3.01 cm LVIVS thickness (0.6 - 1.2 cm): 0.96 cm LVPW thickness (0.5 - 1.0 cm): 0.87 cm e': 0.06 m/s E - e': 7.35 LVOT Max Gradient: 1.93 mm[Hg] LVOT Area (cm2): 0.69 m/s Peak Velocity (LVOT): 0.69 m/s Mean Velocity (LVOT): 0.47 m/s LVOT Diameter 2.63 cm Left Atrium LA Volume Index (2D A2C): 32.61 ml/m2 Left Atrium Systolic Dimension: 3.35 cm Mitral Valve MV E to A Ratio: 0.63 Mitral Valve A-Wave Peak Velocity: 0.72 m/s Mitral Valve E-Wave Peak Velocity: 0.45 m/s Right Ventricle Aorta AO Root Diam: 3.86 cm Ascending Ao Diam: 3.52 cm Aortic Valve AoV Area (Peak Grady): 3.35 cm2, 3.35 cm2 AoV Area (VTI): 2.91 cm2, 2.91 cm2 Peak Velocity(Antegrade Flow): 1.12 m/s Peak Gradient(Antegrade Flow): 5.04 mm[Hg] Mean Velocity(Antegrade Flow): 0.79 m/s Mean Gradient(Antegrade Flow): 2.89 mm[Hg] Velocity Time Integral: 25.83 cm Tricuspid Valve Peak Velocity (Regurgitant Flow): 2.55 m/s Pulmonic Valve Mean Gradient: 1.61 mm[Hg] Mean Velocity: 0.57 m/s Peak Velocity: 1.02 m/s, 1.04 m/s Peak Gradient: 4.31 mm[Hg], 4.14 mm[Hg] Right Atrium Dictated by: Moshe Padilla M.D. on 08/12/2024 at 17:16 Approved by: Moshe Padilla M.D. on 08/12/2024 at 17:20
== END 2024-08-12 12:52 | disposition home or self-care (01) ==
LOC: ER 13:19 → MS 14:12
PROVIDERS: Admitting Provider Family Medicine; Emergency Provider Emergency Medicine; PCP Internal Medicine; Visit Provider Family Medicine
DX: R07.9 Chest pain, unspecified (principal); R06.02 Shortness of breath; Z98.1 Arthrodesis status; Z96.649 Presence of unspecified artificial hip joint; R53.1 Weakness; G25.81 Restless legs syndrome; M96.1 Postlaminectomy syndrome, not elsewhere classified; I10 Essential (primary) hypertension; F32.A Depression, unspecified; E83.42 Hypomagnesemia; K21.9 Gastro-esophageal reflux disease without esophagitis; M47.26 Other spondylosis with radiculopathy, lumbar region
CPT/HCPCS: 36415; 71045; 80048; 83735; 83880; 84484; 85025; 93005; 93306; 94761; 97161; 97165; 97535; 99285; G0378